=== PATIENT | female | born 1965 | race Caucasian/White ===

== ENCOUNTER 2016-04-07 05:00 | Inpatient (IN) | payer OTHER, SELFPAY ==
[~2016-04-07] VITALS: Ht 175.3 cm; Wt 115.2 kg
[2016-04-07] VITALS (8 sets, daily range): BP systolic 132–176; BP diastolic 71–89
[2016-04-07] MEDS: NS 1,000 ML IV SCH ×3 (02:42→15:52)
[~2016-04-07 05:00] MED LIST: /MOXI40TA PO; ALBU0.084 IN; ALBU17IN INH; ALBU83IN INH; ALBUTEROL INHL INH; ALLE180T33 PO; ALPR0.25 PO; ATOR1TAB19 PO; AZEL0.1S3; BREO1INH3 INH; BRIO INH; CEFD1CAP8 PO; ELIQ5TAB PO; FARX1TAB2 PO; FENO134C PO; FISH1000 PO; FLON1SPR; GLIM1TAB PO; GLYB5TA PO; INSULANT SC; LISI5TAB PO; LOPR1TAB6 PO; METF1000 PO; MULT1TAB8 PO; NOVOINJ3 SC; PRED10TA PO; ROBISYP5 PO; SIMV40TA2 PO; TIZA2TA PO; TRAM50TA2 PO; TYLE325T5 PO; VICT18IN SC; XANA0.25 PO; XYZA5TAB2 PO; z-pack
[2016-04-07] MEDS ORDERED: MORPHINE 4 MG/ML 1ML SYRINGE As Ordered ONE ×2 (07:07→08:41)
[2016-04-07] MEDS ORDERED: ONDANSETRON 4MG/2ML VIAL (J2405) As Ordered ONE ×2 (07:07→17:32)
[2016-04-07 07:11] LABS: BASO % 0.3 % (0.0-1.0); EOS # 0.1 K/mm3 (0.0-0.50); EOS % 1.1 % (0.0-3.0); LARGE UNSTAINED CELL # 0.2 K/mm3 (0.0-0.4); LYMPH # 1.5 K/mm3 (1.5-4.5); LYMPH % 12.2 % (24.0-44.0); MEAN CORPUSCULAR HEMOGLOBIN 29.2 pg (27.0-33.0); MEAN CORPUSCULAR HGB CONC 32.8 g/dl (32.0-36.5); MEAN CORPUSCULAR VOLUME 89.2 fl (80.0-96.0); MONO # 0.5 K/mm3 (0.0-0.8); NEUTROPHILS # 9.7 K/mm3 (1.8-7.7); NEUTROPHILS % 80.6 % (36.0-66.0); PLATELET COUNT, AUTOMATED 343 k/mm3 (150-450); RED CELL DISTRIBUTION WIDTH 12.3 % (11.5-14.5)
[2016-04-07 07:24] LABS: ALBUMIN 2.8 GM/DL (3.2-5.2); ALBUMIN/GLOBULIN RATIO 0.62 (1.00-1.93); ALKALINE PHOSPHATASE 105 U/L (45-117); ALT/SGPT 11 U/L (12-78); AMYLASE 14 U/L (25-115); ANION GAP 11 MEQ/L (8-16); AST/SGOT 7 U/L (15-37); BILIRUBIN,DIRECT < 0.1 MG/DL (0.0-0.2); BILIRUBIN,TOTAL 0.2 MG/DL (0.2-1.0); BLOOD UREA NITROGEN 17 MG/DL (7-18); CALCIUM LEVEL 8.3 MG/DL (8.5-10.1); CARBON DIOXIDE LEVEL 23 MEQ/L (21-32); CHLORIDE LEVEL 102 MEQ/L (98-107); CREATININE FOR GFR 0.63 MG/DL (0.55-1.02); GLOMERULAR FILTRATION RATE > 60.0 (>51); GLUCOSE, FASTING 329 MG/DL (70-105); POTASSIUM SERUM 4.4 MEQ/L (3.5-5.1); SODIUM LEVEL 136 MEQ/L (136-145); TOTAL PROTEIN 7.3 GM/DL (6.4-8.2)
[2016-04-07 07:31] LABS: THYROXINE (T4) 10.9 UG/DL (4.5-12.0)
--- NOTE | 2016-04-07 09:14 | REP ---
Clinical: Left-sided pain. Findings: Left kidney demonstrates edematous enlargement along with moderate perinephric stranding, hydronephrosis, forming intra renal staghorn calculus measuring roughly 22 mm as well as 10 mm lower pole calculus and small foci of gas in the upper pole pole calyceal collecting system. Perinephric adenopathy is also appreciated with lymph nodes measuring up to 18 mm. The left ureter is normal caliber without obstruction no bladder calculi are identified although small focus of gas is also identified in the nondependent portion of the bladder and possibly related to prior instrumentation or [place] catheterization. Differential diagnosis includes acute pyelonephritis and emphysematous pyelonephritis if the above mentioned gas is not related to prior instrumentation. The right kidney and ureter are normal. Liver, spleen, pancreas, gallbladder, and bilateral adrenal glands are normal for noncontrast evaluation. The enteric system is without obstruction or acute inflammatory process. Scattered colonic and sigmoid diverticula noted without acute diverticulitis. Pelvis demonstrates relatively normal bladder and age-appropriate uterus/adnexa. No pelvic fluid or ascites. No free air. Vasculature is grossly normal. Musculoskeletal structures demonstrate age-related degenerative changes. Acute left lower lobe and lingular consolidations are noted. Impression: 1. Left renal findings as detailed above are most compatible with acute pyelonephritis verses emphysematous pyelonephritis. Intrarenal calculi up to 22 mm may cause intermittent UPJ obstruction related to the inflammatory changes. 2. Left lower lobe and lingular consolidations. 3. Diverticulosis without acute diverticulitis. Signed by Myke Agarwal MD 04/07/2016 09:06 A
[2016-04-07] MEDS ORDERED: PRIMAXIN IV 500 MG VIAL As Ordered ONE (10:23)
[2016-04-07 11:06] LABS: INR 0.96
[2016-04-07] MEDS ORDERED: ONDANSETRON 4MG/2ML VIAL (J2405) IV PRN ×2 (11:15→18:45)
[2016-04-07] MEDS ORDERED: ACETAMINOPHEN TAB 650MG DOSE (2X325MG) PO PRN (11:15)
--- NOTE | 2016-04-07 11:15 | REP ---
Clinical: Shortness of breath. Comparison: 03/09/2016. Findings: Left lower lobe opacity. Mediastinum and cardiac silhouette are stable. The remainder of lung renteria are well-aerated and clear. No pneumothorax. Skeletal structures stable. Impression: Left lower lobe opacity suggesting consolidation and/or pleural effusion. Signed by Myke Agarwal MD 04/07/2016 11:06 A
[2016-04-07] MEDS ORDERED: INSUH10VL SC (11:16)
[2016-04-07] MEDS ORDERED: XARE20TA PO (11:16)
[2016-04-07] MEDS ORDERED: ACET50TAOT PO (11:16)
[2016-04-07] MEDS ORDERED: METO50TA2 PO (11:16)
[2016-04-07] MEDS ORDERED: VANCOMYCIN HCL 1,000 MG, VIAL MATE ADAPTER 1 EACH in D5W 250 ML IV SCH (11:45)
[2016-04-07 11:57] LABS: VENOUS BASE EXCESS -1.3 (-2.0-2.0); VENOUS O2 SATURATION 90.8 % (60.0-80.0); VENOUS PARTIAL PRESSURE CO2 41.6 mmHg (38.0-50.0); VENOUS PARTIAL PRESSURE O2 63.9 mmHg (30.0-50.0); VENOUS STANDARD HCO3 23.3 MEQ/L; VENOUS TOTAL CO2 25.1 MEQ/L (24.0-28.0)
[2016-04-07] MEDS ORDERED: PANTOPRAZOLE 40MG INJ (PROTONIX) (C9113) As Ordered ONE (13:27)
[2016-04-07] MEDS ORDERED: SODIUM CHLORIDE 0.9% 1000 ML IV ONE ×2 (13:30→14:30)
[2016-04-07] MEDS ORDERED: MORPHINE 2 MG/ML 1ML SYRINGE As Ordered ONE (13:31)
[2016-04-07] MEDS: PANTOPRAZOLE 40MG INJ (PROTONIX) (C9113) IV SCH (13:35)
[2016-04-07] MEDS: MORPHINE 2 MG/ML 1ML SYRINGE IV PRN ×2 (13:35→19:51)
--- NOTE | 2016-04-07 13:46 | PHACANCOPD ---
PHARMACY VANCOMYCIN DOSING Pt Demographics Demographics Patient Age:50 , Weight:113.400 , Gender: female Adjusted Body Weight Date: 04/07/16, Adjusted Body Weight: [85.08] Kg Events Past 24 Hours Events Past 24 Hours: YES: Elevation in WBC, Other (Chest Xray LLL opacity), Pending Diagnostics Vancomycin Vancomycin indication: hcap Vancomycin Target Ranges: 15-20 mcg/ml Vancomycin Load Y/N: Yes Load Dose Date Time Vancomycin Load Dose: 2g Date: 04/07/16 Time: 1500 Vancomycin Dose Date: 04/07/16. Current Vancomycin Dose: [1g IV Q8H] Intermittent Dosing?: No Labs Labs Item Value Date Time White Blood Count 12.0 K/mm3 H 04/07/16 0635 Creatinine 0.63 MG/DL 04/07/16 0635 Micro Microbiology 04/07/16 Blood Culture, Received Pending 04/07/16 Blood Culture, Received Pending 04/07/16 Influenza Virus Type A Antigen - Final, Complete 04/07/16 Influenza Virus Type B Antigen - Final, Complete 04/07/16 Urine Culture, Received Pending Creatinine Clearance Date:04/07/16. Estimated Creatinine Clearance: [> 100 ml/min]. Pending Labs Vancomycin trough scheduled 04/08/16 @1400 Assessment and Plan Maintaining Current Dose?: Yes Reason for dose change: No Dose Change Pharmacist Note Pharmacist Note Date: 04/07/16. Pharmacist note: Day #1 empiric cefepime + vancomycin initiated with a 2g loading dose 04/07/16 @1500 followed by a maintenance regimen of 1g IV Q8H for the treatment of HCAP - aiming for a goal trough of 15-20 mcg/ml. No PMH of MRSA or vanco use here at [facility]. Patient is currently afebrile with an elevated WBC. CXR indicative of LLL opacity. Urine and blood cultures are currently pending. A vanco trough has been scheduled for 04/08/16 @ 1400, prior to the fourth dose. We will continue to monitor and make adjustments as needed. [facility] Apr 07, 2016 13:46
[2016-04-07] MEDS ORDERED: CEFEPIME HCL 2 GM in D5W MINI-BAG PLUS 50 ML IV SCH (14:00)
[2016-04-07] MEDS: VANCOMYCIN HCL 1,000 MG, VIAL MATE ADAPTER 1 EACH in D5W 250 ML IV SCH ×3 (15:52→23:32)
--- NOTE | 2016-04-07 16:33 | EDDOCDS ---
Nurse's Notes [facility] Name: Dora Osorio Age: 50 yrs Sex: Female : 1965 Arrival Date: 04/07/2016 Time: 05:00 Bed Admit Hold Private MD: Diagnosis: Urinary tract infection, site not specified-emphysematous pyelonepritis;Pneumonia due to other specified bacteria Presentation: 04/07 05:14 Presenting complaint: Patient states: Left flank pain that began at 0300 this morning lf1 and is currently 10/10 with nausea. Denies burning with urination. Acute neurological deficits are not present. Mechanism of Injury: No Mechanism of Injury. 05:14 Acuity: EDDIE Level 3 lf1 05:14 Presenting complaint: Patient states: Pt reports that she now has left chest pain that lf1 is 6/10 and is reproducible, does not radiate. Adult Sepsis Screening: The patient does not have new or worsening altered mentation. Patient has a respiratory rate of greater than or equal to 22 (1 point). Systolic blood pressure is greater than 100. Patient has a qSOFA score of 1- Negative Sepsis Screen. Suicide/Homicide risk assessment- the patient denies having any suicidal and/or homicidal ideations and does not present with any other emotional, behavioral or mental health complaints. Status: Patient is not a patient services coordinator or dependent. Transition of care: patient was not received from another setting of care. 05:14 Method Of Arrival: Wheelchair lf1 Triage Assessment: 05:25 General: Appears uncomfortable, Behavior is cooperative. Pain: Location: anterior lf1 aspect of left upper chest and left flank Pain currently is 10 out of 10 on a pain scale. Pain began 2 hours ago. HIV screening NA for this visit Offered previously. Neurological: Level of Consciousness is awake, alert. EENT: No deficits noted. Cardiovascular: Chest pain is located in left anterior. Respiratory: Respiratory effort is even, pursed lip, Reports shortness of breath. GI: Reports nausea. Derm: Skin is normal. Musculoskeletal: Reports chronic neck and left arm pain. EMERGENCY MEDICAL TECH: 05:25 3, Living 3, LMP 03/27/2016 lf1 Historical: - Allergies: Ibuprofen (was told to not take due to shellfish allergy); SHELLFISH (Swelling); SULFA (SULFONAMIDES) (Hives); Zithromax (Hives, Swelling); - Home Meds: 1. albuterol sulfate 2.5 mg /3 mL (0.083 %) Inhl nebu 3 mL QID prn 2. Breo Ellipta 100-25 mcg/dose inhalation dsdv 1 puff once daily 3. glyburide 5 mg Oral tab 2 tabs 2 times per day 4. tizanidine 2 mg oral tab 5. azelastine 137 mcg (0.1 %) nasal spra 6. Xarelto 20 mg oral tab 1 tab once daily 7. levocetirizine 5 mg oral tab once daily 8. metformin 1,000 mg Oral tab 1 tab 2 times per day 9. Farxiga 5 mg oral tab 1 tab once daily 10. metoprolol tartrate 50 mg Oral tab 1 tab 2 times per day 11. Xanax 0.25 mg Oral tab 2 tabs as needed - PMHx: Anxiety; Asthma; Diabetes - NIDDM: uncontrolled; Hypercholesterolemia; Hypertension; Pinched nerve in left arm; - PSHx: Sinus Surgery; Spinal Fusion; Tubal ligation; Tonsillectomy; Ankle Arthroplasty, Left; - Social history: Smoking status: Patient states former smoker of tobacco. No barriers to communication noted, The patient speaks fluent Nepali, Speaks appropriately for age, Preferred Language: Nepali. - Family history: Not pertinent. - : The pt / caregiver states he / she is not on anticoagulants. Home medication list is obtained from pill bottles. 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 Screenin:37 Screening information is obtained from the patient. Fall risk: No risks identified. af2 Assistance ADL's: requires no assistance with activities of daily living. Abuse/DV Screen: The patient / caregiver reports he/she is: not in a situation that causes fear, pain or injury. Nutritional screening: No deficits noted. Advance Directives: Currently, there is no health care proxy. home support is adequate. Assessment: 06:37 General: Appears in no apparent distress, comfortable, Behavior is appropriate for age, af2 cooperative, pt found lying on stretcher resting quietly with eyes closed, arouses easily to name. family at bedside.. Pain: Location: abdomen Pain currently is 6 out of 10 on a pain scale. Neurological: Level of Consciousness is awake, alert, obeys commands, Oriented to person, place, time. Cardiovascular: Heart tones S1 S2 present. Respiratory: Airway is patent Respiratory effort is even, unlabored, Breath sounds are clear bilaterally. GI: Abdomen is non- distended Bowel sounds present X 4 quads. Reports upper abdominal pain, nausea. GI: Abdomen is obese. Derm: Skin is normal. 07:15 General: Appears in no apparent distress, comfortable, Behavior is appropriate for age, ck1 cooperative. Pain: Location: left lower quadrant Pain currently is 9 out of 10 on a pain scale. Pain radiates to left flank. Neurological: Level of Consciousness is awake, alert, obeys commands, Oriented to person, place, time. Respiratory: Respiratory effort is unlabored, Respiratory pattern is regular, symmetrical. GI: Reports nausea. : Denies burning with urination, inability to void, urinary frequency, vaginal bleeding. Derm: Skin is normal. 08:44 General: Patient complaining of worsening pain 8/10. Medicated per orders. Call light ck1 in reach, family members at bedside. Will continue to monitor patient. 09:43 General: Appears in no apparent distress, comfortable, Behavior is appropriate for age, ck1 cooperative. Pain: Location: left lower quadrant Pain currently is 4 out of 10 on a pain scale. Neurological: Level of Consciousness is awake, alert, obeys commands, Oriented to person, place, time. Cardiovascular: No deficits noted. Respiratory: Respiratory effort is unlabored, Respiratory pattern is regular, symmetrical. GI: Denies nausea, vomiting. Derm: Skin is pink, warm & dry. 10:34 General: Appears distressed, Behavior is crying. Pain: Location: left lower quadrant ck1 Pain currently is 4 out of 10 on a pain scale. Neurological: Level of Consciousness is awake, alert, obeys commands, Oriented to person, place, time. Respiratory: Respiratory effort is unlabored, Respiratory pattern is regular, symmetrical. GI: Denies nausea, vomiting. Derm: Skin is pink, warm & dry. 11:34 General: Appears in no apparent distress, comfortable, Behavior is appropriate for age, ck1 cooperative. Pain: Location: left flank Pain currently is 8 out of 10 on a pain scale. Neurological: Level of Consciousness is awake, alert, obeys commands, Oriented to person, place, time. Respiratory: Airway is patent Respiratory effort is unlabored, Respiratory pattern is regular, symmetrical. GI: Reports nausea. Derm: Skin is pink, warm & dry. Musculoskeletal: No deficits noted. Vital Signs: 05:14 BP 135 / 82; Pulse 94; Resp 24; Temp 97.9(O); Pulse Ox 98% on R/A; Weight 113.4 kg (R); lf1 Height 5 ft. 9 in. (175.26 cm) (R); Pain 10/10; 07:36 BP 109 / 64 (auto/); ck1 07:38 BP 109 / 64; Pulse 90; Resp 18; Temp 96.6(T); Pulse Ox 96% on R/A; Pain 5/10; ck1 09:20 BP 127 / 61 (auto/); ck1 09:22 Pulse Ox 94% ; ck1 09:23 BP 127 / 61; Pulse 92; Resp 18; Temp 98.8(O); Pulse Ox 94% on R/A; Pain 4/10; ck1 11:46 BP 132 / 73 (auto/); ck1 11:47 Pulse Ox 96% ; ck1 11:48 Pulse Ox 96% ; ck1 05:14 Body Mass Index 36.92 (113.40 kg, 175.26 cm) [facility] Vitals: 05:14 Log In Time: April 07, 2016 at 05:02. [facility] ED Course: 05:01 Patient visited by Hilda Salazar Reg. hs2 05:01 Patient moved to Waiting hs2 05:14 Patient moved to Triage 1 [facility] 05:16 Triage Initiated 1 05:28 Bobbi ParraRN is Primary Nurse. 1 05:28 Patient moved to 17 [facility] 05:42 Patient visited by Florina Street RN. [facility] 05:49 EKG done. (by ED staff). Reviewed by Shaheed Osorio DO. jl 05:50 Patient visited by Louisa Malagon, Media Supervisor. jlm 06:37 Inserted saline lock: 18 gauge in left antecubital area and blood collected. The af2 patient tolerated the procedure well. 06:40 Patient visited by Bobbi Parra RN. af2 06:40 The patient / caregiver is instructed regarding the plan of care and ED course. Patient af2 has correct armband on for positive identification. Placed in gown. 06:54 Re Spaulding MD is Attending Physician. sd1 06:54 Patient visited by Re Spaulding MD. sd1 06:57 Micki Luther,RN is Primary Nurse. ck1 07:05 Thyroid Profile Sent. ck1 07:05 Amylase Sent. ck1 07:05 Basic Metabolic Profile Sent. ck1 07:05 CBC with Diff Sent. ck1 07:05 Lipase Sent. ck1 07:05 Liver Profile Sent. ck1 07:14 Patient visited by Micki Luther RN. ck1 07:15 Primary Nurse role handed off by Bobbi Parra RN mcp 07:25 [facility] Payment Agreement was scanned into [email or web address] and attached to record. hs2 07:29 Patient visited by Micki Luther RN. ck1 08:02 Patient visited by Micki Luther,JENNIFER. ck1 08:38 Patient visited by Micki Luther,JENNIFER. ck1 09:19 Patient visited by Micki Luther,JENNIFER. ck1 09:20 CT ABD & PELVIS: No Contrast Returned. EDMS 09:36 Patient visited by Gina Lawrence PCA. jlf 09:36 Urine Culture Sent. jlf 09:36 Urinalysis Sent. jlf 09:36 -Blood Culture Sent. jlf 09:43 BLOOD CULTURES Sent. ck1 10:07 Patient visited by Gina Lawrence PCA. jlf 10:33 Patient visited by Micki Luther,JENNIFER. ck1 11:04 Patient visited by Micki Luther,JENNIFER. ck1 11:16 Ortega Marquez is Hospitalizing Provider. sd1 11:29 Chest, 1 View Returned. EDMS 11:43 -Influenza A&B Rapid Antigen - Nose Sent. ck1 11:43 Type & Screen Sent. ck1 12:25 Patient moved to 19 jlf 13:06 Patient moved to 20 jlf 13:48 Patient moved to Admit Hold dy Administered Medications: 07:14 Drug: morphine 4 mg [morphine 4 mg/mL intravenous cartridge (1 mL)] Route: IVP; Site: ck1 left antecubital; 07:38 Follow up: BP 109 / 64; Pulse 90 bpm; Resp 18 bpm; Temp 96.6 Tympanic; Pulse Ox 96% RA; ck1 Pain 5/10 Adult; Response: Confirmed pt not driving.; No Adverse Reaction; Pain is decreased 07:14 Drug: Ondansetron 4 mg [ondansetron HCl 2 mg/mL intravenous solution (2 mL)] Route: ck1 IVP; Site: left antecubital; 07:14 Drug: NS 0.9% 1000 ml [sodium chloride 0.9 % intravenous solution] Route: IV; Rate: 150 ck1 mL/hr; Site: left antecubital; 08:44 Drug: morphine 4 mg [morphine 4 mg/mL intravenous cartridge (1 mL)] Route: IVP; Site: ck1 left antecubital; 09:23 Follow up: BP 127 / 61; Pulse 92 bpm; Resp 18 bpm; Temp 98.8 Oral; Pulse Ox 94% RA; ck1 Pain 4/10 Adult; Response: Confirmed pt not driving.; No Adverse Reaction; Pain is decreased 10:22 Not Given (other usedd): cefTRIAXone 1 grams IVPB once over 30 mins; dilute in 50mL of sd1 NS or D5W 10:33 Drug: Imipenem-Cilastatin 500 mg [imipenem-cilastatin 500 mg intravenous solution] ck1 Route: IVPB; Rate: 100 mL/hr; Infused Over: 1 hrs; Site: left antecubital; Order Results: Lab Order: Amylase; SPEC'M 04/07/16 06:35 Test: AMYLASE; Value: 14; Range: 25-115; Abnormal: Below low normal; Units: U/L; Status: F Lab Order: Basic Metabolic Profile; SPEC'M 04/07/16 06:35 Test: GLUCOSE, FASTING; Value: 329; Range: 70-105; Abnormal: Above high normal; Units: MG/DL; Status: F Test: BLOOD UREA NITROGEN; Value: 17; Range: 7-18; Units: MG/DL; Status: F Test: CREATININE FOR GFR; Value: 0.63; Range: 0.55-1.02; Units: MG/DL; Status: F Test: GLOMERULAR FILTRATION RATE; Value: > 60.0; Range: >51; Status: F Test: SODIUM LEVEL; Value: 136; Range: 136-145; Units: MEQ/L; Status: F Test: POTASSIUM SERUM; Value: 4.4; Range: 3.5-5.1; Units: MEQ/L; Status: F Test: CHLORIDE LEVEL; Value: 102; Range: 98-107; Units: MEQ/L; Status: F Test: CARBON DIOXIDE LEVEL; Value: 23; Range: 21-32; Units: MEQ/L; Status: F Test: ANION GAP; Value: 11; Range: 8-16; Units: MEQ/L; Status: F Test: CALCIUM LEVEL; Value: 8.3; Range: 8.5-10.1; Abnormal: Below low normal; Units: MG/DL; Status: F Test Note: ; Units are mL/min/1.73 m2 Chronic Kidney Disease Staging per NKF: Stage I & II GFR >=60 Normal to Mildly Decreased Stage III GFR 30-59 Moderately Decreased Stage IV GFR 15-29 Severely Decreased Stage V GFR <15 Very Little GFR Left ESRD GFR <15 on AUTO SERVICE REPRESENTATIVE Lab Order: CBC with Diff; SPEC'M 04/07/16 06:35 Test: WHITE BLOOD COUNT; Value: 12.0; Range: 4.0-10.0; Abnormal: Above high normal; Units: K/mm3; Status: F Test: RED BLOOD COUNT; Value: 3.86; Range: 4.00-5.40; Abnormal: Below low normal; Units: M/mm3; Status: F Test: HEMOGLOBIN; Value: 11.3; Range: 12.0-16.0; Abnormal: Below low normal; Units: g/dl; Status: F Test: HEMATOCRIT; Value: 34.4; Range: 36.0-47.0; Abnormal: Below low normal; Units: %; Status: F Test: MEAN CORPUSCULAR VOLUME; Value: 89.2; Range: 80.0-96.0; Units: fl; Status: F Test: MEAN CORPUSCULAR HEMOGLOBIN; Value: 29.2; Range: 27.0-33.0; Units: pg; Status: F Test: MEAN CORPUSCULAR HGB CONC; Value: 32.8; Range: 32.0-36.5; Units: g/dl; Status: F Test: RED CELL DISTRIBUTION WIDTH; Value: 12.3; Range: 11.5-14.5; Units: %; Status: F Test: PLATELET COUNT, AUTOMATED; Value: 343; Range: 150-450; Units: k/mm3; Status: F Test: NEUTROPHILS %; Value: 80.6; Range: 36.0-66.0; Abnormal: Above high normal; Units: %; Status: F Test: LYMPH %; Value: 12.2; Range: 24.0-44.0; Abnormal: Below low normal; Units: %; Status: F Test: MONO %; Value: 4.0; Range: 0.0-5.0; Units: %; Status: F Test: EOS %; Value: 1.1; Range: 0.0-3.0; Units: %; Status: F Test: BASO %; Value: 0.3; Range: 0.0-1.0; Units: %; Status: F Test: LARGE UNSTAINED CELL %; Value: 2.0; Range: 0.0-4.0; Units: %; Status: F Test: NEUTROPHILS #; Value: 9.7; Range: 1.8-7.7; Abnormal: Above high normal; Units: K/mm3; Status: F Test: LYMPH #; Value: 1.5; Range: 1.5-4.5; Units: K/mm3; Status: F Test: MONO #; Value: 0.5; Range: 0.0-0.8; Units: K/mm3; Status: F Test: EOS #; Value: 0.1; Range: 0.0-0.50; Units: K/mm3; Status: F Test: BASO #; Value: 0.0; Range: 0.0-0.2; Units: K/mm3; Status: F Test: LARGE UNSTAINED CELL #; Value: 0.2; Range: 0.0-0.4; Units: K/mm3; Status: F Lab Order: Lipase; SPEC'M 04/07/16 06:35 Test: LIPASE; Value: 85; Range: 73-393; Units: U/L; Status: F Lab Order: Liver Profile; SPEC'M 04/07/16 06:35 Test: AST/SGOT; Value: 7; Range: 15-37; Abnormal: Below low normal; Units: U/L; Status: F Test: ALT/SGPT; Value: 11; Range: 12-78; Abnormal: Below low normal; Units: U/L; Status: F Test: ALKALINE PHOSPHATASE; Value: 105; Range: 45-117; Units: U/L; Status: F Test: BILIRUBIN,TOTAL; Value: 0.2; Range: 0.2-1.0; Units: MG/DL; Status: F Test: BILIRUBIN,DIRECT; Value: < 0.1; Range: 0.0-0.2; Units: MG/DL; Status: F Test: TOTAL PROTEIN; Value: 7.3; Range: 6.4-8.2; Units: GM/DL; Status: F Test: ALBUMIN; Value: 2.8; Range: 3.2-5.2; Abnormal: Below low normal; Units: GM/DL; Status: F Test: ALBUMIN/GLOBULIN RATIO; Value: 0.62; Range: 1.00-1.93; Abnormal: Below low normal; Status: F Lab Order: Urinalysis; SPEC'M 04/07/16 09:29 Test: APPEARANCE, URINE; Value: HAZY; Range: CLEAR; Status: F Test: COLOR, URINE; Value: YELLOW; Range: YELLOW; Status: F Test: PH,URINE; Value: 5.0; Range: 5.0-9.0; Units: UNITS; Status: F Test: SPECIFIC GRAVITY URINE AUTO; Value: 1.027; Range: 1.002-1.035; Status: F Test: PROTEIN, URINE AUTO; Value: NEGATIVE; Range: NEGATIVE; Units: mg/dL; Status: F Test: GLUCOSE, URINE (UA) AUTO; Value: 3+; Range: NEGATIVE; Abnormal: Above high normal; Units: mg/dL; Status: F Test: KETONE, URINE AUTO; Value: TRACE; Range: NEGATIVE; Abnormal: Above high normal; Units: mg/dL; Status: F Test: UROBILINOGEN, URINE AUTO; Value: 0.2; Range: 0.0-2.0; Units: mg/dL; Status: F Test: BILIRUBIN, URINE AUTO; Value: NEGATIVE; Range: NEGATIVE; Status: F Test: NITRITE, URINE AUTO; Value: NEGATIVE; Range: NEGATIVE; Status: F Test: LEUKOCYTE ESTERASE, URINE AUTO; Value: 2+; Range: NEGATIVE; Abnormal: Above high normal; Status: F Test: BLOOD, URINE BLOOD; Value: 2+; Range: NEGATIVE; Abnormal: Above high normal; Status: F Test: WBC, URINE AUTO; Value: 64; Range: 0-3; Abnormal: Above high normal; Units: /HPF; Status: F Test: RBC, URINE AUTO; Value: 8; Range: 0-3; Abnormal: Above high normal; Units: /HPF; Status: F Test: BACTERIA, URINE AUTO; Value: NEGATIVE; Range: NEGATIVE; Status: F Test: SQUAMOUS EPITHELIAL CELL UR AU; Value: 2; Range: 0-6; Units: /HPF; Status: F Test: MUCUS, URINE; Value: SMALL; Range: NEGATIVE; Status: F Test: HYALINE CAST, URINE AUTO; Value: 0; Range: 0-1; Units: /LPF; Status: F Lab Order: Thyroid Profile; [facility] 04/07/16 06:35 Test: T UPTAKE; Value: 32; Range: 30-39; Units: %; Status: F Test: THYROXINE (T4); Value: 10.9; Range: 4.5-12.0; Units: UG/DL; Status: F Test: FREE THYROXINE INDEX; Value: 3.5; Range: 1.3-4.8; Units: %; Status: F Test: THYROID STIMULATING HORMONE; Value: 2.130; Range: 0.358-3.740; Units: uIU/ML; Status: F Lab Order: PT/INR; [facility] 04/07/16 06:35 Test: PROTHROMBIN TIME; Value: 12.9; Range: 12.3-14.5; Units: SECONDS; Status: F Test: INR; Value: 0.96; Status: F Test Note: ; THERAPUTIC HUMAN INR VALUES INDICATIONS NORMAL RANGES PROPHYLAXIS/TREATMENT OF: VENOUS THROMBOSIS 2.0-3.0 PULMONARY EMBOLISM 2.0-3.0 PREVENTION OF SYSTEMIC EMBOLISM FROM: TISSUE HEART VALVES 2.0-3.0 ACUTE MYOCARDIAL INFARCTION 2.0-3.0 VALVULAR HEART DISEASE 2.0-3.0 ATRIAL FIBRILLATION 2.0-3.0 MECHANICAL VALVES(HIGH RISK) 2.5-3.5 RECURRENT MYOCARDIAL INFARCTION 2.5-3.5 Lab Order: Type & Screen; [facility] 04/07/16 11:42 Test: BLOOD TYPE; Value: A POS; Status: F Test: AB SCREEN (INDIRECT SABRA)GEL; Value: NEGATIVE; Status: F Lab Order: -Influenza A&B Rapid Antigen - Nose; SPEC'M 04/07/16 11:42 Test: INFLUENZA A RAPID SCR by ICA; Value: INFLUENZA A RESULTS NEGATIVE; Status: F Test: INFLUENZA A RAPID SCR by ICA; Value: Comments:; Status: F Test: INFLUENZA B RAPID SCR by ICA; Value: INFLUENZA B RESULTS NEGATIVE; Status: F Test Note: ; The Influenza test is a direct rapid immunoassay for the qualitative detection of Influenza viral antigen. Cell culture (Viral Culture) testing should be considered to confirm NEGATIVE results and to assist in detecting other viruses that can provide similar clinical symptoms. Please contact the lab within 24 hours ([phone] if confirmatory testing is desired. Lab Order: LACTIC ACID LEVEL, LACTATE; SPEC'M 04/07/16 11:27 Test: LACTIC ACID LEVEL, LACTATE; Value: 0.9; Range: 0.4-2.0; Units: MMOL/L; Status: F Lab Order: VENOUS BLOOD GAS; SPEC'M 04/07/16 11:27 Test: VENOUS PH; Value: 7.376; Range: 7.330-7.430; Units: UNITS; Status: F Test: VENOUS PARTIAL PRESSURE CO2; Value: 41.6; Range: 38.0-50.0; Units: mmHg; Status: F Test: VENOUS PARTIAL PRESSURE O2; Value: 63.9; Range: 30.0-50.0; Abnormal: Above high normal; Units: mmHg; Status: F Test: VENOUS TOTAL CO2; Value: 25.1; Range: 24.0-28.0; Units: MEQ/L; Status: F Test: VENOUS HCO3; Value: 23.8; Range: 23.0-27.0; Units: MEQ/L; Status: F Test: VENOUS BASE EXCESS; Value: -1.3; Range: -2.0-2.0; Status: F Test: VENOUS STANDARD HCO3; Value: 23.3; Units: MEQ/L; Status: F Test: VENOUS O2 SATURATION; Value: 90.8; Range: 60.0-80.0; Abnormal: Above high normal; Units: %; Status: F Lab Order: CARDIAC MARKER PANEL; SPEC'M 04/07/16 11:27 Test: CPK CREATINE PHOSPHOKINASE; Value: 37; Range: 26-192; Units: U/L; Status: F Test: CK-MB VALUE MASS; Value: 1.0; Range: 0.0-3.6; Units: NG/ML; Status: F Test: MB/CK RELATIVE INDEX; Value: 2.70; Range: < OR =4; Status: F Test: TROPONIN I; Value: < 0.02; Range: < 0.10; Units: NG/ML; Status: F Test Note: ; DIAGNOSIS CRITERIA MMB ng/ml Relative Index (RI) NON-AMI < or = 5 N/A [place] > 5 < or = 4 AMI > 5 > 4 Radiology Order: CT ABD & PELVIS: No Contrast Test: CT ABD & PELVIS: No Contrast REASON FOR EXAMINATION: left lower abd pain ;Diverticulitis/LLQ Pain; Clinical: Left-sided pain.; ; Findings:; Left kidney demonstrates edematous enlargement along with moderate perinephric; stranding, hydronephrosis, forming intra renal staghorn calculus measuring; roughly 22 mm as well as 10 mm lower pole calculus and small foci of gas in the; upper pole pole calyceal collecting system. Perinephric adenopathy is also; appreciated with lymph nodes measuring up to 18 mm. The left ureter is normal; caliber without obstruction no bladder calculi are identified although small; focus of gas is also identified in the nondependent portion of the bladder and; possibly related to prior instrumentation or [place] catheterization. Differential; diagnosis includes acute pyelonephritis and emphysematous pyelonephritis if the; above mentioned gas is not related to prior instrumentation. The right kidney; and ureter are normal.; ; Liver, spleen, pancreas, gallbladder, and bilateral adrenal glands are normal for; noncontrast evaluation. The enteric system is without obstruction or acute; inflammatory process. Scattered colonic and sigmoid diverticula noted without; acute diverticulitis. Pelvis demonstrates relatively normal bladder and; age-appropriate uterus/adnexa. No pelvic fluid or ascites. No free air.; Vasculature is grossly normal. Musculoskeletal structures demonstrate; age-related degenerative changes.; ; Acute left lower lobe and lingular consolidations are noted.; ; Impression:; 1. Left renal findings as detailed above are most compatible with acute; pyelonephritis verses emphysematous pyelonephritis. Intrarenal calculi up to 22; mm may cause intermittent UPJ obstruction related to the inflammatory changes.; 2. Left lower lobe and lingular consolidations.; 3. Diverticulosis without acute diverticulitis.; ; ; ; ; Signed by; Myke Agarwal MD 04/07/2016 09:06 A; Radiology Order: Chest, 1 View Test: Chest, 1 View REASON FOR EXAMINATION: Shortness of Breath; Clinical: Shortness of breath.; ; Comparison: 03/09/2016.; ; Findings:; Left lower lobe opacity.; Mediastinum and cardiac silhouette are stable. The remainder of lung renteria are; well-aerated and clear. No pneumothorax. Skeletal structures stable.; ; Impression:; Left lower lobe opacity suggesting consolidation and/or pleural effusion.; ; ; Signed by; Myke Agarwal MD 04/07/2016 11:06 A; Outcome: 11:16 Decision to Hospitalize by Provider. sd1 16:32 Patient left the ED. dy Signatures: Dispatcher [employer] EDMS Re Spaulding MD MD sd1 Khushi Woodson, RN RN Michele Vee, RN Micki PhillipRN RN ck1 Luann Isaac,RN RN lf1 Gina Lawrence, PATIENT EDUCATOR PATIENT EDUCATOR adelaf Louisa Malagon, Media Supervisor Unit Bobbi Carl,RN RN af2 Hilda Salazar, Dickson Reg hs2 [address]ina Street,RN RN kas2 MTDD
--- NOTE | 2016-04-07 16:33 | EDDOCDS ---
Physician Documentation [facility] Name: Dora Osorio Age: 50 yrs Sex: Female : 1965 Arrival Date: 04/07/2016 Time: 05:00 Bed Admit Hold Private MD: Disposition: 04/07/16 11:16 Hospitalization ordered by Ortega Marquez for Inpatient Admission. Preliminary diagnosis are Urinary tract infection, site not specified - emphysematous pyelonepritis, Pneumonia due to other specified bacteria. - Bed requested for PCU. - Status is Inpatient Admission. dy - Condition is Stable. - Problem is new. - Symptoms are unchanged. Historical: - Allergies: Ibuprofen (was told to not take due to shellfish allergy); SHELLFISH (Swelling); SULFA (SULFONAMIDES) (Hives); Zithromax (Hives, Swelling); - Home Meds: 1. albuterol sulfate 2.5 mg /3 mL (0.083 %) Inhl nebu 3 mL QID prn 2. Breo Ellipta 100-25 mcg/dose inhalation dsdv 1 puff once daily 3. glyburide 5 mg Oral tab 2 tabs 2 times per day 4. tizanidine 2 mg oral tab 5. azelastine 137 mcg (0.1 %) nasal spra 6. Xarelto 20 mg oral tab 1 tab once daily 7. levocetirizine 5 mg oral tab once daily 8. metformin 1,000 mg Oral tab 1 tab 2 times per day 9. Farxiga 5 mg oral tab 1 tab once daily 10. metoprolol tartrate 50 mg Oral tab 1 tab 2 times per day 11. Xanax 0.25 mg Oral tab 2 tabs as needed - PMHx: Anxiety; Asthma; Diabetes - NIDDM: uncontrolled; Hypercholesterolemia; Hypertension; Pinched nerve in left arm; - PSHx: Sinus Surgery; Spinal Fusion; Tubal ligation; Tonsillectomy; Ankle Arthroplasty, Left; - Social history: Smoking status: Patient states former smoker of tobacco. No barriers to communication noted, The patient speaks fluent Kosovan, Speaks appropriately for age, Preferred Language: Kosovan. - Family history: Not pertinent. - : The pt / caregiver states he / she is not on anticoagulants. Home medication list is obtained from pill bottles. 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 SUPERVISOR BLASTING: 04/07 05:25 3, Living 3, LMP 03/27/2016 lf1 Vital Signs: 05:14 BP 135 / 82; Pulse 94; Resp 24; Temp 97.9(O); Pulse Ox 98% on R/A; Weight 113.4 kg / lf1 250 lbs (R); Height 5 ft. 9 in. (175.26 cm) (R); Pain 10/10; 07:36 BP 109 / 64 (auto/); ck1 07:38 BP 109 / 64; Pulse 90; Resp 18; Temp 96.6(T); Pulse Ox 96% on R/A; Pain 5/10; ck1 09:20 BP 127 / 61 (auto/); ck1 09:22 Pulse Ox 94% ; ck1 09:23 BP 127 / 61; Pulse 92; Resp 18; Temp 98.8(O); Pulse Ox 94% on R/A; Pain 4/10; ck1 11:46 BP 132 / 73 (auto/); ck1 11:47 Pulse Ox 96% ; ck1 11:48 Pulse Ox 96% ; ck1 05:14 Body Mass Index 36.92 (113.40 kg, 175.26 cm) lf1 MDM: 05:40 ECG WITH READING ER PHYS+CARDIAG ordered. EDMS 07:02 Undress patient appropriately for examination ordered. sd1 07:02 IV Saline Lock ordered. sd1 07:03 morphine 4 mg IVP every 15 minutes; Document pain score/vitals after each dose (Hold if sd1 SBP < 90mmHg) x2 ordered. 07:03 Ondansetron 4 mg IVP once ordered. sd1 07:03 NS 0.9% 1000 ml IV at 150 mL/hr continuous ordered. sd1 07:03 Amylase Ordered. EDMS 07:03 Basic Metabolic Profile Ordered. EDMS 07:03 CBC with Diff Ordered. EDMS 07:03 Lipase Ordered. EDMS 07:03 Liver Profile Ordered. EDMS 07:03 Urinalysis Ordered. EDMS 07:03 Urine Culture Ordered. EDMS 07:04 Thyroid Profile Ordered. EDMS 07:15 Financial registration complete. hs2 07:25 [facility] [place] Agreement was scanned into [employer] and attached to record. hs2 08:16 Amylase Reviewed. sd1 08:16 Basic Metabolic Profile Reviewed. sd1 08:16 CBC with Diff Reviewed. sd1 08:16 Liver Profile Reviewed. sd1 08:16 Lipase Reviewed. sd1 08:16 Thyroid Profile Reviewed. sd1 08:17 CT ABD & PELVIS: No Contrast Ordered. EDMS 09:21 CT ABD & PELVIS: No Contrast Reviewed. sd1 09:22 -Blood Culture (Adults Only), peripheral from different site, or from device/port/PICC sd1 etc. if present ordered. 09:22 Misc. Nursing Order ordered. sd1 09:23 -Blood Culture Ordered. EDMS 09:36 -Blood Culture (Adults Only), peripheral from different site, or from device/port/PICC jlf etc. if present complete. 09:38 BLOOD CULTURES Ordered. EDMS 10:01 Urinalysis Reviewed. sd1 10:17 cefTRIAXone 1 grams IVPB once over 30 mins; dilute in 50mL of NS or D5W ordered. sd1 10:22 Imipenem-Cilastatin 500 mg IVPB at 100 mL/hr once over 1 hrs; reconstitute first with sd1 10mL of NS, then add to 100mL of NS ordered. 10:25 BED REQUEST+ADM ordered. EDMS 10:25 NOTHING BY MOUTH+DIET ordered. EDMS 10:46 Chest, 1 View Ordered. EDMS 10:46 PT/INR Ordered. EDMS 10:46 Type & Screen Ordered. EDMS 10:46 -Influenza A&B Rapid Antigen - Nose Ordered. EDMS 11:17 Admission / Observation Status ordered. EDMS 11:18 NPO DIET ordered. EDMS 11:19 LACTIC ACID LEVEL, LACTATE Ordered. EDMS 11:19 LACTIC ACID LEVEL, LACTATE Ordered. EDMS 11:19 VENOUS BLOOD GAS Ordered. EDMS 11:19 CARDIAC MARKER PANEL Ordered. EDMS 11:19 CARDIAC MARKER PANEL Ordered. EDMS 15:03 Retrograde Pyelogram Ordered. EDMS Administered Medications: 07:14 Drug: morphine 4 mg [morphine 4 mg/mL intravenous cartridge (1 mL)] Route: IVP; Site: ck1 left antecubital; 07:38 Follow up: BP 109 / 64; Pulse 90 bpm; Resp 18 bpm; Temp 96.6 Tympanic; Pulse Ox 96% RA; ck1 Pain 5/10 Adult; Response: Confirmed pt not driving.; No Adverse Reaction; Pain is decreased 07:14 Drug: Ondansetron 4 mg [ondansetron HCl 2 mg/mL intravenous solution (2 mL)] Route: ck1 IVP; Site: left antecubital; 07:14 Drug: NS 0.9% 1000 ml [sodium chloride 0.9 % intravenous solution] Route: IV; Rate: 150 ck1 mL/hr; Site: left antecubital; 08:44 Drug: morphine 4 mg [morphine 4 mg/mL intravenous cartridge (1 mL)] Route: IVP; Site: ck1 left antecubital; 09:23 Follow up: BP 127 / 61; Pulse 92 bpm; Resp 18 bpm; Temp 98.8 Oral; Pulse Ox 94% RA; ck1 Pain 4/10 Adult; Response: Confirmed pt not driving.; No Adverse Reaction; Pain is decreased 10:22 Not Given (other usedd): cefTRIAXone 1 grams IVPB once over 30 mins; dilute in 50mL of sd1 NS or D5W 10:33 Drug: Imipenem-Cilastatin 500 mg [imipenem-cilastatin 500 mg intravenous solution] ck1 Route: IVPB; Rate: 100 mL/hr; Infused Over: 1 hrs; Site: left antecubital; Signatures: Dispatcher [employer] EDMS Re Spaulding MD MD sd1 Michele Kaplan RN Luann PuriRN RN lf1 Gina Lawrence, MACHINE TECH MACHINE TECH jlf Bobbi Parra RN RN af2 Dixon Harmon RN RN [facility] Hilda Salazar, Reg Reg hs2 Micki Luther RN ck1 The chart was reviewed and I authenticate all verbal orders and agree with the evaluation and treatment provided.Attachments: 07:25 [facility] Payment Agreement hs2 MTDD
[2016-04-07] MEDS ORDERED: METOPROLOL TART 50 MG TAB As Ordered ONE (17:04)
--- NOTE | 2016-04-07 17:18 | SMCUROLCON ---
Urology Consultation General Date of Consultation 04/07/16 Reason For Consultation This patient is seen for Hcap; Pyelonephritis. History of Present Illness This is a 50 y/o F w/ a PMH significant for atrial flutter (recently started on xarelto), HTN, and DM2, who presented to the ER w/ acute onset left flank pain, nausea, and low grade fevers. A CT A/P was notable for the appearance of left emphysematous pyelonephritis and a 2.2cm left renal pelvis stone w/ mild hydronephrosis. CXR was also notable for possible left lower lobe pneumonia. She notes that he pain is better at this time. Cetriaxone was given in the ED after blood and urine cultures were obtained. She has no prior history of kidney stones or flank pain. She notes that her diabetes is not always well- controlled. Past Medical History Medical History see HPI Surgical Hstory back surgery, tubal ligation Medications Current Medications Current Medications Acetaminophen (Tylenol) 650 mg Q4HP PRN PO MILD PAIN OR FEVER; Start 04/07/16 at 11:15; Stop 05/07/16 at 11:14 Cefepime HCl 2 gm/ Dextrose 50 ml @ 100 mls/hr Q12H IV ; Start 04/07/16 at 14: 00; Stop 04/14/16 at 13:59 Home Med ASDIRECTED XX ; Start 04/07/16 at 11:30; Stop 04/07/16 at 11:30; Status DC Imipenem/ Cilastatin Sodium 500 mg 500 mg STK-MED ONCE As Ordered ; Start at 10:23; Stop 04/07/16 at 10:24; Status DC Metoprolol Tartrate (Lopressor) 50 mg STK-MED ONCE As Ordered ; Start 04/07/16 at 17:04; Stop 04/07/16 at 17:05; Status DC Morphine Sulfate (Morphine Sulfate Inj) 2 mg Q2HP PRN IV SEVERE PAIN (PS 8-10) Last administered on 04/07/16t 13:35; Start 04/07/16 at 11:15; Stop 04/14/16 at 11:14 Morphine Sulfate (Morphine Sulfate Inj) 4 mg STK-MED ONCE As Ordered ; Start 01/12 at 07:07; Stop 04/07/16 at 07:08; Status DC Morphine Sulfate (Morphine Sulfate Inj) 4 mg STK-MED ONCE As Ordered ; Start 01/12 at 08:41; Stop 04/07/16 at 08:42; Status DC Morphine Sulfate 2 mg 2 mg STK-MED ONCE As Ordered ; Start 04/07/16 at 13:31; Stop 04/07/16 at 13:32; Status DC Ondansetron HCl (Zofran) 4 mg Q6HP PRN IV NAUSEA OR VOMITING; Start 04/07/16 at 11:15; Stop 05/07/16 at 11:14 Ondansetron HCl (Zofran) 4 mg STK-MED ONCE As Ordered ; Start 04/07/16 at 07:07 ; Stop 04/07/16 at 07:08; Status DC Pantoprazole Sodium (Protonix) 40 mg Q24H IV Last administered on 04/07/16 13: 35; Start 04/07/16 at 14:00; Stop 05/07/16 at 13:59 Pantoprazole Sodium (Protonix) 40 mg STK-MED ONCE As Ordered ; Start 04/07/16 at 13:27; Stop 04/07/16 at 13:28; Status DC Sodium Chloride (Nacl 0.9%) 1,000 ml BOLUS ONCE IV Last administered on 13:30; Start 04/07/16 at 13:30; Stop 04/07/16 at 13:32; Status DC Sodium Chloride (Nacl 0.9%) 1,000 ml BOLUS ONCE IV Last administered on 14:30; Start 04/07/16 at 14:30; Stop 04/07/16 at 14:31; Status DC Sodium Chloride (Nacl 0.9%) 1,000 ml @ 125 mls/hr Q8H IV Last administered on 04/07/16 15:52; Start 04/07/16 at 11:11; Stop 05/07/16 at 11:10 Vancomycin HCl 1000 mg/IV Miscellaneous Supplies 1 each/ Dextrose 270 ml @ 270 mls/hr Q12H IV ; Start 04/07/16 at 11:45; Stop 04/07/16 at 13:25; Status DC Vancomycin HCl/IV Miscellaneous Supplies/Dextrose (Vancomycin HCl/ Adapter-Vial Mate/ Dextrose 5%) 270 ml @ 270 mls/hr 1T@15,16 IV Last administered on t 15:52; Start 04/07/16 at 15:00; Stop 04/07/16 at 17:00; Status DC Vancomycin HCl/IV Miscellaneous Supplies/Dextrose (Vancomycin HCl/ Adapter-Vial Mate/ Dextrose 5%) 270 ml @ 270 mls/hr Q8H IV ; Start 04/07/16 at 23:00; Stop 04/14/16 at 22:59 Allergies Allergies: Coded Allergies: Shellfish Allergy (Verified Allergy, Severe, TONGUE SWELLS, 07/01/12) Azithromycin (Verified Allergy, Intermediate, Hives, 06/02/15) Ibuprofen (Unverified Adverse Reaction, Mild, TOLD NOT TO TAKE DUE TO SHELLFISH ALLERGY, 04/07/16) Review of Systems Constitutional: Reports: Fever Pulmonary: Denies: Cough, Dyspnea, Other Symptoms, Pleuritic Chest Pain Cardiovascular: Denies Chest Pain, Denies Palpitations, Denies Orthopnea, Denies Paroxysmal Noc. Dyspnea, Denies Edema, Denies Lt Headedness, Denies Other Symptoms Gastrointestinal: Reports: Nausea Genitourinary: Denies: Dysuria, Frequency, Hematuria, Other Symptoms, Retention Musculoskeletal: Reports: Back Pain (left flank pain) Psych: Reports: Mood Normal Physical Examination General Exam: : Alert: Cooperative Chest Exam: : Clear to auscultation Heart Exam: : Rate Normal: Regular Rhythm Abdomen Exam: : SoftNo: Tenderness Skin Exam: : Nl turgor and temperature Neuro Exam: : Normal Speech Psych Exam: : Mental status NL: Mood NL Vital Signs/I&O Vital Signs Date Time Temp Pulse Resp B/P Pulse Ox O2 Delivery O2 Flow Rate FiO2 04/07/16 15:45 98.5 96 22 137/87 97 Room Air Laboratory Data 24H Labs Laboratory Tests 2 04/07/16 06:35: Aspartate Amino Transf (AST/SGOT) 7L, Alanine Aminotransferase (ALT/SGPT) 11L, Alkaline Phosphatase 105, Total Bilirubin 0.2, Direct Bilirubin < 0.1, Albumin 2.8L, Albumin/Globulin Ratio 0.62L, Amylase Level 14L, Anion Gap 11, White Blood Count 12.0H, Red Blood Count 3.86L, Hemoglobin 11.3L, Hematocrit 34.4L, Mean Corpuscular Volume 89.2, Mean Corpuscular Hemoglobin 29.2, Mean Corpuscular Hemoglobin Concent 32.8, Red Cell Distribution Width 12.3, Platelet Count 343, Neutrophils (%) (Auto) 80.6H, Lymphocytes (%) (Auto) 12.2L, Monocytes (%) (Auto) 4.0, Eosinophils (%) (Auto) 1.1, Basophils (%) (Auto) 0.3, Neutrophils # (Auto) 9.7H, Lymphocytes # (Auto) 1.5, Monocytes # (Auto) 0.5, Eosinophils # (Auto) 0.1, Basophils # (Auto) 0.0, Calcium Level 8.3L, Free Thyroxine Index 3.5, Glomerular Filtration Rate > 60.0, Large Unclassified Cells # 0.2, Large Unclassified Cells % 2.0, Lipase 85, Prothromb Time International Ratio 0.96, Prothrombin Time 12.9, Thyroid Stimulating Hormone ( TSH) 2.130, Thyroxine (T4) 10.9, Total Protein 7.3, Triiodothyronine (T3) Uptake 32 04/07/16 09:29: Urine Amorphous Sediment , Urine Appearance HAZY, Urine Color YELLOW, Urine pH 5.0, Urine Specific [place] 1.027, Urine Protein NEGATIVE, Urine Glucose (UA) 3+ H, Urine Ketones TRACEH, Urine Urobilinogen 0.2, Urine Bilirubin NEGATIVE, Urine Leukocyte Esterase 2+H, Urine Bacteria (Auto) NEGATIVE, Urine Blood 2+H, Urine Calcium Carbonate Cryst(Auto) , Urine Calcium Oxalate Cryst (Auto) , Urine Calcium Phosphate Lib[place] (Auto) , Urine Cellular Casts , Urine Cystine Crystals , Urine Granular Casts (Auto) , Urine Hyaline Casts (Auto) 0, Urine Leucine Crystals , Urine Mucus (Auto) SMALL, Urine Nitrite NEGATIVE, Urine Oval Fat Bodies (Auto) , Urine RBC (Auto) 8H, Urine Renal Epithelial Cells , Urine Sperm (Auto) , Urine Squamous Epithelial Cells 2, Urine Transitional Epithelial Cells , Urine Trichomonas (Auto) , Urine Triple Phosphate Cryst (Auto) , Urine Tyrosine Crystals , Urine Uric Acid Crystals (Auto) , Urine WBC (Auto) 64H, Urine Waxy Casts (Auto) , Urine Yeast-Like Cells (Auto) 04/07/16 11:27: Blood Gas Bicarbonate Standard 23.3, Creatine Kinase MB 1.0, Creatine Kinase MB Relative Index 2.70, Lactic Acid Level 0.9, Total Creatine Kinase 37, Troponin I < 0.02, Venous Blood Base Excess -1.3, Venous Blood pH 7.376, Venous Blood Partial Pressure CO2 41.6, Venous Blood Partial Pressure O2 63.9H, Venous Blood Total Carbon Dioxide 25.1, Venous Blood HCO3 23.8, Venous Blood Oxygen Saturation 90.8H CBC/BMP Laboratory Tests 04/07/16 06:35 Red Blood Count 3.86 L, Mean Corpuscular Volume 89.2, Mean Corpuscular Hemoglobin 29.2, Mean Corpuscular Hemoglobin Concent 32.8, Red Cell Distribution Width 12.3, Neutrophils (%) (Auto) 80.6 H, Lymphocytes (%) (Auto) 12.2 L, Monocytes (%) (Auto) 4.0, Eosinophils (%) (Auto) 1.1, Basophils (%) ( Auto) 0.3, Neutrophils # (Auto) 9.7 H, Lymphocytes # (Auto) 1.5, Monocytes # ( Auto) 0.5, Eosinophils # (Auto) 0.1, Basophils # (Auto) 0.0 Microbiology Microbiology 04/07/16 Blood Culture, Received Pending 04/07/16 Blood Culture, Received Pending 04/07/16 Influenza Virus Type A Antigen - Final, Complete 04/07/16 Influenza Virus Type B Antigen - Final, Complete 04/07/16 Urine Culture, Received Pending Assessment This is a 50 y/o F w/ possible left emphysematous pyelonephritis and a 2.2cm left kidney stone, and left lower lobe pneumonia. She has already been started on broad-spectrum IV antibiotics. I recommended that we take her to the OR for cystoscopy and left ureteral stent placement to decompress the left kidney. After a discussion of the risks and benefits of the procedure informed consent was signed. Plan - OR for cystoscopy and left ureteral stent placement - will need to continue broad spectrum antibiotics for possible left emphysematous pyelonephritis and pneumonia - NPO until OR KRISTAL SUMNER MD Apr 07, 2016 17:18
[2016-04-07] MEDS ORDERED: CONRAY-60 60% 50ML VIAL (Q9961) As Ordered ONE (17:26)
[2016-04-07] MEDS ORDERED: LIDOCAINE 2% 5ML JELLY UROJET As Ordered ONE (17:26)
[2016-04-07] MEDS ORDERED: GLUCOSE 4 GM CHEW TABLET PO PRN (17:30)
[2016-04-07] MEDS ORDERED: ALPRAZolam 0.25 MG TAB PO PRN (17:30)
[2016-04-07] MEDS ORDERED: DEXTROSE 50% 50 ML SYRINGE IV PRN (17:30)
[2016-04-07] MEDS ORDERED: ALBUTEROL SULFATE 2.5 MG/0.5 ML INH NEB SOLN INH PRN (17:30)
[2016-04-07] MEDS ORDERED: GLUCAGON FOR INJ 1 MG VIAL (J1610) SC PRN (17:30)
[2016-04-07] MEDS ORDERED: dexameTHASONE 4 MG/ML 1ML VIAL (J1100) As Ordered ONE (17:32)
[2016-04-07] MEDS ORDERED: fentaNYL 100 MCG/2 ML INJECTION (J3010) As Ordered ONE (17:32)
[2016-04-07] MEDS ORDERED: PROPOFOL 200 MG/20 ML VIAL As Ordered ONE (17:32)
[2016-04-07] MEDS ORDERED: MIDAZOLAM INJ 2 MG/2 ML VIAL (J2250) As Ordered ONE (17:32)
--- NOTE | 2016-04-07 17:34 | HPEPDOC ---
Medical History and Physical Date of Admission Apr 07, 2016 at 11:11 History and Physical PRIMARY CARE PROVIDER: Dr. Tomlin ATTENDING: Katia Marquez MD CHIEF COMPLAINT: Left flank pain HISTORY OF PRESENT ILLNESS: This is a 50-year-old female past with history of asthma, insulin-dependent diabetes, hyperlipidemia, hypertension, with recent admission for atrial fibrillation on Zaroxolyn presents complaining of left flank pain since 3:00 in the morning. Patient states this pain woke her up from her sleep. Describes the pain as 8 out of 10, radiating down her left groin. Patient denies any fevers or chills. No nausea or vomiting. In addition patient was recently admitted in February 2016 for atrial fibrillation and started on Xaralto. In the ED patient was found to have acute pyelonephritis verses emphysematous pyelonephritis. Dr. Jaffe was consulted with plan for stent placements. Patient was also noted to have HCAP, and was started on broad-spectrum antibiotics PAST MEDICAL HISTORY: As per HPI PAST SURGICAL HISTORY: Spinal fusion 2012, tubal ligation, tonsillectomy, left ankle repair, sinus surgery FAMILY HISTORY: Mother with thyroid disease SOCIAL HISTORY: Denies tobacco, alcohol, illicit drug use. ALLERGIES: (see below) REVIEW OF SYSTEMS: HEENT: Denies sore throat/headache CARDIOVASCULAR: Denies chest pain/palpitations RESPIRATORY: No shortness of breath/cough GASTROINTESTINAL: denies nausea/vomiting GENITOURINARY: + dysuria/urinary urgency. MUSCULOSKELETAL: Denies myalgias/arthralgias NEUROLOGICAL: Denies any focal weakness Rest of ROS negative. HOME MEDICATIONS: Please see below. PHYSICAL EXAMINATION: Vitals: (see below) General: No acute distress, laying comfortably in bed. HEENT: Moist mucous membranes. Neck: No JVD or lymphadenopathy Cardiac: RRR, No murmurs Pulm: Diminished breath sounds and coarse crackles at the bases b/l. No wheezing , rhonchi Abd: NT/ND + BS. Positive CVA tenderness on the left Ext: No edema or cyanosis LABORATORY DATA: See below. IMAGING: CT abdomen and pelvis on 04/07/16 Impression: 1. Left renal findings as detailed above are most compatible with acute pyelonephritis verses emphysematous pyelonephritis. Intrarenal calculi up to 22 mm may cause intermittent UPJ obstruction related to the inflammatory changes. 2. Left lower lobe and lingular consolidations. 3. Diverticulosis without acute diverticulitis. Chest x-ray on 04/07/16 Impression: Left lower lobe opacity suggesting consolidation and/or pleural effusion. ASSESSMENT/PLAN: 1. Obstructive uropathy with left acute pyelonephritis verses emphysematous pyelonephritis. Patient will be going to the OR today forced placement and effort to decompress. Patient does have notable hydronephrosis with a 2.2 cm intrarenal calculi on CAT scan. Continue cefepime. Leukocytosis noted. Lactic acid less than 1. Trend CRP. Follow urine and blood cultures. 2. HCAP - recent admission for atrial fibrillation. On vancomycin and cefepime. Trend CRP. Lactic acid less than 1. Follow sputum cultures, blood cultures. 3. Insulin-dependent diabetes mellitus- we'll start half the dose of Levemir daily at bedtime until the patient's able to tolerate by mouth tomorrow. Sliding -scale insulin. Hold sulfonylurea. 4 Hyperlipidemia on statin 5. Anxiety on Xanax when necessary 6. Atrial fibrillation on Xarelto on metoprolol. Currently in sinus rhythm. We will on discuss with urology regarding when to restart her Xarelto after the procedure. DVT prophylaxis on Xarelto Laboratory Data Labs 24H Laboratory Tests 2 04/07/16 06:35: Aspartate Amino Transf (AST/SGOT) 7L, Alanine Aminotransferase (ALT/SGPT) 11L, Alkaline Phosphatase 105, Total Bilirubin 0.2, Direct Bilirubin < 0.1, Albumin 2.8L, Albumin/Globulin Ratio 0.62L, Amylase Level 14L, Anion Gap 11, White Blood Count 12.0H, Red Blood Count 3.86L, Hemoglobin 11.3L, Hematocrit 34.4L, Mean Corpuscular Volume 89.2, Mean Corpuscular Hemoglobin 29.2, Mean Corpuscular Hemoglobin Concent 32.8, Red Cell Distribution Width 12.3, Platelet Count 343, Neutrophils (%) (Auto) 80.6H, Lymphocytes (%) (Auto) 12.2L, Monocytes (%) (Auto) 4.0, Eosinophils (%) (Auto) 1.1, Basophils (%) (Auto) 0.3, Neutrophils # (Auto) 9.7H, Lymphocytes # (Auto) 1.5, Monocytes # (Auto) 0.5, Eosinophils # (Auto) 0.1, Basophils # (Auto) 0.0, Calcium Level 8.3L, Free Thyroxine Index 3.5, Glomerular Filtration Rate > 60.0, Large Unclassified Cells # 0.2, Large Unclassified Cells % 2.0, Lipase 85, Prothromb Time International Ratio 0.96, Prothrombin Time 12.9, Thyroid Stimulating Hormone ( TSH) 2.130, Thyroxine (T4) 10.9, Total Protein 7.3, Triiodothyronine (T3) Uptake 32 04/07/16 09:29: Urine Amorphous Sediment , Urine Appearance HAZY, Urine Color YELLOW, Urine pH 5.0, Urine Specific [place] 1.027, Urine Protein NEGATIVE, Urine Glucose (UA) 3+ H, Urine Ketones TRACEH, Urine Urobilinogen 0.2, Urine Bilirubin NEGATIVE, Urine Leukocyte Esterase 2+H, Urine Bacteria (Auto) NEGATIVE, Urine Blood 2+H, Urine Calcium Carbonate Cryst(Auto) , Urine Calcium Oxalate Cryst (Auto) , Urine Calcium Phosphate [place] (Auto) , Urine Cellular Casts , Urine Cystine Crystals , Urine Granular Casts (Auto) , Urine Hyaline Casts (Auto) 0, Urine Leucine Crystals , Urine Mucus (Auto) SMALL, Urine Nitrite NEGATIVE, Urine Oval Fat Bodies (Auto) , Urine RBC (Auto) 8H, Urine Renal Epithelial Cells , Urine Sperm (Auto) , Urine Squamous Epithelial Cells 2, Urine Transitional Epithelial Cells , Urine Trichomonas (Auto) , Urine Triple Phosphate Cryst (Auto) , Urine Tyrosine Crystals , Urine Uric Acid Crystals (Auto) , Urine WBC (Auto) 64H, Urine Waxy Casts (Auto) , Urine Yeast-Like Cells (Auto) 04/07/16 11:27: Blood Gas Bicarbonate Standard 23.3, Creatine Kinase MB 1.0, Creatine Kinase MB Relative Index 2.70, Lactic Acid Level 0.9, Total Creatine Kinase 37, Troponin I < 0.02, Venous Blood Base Excess -1.3, Venous Blood pH 7.376, Venous Blood Partial Pressure CO2 41.6, Venous Blood Partial Pressure O2 63.9H, Venous Blood Total Carbon Dioxide 25.1, Venous Blood HCO3 23.8, Venous Blood Oxygen Saturation 90.8H CBC/BMP Laboratory Tests 04/07/16 06:35 Red Blood Count 3.86 L, Mean Corpuscular Volume 89.2, Mean Corpuscular Hemoglobin 29.2, Mean Corpuscular Hemoglobin Concent 32.8, Red Cell Distribution Width 12.3, Neutrophils (%) (Auto) 80.6 H, Lymphocytes (%) (Auto) 12.2 L, Monocytes (%) (Auto) 4.0, Eosinophils (%) (Auto) 1.1, Basophils (%) ( Auto) 0.3, Neutrophils # (Auto) 9.7 H, Lymphocytes # (Auto) 1.5, Monocytes # ( Auto) 0.5, Eosinophils # (Auto) 0.1, Basophils # (Auto) 0.0 Microbiology Microbiology 04/07/16 Blood Culture, Received Pending 04/07/16 Blood Culture, Received Pending 04/07/16 Influenza Virus Type A Antigen - Final, Complete 04/07/16 Influenza Virus Type B Antigen - Final, Complete 04/07/16 Urine Culture, Received Pending Home Medications Scheduled Atorvastatin Calcium (Atorvastatin Calcium) 10 Mg Tab 10 MG PO QHS Azelastine Hydrochloride (Azelastine HCl) 137 Mcg/[place] Spr 1 SPRAY NA BID Dapagliflozin Propanediol (Farxiga) 10 Mg Tab 10 MG PO DAILY Fluticasone/Vilanterol (Breo Ellipta 200-25 Mcg/INH) 1 Inh Inh 1 PUFF INH DAILY Glyburide (Glyburide) 5 Mg Tab 10 MG PO BID Insulin Aspart (Novolog) 100 U/Ml Inj 1 DOSE SC AC SLIDING SCALE Insulin Glargine (Lantus) 1 Units/0.01 Ml Susp 60 UNITS SC QHS Levocetirizine Dihydrochloride (Xyzal) 5 Mg Tab 5 MG PO QHS Metformin Hydrochloride (Metformin HCl) 1,000 Mg Tab 1,000 MG PO BID Metoprolol Tartrate (Metoprolol Tartrate) 50 Mg Tab 50 MG PO BID Rivaroxaban (Xarelto) 20 Mg Tab 20 MG PO DAILY Scheduled PRN Acetaminophen (Acetaminophen) 500 Mg Tab 500 MG PO PRN PAIN Albuterol Sulfate (Albuterol Sulfate) 2.5 Mg/3 Ml Nebu 2.5 MG INH QID PRN PRN SHORTNESS OF BREATH Albuterol Sulfate (Ventolin Hfa) 200 Puff/8 Gm Aers 2 PUFF INH Q4H PRN PRN SHORTNESS OF BREATH Alprazolam (Alprazolam) 0.25 Mg Tab 0.25 MG PO TID PRN PRN ANXIETY Tizanidine HCl (Tizanidine HCl) 2 Mg Tab 2 MG PO TID PRN PRN MUSCLE SPASMS Allergies Coded Allergies: Shellfish Allergy (Verified Allergy, Severe, TONGUE SWELLS, 07/01/12) Azithromycin (Verified Allergy, Intermediate, Hives, 06/02/15) Ibuprofen (Unverified Adverse Reaction, Mild, TOLD NOT TO TAKE DUE TO SHELLFISH ALLERGY, 04/07/16) KATIA MARQUEZ MD Apr 07, 2016 17:34
[2016-04-07] MEDS ORDERED: CONRAY-60 60% 50ML VIAL (Q9961) XX ONE (17:44)
--- NOTE | 2016-04-07 18:01 | REP ---
Clinical: Retrograde pyelogram. Technique: Intraoperative fluoroscopic images. Findings: Two intraoperative fluoroscopic images demonstrate seemingly satisfactory positioning to left ureteral stent. Small amount of contrast noted within the left renal collecting system. Total fluoroscopic time 24 seconds. Impression: Status post left ureteral stent placement. Signed by Myke Agarwal MD 04/07/2016 05:52 P
[2016-04-07] MEDS: IPRATROPIUM 0.5MG/ALBUTEROL 2.5MG INH SOL UD 3ML (DUONEB)(J7620) NEB SCH ×2 (18:10→20:00)
[2016-04-07] MEDS ORDERED: fentaNYL 100 MCG/2 ML INJECTION (J3010) IV PRN (18:45)
[2016-04-07] MEDS: HumaLOG INSULIN (NovoLOG) PER UNIT SC SCH ×2 (19:01→21:22)
[2016-04-07] MEDS: SYMBICORT 80/4.5MCG INHALER 6GM INH SCH (19:41)
--- NOTE | 2016-04-07 19:56 | ECGEPIP ---
Stationary ECG Study [facility] - ED Test Date: 2016-04-07 Pat Name: DONNY CHILEL Department: Room: - Gender: F Implementation Consultant: trini : 1965 Requested By: KACIE Villagomez Order Number: [id number] Reading MD: Re Spaulding Measurements Intervals [place] Rate: 91 P: 40 UT: 168 QRS: 5 QRSD: 90 T: 52 QT: 345 QTc: 426 Interpretive Statements SINUS RHYTHM NSTTW ABNORMALITY DECREASED RATE 03/09/16 Electronically Signed On 04-07-2016 19:55:32 EST by Re Spaulding
--- NOTE | 2016-04-07 20:24 | RO ---
DATE OF PROCEDURE: 04/07/2016 PREPROCEDURE DIAGNOSIS: Obstructing left kidney stone. POSTPROCEDURE DIAGNOSIS: Obstructing left kidney stone. PROCEDURE: Cystoscopy, left retrograde pyelogram, and intraoperative interpretation of images, left ureteral stent placement. SURGEON: Anselmo Jaffe MD CAR REPAIRER: None. ANESTHESIA: Monitored anesthesia care (MAC). OPERATIVE INDICATIONS: This is a 50-year-old female who presents to the emergency room today with acute onset severe left flank pain and nausea as well as low grade fevers. A CT scan of the abdomen and pelvis was obtained and notable for a 2 cm obstructing left renal pelvis stone as well as what appeared to be signs of emphysematous pyelonephritis. She was brought to the operating room today for a left stent placement. DESCRIPTION OF PROCEDURE: The patient was brought to the operating room and MAC anesthesia was administered. Prophylactic antibiotics were infused. She was then placed in dorsal lithotomy position and prepped and draped in the usual sterile fashion. Broad spectrum antibiotics had already been infused. She was then placed in dorsal lithotomy position and prepped and draped in the usual sterile fashion. A rigid cystoscope was then inserted into urethral meatus and advanced into the bladder. Once this was in the bladder, an open- ended ureteral catheter was advanced up the left collecting system. A gentle retrograde pyelogram was performed and notable for mild left hydronephrosis. At this point, a wire was advanced up into the left collecting system. The open- ended ureteral catheter was then removed and the wire was utilized to advance a #7-German x 22-32 cm JJ ureteral stent up to the left collecting system. The wire was then removed and there were adequate curls of the stent in the left renal pelvis and the bladder. There did appears to be some purulent fluid to drain out of the stent. Because of this another urine culture was obtained. At this point, an #18-German Soria catheter was inserted into the bladder and the balloon was filled with 10 mL of sterile water. This was connected to gravity drainage and this marked the conclusion of the procedure. The patient was then taken out of the dorsal lithotomy position, awakened from anesthesia and transported to the recovery room in stable condition. ESTIMATED BLOOD LOSS: 0 mL. INTRAOPERATIVE COMPLICATIONS: None. SPECIMENS: Urine culture. PLAN: The patient will be monitored in the hospital. She also has pneumonia. She will be kept on IV antibiotics and if she improves, she will be sent home with the plan for her to followup at some point in the clinic with me to get her set up for likely percutaneous nephrolithotomy for management of her large left kidney stone. ANDREW
[2016-04-07] MEDS ORDERED: LEVEMIR (INSULIN DETEMIR) 1 UNITS/0.01ML SC SCH (21:00)
[2016-04-07] MEDS: METOPROLOL TART 50 MG TAB PO SCH (21:14)
[2016-04-07] MEDS: ATORVASTATIN 10 MG TAB PO SCH (21:14)
[2016-04-07] MEDS: AZELASTINE 137MCG NASAL SPY 30 ML (ASTELIN) SCH (21:15)
[2016-04-07] MEDS: CEFEPIME HCL 2 GM in D5W MINI-BAG PLUS 50 ML IV SCH (21:15)
[2016-04-08] VITALS (7 sets, daily range): BP systolic 130–182; BP diastolic 68–91
[2016-04-08] MEDS: MORPHINE 2 MG/ML 1ML SYRINGE IV PRN ×2 (00:42→15:47)
[2016-04-08] MEDS: NS 1,000 ML IV SCH ×2 (02:42→08:40)
[2016-04-08 05:57] LABS: BASO % 0.1 % (0.0-1.0); EOS % 0.2 % (0.0-3.0); LARGE UNSTAINED CELL # 0.1 K/mm3 (0.0-0.4); LARGE UNSTAINED CELL % 1.1 % (0.0-4.0); LYMPH % 14.6 % (24.0-44.0); MEAN CORPUSCULAR HEMOGLOBIN 28.3 pg (27.0-33.0); MEAN CORPUSCULAR HGB CONC 32.1 g/dl (32.0-36.5); MEAN CORPUSCULAR VOLUME 88.4 fl (80.0-96.0); MONO # 0.3 K/mm3 (0.0-0.8); MONO % 3.8 % (0.0-5.0); NEUTROPHILS # 5.5 K/mm3 (1.8-7.7); NEUTROPHILS % 80.2 % (36.0-66.0); PLATELET COUNT, AUTOMATED 344 k/mm3 (150-450); RED CELL DISTRIBUTION WIDTH 12.3 % (11.5-14.5); WHITE BLOOD COUNT 6.9 K/mm3 (4.0-10.0)
[2016-04-08] MEDS: VANCOMYCIN HCL 1,000 MG, VIAL MATE ADAPTER 1 EACH in D5W 250 ML IV SCH ×2 (06:13→15:12)
[2016-04-08] MEDS: SYMBICORT 80/4.5MCG INHALER 6GM INH SCH ×2 (07:45→20:02)
[2016-04-08] MEDS: IPRATROPIUM 0.5MG/ALBUTEROL 2.5MG INH SOL UD 3ML (DUONEB)(J7620) NEB SCH ×5 (08:00→20:00)
[2016-04-08] MEDS: RIVAROXABAN 20 MG TAB (XARELTO) PO SCH (08:38)
[2016-04-08] MEDS: METOPROLOL TART 50 MG TAB PO SCH ×2 (08:38→21:41)
[2016-04-08] MEDS: AZELASTINE 137MCG NASAL SPY 30 ML (ASTELIN) SCH ×2 (08:39→21:42)
[2016-04-08] MEDS: HumaLOG INSULIN (NovoLOG) PER UNIT SC SCH ×4 (08:39→21:42)
[2016-04-08] MEDS: CEFEPIME HCL 2 GM in D5W MINI-BAG PLUS 50 ML IV SCH ×2 (08:40→19:54)
--- NOTE | 2016-04-08 09:22 | IPNPDOC ---
Assessment/Plan Date Seen The patient was seen on 04/08/16. Patient Summary This is a 50 y/o F admitted yesterday for treatment of pneumonia and possible left emphysematous pyelonephritis in the setting of a 2.2cm obstructing left UPJ stone, POD1 s/p left ureteral stent placement. Her WBC is better this am and her pain is improved. Cultures are still pending. Plan/VTE VTE Prophylaxis Ordered?: Yes VTE Exclusion Mechanical Proph: N/A:VTE Prophy Ordered Plan/Urinary Catheter Urinary Catheter: D/C Bocanegra Plan - d/c bocanegra - continue broad-spectrum antibiotics per primary team and narrow based on culture results (will require at least 2 wks of antibiotic therapy for possible emphysematous pyelonephritis) - the patient will at some point require a left percutaneous nephrolithotomy for treatment of her left kidney stones - my office will arrange f/u for this to get it scheduled on an outpatient basis Subjective Review oF Systems Chief Complaint HCAP; Pyelonephritis. Events since Last Encounter No acute events o/n. Patient notes that her left lower abdominal/flank pain are much better after stent placement last night. She denies fevers or chills. Objective Physical Examination General Exam: : Alert: Cooperative: No Acute Distress ENT EXAM: : Atraumatic ABDOMEN EXAM: : SoftNo: Tenderness Neuro Exam: : Normal Speech Psych Exam: : Mental status NL: Mood NL Other physical findings no CVA tenderness; catheter in place, draining clear urine Vital Signs/I&O Vital Signs Date Time Temp Pulse Resp B/P Pulse Ox O2 Delivery O2 Flow Rate FiO2 04/08/16 08:46 Room Air 04/08/16 08:38 80 157/91 04/08/16 07:30 98.0 22 97 I&O- Last 24 Hours up to 6 AM 04/08/16 06:00 Intake Total 2430 ml Output Total 2125 ml Balance 305 ml Laboratory Data Labs 24H Laboratory Tests 2 04/07/16 09:29: Urine Amorphous Sediment , Urine Appearance HAZY, Urine Color YELLOW, Urine pH 5.0, Urine Specific [place] 1.027, Urine Protein NEGATIVE, Urine Glucose (UA) 3+ H, Urine Ketones TRACEH, Urine Urobilinogen 0.2, Urine Bilirubin NEGATIVE, Urine Leukocyte Esterase 2+H, Urine Bacteria (Auto) NEGATIVE, Urine Blood 2+H, Urine Calcium Carbonate Cryst(Auto) , Urine Calcium Oxalate Cryst (Auto) , Urine Calcium Phosphate [place] (Auto) , Urine Cellular Casts , Urine Cystine Crystals , Urine Granular Casts (Auto) , Urine Hyaline Casts (Auto) 0, Urine Leucine Crystals , Urine Mucus (Auto) SMALL, Urine Nitrite NEGATIVE, Urine Oval Fat Bodies (Auto) , Urine RBC (Auto) 8H, Urine Renal Epithelial Cells , Urine Sperm (Auto) , Urine Squamous Epithelial Cells 2, Urine Transitional Epithelial Cells , Urine Trichomonas (Auto) , Urine Triple Phosphate Cryst (Auto) , Urine Tyrosine Crystals , Urine Uric Acid Crystals (Auto) , Urine WBC (Auto) 64H, Urine Waxy Casts (Auto) , Urine Yeast-Like Cells (Auto) 04/07/16 11:27: Blood Gas Bicarbonate Standard 23.3, Creatine Kinase MB 1.0, Creatine Kinase MB Relative Index 2.70, Lactic Acid Level 0.9, Total Creatine Kinase 37, Troponin I < 0.02, Venous Blood Base Excess -1.3, Venous Blood pH 7.376, Venous Blood Partial Pressure CO2 41.6, Venous Blood Partial Pressure O2 63.9H, Venous Blood Total Carbon Dioxide 25.1, Venous Blood HCO3 23.8, Venous Blood Oxygen Saturation 90.8H 04/07/16 18:52: Bedside Glucose (Misc Panel) 194H 04/07/16 19:16: Creatine Kinase MB 1.0, Creatine Kinase MB Relative Index 3.03, Lactic Acid Level 0.6, Total Creatine Kinase 33, Troponin I < 0.02 04/07/16 21:12: Bedside Glucose (Misc Panel) 256H 04/08/16 05:34: White Blood Count 6.9, Red Blood Count 3.68L, Hemoglobin 10.4L, Hematocrit 32.5L , Mean Corpuscular Volume 88.4, Mean Corpuscular Hemoglobin 28.3, Mean Corpuscular Hemoglobin Concent 32.1, Red Cell Distribution Width 12.3, Platelet Count 344, Neutrophils (%) (Auto) 80.2H, Lymphocytes (%) (Auto) 14.6L, Monocytes (%) (Auto) 3.8, Eosinophils (%) (Auto) 0.2, Basophils (%) (Auto) 0.1, Neutrophils # (Auto) 5.5, Lymphocytes # (Auto) 1.0L, Monocytes # (Auto) 0.3, Eosinophils # (Auto) 0.0, Basophils # (Auto) 0.0, Creatine Kinase MB 1.0, Creatine Kinase MB Relative Index 3.44, Large Unclassified Cells # 0.1, Large Unclassified Cells % 1.1, Total Creatine Kinase 29, Troponin I < 0.02 04/08/16 06:14: Bedside Glucose (Misc Panel) 243H CBC/BMP Laboratory Tests 04/08/16 05:34 Red Blood Count 3.68 L, Mean Corpuscular Volume 88.4, Mean Corpuscular Hemoglobin 28.3, Mean Corpuscular Hemoglobin Concent 32.1, Red Cell Distribution Width 12.3, Neutrophils (%) (Auto) 80.2 H, Lymphocytes (%) (Auto) 14.6 L, Monocytes (%) (Auto) 3.8, Eosinophils (%) (Auto) 0.2, Basophils (%) ( Auto) 0.1, Neutrophils # (Auto) 5.5, Lymphocytes # (Auto) 1.0 L, Monocytes # ( Auto) 0.3, Eosinophils # (Auto) 0.0, Basophils # (Auto) 0.0 FSBS Laboratory Tests Test 04/07/16 18:52 04/07/16 21:12 04/08/16 06:14 Range/Units Bedside Glucose (Misc Panel) 194 256 243 70-105 MG/DL Microbiology Microbiology 04/07/16 Blood Culture, Received Pending 04/07/16 Blood Culture, Received Pending 04/07/16 Influenza Virus Type A Antigen - Final, Complete 04/07/16 Influenza Virus Type B Antigen - Final, Complete 04/07/16 Urine Culture, Received Pending 04/07/16 Urine Culture, Received Pending KRISTAL SUMNER MD Apr 08, 2016 09:22
[2016-04-08] MEDS ORDERED: SLF 3 ML SYR IV PRN (10:45)
[2016-04-08] MEDS ORDERED: BISACODYL 10 MG SUPP PR ONE (10:45)
[2016-04-08] MEDS: DOCUSATE SODIUM 100 MG CAP PO SCH ×2 (12:28→21:40)
[2016-04-08] MEDS: PANTOPRAZOLE 40MG INJ (PROTONIX) (C9113) IV SCH (13:37)
[2016-04-08] MEDS: SLF 3 ML SYR IV SCH ×2 (13:38→21:42)
[2016-04-08] MEDS ORDERED: VANCOMYCIN HCL 1,000 MG, VIAL MATE ADAPTER 1 EACH in D5W 250 ML IV ONE (16:00)
--- NOTE | 2016-04-08 16:52 | IPNPDOC ---
Text Note Date of Service The patient was seen on 04/08/16 at 16:51. NOTE Subjective: Patient states her back pain is much improved. Objective: Vitals: (see below) General: No acute distress, laying comfortably in bed. HEENT: Moist mucous membranes. Neck: No JVD or lymphadenopathy Cardiac: RRR, No murmurs Pulm: Diminished breath sounds and coarse crackles at the bases b/l. No wheezing , rhonchi Abd: NT/ND + BS. Positive CVA tenderness on the left, although less tender Ext: No edema or cyanosis LABORATORY DATA: See below. IMAGING: CT abdomen and pelvis on 04/07/16 Impression: 1. Left renal findings as detailed above are most compatible with acute pyelonephritis verses emphysematous pyelonephritis. Intrarenal calculi up to 22 mm may cause intermittent UPJ obstruction related to the inflammatory changes. 2. Left lower lobe and lingular consolidations. 3. Diverticulosis without acute diverticulitis. Chest x-ray on 04/07/16 Impression: Left lower lobe opacity suggesting consolidation and/or pleural effusion. ASSESSMENT/PLAN: 1. Obstructive uropathy with left acute pyelonephritis verses emphysematous pyelonephritis. Status post ureter stents by urology on 04/07/16. Patient does have notable hydronephrosis with a 2.2 cm intrarenal calculi on CAT scan. Continue cefepime. Leukocytosis noted. Lactic acid less than 1. Trend CRP. Follow urine and blood cultures. Will need two weeks of antibiotics and outpatient urology follow-up. 2. HCAP - recent admission for atrial fibrillation. On vancomycin and cefepime. Trend CRP. Lactic acid less than 1. Follow sputum cultures, blood cultures. 3. Insulin-dependent diabetes mellitus- we'll start half the dose of Levemir daily at bedtime until the patient's able to tolerate by mouth tomorrow. Sliding -scale insulin. Hold sulfonylurea. 4 Hyperlipidemia on statin 5. Hypertension uncontrolled, amlodipine added. 6. Anxiety on Xanax when necessary 7. Atrial fibrillation on Xarelto on metoprolol. Currently in sinus rhythm. DVT prophylaxis on Xarelto VS,Fishbone, I+O VS, Fishbone, I+O Laboratory Tests 04/08/16 05:34 Red Blood Count 3.68 L, Mean Corpuscular Volume 88.4, Mean Corpuscular Hemoglobin 28.3, Mean Corpuscular Hemoglobin Concent 32.1, Red Cell Distribution Width 12.3, Neutrophils (%) (Auto) 80.2 H, Lymphocytes (%) (Auto) 14.6 L, Monocytes (%) (Auto) 3.8, Eosinophils (%) (Auto) 0.2, Basophils (%) ( Auto) 0.1, Neutrophils # (Auto) 5.5, Lymphocytes # (Auto) 1.0 L, Monocytes # ( Auto) 0.3, Eosinophils # (Auto) 0.0, Basophils # (Auto) 0.0 Vital Signs Date Time Temp Pulse Resp B/P Pulse Ox O2 Delivery O2 Flow Rate FiO2 04/08/16 15:57 18 Room Air 04/08/16 14:00 98.0 85 175/68 94 I&O- Last 24 Hours up to 6 AM 04/08/16 06:00 Intake Total 2430 ml Output Total 2125 ml Balance 305 ml KATIA NOVAK MD Apr 08, 2016 16:52
[2016-04-08] MEDS ORDERED: amLODIPine 5 MG TAB PO ONE (17:15)
[2016-04-08 17:47] LABS: BASO % 0.2 % (0.0-1.0); EOS # 0.1 K/mm3 (0.0-0.50); EOS % 0.7 % (0.0-3.0); LARGE UNSTAINED CELL # 0.2 K/mm3 (0.0-0.4); LYMPH # 2.2 K/mm3 (1.5-4.5); LYMPH % 23.7 % (24.0-44.0); MEAN CORPUSCULAR HEMOGLOBIN 28.9 pg (27.0-33.0); MEAN CORPUSCULAR HGB CONC 33.1 g/dl (32.0-36.5); MEAN CORPUSCULAR VOLUME 87.4 fl (80.0-96.0); MONO # 0.4 K/mm3 (0.0-0.8); MONO % 4.7 % (0.0-5.0); NEUTROPHILS # 6.3 K/mm3 (1.8-7.7); NEUTROPHILS % 68.8 % (36.0-66.0); PLATELET COUNT, AUTOMATED 418 k/mm3 (150-450); RED CELL DISTRIBUTION WIDTH 12.3 % (11.5-14.5); WHITE BLOOD COUNT 9.1 K/mm3 (4.0-10.0)
[2016-04-08 18:03] LABS: ANION GAP 10 MEQ/L (8-16); BLOOD UREA NITROGEN 17 MG/DL (7-18); CALCIUM LEVEL 8.6 MG/DL (8.5-10.1); CARBON DIOXIDE LEVEL 22 MEQ/L (21-32); CHLORIDE LEVEL 104 MEQ/L (98-107); CREATININE FOR GFR 0.81 MG/DL (0.55-1.02); GLOMERULAR FILTRATION RATE > 60.0 (>51); GLUCOSE, FASTING 310 MG/DL (70-105); POTASSIUM SERUM 3.9 MEQ/L (3.5-5.1); SODIUM LEVEL 136 MEQ/L (136-145)
[2016-04-08] MEDS: PHENAZOPYRIDINE 100 MG TAB PO SCH ×2 (18:21→21:40)
--- NOTE | 2016-04-08 19:58 | PHACANCOPD ---
PHARMACY VANCOMYCIN DOSING Pt Demographics Demographics Patient Age:50 , Weight:115.200 , Gender: female Adjusted Body Weight Date: 04/07/16, Adjusted Body Weight: [85.08] Kg Vancomycin Vancomycin indication: hcap Vancomycin Target Ranges: 15-20 mcg/ml Vancomycin Load Y/N: Yes Load Dose Date Time Vancomycin Load Dose: 2g Date: 04/07/16 Time: 1500 Vancomycin Dose Date: 04/07/16. Current Vancomycin Dose: [1g IV Q8H] Intermittent Dosing?: No Labs Micro Microbiology 04/07/16 Blood Culture - Preliminary, Resulted No growth after 24 hours . All specim... 04/07/16 Blood Culture - Preliminary, Resulted No growth after 24 hours . All specim... 04/07/16 Influenza Virus Type A Antigen - Final, Complete 04/07/16 Influenza Virus Type B Antigen - Final, Complete 04/07/16 Urine Culture, Received Pending 04/07/16 Urine Culture - Final, Complete Creatinine Clearance Date:04/07/16. Estimated Creatinine Clearance: [> 100 ml/min]. Pending Labs Vancomycin trough scheduled 04/08/16 @1400 Assessment and Plan Maintaining Current Dose?: No Reason for dose change: Trough too low Pharmacist Note Pharmacist Note 04/08/16: Day #2 - Trough today resulted at 8.3 mcg/ml. Another 2g loading dose will be given today, 04/08/16 @1500, followed by an increase in the maintenance regimen from 1g IV Q8H to 1500mg IV Q8H. A follow-up vanco trough has been scheduled for 04/09/16 @ 1400, prior to the 4th dose of the new regimen. We will continue to monitor and make further dose adjustments as needed. Date: 04/07/16. Pharmacist note: Day #1 empiric cefepime + vancomycin initiated with a 2g loading dose 04/07/16 @1500 followed by a maintenance regimen of 1g IV Q8H for the treatment of HCAP - aiming for a goal trough of 15-20 mcg/ml. No PMH of MRSA or vanco use here at [facility]. Patient is currently afebrile with an elevated WBC. CXR indicative of LLL opacity. Urine and blood cultures are currently pending. A vanco trough has been scheduled for 04/08/16 @ 1400, prior to the fourth dose. We will continue to monitor and make adjustments as needed. JEAN PAUL [facility]YS [facility]ARMAC[facility] Apr 08, 2016 19:58
[2016-04-08] MEDS: ATORVASTATIN 10 MG TAB PO SCH (21:40)
[2016-04-08] MEDS: LEVEMIR (INSULIN DETEMIR) 1 UNITS/0.01ML SC SCH (21:42)
[2016-04-08] MEDS: VANCOMYCIN HCL PEDIATRIC 1,500 MG in D5W 500 ML IV SCH (22:40)
[2016-04-08] MEDS: PERCOCET 5MG/325MG TAB PO PRN (23:58)
[2016-04-09 06:00] VITALS: BP 168/86
[2016-04-09] MEDS: SLF 3 ML SYR IV SCH ×3 (06:46→21:40)
[2016-04-09] MEDS: PERCOCET 5MG/325MG TAB PO PRN ×3 (06:47→19:00)
[2016-04-09] MEDS: VANCOMYCIN HCL PEDIATRIC 1,500 MG in D5W 500 ML IV SCH ×2 (06:47→15:08)
[2016-04-09 07:18] LABS: BASO % 0.5 % (0.0-1.0); EOS # 0.1 K/mm3 (0.0-0.50); EOS % 1.1 % (0.0-3.0); LARGE UNSTAINED CELL # 0.2 K/mm3 (0.0-0.4); LARGE UNSTAINED CELL % 2.1 % (0.0-4.0); LYMPH # 3.1 K/mm3 (1.5-4.5); LYMPH % 38.3 % (24.0-44.0); MEAN CORPUSCULAR HEMOGLOBIN 29.5 pg (27.0-33.0); MEAN CORPUSCULAR HGB CONC 33.6 g/dl (32.0-36.5); MEAN CORPUSCULAR VOLUME 87.8 fl (80.0-96.0); MONO # 0.5 K/mm3 (0.0-0.8); MONO % 5.7 % (0.0-5.0); NEUTROPHILS # 4.2 K/mm3 (1.8-7.7); NEUTROPHILS % 52.2 % (36.0-66.0); PLATELET COUNT, AUTOMATED 340 k/mm3 (150-450); RED CELL DISTRIBUTION WIDTH 12.6 % (11.5-14.5)
[2016-04-09] MEDS: HumaLOG INSULIN (NovoLOG) PER UNIT SC SCH ×4 (07:30→21:00)
[2016-04-09 08:00] VITALS: BP 168/79
[2016-04-09] MEDS: IPRATROPIUM 0.5MG/ALBUTEROL 2.5MG INH SOL UD 3ML (DUONEB)(J7620) NEB SCH ×3 (08:00→20:00)
[2016-04-09] MEDS: CEFEPIME HCL 2 GM in D5W MINI-BAG PLUS 50 ML IV SCH (08:39)
[2016-04-09] MEDS: RIVAROXABAN 20 MG TAB (XARELTO) PO SCH (08:40)
[2016-04-09] MEDS: METOPROLOL TART 50 MG TAB PO SCH ×2 (08:40→21:38)
[2016-04-09] MEDS: DOCUSATE SODIUM 100 MG CAP PO SCH ×2 (08:41→21:39)
[2016-04-09] MEDS: PHENAZOPYRIDINE 100 MG TAB PO SCH ×3 (08:41→21:38)
[2016-04-09] MEDS: AZELASTINE 137MCG NASAL SPY 30 ML (ASTELIN) SCH ×2 (08:42→21:39)
[2016-04-09] MEDS: SYMBICORT 80/4.5MCG INHALER 6GM INH SCH ×2 (08:46→20:26)
[2016-04-09] MEDS ORDERED: amLODIPine 5 MG TAB PO SCH (09:00)
[2016-04-09] MEDS ORDERED: HYDROmorphone 2 MG TAB PO PRN (09:15)
[2016-04-09] MEDS ORDERED: amLODIPine 5 MG TAB PO ONE (11:15)
[2016-04-09 12:00] VITALS: BP 162/76
[2016-04-09] MEDS: PANTOPRAZOLE 40MG INJ (PROTONIX) (C9113) IV SCH (13:10)
--- NOTE | 2016-04-09 15:16 | PHACANCOPD ---
PHARMACY VANCOMYCIN DOSING Pt Demographics Demographics Patient Age:50 , Weight:115.200 , Gender: female Adjusted Body Weight Date: 04/07/16, Adjusted Body Weight: [85.08] Kg Events Past 24 Hours Events Past 24 Hours: NO: Change in CrCl, Dialysis, Diuretic Therapy, Elevation in WBC, Fever, Other, Pending Diagnostics, Pending Procedures Vancomycin Vancomycin indication: hcap Vancomycin Target Ranges: 15-20 mcg/ml Vancomycin Load Y/N: Yes Load Dose Date Time Vancomycin Load Dose: 2g Date: 04/07/16 Time: 1500 Vancomycin Dose Date: 04/09/16. Current Vancomycin Dose: [1.5 GRAMS Q8H] Date: 04/07/16. Current Vancomycin Dose: [1g IV Q8H] Intermittent Dosing?: No Labs Labs Item Value Date Time White Blood Count 6.9 K/mm3 04/08/16 0534 White Blood Count 9.1 K/mm3 04/08/16 1729 White Blood Count 8.0 K/mm3 04/09/16 0646 Creatinine 0.81 MG/DL 04/08/16 1729 Creatinine 0.63 MG/DL 04/07/16 0635 Vancomycin Level Trough 8.3 UG/ML L 04/08/16 1355 Vancomycin Level Trough 18.0 UG/ML 04/09/16 1405 Micro Microbiology 04/07/16 Blood Culture - Preliminary, Resulted No Growth after 48 hours. All Specime... 04/07/16 Blood Culture - Preliminary, Resulted No Growth after 48 hours. All Specime... 04/07/16 Influenza Virus Type A Antigen - Final, Complete 04/07/16 Influenza Virus Type B Antigen - Final, Complete 04/07/16 Urine Culture - Final, Complete Klebsiella Pneumoniae 04/07/16 Urine Culture - Final, Complete Creatinine Clearance Date:04/07/16. Estimated Creatinine Clearance: [> 100 ml/min]. Assessment and Plan Maintaining Current Dose?: Yes Reason for dose change: No Dose Change Pharmacist Note Pharmacist Note Date: 04/09/16. Pharmacist note: Trough was therapeutic at 18 after one 2 gram dose and two 1.5 gram doses. Continue with current dosing and follow up with another trough in a couple of days. Continue to monitor renal function and adjust dose as needed. 04/08/16: Day #2 - Trough today resulted at 8.3 mcg/ml. Another 2g loading dose will be given today, 04/08/16 @1500, followed by an increase in the maintenance regimen from 1g IV Q8H to 1500mg IV Q8H. A follow-up vanco trough has been scheduled for 04/09/16 @ 1400, prior to the 4th dose of the new regimen. We will continue to monitor and make further dose adjustments as needed. Date: 04/07/16. Pharmacist note: Day #1 empiric cefepime + vancomycin initiated with a 2g loading dose 04/07/16 @1500 followed by a maintenance regimen of 1g IV Q8H for the treatment of HCAP - aiming for a goal trough of 15-20 mcg/ml. No PMH of MRSA or vanco use here at [facility]. Patient is currently afebrile with an elevated WBC. CXR indicative of LLL opacity. Urine and blood cultures are currently pending. A vanco trough has been scheduled for 04/08/16 @ 1400, prior to the fourth dose. We will continue to monitor and make adjustments as needed. [facility] Apr 09, 2016 15:16
[2016-04-09 16:00] VITALS: BP 145/77
--- NOTE | 2016-04-09 17:00 | CR ---
DATE OF CONSULTATION: 04/09/2016 ATTENDING: Dr. Mathur INFECTIOUS DISEASE CONSULT NOTE HISTORY OF THE PRESENT ILLNESS: The patient is a 50-year-old female who presented to the hospital on 04/07/2016 with left-sided flank and pelvic pain. On admission, the patient was diagnosed with acute left-sided pyelonephritis and started on cefepime and vancomycin. The patient was seen and examined at the bedside today. The patient says that she is still having pain on her left side, pain is worse than yesterday but better than on admission 2 days ago. She is having some hematuria today, she denies any burning with urination but does say she has pain after urination. PAST MEDICAL HISTORY: Diabetes. Atrial fibrillation. DDD lumbar COPD Hyperlipidemia SURGICAL HISTORY: Spinal fusion in 2012. Tubal ligation. Tonsillectomy. Left ankle repair. Sinus surgery. FAMILY HISTORY: Mother with thyroid disease. SOCIAL HISTORY: Denies alcohol, tobacco, illicit drug use. ALLERGIES: AZITHROMYCIN, IBUPROFEN, SHELLFISH. CURRENT MEDICATIONS: - Tylenol - albuterol sulfate - DuoNeb - Xanax - Norvasc - Lipitor - Astelin - Symbicort - cefepime - docusate - glucagon - Dilaudid - Levemir insulin - Humalog insulin - Lopressor - morphine - Zofran - Percocet - Protonix - phenazopyridine - Xarelto - vancomycin OBJECTIVE: VITAL SIGNS: Temperature 96.3, maximum temperature (T max) 98.4, pulse 90, respiratory rate 18, blood pressure 168/79, pulse oximetry 97% on room air. GENERAL: The patient is awake, laying down in bed, verbal and able to answer questions appropriately. Alert and oriented times three. She does not appear to be in any acute distress. HEENT: Head: Normocephalic, atraumatic. Eyes: Extraocular movements intact, pupils equally round and reactive to light. Throat: Moist oral mucosa. NECK: Nontender. Right submandibular lymph node palpable. LUNGS: Clear to auscultation bilaterally. No wheezes, rales or rhonchi. HEART: Regular rate and rhythm. Normal S1, S2. No murmurs, rubs, clicks or gallops. LUNGS: Clear to auscultation bilaterally. No wheezes, rales or rhonchi. ABDOMEN: Active bowel sounds, tenderness to palpation in the low central, pelvic region. No masses to palpation. BACK: Left flank tenderness to palpation. EXTREMITIES: Bilateral lower extremity pitting edema to just below knee. MUSCULOSKELETAL: 5/5 strength throughout upper and lower extremities. NEUROLOGICAL: Sensation intact and symmetrical in upper and lower extremities. VASCULAR: Radial pulses and dorsalis pedis pulses palpable and symmetrical. LABORATORY DATA: CBC: White blood cells 8.0, hemoglobin and hematocrit 10.2 and 30.2, platelets 340. Microbiology: Urine culture grew 15,000 colony-forming units of Klebsiella pneumonia. ASSESSMENT: The patient is a 50-year-old female with acute pyelonephritis, currently on intravenous (IV) antibiotics (cefepime, vancomycin). 1. Acute pyelonephritis. The patient's antibiotics will be adjusted, vancomycin and cefepime discontinued. Patient started on IV ceftriaxone 2 grams IV every 24 hours. The patient can continue on IV Rocephin while hospitalized. The patient can be transitioned to oral Omnicef for discharge. It is unlikely at this time that the patient has also healthcare-acquired pneumonia. Changes on imaging most likely represent atelectasis. 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 Order placed for the patient to have incentive spirometer for atelectasis. My preceptor for this patient encounter was Dr. Mathur. The preceptor was physically present in the building during the encounter and was fully available. As needed, all aspects of the patient interview, examination, medical decision making process, and medical care plan development were reviewed and approved by the preceptor. The preceptor is aware and concurs with the plan as stated in the body of this note and will attest to such by his/her cosignature. ANDREW
--- NOTE | 2016-04-09 17:26 | IPNPDOC ---
Text Note Date of Service The patient was seen on 04/09/16 at 17:23. NOTE Subjective: Patient states her flank pain is much worse today. Denies any nausea or vomiting. No significant hematuria. Objective: Vitals: (see below) General: No acute distress, laying comfortably in bed. HEENT: Moist mucous membranes. Neck: No JVD or lymphadenopathy Cardiac: RRR, No murmurs Pulm: Diminished breath sounds and coarse crackles at the bases b/l. No wheezing , rhonchi Abd: NT/ND + BS. Positive CVA tenderness on the left, although less then yesterday Ext: No edema or cyanosis LABORATORY DATA: See below. IMAGING: CT abdomen and pelvis on 04/07/16 Impression: 1. Left renal findings as detailed above are most compatible with acute pyelonephritis verses emphysematous pyelonephritis. Intrarenal calculi up to 22 mm may cause intermittent UPJ obstruction related to the inflammatory changes. 2. Left lower lobe and lingular consolidations. 3. Diverticulosis without acute diverticulitis. Chest x-ray on 04/07/16 Impression: Left lower lobe opacity suggesting consolidation and/or pleural effusion. ASSESSMENT/PLAN: 1. Obstructive uropathy with left acute pyelonephritis verses emphysematous pyelonephritis. Status post ureter stents by urology on 04/07/16. Patient does have notable hydronephrosis with a 2.2 cm intrarenal calculi on CAT scan. Leukocytosis noted. Lactic acid less than 1. Trend CRP. Follow urine and blood cultures. Will need two weeks of antibiotics and outpatient urology follow-up. I have spoken to Dr. Jaffe, who believes that the patient's pain is typical and expected given reflux of urine status post recent stent. Status post cefepime. Appreciate Dr. Mathur's input. Patient's post changed to Rocephin, which will be transitioned to Omnicef on discharge. Patient's pain medications have been uptitrated. 2. ?HCAP - initial imaging thought to represents pneumonia, appreciate Dr. Mathur' s input with it being less likely, and more likely representing atelectasis. Vancomycin and cefepime have been discontinued. 3. Insulin-dependent diabetes mellitus- we'll start half the dose of Levemir daily at bedtime until the patient's able to tolerate by mouth tomorrow. Sliding -scale insulin. Hold sulfonylurea. 4 Hyperlipidemia on statin 5. Hypertension uncontrolled, amlodipine added. 6. Anxiety on Xanax when necessary 7. Atrial fibrillation on Xarelto on metoprolol. Currently in sinus rhythm. DVT prophylaxis on Xarelto VS,Fishbone, I+O VS, Fishbone, I+O Laboratory Tests 04/08/16 17:29 Calcium Level 8.6, Red Blood Count 3.83 L, Mean Corpuscular Volume 87.4, Mean Corpuscular Hemoglobin 28.9, Mean Corpuscular Hemoglobin Concent 33.1, Red Cell Distribution Width 12.3, Neutrophils (%) (Auto) 68.8 H, Lymphocytes (%) (Auto) 23.7 L, Monocytes (%) (Auto) 4.7, Eosinophils (%) (Auto) 0.7, Basophils (%) ( Auto) 0.2, Neutrophils # (Auto) 6.3, Lymphocytes # (Auto) 2.2, Monocytes # (Auto ) 0.4, Eosinophils # (Auto) 0.1, Basophils # (Auto) 0.0 04/09/16 06:46 Red Blood Count 3.44 L, Mean Corpuscular Volume 87.8, Mean Corpuscular Hemoglobin 29.5, Mean Corpuscular Hemoglobin Concent 33.6, Red Cell Distribution Width 12.6, Neutrophils (%) (Auto) 52.2, Lymphocytes (%) (Auto) 38.3, Monocytes (%) (Auto) 5.7 H, Eosinophils (%) (Auto) 1.1, Basophils (%) ( Auto) 0.5, Neutrophils # (Auto) 4.2, Lymphocytes # (Auto) 3.1, Monocytes # (Auto ) 0.5, Eosinophils # (Auto) 0.1, Basophils # (Auto) 0.0 Vital Signs Date Time Temp Pulse Resp B/P Pulse Ox O2 Delivery O2 Flow Rate FiO2 04/09/16 13:41 18 Room Air 04/09/16 12:13 90 168/79 04/09/16 12:00 96.3 97 I&O- Last 24 Hours up to 6 AM 04/09/16 06:00 Intake Total 3610 ml Output Total 2850 ml Balance 760 ml KATIA NOVAK MD Apr 09, 2016 17:26
--- NOTE | 2016-04-09 17:33 | EDDOCDS ---
Physician Documentation [facility] Name: Dora Osorio Age: 50 yrs Sex: Female : 1965 Arrival Date: 04/07/2016 Time: 05:00 Bed Admit Hold Private MD: Disposition: 04/07/16 11:16 Hospitalization ordered by Ortega Marquez for Inpatient Admission. Preliminary diagnosis are Urinary tract infection, site not specified - emphysematous pyelonepritis, Pneumonia due to other specified bacteria. - Bed requested for PCU. - Status is Inpatient Admission. dy - Condition is Stable. - Problem is new. - Symptoms are unchanged. Historical: - Allergies: Ibuprofen (was told to not take due to shellfish allergy); SHELLFISH (Swelling); SULFA (SULFONAMIDES) (Hives); Zithromax (Hives, Swelling); - Home Meds: 1. albuterol sulfate 2.5 mg /3 mL (0.083 %) Inhl nebu 3 mL QID prn 2. Breo Ellipta 100-25 mcg/dose inhalation dsdv 1 puff once daily 3. glyburide 5 mg Oral tab 2 tabs 2 times per day 4. tizanidine 2 mg oral tab 5. azelastine 137 mcg (0.1 %) nasal spra 6. Xarelto 20 mg oral tab 1 tab once daily 7. levocetirizine 5 mg oral tab once daily 8. metformin 1,000 mg Oral tab 1 tab 2 times per day 9. Farxiga 5 mg oral tab 1 tab once daily 10. metoprolol tartrate 50 mg Oral tab 1 tab 2 times per day 11. Xanax 0.25 mg Oral tab 2 tabs as needed - PMHx: Anxiety; Asthma; Diabetes - NIDDM: uncontrolled; Hypercholesterolemia; Hypertension; Pinched nerve in left arm; - PSHx: Sinus Surgery; Spinal Fusion; Tubal ligation; Tonsillectomy; Ankle Arthroplasty, Left; - Social history: Smoking status: Patient states former smoker of tobacco. No barriers to communication noted, The patient speaks fluent [place], Speaks appropriately for age, Preferred Language: [place]. - Family history: Not pertinent. - : The pt / caregiver states he / she is not on anticoagulants. Home medication list is obtained from pill bottles. 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 9 in. (175.26 cm) (R); Pain 10/10; 07:36 BP 109 / 64 (auto/); ck1 07:38 BP 109 / 64; Pulse 90; Resp 18; Temp 96.6(T); Pulse Ox 96% on R/A; Pain 5/10; ck1 09:20 BP 127 / 61 (auto/); ck1 09:22 Pulse Ox 94% ; ck1 09:23 BP 127 / 61; Pulse 92; Resp 18; Temp 98.8(O); Pulse Ox 94% on R/A; Pain 4/10; ck1 11:46 BP 132 / 73 (auto/); ck1 11:47 Pulse Ox 96% ; ck1 11:48 Pulse Ox 96% ; ck1 05:14 Body Mass Index 36.92 (113.40 kg, 175.26 cm) lf1 MDM: 05:40 ECG WITH READING ER PHYS+CARDIAG ordered. EDMS 07:02 Undress patient appropriately for examination ordered. sd1 07:02 IV Saline Lock ordered. sd1 07:03 morphine 4 mg IVP every 15 minutes; Document pain score/vitals after each dose (Hold if sd1 SBP < 90mmHg) x2 ordered. 07:03 Ondansetron 4 mg IVP once ordered. sd1 07:03 NS 0.9% 1000 ml IV at 150 mL/hr continuous ordered. sd1 07:03 Amylase Ordered. EDMS 07:03 Basic Metabolic Profile Ordered. EDMS 07:03 CBC with Diff Ordered. EDMS 07:03 Lipase Ordered. EDMS 07:03 Liver Profile Ordered. EDMS 07:03 Urinalysis Ordered. EDMS 07:03 Urine Culture Ordered. EDMS 07:04 Thyroid Profile Ordered. EDMS 07:15 Financial registration complete. hs2 07:25 [facility] Payment Agreement was scanned into [employer] and attached to record. hs2 08:16 Amylase Reviewed. sd1 08:16 Basic Metabolic Profile Reviewed. sd1 08:16 CBC with Diff Reviewed. sd1 08:16 Liver Profile Reviewed. sd1 08:16 Lipase Reviewed. sd1 08:16 Thyroid Profile Reviewed. sd1 08:17 CT ABD & PELVIS: No Contrast Ordered. EDMS 09:21 CT ABD & PELVIS: No Contrast Reviewed. sd1 09:22 -Blood Culture (Adults Only), peripheral from different site, or from device/port/PICC sd1 etc. if present ordered. 09:22 Misc. Nursing Order ordered. sd1 09:23 -Blood Culture Ordered. EDMS 09:36 -Blood Culture (Adults Only), peripheral from different site, or from device/port/PICC jlf etc. if present complete. 09:38 BLOOD CULTURES Ordered. EDMS 10:01 Urinalysis Reviewed. sd1 10:17 cefTRIAXone 1 grams IVPB once over 30 mins; dilute in 50mL of NS or D5W ordered. sd1 10:22 Imipenem-Cilastatin 500 mg IVPB at 100 mL/hr once over 1 hrs; reconstitute first with sd1 10mL of NS, then add to 100mL of NS ordered. 10:25 BED REQUEST+ADM ordered. EDMS 10:25 NOTHING BY MOUTH+DIET ordered. EDMS 10:46 Chest, 1 View Ordered. EDMS 10:46 PT/INR Ordered. EDMS 10:46 Type & Screen Ordered. EDMS 10:46 -Influenza A&B Rapid Antigen - Nose Ordered. EDMS 11:17 Admission / Observation Status ordered. EDMS 11:18 NPO DIET ordered. EDMS 11:19 LACTIC ACID LEVEL, LACTATE Ordered. EDMS 11:19 LACTIC ACID LEVEL, LACTATE Ordered. EDMS 11:19 VENOUS BLOOD GAS Ordered. EDMS 11:19 CARDIAC MARKER PANEL Ordered. EDMS 11:19 CARDIAC MARKER PANEL Ordered. EDMS 15:03 Retrograde Pyelogram Ordered. EDMS 04/08 11:54 T-Sheet-- Draft Copy was scanned into [employer] and attached to record. gb 11:54 ECG/EKG was scanned into [employer] and attached to record. gb 11:54 Radiology Report was scanned into [employer] and attached to record. gb Administered Medications: 04/07 07:14 Drug: morphine 4 mg [morphine 4 mg/mL intravenous cartridge (1 mL)] Route: IVP; Site: ck1 left antecubital; 07:38 Follow up: BP 109 / 64; Pulse 90 bpm; Resp 18 bpm; Temp 96.6 Tympanic; Pulse Ox 96% RA; ck1 Pain 5/10 Adult; Response: Confirmed pt not driving.; No Adverse Reaction; Pain is decreased 07:14 Drug: Ondansetron 4 mg [ondansetron HCl 2 mg/mL intravenous solution (2 mL)] Route: ck1 IVP; Site: left antecubital; 07:14 Drug: NS 0.9% 1000 ml [sodium chloride 0.9 % intravenous solution] Route: IV; Rate: 150 ck1 mL/hr; Site: left antecubital; 08:44 Drug: morphine 4 mg [morphine 4 mg/mL intravenous cartridge (1 mL)] Route: IVP; Site: ck1 left antecubital; 09:23 Follow up: BP 127 / 61; Pulse 92 bpm; Resp 18 bpm; Temp 98.8 Oral; Pulse Ox 94% RA; ck1 Pain 4/10 Adult; Response: Confirmed pt not driving.; No Adverse Reaction; Pain is decreased 10:22 Not Given (other usedd): cefTRIAXone 1 grams IVPB once over 30 mins; dilute in 50mL of sd1 NS or D5W 10:33 Drug: Imipenem-Cilastatin 500 mg [imipenem-cilastatin 500 mg intravenous solution] ck1 Route: IVPB; Rate: 100 mL/hr; Infused Over: 1 hrs; Site: left antecubital; Signatures: Dispatcher [employer] Re Skinner MD MD sd1 Hiwot Fairchild, Reg Reg gb Michele Kaplan RN Luann PuriRN RN lf1 Gina Lawrence, PRINTED CIRCUIT BOARDS ROUTER PRINTED CIRCUIT BOARDS ROUTER jlf Bobbi Parra RN RN af2 Dixon aHrmon RN RN [facility] Hilda Salazar, Reg Reg hs2 Micki Luther RN ck1 The chart was reviewed and I authenticate all verbal orders and agree with the evaluation and treatment provided.Attachments: 07:25 COUNTS INCLUDE 234 BEDS AT THE [facility] Payment Agreement hs2 04/08 11:54 T-Sheet-- Draft Copy gb 11:54 ECG/EKG Chart Complete MTDD
--- NOTE | 2016-04-09 17:33 | EDDOCDS ---
Physician Documentation [facility] Name: Dora Osorio Age: 50 yrs Sex: Female : 1965 Arrival Date: 04/07/2016 Time: 05:00 Bed Admit Hold Private MD: Disposition: 04/07/16 11:16 Hospitalization ordered by Ortega Marquez for Inpatient Admission. Preliminary diagnosis are Urinary tract infection, site not specified - emphysematous pyelonepritis, Pneumonia due to other specified bacteria. - Bed requested for PCU. - Status is Inpatient Admission. dy - Condition is Stable. - Problem is new. - Symptoms are unchanged. Historical: - Allergies: Ibuprofen (was told to not take due to shellfish allergy); SHELLFISH (Swelling); SULFA (SULFONAMIDES) (Hives); Zithromax (Hives, Swelling); - Home Meds: 1. albuterol sulfate 2.5 mg /3 mL (0.083 %) Inhl nebu 3 mL QID prn 2. Breo Ellipta 100-25 mcg/dose inhalation dsdv 1 puff once daily 3. glyburide 5 mg Oral tab 2 tabs 2 times per day 4. tizanidine 2 mg oral tab 5. azelastine 137 mcg (0.1 %) nasal spra 6. Xarelto 20 mg oral tab 1 tab once daily 7. levocetirizine 5 mg oral tab once daily 8. metformin 1,000 mg Oral tab 1 tab 2 times per day 9. Farxiga 5 mg oral tab 1 tab once daily 10. metoprolol tartrate 50 mg Oral tab 1 tab 2 times per day 11. Xanax 0.25 mg Oral tab 2 tabs as needed - PMHx: Anxiety; Asthma; Diabetes - NIDDM: uncontrolled; Hypercholesterolemia; Hypertension; Pinched nerve in left arm; - PSHx: Sinus Surgery; Spinal Fusion; Tubal ligation; Tonsillectomy; Ankle Arthroplasty, Left; - Social history: Smoking status: Patient states former smoker of tobacco. No barriers to communication noted, The patient speaks fluent [place], Speaks appropriately for age, Preferred Language: [place]. - Family history: Not pertinent. - : The pt / caregiver states he / she is not on anticoagulants. Home medication list is obtained from pill bottles. 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 9 in. (175.26 cm) (R); Pain 10/10; 07:36 BP 109 / 64 (auto/); ck1 07:38 BP 109 / 64; Pulse 90; Resp 18; Temp 96.6(T); Pulse Ox 96% on R/A; Pain 5/10; ck1 09:20 BP 127 / 61 (auto/); ck1 09:22 Pulse Ox 94% ; ck1 09:23 BP 127 / 61; Pulse 92; Resp 18; Temp 98.8(O); Pulse Ox 94% on R/A; Pain 4/10; ck1 11:46 BP 132 / 73 (auto/); ck1 11:47 Pulse Ox 96% ; ck1 11:48 Pulse Ox 96% ; ck1 05:14 Body Mass Index 36.92 (113.40 kg, 175.26 cm) lf1 MDM: 05:40 ECG WITH READING ER PHYS+CARDIAG ordered. EDMS 07:02 Undress patient appropriately for examination ordered. sd1 07:02 IV Saline Lock ordered. sd1 07:03 morphine 4 mg IVP every 15 minutes; Document pain score/vitals after each dose (Hold if sd1 SBP < 90mmHg) x2 ordered. 07:03 Ondansetron 4 mg IVP once ordered. sd1 07:03 NS 0.9% 1000 ml IV at 150 mL/hr continuous ordered. sd1 07:03 Amylase Ordered. EDMS 07:03 Basic Metabolic Profile Ordered. EDMS 07:03 CBC with Diff Ordered. EDMS 07:03 Lipase Ordered. EDMS 07:03 Liver Profile Ordered. EDMS 07:03 Urinalysis Ordered. EDMS 07:03 Urine Culture Ordered. EDMS 07:04 Thyroid Profile Ordered. EDMS 07:15 Financial registration complete. hs2 07:25 [facility] [place] Payment Agreement was scanned into [employer] and attached to record. hs2 08:16 Amylase Reviewed. sd1 08:16 Basic Metabolic Profile Reviewed. sd1 08:16 CBC with Diff Reviewed. sd1 08:16 Liver Profile Reviewed. sd1 08:16 Lipase Reviewed. sd1 08:16 Thyroid Profile Reviewed. sd1 08:17 CT ABD & PELVIS: No Contrast Ordered. EDMS 09:21 CT ABD & PELVIS: No Contrast Reviewed. sd1 09:22 -Blood Culture (Adults Only), peripheral from different site, or from device/port/PICC sd1 etc. if present ordered. 09:22 Misc. Nursing Order ordered. sd1 09:23 -Blood Culture Ordered. EDMS 09:36 -Blood Culture (Adults Only), peripheral from different site, or from device/port/PICC jlf etc. if present complete. 09:38 BLOOD CULTURES Ordered. EDMS 10:01 Urinalysis Reviewed. sd1 10:17 cefTRIAXone 1 grams IVPB once over 30 mins; dilute in 50mL of NS or D5W ordered. sd1 10:22 Imipenem-Cilastatin 500 mg IVPB at 100 mL/hr once over 1 hrs; reconstitute first with sd1 10mL of NS, then add to 100mL of NS ordered. 10:25 BED REQUEST+ADM ordered. EDMS 10:25 NOTHING BY MOUTH+DIET ordered. EDMS 10:46 Chest, 1 View Ordered. EDMS 10:46 PT/INR Ordered. EDMS 10:46 Type & Screen Ordered. EDMS 10:46 -Influenza A&B Rapid Antigen - Nose Ordered. EDMS 11:17 Admission / Observation Status ordered. EDMS 11:18 NPO DIET ordered. EDMS 11:19 LACTIC ACID LEVEL, LACTATE Ordered. EDMS 11:19 LACTIC ACID LEVEL, LACTATE Ordered. EDMS 11:19 VENOUS BLOOD GAS Ordered. EDMS 11:19 CARDIAC MARKER PANEL Ordered. EDMS 11:19 CARDIAC MARKER PANEL Ordered. EDMS 15:03 Retrograde Pyelogram Ordered. EDMS 04/08 11:54 T-Sheet-- Draft Copy was scanned into [employer] and attached to record. gb 11:54 ECG/EKG was scanned into [employer] and attached to record. gb 11:54 Radiology Report was scanned into [employer] and attached to record. gb Administered Medications: 04/07 07:14 Drug: morphine 4 mg [morphine 4 mg/mL intravenous cartridge (1 mL)] Route: IVP; Site: ck1 left antecubital; 07:38 Follow up: BP 109 / 64; Pulse 90 bpm; Resp 18 bpm; Temp 96.6 Tympanic; Pulse Ox 96% RA; ck1 Pain 5/10 Adult; Response: Confirmed pt not driving.; No Adverse Reaction; Pain is decreased 07:14 Drug: Ondansetron 4 mg [ondansetron HCl 2 mg/mL intravenous solution (2 mL)] Route: ck1 IVP; Site: left antecubital; 07:14 Drug: NS 0.9% 1000 ml [sodium chloride 0.9 % intravenous solution] Route: IV; Rate: 150 ck1 mL/hr; Site: left antecubital; 08:44 Drug: morphine 4 mg [morphine 4 mg/mL intravenous cartridge (1 mL)] Route: IVP; Site: ck1 left antecubital; 09:23 Follow up: BP 127 / 61; Pulse 92 bpm; Resp 18 bpm; Temp 98.8 Oral; Pulse Ox 94% RA; ck1 Pain 4/10 Adult; Response: Confirmed pt not driving.; No Adverse Reaction; Pain is decreased 10:22 Not Given (other usedd): cefTRIAXone 1 grams IVPB once over 30 mins; dilute in 50mL of sd1 NS or D5W 10:33 Drug: Imipenem-Cilastatin 500 mg [imipenem-cilastatin 500 mg intravenous solution] ck1 Route: IVPB; Rate: 100 mL/hr; Infused Over: 1 hrs; Site: left antecubital; Signatures: Dispatcher [employer] Re Skinner MD MD sd1 Hiwot Fairchild, Reg Reg gb Michele Kaplan RN Luann PuriRN RN lf1 Gina Lawrence, MIXING PLACE SUPERVISOR MIXING PLACE SUPERVISOR jlf Bobbi Parra RN RN af2 Dixon Harmon RN RN [facility] Hilda Salazar, Reg Reg hs2 Micki Luther RN ck1 The chart was reviewed and I authenticate all verbal orders and agree with the evaluation and treatment provided.Attachments: 07:25 [facility] Payment Agreement hs2 04/08 11:54 T-Sheet-- Draft Copy gb 11:54 ECG/EKG Chart Complete MTDD
--- NOTE | 2016-04-09 17:33 | EDDOCDS ---
Nurse's Notes [facility] Name: Dora Osorio Age: 50 yrs Sex: Female : 1965 Arrival Date: 04/07/2016 Time: 05:00 Bed Admit Hold Private MD: Diagnosis: Urinary tract infection, site not specified-emphysematous pyelonepritis;Pneumonia due to other specified bacteria Presentation: 04/07 05:14 Presenting complaint: Patient states: Left flank pain that began at 0300 this morning lf1 and is currently 10/10 with nausea. Denies burning with urination. Acute neurological deficits are not present. Mechanism of Injury: No Mechanism of Injury. 05:14 Acuity: EDDIE Level 3 lf1 05:14 Presenting complaint: Patient states: Pt reports that she now has left chest pain that lf1 is 6/10 and is reproducible, does not radiate. Adult Sepsis Screening: The patient does not have new or worsening altered mentation. Patient has a respiratory rate of greater than or equal to 22 (1 point). Systolic blood pressure is greater than 100. Patient has a qSOFA score of 1- Negative Sepsis Screen. Suicide/Homicide risk assessment- the patient denies having any suicidal and/or homicidal ideations and does not present with any other emotional, behavioral or mental health complaints. 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 Transition of care: patient was not received from another setting of care. 05:14 Method Of Arrival: Wheelchair lf1 Triage Assessment: 05:25 General: Appears uncomfortable, Behavior is cooperative. Pain: Location: anterior lf1 aspect of left upper chest and left flank Pain currently is 10 out of 10 on a pain scale. Pain began 2 hours ago. HIV screening NA for this visit Offered previously. Neurological: Level of Consciousness is awake, alert. EENT: No deficits noted. Cardiovascular: Chest pain is located in left anterior. Respiratory: Respiratory effort is even, pursed lip, Reports shortness of breath. GI: Reports nausea. Derm: Skin is normal. Musculoskeletal: Reports chronic neck and left arm pain. 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 albuterol sulfate 2.5 mg /3 mL (0.083 %) Inhl nebu 3 mL QID prn 2. Breo Ellipta 100-25 mcg/dose inhalation dsdv 1 puff once daily 3. glyburide 5 mg Oral tab 2 tabs 2 times per day 4. tizanidine 2 mg oral tab 5. azelastine 137 mcg (0.1 %) nasal spra 6. Xarelto 20 mg oral tab 1 tab once daily 7. levocetirizine 5 mg oral tab once daily 8. metformin 1,000 mg Oral tab 1 tab 2 times per day 9. Farxiga 5 mg oral tab 1 tab once daily 10. metoprolol tartrate 50 mg Oral tab 1 tab 2 times per day 11. Xanax 0.25 mg Oral tab 2 tabs as needed - PMHx: Anxiety; Asthma; Diabetes - NIDDM: uncontrolled; Hypercholesterolemia; Hypertension; Pinched nerve in left arm; - PSHx: Sinus Surgery; Spinal Fusion; Tubal ligation; Tonsillectomy; Ankle Arthroplasty, Left; - Social history: Smoking status: Patient states former smoker of tobacco. No barriers to communication noted, The patient speaks fluent Armenian, Speaks appropriately for age, Preferred Language: Armenian. - Family history: Not pertinent. - : The pt / caregiver states he / she is not on anticoagulants. Home medication list is obtained from pill bottles. 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 Screenin:37 Screening information is obtained from the patient. Fall risk: No risks identified. af2 Assistance ADL's: requires no assistance with activities of daily living. Abuse/DV Screen: The patient / caregiver reports he/she is: not in a situation that causes fear, pain or injury. Nutritional screening: No deficits noted. Advance Directives: Currently, there is no health care proxy. home support is adequate. Assessment: 06:37 General: Appears in no apparent distress, comfortable, Behavior is appropriate for age, af2 cooperative, pt found lying on stretcher resting quietly with eyes closed, arouses easily to name. family at bedside.. Pain: Location: abdomen Pain currently is 6 out of 10 on a pain scale. Neurological: Level of Consciousness is awake, alert, obeys commands, Oriented to person, place, time. Cardiovascular: Heart tones S1 S2 present. Respiratory: Airway is patent Respiratory effort is even, unlabored, Breath sounds are clear bilaterally. GI: Abdomen is non- distended Bowel sounds present X 4 quads. Reports upper abdominal pain, nausea. GI: Abdomen is obese. Derm: Skin is normal. 07:15 General: Appears in no apparent distress, comfortable, Behavior is appropriate for age, ck1 cooperative. Pain: Location: left lower quadrant Pain currently is 9 out of 10 on a pain scale. Pain radiates to left flank. Neurological: Level of Consciousness is awake, alert, obeys commands, Oriented to person, place, time. Respiratory: Respiratory effort is unlabored, Respiratory pattern is regular, symmetrical. GI: Reports nausea. : Denies burning with urination, inability to void, urinary frequency, vaginal bleeding. Derm: Skin is normal. 08:44 General: Patient complaining of worsening pain 8/10. Medicated per orders. Call light ck1 in reach, family members at bedside. Will continue to monitor patient. 09:43 General: Appears in no apparent distress, comfortable, Behavior is appropriate for age, ck1 cooperative. Pain: Location: left lower quadrant Pain currently is 4 out of 10 on a pain scale. Neurological: Level of Consciousness is awake, alert, obeys commands, Oriented to person, place, time. Cardiovascular: No deficits noted. Respiratory: Respiratory effort is unlabored, Respiratory pattern is regular, symmetrical. GI: Denies nausea, vomiting. Derm: Skin is pink, warm & dry. 10:34 General: Appears distressed, Behavior is crying. Pain: Location: left lower quadrant ck1 Pain currently is 4 out of 10 on a pain scale. Neurological: Level of Consciousness is awake, alert, obeys commands, Oriented to person, place, time. Respiratory: Respiratory effort is unlabored, Respiratory pattern is regular, symmetrical. GI: Denies nausea, vomiting. Derm: Skin is pink, warm & dry. 11:34 General: Appears in no apparent distress, comfortable, Behavior is appropriate for age, ck1 cooperative. Pain: Location: left flank Pain currently is 8 out of 10 on a pain scale. Neurological: Level of Consciousness is awake, alert, obeys commands, Oriented to person, place, time. Respiratory: Airway is patent Respiratory effort is unlabored, Respiratory pattern is regular, symmetrical. GI: Reports nausea. Derm: Skin is pink, warm & dry. Musculoskeletal: No deficits noted. Vital Signs: 05:14 BP 135 / 82; Pulse 94; Resp 24; Temp 97.9(O); Pulse Ox 98% on R/A; Weight 113.4 kg (R); lf1 Height 5 ft. 9 in. (175.26 cm) (R); Pain 10/10; 07:36 BP 109 / 64 (auto/); ck1 07:38 BP 109 / 64; Pulse 90; Resp 18; Temp 96.6(T); Pulse Ox 96% on R/A; Pain 5/10; ck1 09:20 BP 127 / 61 (auto/); ck1 09:22 Pulse Ox 94% ; ck1 09:23 BP 127 / 61; Pulse 92; Resp 18; Temp 98.8(O); Pulse Ox 94% on R/A; Pain 4/10; ck1 11:46 BP 132 / 73 (auto/); ck1 11:47 Pulse Ox 96% ; ck1 11:48 Pulse Ox 96% ; ck1 05:14 Body Mass Index 36.92 (113.40 kg, 175.26 cm) [facility] Vitals: 05:14 Log In Time: April 07, 2016 at 05:02. [facility] ED Course: 05:01 Patient visited by Hilda Salazar Reg. hs2 05:01 Patient moved to Waiting hs2 05:14 Patient moved to Triage 1 [facility] 05:16 Triage Initiated 1 05:28 Bobbi ParraRN is Primary Nurse. 1 05:28 Patient moved to 17 [facility] 05:42 Patient visited by Florina Street RN. [facility] 05:49 EKG done. (by ED staff). Reviewed by Shaheed Osorio DO. jl 05:50 Patient visited by Louisa Malagon, Sales Agent Financial Report Service. jlm 06:37 Inserted saline lock: 18 gauge in left antecubital area and blood collected. The af2 patient tolerated the procedure well. 06:40 Patient visited by Bobbi Parra RN. af2 06:40 The patient / caregiver is instructed regarding the plan of care and ED course. Patient af2 has correct armband on for positive identification. Placed in gown. 06:54 Re Spaulding MD is Attending Physician. sd1 06:54 Patient visited by Re Spaulding MD. sd1 06:57 Micki Luther,RN is Primary Nurse. ck1 07:05 Thyroid Profile Sent. ck1 07:05 Amylase Sent. ck1 07:05 Basic Metabolic Profile Sent. ck1 07:05 CBC with Diff Sent. ck1 07:05 Lipase Sent. ck1 07:05 Liver Profile Sent. ck1 07:14 Patient visited by Micki Luther RN. ck1 07:15 Primary Nurse role handed off by Bobbi Parra RN mcp 07:25 [facility] Payment Agreement was scanned into [employer] and attached to record. hs2 07:29 Patient visited by Micki Luther,EJNNIFER. ck1 08:02 Patient visited by Micki Luther,JENNIFER. ck1 08:38 Patient visited by Micki Luther,JENNIFER. ck1 09:19 Patient visited by Micki Luther,JENNIFER. ck1 09:20 CT ABD & PELVIS: No Contrast Returned. EDMS 09:36 Patient visited by Gina Lawrence PCA. jlf 09:36 Urine Culture Sent. jlf 09:36 Urinalysis Sent. jlf 09:36 -Blood Culture Sent. jlf 09:43 BLOOD CULTURES Sent. ck1 10:07 Patient visited by Gina Lawrence PCA. jlf 10:33 Patient visited by Micki Luther,JENNIFER. ck1 11:04 Patient visited by Micki Luther,JENNIFER. ck1 11:16 Ortega Marquez is Hospitalizing Provider. sd1 11:29 Chest, 1 View Returned. EDMS 11:43 -Influenza A&B Rapid Antigen - Nose Sent. ck1 11:43 Type & Screen Sent. ck1 12:25 Patient moved to 19 jlf 13:06 Patient moved to 20 jlf 13:48 Patient moved to Admit Hold dy 04/08 11:54 T-Sheet-- Draft Copy was scanned into [employer] and attached to record. gb 11:54 ECG/EKG was scanned into [employer] and attached to record. gb 11:54 Radiology Report was scanned into [employer] and attached to record. gb Administered Medications: 04/07 07:14 Drug: morphine 4 mg [morphine 4 mg/mL intravenous cartridge (1 mL)] Route: IVP; Site: ck1 left antecubital; 07:38 Follow up: BP 109 / 64; Pulse 90 bpm; Resp 18 bpm; Temp 96.6 Tympanic; Pulse Ox 96% RA; ck1 Pain 5/10 Adult; Response: Confirmed pt not driving.; No Adverse Reaction; Pain is decreased 07:14 Drug: Ondansetron 4 mg [ondansetron HCl 2 mg/mL intravenous solution (2 mL)] Route: ck1 IVP; Site: left antecubital; 07:14 Drug: NS 0.9% 1000 ml [sodium chloride 0.9 % intravenous solution] Route: IV; Rate: 150 ck1 mL/hr; Site: left antecubital; 08:44 Drug: morphine 4 mg [morphine 4 mg/mL intravenous cartridge (1 mL)] Route: IVP; Site: ck1 left antecubital; 09:23 Follow up: BP 127 / 61; Pulse 92 bpm; Resp 18 bpm; Temp 98.8 Oral; Pulse Ox 94% RA; ck1 Pain 4/10 Adult; Response: Confirmed pt not driving.; No Adverse Reaction; Pain is decreased 10:22 Not Given (other usedd): cefTRIAXone 1 grams IVPB once over 30 mins; dilute in 50mL of sd1 NS or D5W 10:33 Drug: Imipenem-Cilastatin 500 mg [imipenem-cilastatin 500 mg intravenous solution] ck1 Route: IVPB; Rate: 100 mL/hr; Infused Over: 1 hrs; Site: left antecubital; Order Results: Lab Order: Amylase; SPEC'M 04/07/16 06:35 Test: AMYLASE; Value: 14; Range: 25-115; Abnormal: Below low normal; Units: U/L; Status: F Lab Order: Basic Metabolic Profile; SPEC'M 04/07/16 06:35 Test: GLUCOSE, FASTING; Value: 329; Range: 70-105; Abnormal: Above high normal; Units: MG/DL; Status: F Test: BLOOD UREA NITROGEN; Value: 17; Range: 7-18; Units: MG/DL; Status: F Test: CREATININE FOR GFR; Value: 0.63; Range: 0.55-1.02; Units: MG/DL; Status: F Test: GLOMERULAR FILTRATION RATE; Value: > 60.0; Range: >51; Status: F Test: SODIUM LEVEL; Value: 136; Range: 136-145; Units: MEQ/L; Status: F Test: POTASSIUM SERUM; Value: 4.4; Range: 3.5-5.1; Units: MEQ/L; Status: F Test: CHLORIDE LEVEL; Value: 102; Range: 98-107; Units: MEQ/L; Status: F Test: CARBON DIOXIDE LEVEL; Value: 23; Range: 21-32; Units: MEQ/L; Status: F Test: ANION GAP; Value: 11; Range: 8-16; Units: MEQ/L; Status: F Test: CALCIUM LEVEL; Value: 8.3; Range: 8.5-10.1; Abnormal: Below low normal; Units: MG/DL; Status: F Test Note: ; Units are mL/min/1.73 m2 Chronic Kidney Disease Staging per NKF: Stage I & II GFR >=60 Normal to Mildly Decreased Stage III GFR 30-59 Moderately Decreased Stage IV GFR 15-29 Severely Decreased Stage V GFR <15 Very Little GFR Left ESRD GFR <15 on CREAM DUMPER Lab Order: CBC with Diff; SPEC'M 04/07/16 06:35 Test: WHITE BLOOD COUNT; Value: 12.0; Range: 4.0-10.0; Abnormal: Above high normal; Units: K/mm3; Status: F Test: RED BLOOD COUNT; Value: 3.86; Range: 4.00-5.40; Abnormal: Below low normal; Units: M/mm3; Status: F Test: HEMOGLOBIN; Value: 11.3; Range: 12.0-16.0; Abnormal: Below low normal; Units: g/dl; Status: F Test: HEMATOCRIT; Value: 34.4; Range: 36.0-47.0; Abnormal: Below low normal; Units: %; Status: F Test: MEAN CORPUSCULAR VOLUME; Value: 89.2; Range: 80.0-96.0; Units: fl; Status: F Test: MEAN CORPUSCULAR HEMOGLOBIN; Value: 29.2; Range: 27.0-33.0; Units: pg; Status: F Test: MEAN CORPUSCULAR HGB CONC; Value: 32.8; Range: 32.0-36.5; Units: g/dl; Status: F Test: RED CELL DISTRIBUTION WIDTH; Value: 12.3; Range: 11.5-14.5; Units: %; Status: F Test: PLATELET COUNT, AUTOMATED; Value: 343; Range: 150-450; Units: k/mm3; Status: F Test: NEUTROPHILS %; Value: 80.6; Range: 36.0-66.0; Abnormal: Above high normal; Units: %; Status: F Test: LYMPH %; Value: 12.2; Range: 24.0-44.0; Abnormal: Below low normal; Units: %; Status: F Test: MONO %; Value: 4.0; Range: 0.0-5.0; Units: %; Status: F Test: EOS %; Value: 1.1; Range: 0.0-3.0; Units: %; Status: F Test: BASO %; Value: 0.3; Range: 0.0-1.0; Units: %; Status: F Test: LARGE UNSTAINED CELL %; Value: 2.0; Range: 0.0-4.0; Units: %; Status: F Test: NEUTROPHILS #; Value: 9.7; Range: 1.8-7.7; Abnormal: Above high normal; Units: K/mm3; Status: F Test: LYMPH #; Value: 1.5; Range: 1.5-4.5; Units: K/mm3; Status: F Test: MONO #; Value: 0.5; Range: 0.0-0.8; Units: K/mm3; Status: F Test: EOS #; Value: 0.1; Range: 0.0-0.50; Units: K/mm3; Status: F Test: BASO #; Value: 0.0; Range: 0.0-0.2; Units: K/mm3; Status: F Test: LARGE UNSTAINED CELL #; Value: 0.2; Range: 0.0-0.4; Units: K/mm3; Status: F Lab Order: Lipase; SPEC'M 04/07/16 06:35 Test: LIPASE; Value: 85; Range: 73-393; Units: U/L; Status: F Lab Order: Liver Profile; SPEC'M 04/07/16 06:35 Test: AST/SGOT; Value: 7; Range: 15-37; Abnormal: Below low normal; Units: U/L; Status: F Test: ALT/SGPT; Value: 11; Range: 12-78; Abnormal: Below low normal; Units: U/L; Status: F Test: ALKALINE PHOSPHATASE; Value: 105; Range: 45-117; Units: U/L; Status: F Test: BILIRUBIN,TOTAL; Value: 0.2; Range: 0.2-1.0; Units: MG/DL; Status: F Test: BILIRUBIN,DIRECT; Value: < 0.1; Range: 0.0-0.2; Units: MG/DL; Status: F Test: TOTAL PROTEIN; Value: 7.3; Range: 6.4-8.2; Units: GM/DL; Status: F Test: ALBUMIN; Value: 2.8; Range: 3.2-5.2; Abnormal: Below low normal; Units: GM/DL; Status: F Test: ALBUMIN/GLOBULIN RATIO; Value: 0.62; Range: 1.00-1.93; Abnormal: Below low normal; Status: F Lab Order: Urinalysis; SPEC'M 04/07/16 09:29 Test: APPEARANCE, URINE; Value: HAZY; Range: CLEAR; Status: F Test: COLOR, URINE; Value: YELLOW; Range: YELLOW; Status: F Test: PH,URINE; Value: 5.0; Range: 5.0-9.0; Units: UNITS; Status: F Test: SPECIFIC GRAVITY URINE AUTO; Value: 1.027; Range: 1.002-1.035; Status: F Test: PROTEIN, URINE AUTO; Value: NEGATIVE; Range: NEGATIVE; Units: mg/dL; Status: F Test: GLUCOSE, URINE (UA) AUTO; Value: 3+; Range: NEGATIVE; Abnormal: Above high normal; Units: mg/dL; Status: F Test: KETONE, URINE AUTO; Value: TRACE; Range: NEGATIVE; Abnormal: Above high normal; Units: mg/dL; Status: F Test: UROBILINOGEN, URINE AUTO; Value: 0.2; Range: 0.0-2.0; Units: mg/dL; Status: F Test: BILIRUBIN, URINE AUTO; Value: NEGATIVE; Range: NEGATIVE; Status: F Test: NITRITE, URINE AUTO; Value: NEGATIVE; Range: NEGATIVE; Status: F Test: LEUKOCYTE ESTERASE, URINE AUTO; Value: 2+; Range: NEGATIVE; Abnormal: Above high normal; Status: F Test: BLOOD, URINE BLOOD; Value: 2+; Range: NEGATIVE; Abnormal: Above high normal; Status: F Test: WBC, URINE AUTO; Value: 64; Range: 0-3; Abnormal: Above high normal; Units: /HPF; Status: F Test: RBC, URINE AUTO; Value: 8; Range: 0-3; Abnormal: Above high normal; Units: /HPF; Status: F Test: BACTERIA, URINE AUTO; Value: NEGATIVE; Range: NEGATIVE; Status: F Test: SQUAMOUS EPITHELIAL CELL UR AU; Value: 2; Range: 0-6; Units: /HPF; Status: F Test: MUCUS, URINE; Value: SMALL; Range: NEGATIVE; Status: F Test: HYALINE CAST, URINE AUTO; Value: 0; Range: 0-1; Units: /LPF; Status: F Lab Order: Thyroid Profile; SPEC'M 04/07/16 06:35 Test: T UPTAKE; Value: 32; Range: 30-39; Units: %; Status: F Test: THYROXINE (T4); Value: 10.9; Range: 4.5-12.0; Units: UG/DL; Status: F Test: FREE THYROXINE INDEX; Value: 3.5; Range: 1.3-4.8; Units: %; Status: F Test: THYROID STIMULATING HORMONE; Value: 2.130; Range: 0.358-3.740; Units: uIU/ML; Status: F Lab Order: PT/INR; SPEC'M 04/07/16 06:35 Test: PROTHROMBIN TIME; Value: 12.9; Range: 12.3-14.5; Units: SECONDS; Status: F Test: INR; Value: 0.96; Status: F Test Note: ; THERAPUTIC HUMAN INR VALUES INDICATIONS NORMAL RANGES PROPHYLAXIS/TREATMENT OF: VENOUS THROMBOSIS 2.0-3.0 PULMONARY EMBOLISM 2.0-3.0 PREVENTION OF SYSTEMIC EMBOLISM FROM: TISSUE HEART VALVES 2.0-3.0 ACUTE MYOCARDIAL INFARCTION 2.0-3.0 VALVULAR HEART DISEASE 2.0-3.0 ATRIAL FIBRILLATION 2.0-3.0 MECHANICAL VALVES(HIGH RISK) 2.5-3.5 RECURRENT MYOCARDIAL INFARCTION 2.5-3.5 Lab Order: Type & Screen; [facility] 04/07/16 11:42 Test: BLOOD TYPE; Value: A POS; Status: F Test: AB SCREEN (INDIRECT SABRA)GEL; Value: NEGATIVE; Status: F Lab Order: -Influenza A&B Rapid Antigen - Nose; SPEC'M 04/07/16 11:42 Test: INFLUENZA A RAPID SCR by ICA; Value: INFLUENZA A RESULTS NEGATIVE; Status: F Test: INFLUENZA A RAPID SCR by ICA; Value: Comments:; Status: F Test: INFLUENZA B RAPID SCR by ICA; Value: INFLUENZA B RESULTS NEGATIVE; Status: F Test Note: ; The Influenza test is a direct rapid immunoassay for the qualitative detection of Influenza viral antigen. Cell culture (Viral Culture) testing should be considered to confirm NEGATIVE results and to assist in detecting other viruses that can provide similar clinical symptoms. Please contact the lab within 24 hours ([phone]) if confirmatory testing is desired. Lab Order: LACTIC ACID LEVEL, LACTATE; [facility]' 04/07/16 11:27 Test: LACTIC ACID LEVEL, LACTATE; Value: 0.9; Range: 0.4-2.0; Units: MMOL/L; Status: F Lab Order: VENOUS BLOOD GAS; SPEC' 04/07/16 11:27 Test: VENOUS PH; Value: 7.376; Range: 7.330-7.430; Units: UNITS; Status: F Test: VENOUS PARTIAL PRESSURE CO2; Value: 41.6; Range: 38.0-50.0; Units: mmHg; Status: F Test: VENOUS PARTIAL PRESSURE O2; Value: 63.9; Range: 30.0-50.0; Abnormal: Above high normal; Units: mmHg; Status: F Test: VENOUS TOTAL CO2; Value: 25.1; Range: 24.0-28.0; Units: MEQ/L; Status: F Test: VENOUS HCO3; Value: 23.8; Range: 23.0-27.0; Units: MEQ/L; Status: F Test: VENOUS BASE EXCESS; Value: -1.3; Range: -2.0-2.0; Status: F Test: VENOUS STANDARD HCO3; Value: 23.3; Units: MEQ/L; Status: F Test: VENOUS O2 SATURATION; Value: 90.8; Range: 60.0-80.0; Abnormal: Above high normal; Units: %; Status: F Lab Order: CARDIAC MARKER PANEL; SPEC'M 04/07/16 11:27 Test: CPK CREATINE PHOSPHOKINASE; Value: 37; Range: 26-192; Units: U/L; Status: F Test: CK-MB VALUE MASS; Value: 1.0; Range: 0.0-3.6; Units: NG/ML; Status: F Test: MB/CK RELATIVE INDEX; Value: 2.70; Range: < OR =4; Status: F Test: TROPONIN I; Value: < 0.02; Range: < 0.10; Units: NG/ML; Status: F Test Note: ; DIAGNOSIS CRITERIA MMB ng/ml Relative Index (RI) NON-AMI < or = 5 N/A [place] > 5 < or = 4 AMI > 5 > 4 Radiology Order: CT ABD & PELVIS: No Contrast Test: CT ABD & PELVIS: No Contrast REASON FOR EXAMINATION: left lower abd pain ;Diverticulitis/LLQ Pain; Clinical: Left-sided pain.; ; Findings:; Left kidney demonstrates edematous enlargement along with moderate perinephric; stranding, hydronephrosis, forming intra renal staghorn calculus measuring; roughly 22 mm as well as 10 mm lower pole calculus and small foci of gas in the; upper pole pole calyceal collecting system. Perinephric adenopathy is also; appreciated with lymph nodes measuring up to 18 mm. The left ureter is normal; caliber without obstruction no bladder calculi are identified although small; focus of gas is also identified in the nondependent portion of the bladder and; possibly related to prior instrumentation or [place] catheterization. Differential; diagnosis includes acute pyelonephritis and emphysematous pyelonephritis if the; above mentioned gas is not related to prior instrumentation. The right kidney; and ureter are normal.; ; Liver, spleen, pancreas, gallbladder, and bilateral adrenal glands are normal for; noncontrast evaluation. The enteric system is without obstruction or acute; inflammatory process. Scattered colonic and sigmoid diverticula noted without; acute diverticulitis. Pelvis demonstrates relatively normal bladder and; age-appropriate uterus/adnexa. No pelvic fluid or ascites. No free air.; Vasculature is grossly normal. Musculoskeletal structures demonstrate; age-related degenerative changes.; ; Acute left lower lobe and lingular consolidations are noted.; ; Impression:; 1. Left renal findings as detailed above are most compatible with acute; pyelonephritis verses emphysematous pyelonephritis. Intrarenal calculi up to 22; mm may cause intermittent UPJ obstruction related to the inflammatory changes.; 2. Left lower lobe and lingular consolidations.; 3. Diverticulosis without acute diverticulitis.; ; ; ; ; Signed by; Myke Agarwal MD 04/07/2016 09:06 A; Radiology Order: Chest, 1 View Test: Chest, 1 View REASON FOR EXAMINATION: Shortness of Breath; Clinical: Shortness of breath.; ; Comparison: 03/09/2016.; ; Findings:; Left lower lobe opacity.; Mediastinum and cardiac silhouette are stable. The remainder of lung renteria are; well-aerated and clear. No pneumothorax. Skeletal structures stable.; ; Impression:; Left lower lobe opacity suggesting consolidation and/or pleural effusion.; ; ; Signed by; Myke Agarwal MD 04/07/2016 11:06 A; Outcome: 11:16 Decision to Hospitalize by Provider. sd1 16:32 Patient left the ED. dy Signatures: Dispatcher [employer] EDMS Re Spaulding MD MD sd1 Khushi Woodson, RN RN Hiwot Laird, Reg Reg gb Michele Kaplan, RN RN dy Micki Luther,RN RN ck1 Luann Isaac,RN RN lf1 Gina Lawrence, HOME BUILDER HOME BUILDER jlf Louisa Malagon, Sales Agent Financial Report Service Unit Bobbi Carl,RN RN af2 Hilda Salazar, Reg Reg hs2 Florina StreetRN RN kas2 Chart Complete MTDD
[2016-04-09] MEDS ORDERED: cefTRIAXone SOD 2 GM in D5W MINI-BAG PLUS 50 ML IV SCH (18:00)
[2016-04-09 20:00] VITALS: BP 140/65
[2016-04-09] MEDS: ATORVASTATIN 10 MG TAB PO SCH (21:38)
[2016-04-09] MEDS: LEVEMIR (INSULIN DETEMIR) 1 UNITS/0.01ML SC SCH (21:40)
[2016-04-10 04:00] VITALS: BP 173/81
[2016-04-10] MEDS: SLF 3 ML SYR IV SCH (07:00)
[2016-04-10] MEDS: PERCOCET 5MG/325MG TAB PO PRN ×2 (07:00→11:05)
[2016-04-10] MEDS: HumaLOG INSULIN (NovoLOG) PER UNIT SC SCH (07:30)
[2016-04-10 08:00] VITALS: BP 146/77
[2016-04-10 08:01] LABS: BASO % 0.4 % (0.0-1.0); EOS # 0.2 K/mm3 (0.0-0.50); EOS % 2.6 % (0.0-3.0); LARGE UNSTAINED CELL # 0.2 K/mm3 (0.0-0.4); LARGE UNSTAINED CELL % 2.6 % (0.0-4.0); LYMPH # 3.2 K/mm3 (1.5-4.5); MEAN CORPUSCULAR HEMOGLOBIN 28.6 pg (27.0-33.0); MEAN CORPUSCULAR HGB CONC 32.4 g/dl (32.0-36.5); MEAN CORPUSCULAR VOLUME 88.3 fl (80.0-96.0); MONO # 0.4 K/mm3 (0.0-0.8); MONO % 5.8 % (0.0-5.0); NEUTROPHILS # 3.1 K/mm3 (1.8-7.7); NEUTROPHILS % 43.7 % (36.0-66.0); PLATELET COUNT, AUTOMATED 402 k/mm3 (150-450); RED CELL DISTRIBUTION WIDTH 12.6 % (11.5-14.5); WHITE BLOOD COUNT 7.2 K/mm3 (4.0-10.0)
[2016-04-10 08:16] VITALS: BP 146/77
[2016-04-10] MEDS: METOPROLOL TART 50 MG TAB PO SCH (08:16)
[2016-04-10] MEDS: DOCUSATE SODIUM 100 MG CAP PO SCH (08:16)
[2016-04-10] MEDS: PHENAZOPYRIDINE 100 MG TAB PO SCH (08:17)
[2016-04-10] MEDS: AZELASTINE 137MCG NASAL SPY 30 ML (ASTELIN) SCH (08:19)
[2016-04-10 08:21] LABS: CREATININE FOR GFR 0.45 MG/DL (0.55-1.02); GLOMERULAR FILTRATION RATE > 60.0 (>51)
[2016-04-10] MEDS ORDERED: amLODIPine 10 MG TAB PO SCH (09:00)
[2016-04-10] MEDS ORDERED: MUPIROCIN 2% CREAM 30GM TOP SCH (09:00)
[2016-04-10] MEDS: IPRATROPIUM 0.5MG/ALBUTEROL 2.5MG INH SOL UD 3ML (DUONEB)(J7620) NEB SCH (09:50)
[2016-04-10] MEDS: SYMBICORT 80/4.5MCG INHALER 6GM INH SCH (09:50)
[2016-04-10] MEDS: RIVAROXABAN 20 MG TAB (XARELTO) PO SCH (10:30)
--- NOTE | 2016-04-10 11:15 | IPN ---
DATE: 04/10/2016 Mrs. Osorio seems to be doing better today. She still has pain after she urinates that starts in the left lower quadrant and radiates to her left kidney. She had no nausea, vomiting or diarrhea. No abdominal pain. She is ambulatory. She would like to go home. She has been afebrile throughout her admission. Her white count is normal. She has no chest pain or shortness of breath. Temperature 97.1, pulse 85, respirations 18, blood pressure 173/81. Repeat was 146/77, O2 sat 97% on room air. Heart: Normal S1, S2. No murmurs. Lungs are clear. No wheezes or rhonchi. Diminished at the left base. Abdomen is soft, obese, tender in the left lower quadrant. Back: Left CVA tenderness. Extremities: No clubbing, cyanosis or edema. Right forearm has an infiltrated IV with mild erythema and small cord at IV site. LABORATORY DATA White count 7.2, hemoglobin 10.8, hematocrit 33.5, platelets 402. Sodium 136, potassium 3.9, chloride 104, bicarb 22, BUN 17, creatinine 0.81, glucose 310, calcium 8.6, total CPK 29, troponin less than 0.02, blood cultures were no growth on 04/07 after 72 hours. Urine culture had Klebsiella pneumoniae resistant to the first and second generation cephalosporin sensitive to ceftriaxone. IMPRESSION: 1. Emphysematous pyelonephritis of the left kidney with culture positive for Klebsiella pneumonia on IV Rocephin. She is currently day #4 of IV antibiotics. She will receive one more dose of IV Rocephin then she could be switched to Cefdinir 300 mg by mouth twice daily for 10 more days. 2. Nephrolithiasis with renal staghorn calculus measuring about 22 x 10 mm that will need to be surgically removed. 3. IV phlebitis of the forearm. 4. Non-insulin diabetes, history of atrial fibrillation and hypertension, all stable. PLAN: Continue IV Rocephin for today. Switch her to Omnicef 300 mg by mouth twice daily for 10 more days on discharge. The patient is anxious to get discharged if doing well this afternoon per infectious disease and neurology. I discussed the case with Dr. Jaffe. He is agreeable in her discharge as well. The patient will have removal of calculus in about a month. For right forearm phlebitis, will treat her with warm soaks and topical Bactroban three times a day.
[2016-04-10 11:41] LABS: ANION GAP 11 MEQ/L (8-16); BLOOD UREA NITROGEN 11 MG/DL (7-18); CALCIUM LEVEL 8.3 MG/DL (8.5-10.1); CARBON DIOXIDE LEVEL 26 MEQ/L (21-32); CHLORIDE LEVEL 106 MEQ/L (98-107); GLUCOSE, FASTING 89 MG/DL (70-105); POTASSIUM SERUM 3.4 MEQ/L (3.5-5.1); SODIUM LEVEL 143 MEQ/L (136-145)
[2016-04-10] MEDS ORDERED: CEFD1CAP8 PO (11:45)
[2016-04-10] MEDS ORDERED: MUPI30CR TOP (11:45)
[2016-04-10] MEDS ORDERED: PERCOCET PO (11:45)
[2016-04-10] MEDS ORDERED: AMLO10TA2 PO (11:45)
[2016-04-10 12:00] VITALS: BP 134/68
[2016-04-10] MEDS ORDERED: cefTRIAXone SOD 2 GM in D5W MINI-BAG PLUS 50 ML IV SCH (12:00)
--- NOTE | 2016-04-10 16:20 | DS.PDOC ---
Discharge Summary General Date of Admission Apr 07, 2016 at 11:11 Date of Discharge Apr 10, 2016 at 12:45 Attending Physician: KATIA NOVAK MD Specialist/Consultants Involve: Moisés Mathur MD Specialist/Consultants Involve Dr. Jaffe Discharge Summary PROCEDURES PERFORMED DURING STAY: None. COMPLICATIONS/CHIEF COMPLAINT: Pyelonephritis ADMISSION/DISCHARGE DIAGNOSES: 1. Acute pyelonephritis 2. Obstructive uropathy 3. Insulin-dependent diabetes mellitus 4. Hyperlipidemia 5. Hypertension 6. Anxiety 7. Atrophic fibrillation Xarelto HISTORY OF PRESENT ILLNESS/HOSPITAL COURSE: This is a 50-year-old female past with history of asthma, insulin-dependent diabetes, hyperlipidemia, hypertension, with recent admission for atrial fibrillation on Zaroxolyn presents complaining of left flank pain since 3:00 in the morning. Patient states this pain woke her up from her sleep. Describes the pain as 8 out of 10, radiating down her left groin. Patient denies any fevers or chills. No nausea or vomiting. In addition patient was recently admitted in February 2016 for atrial fibrillation and started on Xaralto. In the ED patient was found to have acute pyelonephritis verses emphysematous pyelonephritis. Dr. Jaffe was consulted with plan for stent placements. Patient did have stents placement, and tolerated procedure well. She was also continue antibiotics and continued to improve during the course of her hospitalization. The patient did have a urine culture which was notable for Klebsiella. Dr. Mathur's input was appreciated with recommendations for Omnicef for 10 days. Patient will return to work on 04/21/16 with no restrictions. She will also need to follow-up with Dr. Jaffe outpatient in 1-2 weeks. DISCHARGE MEDICATIONS: Please see below. ALLERGIES: Please see below. PHYSICAL EXAMINATION ON DISCHARGE: Vitals: (see below) General: No acute distress, laying comfortably in bed. HEENT: Moist mucous membranes. Neck: No JVD or lymphadenopathy Cardiac: RRR, No murmurs Pulm: Diminished breath sounds and coarse crackles at the bases b/l. No wheezing , rhonchi Abd: NT/ND + BS. Positive CVA tenderness on the left, although less then yesterday Ext: No edema or cyanosis LABORATORY DATA: Please see below. IMAGING: CT abdomen and pelvis on 04/07/16 Impression: 1. Left renal findings as detailed above are most compatible with acute pyelonephritis verses emphysematous pyelonephritis. Intrarenal calculi up to 22 mm may cause intermittent UPJ obstruction related to the inflammatory changes. 2. Left lower lobe and lingular consolidations. 3. Diverticulosis without acute diverticulitis. Chest x-ray on 04/07/16 Impression: Left lower lobe opacity suggesting consolidation and/or pleural effusion. VTE Prophylaxis ordered?: Yes DISCHARGE CONDITION: Stable DISPOSITION: 01 Home, Self-Care ACTIVITY: As tolerated DIET: Low-sodium DISCHARGE PLAN AND INSTRUCTIONS: 1. F/u with PCP and Dr. Jaffe in 1-2 weeks. TIME SPENT ON DISCHARGE: Greater than 30 minutes. Vital Signs/I&Os Vital Signs Date Time Temp Pulse Resp B/P Pulse Ox O2 Delivery O2 Flow Rate FiO2 04/10/16 12:00 97.2 72 18 134/68 97 Room Air I&O- Last 24 Hours up to 6 AM 04/10/16 06:00 Intake Total 2690 ml Output Total 2200 ml Balance 490 ml Laboratory Data Labs 24H Laboratory Tests 2 04/09/16 17:57: Bedside Glucose (Misc Panel) 203H 04/09/16 21:27: Bedside Glucose (Misc Panel) 218H 04/10/16 07:02: Bedside Glucose (Misc Panel) 82 04/10/16 07:32: Anion Gap 11, White Blood Count 7.2, Red Blood Count 3.79L, Hemoglobin 10.8L, Hematocrit 33.5L, Mean Corpuscular Volume 88.3, Mean Corpuscular Hemoglobin 28.6 , Mean Corpuscular Hemoglobin Concent 32.4, Red Cell Distribution Width 12.6, Platelet Count 402, Neutrophils (%) (Auto) 43.7, Lymphocytes (%) (Auto) 45.0H, Monocytes (%) (Auto) 5.8H, Eosinophils (%) (Auto) 2.6, Basophils (%) (Auto) 0.4 , Neutrophils # (Auto) 3.1, Lymphocytes # (Auto) 3.2, Monocytes # (Auto) 0.4, Eosinophils # (Auto) 0.2, Basophils # (Auto) 0.0, Blood Urea Nitrogen 11, Creatinine 0.45L, Sodium Level 143#, Potassium Level 3.4L, Chloride Level 106, Carbon Dioxide Level 26, Calcium Level 8.3L, Glomerular Filtration Rate > 60.0, Large Unclassified Cells # 0.2, Large Unclassified Cells % 2.6 CBC/BMP Laboratory Tests 04/10/16 07:32 Calcium Level 8.3 L, Red Blood Count 3.79 L, Mean Corpuscular Volume 88.3, Mean Corpuscular Hemoglobin 28.6, Mean Corpuscular Hemoglobin Concent 32.4, Red Cell Distribution Width 12.6, Neutrophils (%) (Auto) 43.7, Lymphocytes (%) (Auto) 45.0 H, Monocytes (%) (Auto) 5.8 H, Eosinophils (%) (Auto) 2.6, Basophils (%) ( Auto) 0.4, Neutrophils # (Auto) 3.1, Lymphocytes # (Auto) 3.2, Monocytes # (Auto ) 0.4, Eosinophils # (Auto) 0.2, Basophils # (Auto) 0.0 FSBS Laboratory Tests Test 04/09/16 17:57 04/09/16 21:27 04/10/16 07:02 Range/Units Bedside Glucose (Misc Panel) 203 218 82 70-105 MG/DL Microbiology Microbiology 04/07/16 Blood Culture - Preliminary, Resulted No Growth after 72 hours. All specime... 04/07/16 Blood Culture - Preliminary, Resulted No Growth after 72 hours. All specime... 04/07/16 Influenza Virus Type A Antigen - Final, Complete 04/07/16 Influenza Virus Type B Antigen - Final, Complete 04/07/16 Urine Culture - Final, Complete Klebsiella Pneumoniae 04/07/16 Urine Culture - Final, Complete Medications Scheduled Amlodipine Besylate (Amlodipine Besylate) 10 Mg Tab 10 MG PO DAILY Atorvastatin Calcium (Atorvastatin Calcium) 10 Mg Tab 10 MG PO QHS Azelastine Hydrochloride (Azelastine HCl) 137 Mcg/[place] Spr 1 SPRAY NA BID Cefdinir (Cefdinir) 300 Mg Cap 300 MG PO Q12H Dapagliflozin Propanediol (Farxiga) 10 Mg Tab 10 MG PO DAILY Fluticasone/Vilanterol (Breo Ellipta 200-25 Mcg/INH) 1 Inh Inh 1 PUFF INH DAILY Glyburide (Glyburide) 5 Mg Tab 10 MG PO BID Insulin Aspart (Novolog) 100 U/Ml Inj 1 DOSE SC AC SLIDING SCALE Insulin Glargine (Lantus) 1 Units/0.01 Ml Susp 60 UNITS SC QHS Levocetirizine Dihydrochloride (Xyzal) 5 Mg Tab 5 MG PO QHS Metformin Hydrochloride (Metformin HCl) 1,000 Mg Tab 1,000 MG PO BID Metoprolol Tartrate (Metoprolol Tartrate) 50 Mg Tab 50 MG PO BID Mupirocin (Mupirocin) 1 Dose/30 Gm Cream 0 DOSE TOP TID Rivaroxaban (Xarelto) 20 Mg Tab 20 MG PO DAILY Scheduled PRN Acetaminophen (Acetaminophen) 500 Mg Tab 500 MG PO PRN PAIN Albuterol Sulfate (Albuterol Sulfate) 2.5 Mg/3 Ml Nebu 2.5 MG INH QID PRN PRN SHORTNESS OF BREATH Albuterol Sulfate (Ventolin Hfa) 200 Puff/8 Gm Aers 2 PUFF INH Q4H PRN PRN SHORTNESS OF BREATH Alprazolam (Alprazolam) 0.25 Mg Tab 0.25 MG PO TID PRN PRN ANXIETY Oxycodone/Acetaminophen (Percocet 5MG/325MG Tablet) 1 Tab Tab 2 TAB PO Q4HP PRN PRN MILD/MODERATE PAIN (PS 1-7) Tizanidine HCl (Tizanidine HCl) 2 Mg Tab 2 MG PO TID PRN PRN MUSCLE SPASMS Allergies Coded Allergies: Shellfish Allergy (Verified Allergy, Severe, TONGUE SWELLS, 07/01/12) Azithromycin (Verified Allergy, Intermediate, Hives, 06/02/15) Ibuprofen (Unverified Adverse Reaction, Mild, TOLD NOT TO TAKE DUE TO SHELLFISH ALLERGY, 04/07/16) KATIA NOVAK MD Apr 10, 2016 16:20
== END 2016-04-10 12:45 | disposition home or self-care (01) | DRG 463 ==
LOC: M ED 05:00 → M ED INP 11:11 → M PCU 15:40 → M MSPAV 04-08 12:19 → M PED 04-08 23:33 → M RR INP 04-09 09:44 → M PED 04-09 09:51
PROVIDERS: ADMIT Internal Medicine; ATTEND Internal Medicine
PROC: BT04ZZZ Plain Radiography of Kidneys, Ureters and Bladder (ICD-10-PCS; 2016-04-07)
PROC: 0T778DZ Dilation of Left Ureter with Intraluminal Device, Via Natural or Artificial Opening Endoscopic (ICD-10-PCS; principal; 2016-04-07 10:28)
DX: N10 Acute pyelonephritis (principal); I10 Essential (primary) hypertension; I48.91 Unspecified atrial fibrillation; E11.9 Type 2 diabetes mellitus without complications; B96.1 Klebsiella pneumoniae [K. pneumoniae] as the cause of diseases classified elsewhere; J98.11 Atelectasis; N13.9 Obstructive and reflux uropathy, unspecified; N20.0 Calculus of kidney; E78.5 Hyperlipidemia, unspecified; F41.9 Anxiety disorder, unspecified; Z79.4 Long term (current) use of insulin; Z98.51 Tubal ligation status; Z91.013 Allergy to seafood; Z88.1 Allergy status to other antibiotic agents; Z88.6 Allergy status to analgesic agent; Z79.899 Other long term (current) drug therapy

== ENCOUNTER → 2016-05-29 | Outpatient (CLI) | payer OTHER ==
[~2016-05-29] MED LIST changes: +ACET50TAOT PO; +AMLO10TA2 PO; +INSUH10VL SC; +METO50TA2 PO; +MUPI30CR TOP; +PERCOCET PO; +XARE20TA PO
[2016-05-29 13:00] LABS: INR 1.4; MEAN CORPUSCULAR HEMOGLOBIN 28.2 pg (27.0-33.0); MEAN CORPUSCULAR HGB CONC 32.1 g/dl (32.0-36.5); MEAN CORPUSCULAR VOLUME 87.9 fl (80.0-96.0); RED CELL DISTRIBUTION WIDTH 13.1 % (11.5-14.5); WHITE BLOOD COUNT 7.2 K/mm3 (4.0-10.0)
[2016-05-29 13:19] LABS: ANION GAP 9 MEQ/L (8-16); BLOOD UREA NITROGEN 14 MG/DL (7-18); CALCIUM LEVEL 8.8 MG/DL (8.5-10.1); CARBON DIOXIDE LEVEL 27 MEQ/L (21-32); CHLORIDE LEVEL 104 MEQ/L (98-107); CREATININE FOR GFR 0.58 MG/DL (0.55-1.02); GLOMERULAR FILTRATION RATE > 60.0 (>51); GLUCOSE, FASTING 279 MG/DL (70-105); POTASSIUM SERUM 3.8 MEQ/L (3.5-5.1); SODIUM LEVEL 140 MEQ/L (136-145)
== END ==
LOC: M LAB 12:26
PROVIDERS: ATTEND Urology
DX: Z01.818 Encounter for other preprocedural examination (principal); N20.0 Calculus of kidney

== ENCOUNTER → 2016-06-04 | Outpatient (CLI) | payer OTHER ==
[~2016-06-04] VITALS: Ht 175.3 cm; Wt 113.0 kg
[~2016-06-04] MED LIST changes: +AMLO10TA PO; +COLA100C PO; +HYDR-3713 PO; +HumaLOG INSULIN (NovoLOG) PER UNIT SC ONE; +ISOVUE-300 61% 50ML VIAL (Q9967) As Ordered ONE; +KETAMINE HCL 200 MG/20 ML VIAL As Ordered ONE; +LIDOCAINE 2% MDV 20 ML VIAL As Ordered ONE; +LIDOCAINE W/EPINEPHRINE 1% 20ML VIAL As Ordered ONE; +LR 1,000 ML IV SCH; +METOCLOPRAMIDE INJ 10MG/2ML VIAL (J2765) IV PRN; +MIDAZOLAM INJ 2 MG/2 ML VIAL (J2250) As Ordered ONE; +NORCO, ANEXSIA 5/325MG TABLET (HYDROcodone/ACETAMINOPHEN) As Ordered ONE; +NORCO, ANEXSIA 5/325MG TABLET (HYDROcodone/ACETAMINOPHEN) PO PRN; +NS 1,000 ML IV SCH; +ONDANSETRON 4 MG ORAL DISINTEGRATING TAB (S0181) PO ONE; +ONDANSETRON 4 MG TAB (S0181) PO ONE; +ONDANSETRON 4MG/2ML VIAL (J2405) IV PRN; +OXYB5TA PO; +OXYC1TAB23 PO; +SODIUM BICARBONATE 8.4% INJ 50MEQ 50 ML VIAL As Ordered ONE; +cefTRIAXone SOD 1 GM VIAL (J0696) As Ordered ONE; +cefTRIAXone SOD 1 GM in D5W MINI-BAG PLUS 50 ML IV ONE; +fentaNYL 100 MCG/2 ML INJECTION (J3010) As Ordered ONE; +fentaNYL 100 MCG/2 ML INJECTION (J3010) IV PRN
[2016-06-04 14:30] VITALS: BP 130/65
--- NOTE | 2016-06-04 17:18 | REPKIM ---
CLINICAL HISTORY: Patient with left kidney stones, s/p retrograde internal ureteral stent placement in March 2016, recent history of UTI presents for a nephroureteral catheter (stent) placement for preop percutaneous nephrolithotripsy urology procedure on the left. PROCEDURE PERFORMED: 1. Ultrasound left Kidney 2. Percutaneous antegrade Nephrostogram 3. Percutaneous Nephroureteral catheter (stent) placement INTERVENTIONALIST: Keren Heaton MD CONSENT: The risks, benefits and alternatives to the procedure were explained to the patient and informed written consent was obtained. SEDATION: Sedation and analgesia was provided by the Anesthesiology Dept. MEDICATIONS: Rocephin 1gm IV, Local Lidocaine CONTRAST: 40 mL Isovue 300 EBL: less than 10 mL FLUORO TIME: 12.3 minutes DEVICE USED: 8.5F 45-cm pigtail; Nephroureteral catheter Lot #[id number] PROCEDURE/FINDINGS: The patient was brought to the interventional radiology suite and placed in the prone position, left flank prepped and draped in the usual sterile fashion. Time out procedure was performed. Ultrasound of the kidney showed one large stone in the renal pelvis and another smaller mobile stone in the lower pole calyx. This showed no evidence of hydronephrosis. Fluoroscopy of the abdomen showed the pre-existing JJ internal ureteral stent in a satisfactory course and position. Using ultrasound and fluoroscopy guidance, a 21-gauge Accustick needle was advanced into the targeted posterior lower pole calyx of the kidney, after infiltration of the skin and deep tissues with local anesthetic. Contrast was injected and images were obtained. This showed non dilated pelvicalyceal system with free antegrade flow of contrast into the urinary bladder. Using a hydrophilic guidewire, the catheter-wire combination was advanced around the renal pelvis stone into the proximal ureter then into the urinary bladder. The wire was then exchanged for a stiff wire. An 8.5-Liberian 45-cm length nephroureteral catheter (stent) was introduced over the guidewire after serial dilation of its tract. The guidewire was withdrawn and the distal end of the loop in the bladder. The nephroureteral catheter was then flushed and capped. The patient tolerated the procedure well with no immediate complications. This procedure was performed using ultrasound and fluoroscopy. Dr. Heaton was present. IMPRESSION: 1. Two left kidney stones; one large stone in the renal pelvis and another smaller, mobile stone in the lower pole calyx. No evidence of hydronephrosis. The pre-existing double J internal ureteral stent is in a satisfactory position. Nephrostogram demonstrates free antegrade flow of contrast into the urinary bladder. 2. Successful 8.5F nephroureteral catheter placement via the posterior lower pole calyx with its tip positioned in the urinary bladder as discussed above. This access will be used for subsequent percutaneous nephrolithotripsy urology procedure. cc: NAV James MD MTDD
== END | disposition home or self-care (01) ==
LOC: M SDC 08:34
PROVIDERS: ATTEND Urology
DX: N20.0 Calculus of kidney (principal)
CPT/HCPCS: 50395; 74485; C1729; C1769; C1887; C1894; J0696; J2250; J3010; Q9967

== ENCOUNTER 2016-06-08 05:43 | Inpatient (IN) | payer MEDICAID, OTHER, SELFPAY ==
[2016-06-08] VITALS (7 sets, daily range): BP systolic 138–155; BP diastolic 68–83
[~2016-06-08] VITALS: Ht 175.3 cm; Wt 113.3 kg
[~2016-06-08 05:43] MED LIST changes: -AMLO10TA PO; -COLA100C PO; -HumaLOG INSULIN (NovoLOG) PER UNIT SC ONE; -ISOVUE-300 61% 50ML VIAL (Q9967) As Ordered ONE; -KETAMINE HCL 200 MG/20 ML VIAL As Ordered ONE; -LIDOCAINE 2% MDV 20 ML VIAL As Ordered ONE; -LIDOCAINE W/EPINEPHRINE 1% 20ML VIAL As Ordered ONE; -LR 1,000 ML IV SCH; -METOCLOPRAMIDE INJ 10MG/2ML VIAL (J2765) IV PRN; -MIDAZOLAM INJ 2 MG/2 ML VIAL (J2250) As Ordered ONE; -NORCO, ANEXSIA 5/325MG TABLET (HYDROcodone/ACETAMINOPHEN) As Ordered ONE; -NORCO, ANEXSIA 5/325MG TABLET (HYDROcodone/ACETAMINOPHEN) PO PRN; -NS 1,000 ML IV SCH; -ONDANSETRON 4 MG ORAL DISINTEGRATING TAB (S0181) PO ONE; -ONDANSETRON 4 MG TAB (S0181) PO ONE; -ONDANSETRON 4MG/2ML VIAL (J2405) IV PRN; -OXYB5TA PO; -OXYC1TAB23 PO; -SODIUM BICARBONATE 8.4% INJ 50MEQ 50 ML VIAL As Ordered ONE; -cefTRIAXone SOD 1 GM VIAL (J0696) As Ordered ONE; -cefTRIAXone SOD 1 GM in D5W MINI-BAG PLUS 50 ML IV ONE; -fentaNYL 100 MCG/2 ML INJECTION (J3010) As Ordered ONE; -fentaNYL 100 MCG/2 ML INJECTION (J3010) IV PRN
[2016-06-08] MEDS ORDERED: LR 1,000 ML IV SCH ×2 (06:00→10:30)
[2016-06-08] MEDS ORDERED: MEROPENEM INJ 1 GM in D5W MINI-BAG PLUS 100 ML IV ONE (06:00)
[2016-06-08] MEDS ORDERED: ROCURONIUM BROMIDE 50 MG/5 ML VIAL As Ordered ONE ×2 (06:21→08:49)
[2016-06-08] MEDS ORDERED: ONDANSETRON 4MG/2ML VIAL (J2405) As Ordered ONE (06:22)
[2016-06-08] MEDS ORDERED: NEOSTIGMINE 1MG/ML 5 ML SYRINGE (J2710) As Ordered ONE ×2 (06:22→08:50)
[2016-06-08] MEDS ORDERED: CONRAY-60 60% 50ML VIAL (Q9961) As Ordered ONE (07:10)
[2016-06-08] MEDS ORDERED: HumaLOG INSULIN (NovoLOG) PER UNIT As Ordered ONE (07:29)
[2016-06-08] MEDS ORDERED: ACETAMINOPHEN TAB 650MG DOSE (2X325MG) PO PRN (07:30)
[2016-06-08] MEDS ORDERED: GLUCAGON FOR INJ 1 MG VIAL (J1610) SC PRN (07:30)
[2016-06-08] MEDS ORDERED: ALBUTEROL SULFATE 2.5 MG/0.5 ML INH NEB SOLN NEB PRN (07:30)
[2016-06-08] MEDS ORDERED: DEXTROSE 50% 50 ML SYRINGE IV PRN (07:30)
[2016-06-08] MEDS: HumaLOG INSULIN (NovoLOG) PER UNIT SC SCH ×3 (07:30→17:54)
[2016-06-08] MEDS ORDERED: GLUCOSE 4 GM CHEW TABLET PO PRN (07:30)
[2016-06-08] MEDS ORDERED: MORPHINE 2 MG/ML 1ML SYRINGE IV PRN (07:30)
[2016-06-08] MEDS ORDERED: HEPARIN SOD (PORCINE) 5000 UNITS/ML VIAL SQ SCH (07:30)
[2016-06-08] MEDS ORDERED: HumaLOG INSULIN (NovoLOG) PER UNIT SC ONE ×2 (07:45→11:00)
[2016-06-08] MEDS ORDERED: ONDANSETRON 4MG/2ML VIAL (J2405) IV PRN ×2 (08:00→10:30)
[2016-06-08] MEDS ORDERED: GLYCOPYRROLATE INJ 0.2 MG/ML 2 ML VIAL As Ordered ONE ×2 (08:49→08:50)
[2016-06-08] MEDS ORDERED: dexameTHASONE 4 MG/ML 1ML VIAL (J1100) As Ordered ONE (08:49)
[2016-06-08] MEDS ORDERED: PROPOFOL 200 MG/20 ML VIAL As Ordered ONE (08:49)
[2016-06-08] MEDS ORDERED: LIDOCAINE 2% INJ 100 MG/5 ML SDV (FOR ANES.) As Ordered ONE (08:49)
[2016-06-08] MEDS ORDERED: MIDAZOLAM INJ 2 MG/2 ML VIAL (J2250) As Ordered ONE (08:50)
[2016-06-08] MEDS ORDERED: fentaNYL 250 MCG/5 ML INJECTION (J3010) As Ordered ONE (08:50)
[2016-06-08] MEDS ORDERED: fentaNYL 100 MCG/2 ML INJECTION (J3010) As Ordered ONE (09:17)
--- NOTE | 2016-06-08 10:15 | REP ---
Retrograde pyelogram: Five views. History: Nephrolithiasis. 2 minutes of fluoroscopy time is reported. Findings: Five fluoroscopically obtained intraprocedural last image hold spot radiographs of the abdomen document percutaneous catheter large tract access to the right kidney and collecting system for stone manipulation. Contrast injection and guidewire passage are documented. Right ureteral stent is in place. Signed by Richard Bay MD 06/08/2016 12:22 P
[2016-06-08] MEDS: NS 1,000 ML IV SCH ×2 (10:25→16:02)
[2016-06-08] MEDS ORDERED: fentaNYL 100 MCG/2 ML INJECTION (J3010) IV PRN (10:30)
[2016-06-08 10:35] LABS: MEAN CORPUSCULAR HEMOGLOBIN 28.8 pg (27.0-33.0); MEAN CORPUSCULAR VOLUME 87.3 fl (80.0-96.0); RED CELL DISTRIBUTION WIDTH 13.6 % (11.5-14.5); WHITE BLOOD COUNT 11.4 K/mm3 (4.0-10.0)
[2016-06-08 10:48] LABS: ANION GAP 13 MEQ/L (8-16); BLOOD UREA NITROGEN 18 MG/DL (7-18); CALCIUM LEVEL 8.7 MG/DL (8.5-10.1); CARBON DIOXIDE LEVEL 23 MEQ/L (21-32); CHLORIDE LEVEL 103 MEQ/L (98-107); CREATININE FOR GFR 0.94 MG/DL (0.55-1.02); GLOMERULAR FILTRATION RATE > 60.0 (>51); GLUCOSE, FASTING 335 MG/DL (70-105); POTASSIUM SERUM 4.3 MEQ/L (3.5-5.1); SODIUM LEVEL 139 MEQ/L (136-145)
[2016-06-08] MEDS: PERCOCET 5MG/325MG TAB PO PRN ×4 (11:13→21:28)
[2016-06-08] MEDS: HEPARIN SOD (PORCINE) 5000 UNITS/ML VIAL SQ SCH ×2 (14:03→22:00)
[2016-06-08] MEDS: AZELASTINE 137MCG NASAL SPY 30 ML (ASTELIN) SCH ×2 (14:04→21:27)
[2016-06-08] MEDS: DOCUSATE SODIUM 100 MG CAP PO SCH ×2 (14:04→21:27)
[2016-06-08] MEDS: ceFAZolin SOD 1 GM in D5W MINI-BAG PLUS 50 ML IV SCH (16:02)
[2016-06-08] MEDS: METOPROLOL TART 50 MG TAB PO SCH (21:27)
[2016-06-09] MEDS: ceFAZolin SOD 1 GM in D5W MINI-BAG PLUS 50 ML IV SCH (00:46)
[2016-06-09] MEDS: NS 1,000 ML IV SCH ×2 (00:46→07:25)
[2016-06-09 02:00] VITALS: BP 141/74
[2016-06-09] MEDS: PERCOCET 5MG/325MG TAB PO PRN ×2 (02:03→07:49)
[2016-06-09 06:00] VITALS: BP 159/82
[2016-06-09] MEDS: HEPARIN SOD (PORCINE) 5000 UNITS/ML VIAL SQ SCH (06:46)
[2016-06-09 07:14] LABS: MEAN CORPUSCULAR VOLUME 87.4 fl (80.0-96.0); RED CELL DISTRIBUTION WIDTH 13.3 % (11.5-14.5)
[2016-06-09 07:34] LABS: ANION GAP 10 MEQ/L (8-16); BLOOD UREA NITROGEN 12 MG/DL (7-18); CALCIUM LEVEL 8.3 MG/DL (8.5-10.1); CARBON DIOXIDE LEVEL 27 MEQ/L (21-32); CHLORIDE LEVEL 100 MEQ/L (98-107); CREATININE FOR GFR 0.69 MG/DL (0.55-1.02); GLOMERULAR FILTRATION RATE > 60.0 (>51); GLUCOSE, FASTING 282 MG/DL (70-105); POTASSIUM SERUM 3.8 MEQ/L (3.5-5.1); SODIUM LEVEL 137 MEQ/L (136-145)
[2016-06-09] MEDS: HumaLOG INSULIN (NovoLOG) PER UNIT SC SCH (08:15)
[2016-06-09] MEDS: DOCUSATE SODIUM 100 MG CAP PO SCH (08:17)
[2016-06-09 08:18] VITALS: BP 120/60
[2016-06-09] MEDS: METOPROLOL TART 50 MG TAB PO SCH (08:18)
[2016-06-09] MEDS: AZELASTINE 137MCG NASAL SPY 30 ML (ASTELIN) SCH (08:19)
--- NOTE | 2016-06-09 08:22 | IPNPDOC ---
Assessment/Plan Date Seen The patient was seen on 06/09/16. Patient Summary 50 y/o F POD 1 s/p PCNL. She is doing well. UOP is excellent. Her urine is clear. Her nephrostomy catheter was removed this morning. Plan/VTE VTE Prophylaxis Ordered?: Yes VTE Exclusion Mechanical Proph: N/A:VTE Prophy Ordered VTE Exclusion Pharmacological: N/A:VTE Prophy Ordered Plan/Urinary Catheter Urinary Catheter: D/C Soria Plan - nephrostomy catheter removed this morning - d/c catheter in 1 hour if urine remains pink or clearer - d/c IVF - percocet prn pain - SCDs, SQH - strict I/Os - diabetic diet - ok to discharge home after patient voids Subjective Review oF Systems Chief Complaint The patient is a 50-year-old female admitted with a reason for visit of Nephrolithiasis. Events since Last Encounter No acute events o/n. Good pain control. No n/v. No f/c/ns. Objective Physical Examination General Exam: : Alert: Cooperative: No Acute Distress ABDOMEN EXAM: : Soft Skin Exam: : Nl turgor and temperature Psych Exam: : Mental status NL: Mood NL Other physical findings catheter draining clear urine; left nephrostomy catheter draining clear urine Vital Signs/I&O Vital Signs Date Time Temp Pulse Resp B/P Pulse Ox O2 Delivery O2 Flow Rate FiO2 06/09/16 07:49 18 06/09/16 06:00 96.2 89 159/82 97 Nasal Cannula 2.0 I&O- Last 24 Hours up to 6 AM 06/09/16 06:00 Intake Total 2860 ml Output Total 4120 ml Balance -1260 ml Laboratory Data Labs 24H Laboratory Tests 2 06/08/16 09:53: 06/08/16 10:08: Bedside Glucose (Misc Panel) 308H 06/08/16 10:24: Anion Gap 13, Blood Urea Nitrogen 18, Creatinine 0.94, Sodium Level 139, Potassium Level 4.3, Chloride Level 103, Carbon Dioxide Level 23, Calcium Level 8.7, Glomerular Filtration Rate > 60.0 06/08/16 17:16: Bedside Glucose (Misc Panel) 389H 06/08/16 20:33: Bedside Glucose (Misc Panel) 352H 06/09/16 06:31: Anion Gap 10, Blood Urea Nitrogen 12, Creatinine 0.69, Sodium Level 137, Potassium Level 3.8, Chloride Level 100, Carbon Dioxide Level 27, Calcium Level 8.3L, Glomerular Filtration Rate > 60.0 CBC/BMP Laboratory Tests 06/08/16 10:24 Calcium Level 8.7, Red Blood Count 4.08, Mean Corpuscular Volume 87.3, Mean Corpuscular Hemoglobin 28.8, Mean Corpuscular Hemoglobin Concent 33.0, Red Cell Distribution Width 13.6 06/09/16 06:31 Calcium Level 8.3 L, Red Blood Count 3.89 L, Mean Corpuscular Volume 87.4, Mean Corpuscular Hemoglobin 28.0, Mean Corpuscular Hemoglobin Concent 32.0, Red Cell Distribution Width 13.3 FSBS Laboratory Tests Test 06/08/16 10:08 06/08/16 17:16 06/08/16 20:33 Range/Units Bedside Glucose (Misc Panel) 308 389 352 70-105 MG/DL KRISTAL SUMNER MD Jun 09, 2016 08:22
--- NOTE | 2016-06-09 08:56 | RO ---
DATE OF PROCEDURE: 06/08/2016 PREPROCEDURE DIAGNOSIS: Left kidney stones. POSTPROCEDURE DIAGNOSIS: Left kidney stones. PROCEDURE: Left percutaneous nephrolithotomy, left antegrade nephrostogram with intraoperative interpretation of images, left ureteral stent exchange. SURGEON: Anselmo Jaffe MD CAREER ORIENTATION TEACHER: None. ANESTHESIA: General. OPERATIVE INDICATIONS: This is a 50-year-old female who underwent a left ureteral stent placement approximately 1-1/2 months ago for what appeared to be left side pyelonephritis in the setting of an obstructing 2.2 cm left renal pelvic stone. She also had an approximately 8-9 mm lower pole stone. She is brought back to the operating room today for removal of her stones. DESCRIPTION OF PROCEDURE: Patient was brought to the operating room and general anesthesia was induced. Prophylactic antibiotics were infused. She then had a Soria catheter placed under sterile conditions. This catheter was connected to gravity drainage and then she was repositioned in a prone position for the percutaneous nephrolithotomy. Her flank was then prepped and draped in usual sterile fashion. Of note, she had a nephroureteral stent, which was placed last week. This was utilized after she was draped. We then gained access to left kidney by advancing an Amplatz Super Stiff wire down the nephroureteral stent. The nephroureteral stent was then removed leaving the wire in place. A skin incision, approximately 2-3 cm in length, was made adjacent to the wire and a dual lumen ureteral catheter was then advanced over the wire into the left kidney. An antegrade nephrostogram was then performed and it was negative for extravasation. I then advanced a guidewire down the other port of the dual lumen ureteral catheter and then the dual lumen ureteral catheter was removed leaving both the wires in place. The guidewire was then secured to the drapes served as a safety wire and over the Super Stiff wire the balloon dilator was advanced into the left kidney. This was then inflated to 18 atmospheres and left in place for a few seconds. I then advanced an access sheath over the balloon and into the left kidney. The balloon was then let down and removed, and the wire was secured to a drape. I then went in the left kidney with the nephroscope and within renal pelvis, the large 2.2 cm stone was seen. The stone was then fragmented into smaller pieces and suctioned out using the CyberWand. The larger pieces were also removed using a Perc NCircle basket. Once all the stones were removed, I then removed her previously placed stent as it had been in for almost 2 months. The 8 mm lower pole stone was then found using a flexible cystoscope and the basket was utilized to remove that stone as well. At this point, all the stones had been removed and I utilized the previously placed wire to advance a new 7-Andorran x 22-32 cm JJ ureteral stent down to the left collecting system. The wire was then removed and there were adequate curls of the stent in the left renal pelvis and the bladder. At this point, the access sheath was removed and the remaining wire was utilized to advance an 18-And[place]ran Councill tip catheter into the left renal pelvis. The balloon was inflated with about 2-3 mL of contrast and the wire was then removed. Another antegrade nephrostogram was performed and it was negative for extravasation. This catheter was then secured to the skin using a #2-0 silk suture. The remainder of that skin incision was closed with interrupted #2-0 chromic sutures and the catheter was then connected to gravity drainage. Dressings were then applied, and this marked conclusion of procedure. The patient was placed back in supine position, awakened from anesthesia, transported to the recovery room in stable condition. ESTIMATED BLOOD LOSS: 30 mL. COMPLICATIONS: None. SPECIMENS: Kidney stone fragments. PLAN: The patient will be admitted to the hospital postoperatively. She will likely have her left nephrostomy catheter and Soria catheter removed tomorrow and then she will be discharged home with the stent in place. She will followup in the clinic in about 2-3 weeks for stent removal. ANDREW
[2016-06-09] MEDS ORDERED: amLODIPine 10 MG TAB PO SCH (09:00)
[2016-06-09] MEDS ORDERED: TYLE325T5 PO (09:57)
[2016-06-09] MEDS ORDERED: OXYC1TAB23 PO (09:57)
[2016-06-09] MEDS ORDERED: AMLO10TA PO (09:57)
[2016-06-09] MEDS ORDERED: OXYB5TA PO (09:57)
[2016-06-09] MEDS ORDERED: COLA100C PO (09:57)
--- NOTE | 2016-06-10 08:16 | DSES ---
DATE OF ADMISSION: 06/08/2016 DATE OF DISCHARGE: 06/09/2016 ADMISSION DIAGNOSIS: Left kidney stone. DISCHARGE DIAGNOSIS: Left kidney stones. ADMITTING PHYSICIAN: Dr. Anselmo Jaffe. DISCHARGE PHYSICIAN: Dr. Anselmo Jaffe. PROCEDURE PERFORMED: Left percutaneous nephrolithotomy on 06/08/2016. HISTORY OF PRESENT ILLNESS: This is a 50-year-old female with multiple large left sided kidney stones. She was admitted to the hospital on 06/08/2016 to undergo the above listed procedure. HOSPITALIZATION COURSE: The patient was admitted to the hospital after undergoing a left percutaneous nephrolithotomy on 06/08/2016. Her postoperative course was unremarkable. By postoperative day 1, her pain was well controlled with oral pain medication. Her labs were within acceptable limits. She was tolerating regular diet. I removed her left nephrostomy catheter on postoperative day 1. Her catheter was subsequently removed and she voided without any difficulty. She ambulated well. She was therefore discharged home on postoperative day 1 in good condition with the plan for her to followup in the clinic in a few weeks for stent removal.
== END 2016-06-09 11:35 | disposition home or self-care (01) | DRG 443 ==
LOC: M OR 05:43 → M MS5PR 12:00
PROVIDERS: ADMIT Urology; ATTEND Urology
PROC: 0TC18ZZ Extirpation of Matter from Left Kidney, Via Natural or Artificial Opening Endoscopic (ICD-10-PCS; principal; 2016-06-08 07:30)
DX: N20.0 Calculus of kidney (principal)

== ENCOUNTER 2016-08-04 16:07 | Emergency (ER) | payer OTHER ==
[~2016-08-04] VITALS: Ht 175.3 cm; Wt 113.4 kg
[~2016-08-04 16:07] MED LIST changes: +AMLO10TA PO; +COLA100C3 PO; +OXYB5TA PO; +OXYC1TAB23 PO
[2016-08-04] MEDS ORDERED: NS 500 ML IV ONE (16:45)
[2016-08-04] MEDS ORDERED: MECLIZINE 25 MG TABLET PO ONE (16:45)
--- NOTE | 2016-08-04 17:03 | REP ---
Head CT without contrast: History: Altered mental status. Comparison study: Comparison is made with a paranasal sinus CT images from September 30, 2010. CT findings: Bone window settings demonstrate an intact bony calvarium. There is no evidence of skull fracture or incidental bony calvarial lesion. There is mild vascular calcification in the distal carotid arteries bilaterally. The visualized paranasal sinuses appear clear. No intraorbital abnormality is seen. On soft tissue window setting images; the lateral, third, and fourth ventricles are normal in size and position. Bullock-white differentiation pattern is normal above and below the tentorium. There are is no evidence of intracranial hemorrhage. No mass, edema, infarction, or midline shift is seen. No extra-axial fluid collection is appreciated. Impression: Mild vascular calcification. Otherwise negative noncontrast head CT. Signed by Richard Bay MD 08/04/2016 04:54 P
[2016-08-04 17:28] LABS: BASO % 0.3 % (0.0-1.0); EOS # 0.2 K/mm3 (0.0-0.50); EOS % 2.4 % (0.0-3.0); LARGE UNSTAINED CELL # 0.2 K/mm3 (0.0-0.4); LARGE UNSTAINED CELL % 1.7 % (0.0-4.0); LYMPH # 2.9 K/mm3 (1.5-4.5); LYMPH % 29.7 % (24.0-44.0); MEAN CORPUSCULAR HEMOGLOBIN 28.8 pg (27.0-33.0); MEAN CORPUSCULAR HGB CONC 33.7 g/dl (32.0-36.5); MEAN CORPUSCULAR VOLUME 85.3 fl (80.0-96.0); MONO # 0.4 K/mm3 (0.0-0.8); MONO % 4.6 % (0.0-5.0); NEUTROPHILS # 5.7 K/mm3 (1.8-7.7); NEUTROPHILS % 61.5 % (36.0-66.0); PLATELET COUNT, AUTOMATED 270 k/mm3 (150-450); RED CELL DISTRIBUTION WIDTH 14.3 % (11.5-14.5); WHITE BLOOD COUNT 9.3 K/mm3 (4.0-10.0)
[2016-08-04 17:45] LABS: METHADONE URINE NEGATIVE (NEGATIVE)
[2016-08-04 17:49] LABS: CONTROL LINE HCG INT CTR LINE PRESENT
[2016-08-04 17:52] LABS: ALBUMIN 3.1 GM/DL (3.2-5.2); ALBUMIN/GLOBULIN RATIO 0.78 (1.00-1.93); ALKALINE PHOSPHATASE 110 U/L (45-117); ANION GAP 10 MEQ/L (8-16); BILIRUBIN,DIRECT < 0.1 MG/DL (0.0-0.2); BILIRUBIN,TOTAL 0.5 MG/DL (0.2-1.0); BLOOD UREA NITROGEN 12 MG/DL (7-18); CARBON DIOXIDE LEVEL 26 MEQ/L (21-32); CHLORIDE LEVEL 98 MEQ/L (98-107); CREATININE FOR GFR 0.64 MG/DL (0.55-1.02); GLOMERULAR FILTRATION RATE > 60.0 (>51); GLUCOSE, FASTING 349 MG/DL (70-105); POTASSIUM SERUM 4.1 MEQ/L (3.5-5.1); SODIUM LEVEL 134 MEQ/L (136-145); TOTAL PROTEIN 7.1 GM/DL (6.4-8.2)
[2016-08-04 18:47] LABS: AST/SGOT 17 U/L (15-37)
[2016-08-04] MEDS ORDERED: CIPR500T89 PO (19:25)
[2016-08-04] MEDS ORDERED: MECL-68 PO (19:25)
[2016-08-04 19:34] VITALS: BP 128/74
[2016-08-04 19:53] LABS: ALT/SGPT 23 U/L (12-78)
--- NOTE | 2016-08-05 07:51 | REP ---
PA LATERAL CHEST: 08/04/2016. Clinical history: Altered mental status. Comparison: portable chest 04/07/2016, 03/09/2016, chest x-ray 12/18/2015. Findings: Two views are provided. Slight elevation of the left diaphragm with some retrocardiac stranding or fibrotic change seen. Minor blunting of the CP angle frontal and lateral view may scar. I see no gross cardiomegaly, vascular redistribution or edema. The right lung was grossly clear. No effusion or definite infiltrate. Mediastinal hilar contours unchanged. The aorta and airway intact. Anterior cervical discectomy and fusion with plate and screw fixation across three levels. This is unchanged. Thoracic spine shows no compression deformity of focal lesion. No free air. Impression: 1. Elevated left diaphragm with some patchy retrocardiac fibrotic change noted and likely scarring at the CP angle versus small effusion. Appearance unchanged from multiple prior studies. 2. No cardiomegaly, edema, effusion or dense consolidation with air bronchogram. 3. Prior anterior cervical discectomy and fusion with plate and screw device across three levels. No other acute finding. Signed by Arsen Ritchie MD 08/05/2016 05:17 P
--- NOTE | 2016-08-05 20:08 | ECGEPIP ---
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
== END 2016-08-04 19:39 | disposition home or self-care (01) ==
LOC: M ED 16:43
DX: N39.0 Urinary tract infection, site not specified (principal); E11.65 Type 2 diabetes mellitus with hyperglycemia; I48.91 Unspecified atrial fibrillation; F17.200 Nicotine dependence, unspecified, uncomplicated; Z79.4 Long term (current) use of insulin; Z79.899 Other long term (current) drug therapy; Z79.01 Long term (current) use of anticoagulants; Z88.2 Allergy status to sulfonamides; Z88.6 Allergy status to analgesic agent; Z88.1 Allergy status to other antibiotic agents; Z91.013 Allergy to seafood
CPT/HCPCS: 70450; 71020; 80048; 80076; 80306; 81001; 82550; 82553; 84443; 84703; 85025; 93005; 93041; 94760; 96360; 96361; 99284; G0480

== ENCOUNTER 2016-09-04 17:09 | Emergency (ER) | payer OTHER ==
[~2016-09-04] VITALS: Ht 175.3 cm; Wt 113.4 kg
[~2016-09-04 17:09] MED LIST changes: +CIPR500T89 PO; +MECL-68 PO
[2016-09-04] MEDS ORDERED: FARXIGA (17:21)
[2016-09-04] MEDS ORDERED: ASPIRIN 81 MG CHEW TABLET PO ONE (18:45)
[2016-09-04 18:51] LABS: BASO % 0.3 % (0.0-1.0); EOS # 0.3 K/mm3 (0.0-0.50); LARGE UNSTAINED CELL # 0.1 K/mm3 (0.0-0.4); LARGE UNSTAINED CELL % 1.7 % (0.0-4.0); LYMPH # 2.6 K/mm3 (1.5-4.5); LYMPH % 34.5 % (24.0-44.0); MEAN CORPUSCULAR HEMOGLOBIN 28.5 pg (27.0-33.0); MEAN CORPUSCULAR HGB CONC 32.2 g/dl (32.0-36.5); MEAN CORPUSCULAR VOLUME 88.6 fl (80.0-96.0); MONO # 0.4 K/mm3 (0.0-0.8); MONO % 4.9 % (0.0-5.0); NEUTROPHILS % 54.5 % (36.0-66.0); PLATELET COUNT, AUTOMATED 308 k/mm3 (150-450); RED CELL DISTRIBUTION WIDTH 14.8 % (11.5-14.5); WHITE BLOOD COUNT 7.3 K/mm3 (4.0-10.0)
[2016-09-04 19:12] LABS: ANION GAP 6 MEQ/L (8-16); BLOOD UREA NITROGEN 10 MG/DL (7-18); CALCIUM LEVEL 8.4 MG/DL (8.5-10.1); CARBON DIOXIDE LEVEL 28 MEQ/L (21-32); CHLORIDE LEVEL 107 MEQ/L (98-107); CREATININE FOR GFR 0.64 MG/DL (0.55-1.02); GLOMERULAR FILTRATION RATE > 60.0 (>51); GLUCOSE, FASTING 157 MG/DL (70-105); POTASSIUM SERUM 4.1 MEQ/L (3.5-5.1); SODIUM LEVEL 141 MEQ/L (136-145)
[2016-09-04] MEDS ORDERED: NS 500 ML IV ONE (19:15)
[2016-09-04] MEDS ORDERED: METOPROLOL TART 50 MG TAB PO ONE (19:15)
[2016-09-04] MEDS ORDERED: LEVALBUTEROL 1.25 MG/0.5 ML CONCENTRATE NEB INH ONE (19:15)
--- NOTE | 2016-09-04 19:19 | REP ---
Portable chest, single AP view, the patient sitting, 06:57 p.m., 09/04/2016: Comparison is 08/04/2016. The left costophrenic angle appears effaced. This could be artifact from portable positioning and heavy chest wall soft tissues or could be a small left pleural effusion. The lung renteria are otherwise clear. Cardiac size is normal. The garland, mediastinum, bony thorax are unchanged. There is a cervical spine stabilization plate, as previously. Impression: Questionable left pleural effusion versus artifact from portable positioning and heavy chest wall soft tissues. Signed by Sander Perez MD 09/04/2016 07:11 P
[2016-09-04 21:11] VITALS: BP 150/80
--- NOTE | 2016-09-07 08:16 | ECGEPIP ---
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
== END 2016-09-04 21:19 | disposition home or self-care (01) ==
LOC: M ED 18:40
DX: I48.2 Chronic atrial fibrillation (principal); I10 Essential (primary) hypertension; E11.9 Type 2 diabetes mellitus without complications; F41.9 Anxiety disorder, unspecified; J45.909 Unspecified asthma, uncomplicated; Z79.51 Long term (current) use of inhaled steroids; Z79.899 Other long term (current) drug therapy; Z88.2 Allergy status to sulfonamides; Z88.1 Allergy status to other antibiotic agents; Z88.6 Allergy status to analgesic agent; Z91.013 Allergy to seafood

== ENCOUNTER → 2016-11-02 | Outpatient (CLI) | payer OTHER ==
[~2016-11-02] MED LIST changes: +CIPR-249 PO; -CIPR500T89 PO; +CLAR5TAB7 PO; -COLA100C3 PO; +COLA100C5 PO; -FARX1TAB2 PO; +FARX1TAB3 PO; +FARXIGA; +LASI20TA PO; +LEVA1TAB2 PO; +LISI-538 PO; +METF10004 PO; -METO50TA2 PO; +METO50TA7 PO; -OXYB5TA PO; +OXYB5TAB10 PO; +PRED20TA PO
[2016-11-02 14:42] LABS: ANION GAP 9 MEQ/L (8-16); BLOOD UREA NITROGEN 13 MG/DL (7-18); CALCIUM LEVEL 9.2 MG/DL (8.5-10.1); CARBON DIOXIDE LEVEL 28 MEQ/L (21-32); CHLORIDE LEVEL 105 MEQ/L (98-107); CREATININE FOR GFR 0.64 MG/DL (0.55-1.02); GLOMERULAR FILTRATION RATE > 60.0 (>51); GLUCOSE, FASTING 145 MG/DL (70-105); POTASSIUM SERUM 3.5 MEQ/L (3.5-5.1); SODIUM LEVEL 142 MEQ/L (136-145)
== END ==
LOC: M LAB 13:30
PROVIDERS: ATTEND Internal Medicine Endocrinology, Diabetes & Metabolism
DX: E11.21 Type 2 diabetes mellitus with diabetic nephropathy (principal)

== ENCOUNTER → 2016-11-03 | Outpatient (CLI) | payer OTHER ==
[~2016-11-03] MED LIST changes: +ISOVUE-370 76% 100ML VIAL (Q9967) As Ordered ONE
--- NOTE | 2016-11-03 16:04 | REP ---
CT of the abdomen without and with IV contrast with attention to a left adrenal nodule, pelvis not included : There is a 13 mm left adrenal nodule. The images without IV contrast the and density of this nodule is 35.7 HU. After IV contrast during the portal venous phase of enhancement. The density of this nodule is 74.2 HU. And after IV 2-minute delay in the density of this nodule is 76 HU. The nodule is unchanged in size. The CT of the chest dated 02/23/2015. Additionally, there are calcifications within this nodule suggestive that this may be an old hematoma. The delayed images were performed at 2 minutes rather than 15 minutes post contrast injection, therefore, are not useful for calculating adrenal nodule washout. However, the lack of interval change in size from 02/23/2015 suggests that this nodule is not a neoplasm, however, continued follow-up is recommended. The visualized lung renteria are unremarkable. The hepatic parenchyma, gallbladder, pancreas and spleen are unremarkable. The right kidney is unremarkable, except for a 3 mm nonobstructive calculus. There is a 13 mm fat density and nodule posteriorly in the left kidney at the mid pole, unchanged, compatible with an angiomyolipoma. The abdominal aorta is unremarkable. There is no retroperitoneal adenopathy. The visualized bowel loops and mesentery are unremarkable. Impression: Left adrenal nodule as described. Nodule has been stable dating to 02/23/2015. The left renal angiomyolipoma, unchanged. There is a 3 mm nonobstructive right renal calculus. Signed by Sander Perez MD 11/03/2016 03:56 P
== END ==
LOC: M RAD 13:33
PROVIDERS: ATTEND Internal Medicine Endocrinology, Diabetes & Metabolism
DX: E27.9 Disorder of adrenal gland, unspecified (principal); N20.0 Calculus of kidney; D17.71 Benign lipomatous neoplasm of kidney
CPT/HCPCS: 74170; Q9967

== ENCOUNTER 2016-12-05 00:18 | Emergency (ER) | payer OTHER ==
[~2016-12-05] VITALS: Ht 175.3 cm; Wt 127.0 kg
[~2016-12-05 00:18] MED LIST changes: -CLAR5TAB7 PO; -ISOVUE-370 76% 100ML VIAL (Q9967) As Ordered ONE; -LASI20TA PO; -LEVA1TAB2 PO; -LISI-538 PO; -PRED20TA PO
[2016-12-05 01:22] LABS: BASO % 0.4 % (0.0-1.0); EOS # 0.2 K/mm3 (0.0-0.50); EOS % 2.9 % (0.0-3.0); LARGE UNSTAINED CELL # 0.1 K/mm3 (0.0-0.4); LARGE UNSTAINED CELL % 2.1 % (0.0-4.0); LYMPH # 2.2 K/mm3 (1.5-4.5); LYMPH % 39.4 % (24.0-44.0); MEAN CORPUSCULAR HEMOGLOBIN 29.6 pg (27.0-33.0); MEAN CORPUSCULAR HGB CONC 33.5 g/dl (32.0-36.5); MEAN CORPUSCULAR VOLUME 88.4 fl (80.0-96.0); MONO # 0.3 K/mm3 (0.0-0.8); MONO % 4.9 % (0.0-5.0); NEUTROPHILS # 2.8 K/mm3 (1.8-7.7); NEUTROPHILS % 50.3 % (36.0-66.0); PLATELET COUNT, AUTOMATED 271 k/mm3 (150-450); RED CELL DISTRIBUTION WIDTH 14.9 % (11.5-14.5); WHITE BLOOD COUNT 5.6 K/mm3 (4.0-10.0)
[2016-12-05 01:39] LABS: ANION GAP 6 MEQ/L (8-16); BLOOD UREA NITROGEN 9 MG/DL (7-18); CALCIUM LEVEL 8.2 MG/DL (8.5-10.1); CARBON DIOXIDE LEVEL 28 MEQ/L (21-32); CHLORIDE LEVEL 104 MEQ/L (98-107); CREATININE FOR GFR 0.54 MG/DL (0.55-1.02); GLOMERULAR FILTRATION RATE > 60.0 (>51); POTASSIUM SERUM 3.6 MEQ/L (3.5-5.1); SODIUM LEVEL 138 MEQ/L (136-145)
[2016-12-05 01:40] LABS: GLUCOSE, FASTING 220 MG/DL (70-105)
--- NOTE | 2016-12-05 01:40 | REPUSA ---
CLINICAL HISTORY: Edema. COMMENTS: Real time sonography with duplex doppler of the extremities bilaterally was performed with attention to the major deep venous structures. Evaluation reveals the common femoral, superficial femoral and popliteal veins bilaterally to be comp letely compressible without intraluminal thrombus. There is normal spontaneous phasic flow and augmen tation in all deep veins. The greater saphenous/common femoral vein junctions are patent bilaterally. IMPRESSION: No evidence of DVT in the lower extremities bilaterally. Thank you for your kind referral of this patient.
[2016-12-05] MEDS ORDERED: FUROSEMIDE 20 MG TAB PO ONE (03:30)
[2016-12-05] MEDS ORDERED: LASI20TA PO (03:41)
[2016-12-05 03:42] VITALS: BP 172/84
[2017-01-28] MEDS ORDERED: LEVA1TAB2 PO (21:22)
[2017-01-28] MEDS ORDERED: CLAR5TAB7 PO (21:22)
== END 2016-12-05 03:48 | disposition home or self-care (01) ==
LOC: M ED 00:18
DX: R60.0 Localized edema (principal); Z79.899 Other long term (current) drug therapy; Z79.84 Long term (current) use of oral hypoglycemic drugs; Z79.52 Long term (current) use of systemic steroids; Z79.4 Long term (current) use of insulin; Z88.8 Allergy status to other drugs, medicaments and biological substances; Z88.1 Allergy status to other antibiotic agents; Z91.013 Allergy to seafood; Z88.2 Allergy status to sulfonamides

== ENCOUNTER 2016-12-29 15:41 | Emergency (ER) | payer OTHER, SELFPAY ==
[~2016-12-29] VITALS: Ht 172.7 cm; Wt 112.7 kg
[~2016-12-29 15:41] MED LIST changes: +LASI20TA PO
[2016-12-29] MEDS ORDERED: LISI-538 PO (15:57)
[2016-12-29] MEDS: METOPROLOL 5 MG/5 ML VIAL IV SCH ×3 (16:38→16:52)
--- NOTE | 2016-12-29 16:51 | REP ---
Portable chest, 04:31 p.m., single AP view, patient sitting: Comparison is 09/04/2016, PA and lateral chest dated 08/04/[address] of 05/31/2015. There is chronic elevation of the left hemidiaphragm, unchanged. The lung renteria are clear. Cardiac size is upper normal. The garland, mediastinum, and bony thorax are unremarkable. There is a cervical spine stabilization plate. Impression: No acute cardiopulmonary findings. Chronic elevation of the left hemidiaphragm. Signed by Sander Perez MD 12/29/2016 04:42 P
[2016-12-29 16:52] VITALS: BP 112/59
[2016-12-29 16:54] LABS: MEAN CORPUSCULAR HEMOGLOBIN 28.4 pg (27.0-33.0); MEAN CORPUSCULAR HGB CONC 32.5 g/dl (32.0-36.5); MEAN CORPUSCULAR VOLUME 87.3 fl (80.0-96.0); PLATELET COUNT, AUTOMATED 352 10^3/uL (150-450); RED CELL DISTRIBUTION WIDTH 14.5 % (11.5-14.5); WHITE BLOOD COUNT 14.3 10^3/uL (4.0-10.0)
[2016-12-29 16:58] LABS: ADD MANUAL DIFFER YES; DIFF SLIDE NUMBER 317
[2016-12-29 17:41] LABS: ALBUMIN 3.1 GM/DL (3.2-5.2); ALKALINE PHOSPHATASE 85 U/L (45-117); ALT/SGPT 27 U/L (12-78); ANION GAP 11 MEQ/L (8-16); AST/SGOT 13 U/L (15-37); BILIRUBIN,DIRECT < 0.1 MG/DL (0.0-0.2); BILIRUBIN,TOTAL 0.2 MG/DL (0.2-1.0); BLOOD UREA NITROGEN 15 MG/DL (7-18); CALCIUM LEVEL 8.5 MG/DL (8.5-10.1); CARBON DIOXIDE LEVEL 26 MEQ/L (21-32); CHLORIDE LEVEL 101 MEQ/L (98-107); CREATININE FOR GFR 0.77 MG/DL (0.55-1.02); FREE T4 1.04 NG/DL (0.76-1.46); GLOMERULAR FILTRATION RATE > 60.0 (>51); GLUCOSE, FASTING 168 MG/DL (70-105); POTASSIUM SERUM 3.3 MEQ/L (3.5-5.1); SODIUM LEVEL 138 MEQ/L (136-145); TOTAL PROTEIN 7.5 GM/DL (6.4-8.2)
[2016-12-29] MEDS ORDERED: POTASSIUM CHLORIDE 10 MEQ SR TABLET PO ONE (18:00)
[2016-12-29 18:35] VITALS: BP 108/62
[2016-12-29 18:50] LABS: BASOPHILS 1 % (0-4)
--- NOTE | 2016-12-30 06:26 | ECGEPIP ---
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
--- NOTE | 2016-12-30 06:29 | ECGEPIP ---
Stationary ECG Study [facility] - ED Test Date: 2016-12-29 Pat Name: DONNY CHILEL Department: Room: - Gender: F Office Services Representative: JMarshall : 1965 Requested By: MELVA Martinez Order Number: [id number] Reading MD: Chuck Monique Measurements Intervals [place] Rate: 97 P: 52 MS: 165 QRS: 8 QRSD: 86 T: 32 QT: 323 QTc: 410 Interpretive Statements SINUS RHYTHM POSSIBLE LEFT ATRIAL ENLARGEMENT NONSPECIFIC T-WAVE ABNORMALITY RHYTHM CHANGE COMPARED TO PRIOR ON SAME DATE Electronically Signed On 12-30-2016 6:28:51 EDT by Chuck Monique
[2017-01-28] MEDS ORDERED: CLAR5TAB7 PO (21:22)
[2017-01-28] MEDS ORDERED: LEVA1TAB2 PO (21:22)
== END 2016-12-29 18:47 | disposition home or self-care (01) ==
LOC: M ED 15:41
DX: I48.91 Unspecified atrial fibrillation (principal); J45.909 Unspecified asthma, uncomplicated; E11.9 Type 2 diabetes mellitus without complications; G47.30 Sleep apnea, unspecified; F41.9 Anxiety disorder, unspecified; Z87.442 Personal history of urinary calculi; Z87.891 Personal history of nicotine dependence

== ENCOUNTER 2017-01-01 21:36 | Emergency (ER) | payer OTHER ==
[~2017-01-01] VITALS: Ht 172.7 cm; Wt 122.7 kg
[~2017-01-01 21:36] MED LIST changes: +LISI-538 PO
[2017-01-01] MEDS ORDERED: LEVA1TAB2 PO (21:47)
[2017-01-01] MEDS ORDERED: IPRATROPIUM 0.5MG/ALBUTEROL 2.5MG INH SOL UD 3ML (DUONEB)(J7620) NEB ONE (22:30)
[2017-01-01] MEDS ORDERED: dexameTHASONE 20 MG/5 ML VIAL (J1100) IV ONE (22:30)
[2017-01-01 22:59] LABS: MEAN CORPUSCULAR HGB CONC 33.1 g/dl (32.0-36.5); MEAN CORPUSCULAR VOLUME 87.7 fl (80.0-96.0); PLATELET COUNT, AUTOMATED 308 10^3/uL (150-450); RED CELL DISTRIBUTION WIDTH 14.5 % (11.5-14.5)
[2017-01-01 23:01] LABS: ADD MANUAL DIFFER YES; DIFF SLIDE NUMBER 322
[2017-01-01 23:09] LABS: INR 1.17
[2017-01-01 23:28] LABS: EOSINOPHILS 1 % (0-5)
[2017-01-01 23:29] LABS: ANION GAP 8 MEQ/L (8-16); BLOOD UREA NITROGEN 14 MG/DL (7-18); CALCIUM LEVEL 8.2 MG/DL (8.5-10.1); CARBON DIOXIDE LEVEL 28 MEQ/L (21-32); CHLORIDE LEVEL 103 MEQ/L (98-107); CREATININE FOR GFR 0.68 MG/DL (0.55-1.02); GLOMERULAR FILTRATION RATE > 60.0 (>51); SODIUM LEVEL 139 MEQ/L (136-145)
[2017-01-01 23:44] LABS: GLUCOSE, FASTING 179 MG/DL (70-105)
[2017-01-02 02:51] VITALS: BP 179/80
[2017-01-02] MEDS ORDERED: PRED20TA PO (02:59)
--- NOTE | 2017-01-02 05:51 | ECGEPIP ---
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
--- NOTE | 2017-01-02 05:52 | ECGEPIP ---
Stationary ECG Study [facility] - ED Test Date: 2017-01-02 Pat Name: DONNY CHILEL Department: Room: - Gender: F Carbonizer: : 1965 Requested By: MELISSA FOSTER Order Number: [id number] Reading MD: Chuck Monique Measurements Intervals [place] Rate: 101 P: 41 [place]: 152 QRS: -1 QRSD: 93 T: 36 QT: 326 QTc: 423 Interpretive Statements SINUS TACHYCARDIA NSTTW ABNORMALITIES SIMILAR TO 01/01/17 Electronically Signed On 01-02-2017 5:52:18 EDT by Chuck Monique
--- NOTE | 2017-01-02 09:17 | REP ---
REASON: Cough. COMPARISON: 12/29/2016 a portable exam. There is unchanged blunting of the left costophrenic and cardiophrenic angles. The heart is not enlarged. The lung renteria are unchanged. There are no new abnormal opacities. IMPRESSION: Persistent left lobe opacity with costophrenic angle and cardiophrenic angle blunting, status quo. Pleural effusions/chronic change with or without pneumonia and atelectasis. Correlate clinically. Signed by Brayan Gibson DO 01/02/2017 09:39 A
--- NOTE | 2017-01-05 10:40 | ED PDOC ---
Post-Departure Follow-Up dr chan faxed formal report of cxr for fu Jhon Mccurdy MD Jan 05, 2017 10:40
[2017-01-28] MEDS ORDERED: CLAR5TAB7 PO (21:22)
[2017-01-28] MEDS ORDERED: LEVA1TAB2 PO (21:22)
== END 2017-01-02 03:11 | disposition home or self-care (01) ==
LOC: M ED 21:36
DX: J20.9 Acute bronchitis, unspecified (principal); R07.89 Other chest pain; R00.0 Tachycardia, unspecified; R94.31 Abnormal electrocardiogram [ECG] [EKG]; I48.91 Unspecified atrial fibrillation; E11.9 Type 2 diabetes mellitus without complications; I10 Essential (primary) hypertension; J44.9 Chronic obstructive pulmonary disease, unspecified; Z87.891 Personal history of nicotine dependence; Z79.4 Long term (current) use of insulin; Z79.899 Other long term (current) drug therapy; Z88.1 Allergy status to other antibiotic agents; Z88.6 Allergy status to analgesic agent; Z88.2 Allergy status to sulfonamides; Z91.013 Allergy to seafood
CPT/HCPCS: 71020; 80048; 82550; 82553; 85025; 85610; 85730; 93005; 94640; 96374; 99284; J1100

== ENCOUNTER 2017-02-19 23:15 | Emergency (ER) | payer OTHER, SELFPAY ==
[~2017-02-19] VITALS: Ht 175.3 cm; Wt 118.2 kg
[~2017-02-19 23:15] MED LIST changes: +CLAR5TAB7 PO; +LEVA1TAB2 PO; +PRED20TA PO
[2017-02-20] MEDS ORDERED: IPRATROPIUM 0.5MG/ALBUTEROL 2.5MG INH SOL UD 3ML (DUONEB)(J7620) NEB ONE (00:30)
[2017-02-20] MEDS ORDERED: PRED20TA PO (00:51)
[2017-02-20] MEDS ORDERED: AUGM875T28 PO (00:51)
[2017-02-20] MEDS ORDERED: PERCOCET 5MG/325MG TAB PO ONE (01:00)
[2017-02-20] MEDS ORDERED: AUGMENTIN 875 MG TAB PO ONE (01:00)
[2017-02-20] MEDS ORDERED: methylPREDNISolone INJ 125 MG/2 ML VIAL (J2930) IV ONE (01:00)
[2017-02-20] MEDS ORDERED: methylPREDNISolone INJ 125 MG/2 ML VIAL (J2930) IM ONE (01:00)
[2017-02-20 01:03] VITALS: BP 176/90
== END 2017-02-20 01:09 | disposition home or self-care (01) ==
LOC: M ED 23:15
DX: H66.93 Otitis media, unspecified, bilateral (principal); E11.9 Type 2 diabetes mellitus without complications; Z79.4 Long term (current) use of insulin; Z79.899 Other long term (current) drug therapy; Z88.1 Allergy status to other antibiotic agents; Z88.6 Allergy status to analgesic agent; Z88.2 Allergy status to sulfonamides; Z91.013 Allergy to seafood
CPT/HCPCS: 94640; 96372; 99283; J2930

== ENCOUNTER → 2017-04-12 | Outpatient (CLI) | payer OTHER | LOC: M RAD 14:55 | DX: J30.9 Allergic rhinitis, unspecified (principal) ==

== ENCOUNTER 2017-04-25 13:43 | Emergency (ER) | payer OTHER ==
[2017-04-25 15:33] LABS: BEDSIDE GLUCOSE 178 MG/DL (70-105)
[2017-04-25] MEDS: ALBUTEROL SULFATE 2.5 MG/0.5 ML INH NEB SOLN INH (15:53)
[2017-04-25] MEDS: IPRATROPIUM 0.5MG/ALBUTEROL 2.5MG INH SOL UD 3ML (DUONEB)(J7620) NEB (15:53)
[2017-04-25 16:04] LABS: INFLUENZA A AMPLIFICATION NEGATIVE (NEGATIVE); INFLUENZA B AMPLIFICATION NEGATIVE (NEGATIVE)
[2017-04-25] MEDS: predniSONE 20 MG TAB PO (16:33)
== END 2017-04-25 16:39 | disposition home or self-care (01) ==
LOC: M ED 13:43
DX: J04.0 Acute laryngitis (principal); J20.9 Acute bronchitis, unspecified; Z87.442 Personal history of urinary calculi; R07.9 Chest pain, unspecified; F41.0 Panic disorder [episodic paroxysmal anxiety]; E78.00 Pure hypercholesterolemia, unspecified; I10 Essential (primary) hypertension; J45.909 Unspecified asthma, uncomplicated; G47.30 Sleep apnea, unspecified; Z87.01 Personal history of pneumonia (recurrent); Z87.440 Personal history of urinary (tract) infections; M54.12 Radiculopathy, cervical region; E11.9 Type 2 diabetes mellitus without complications; M54.9 Dorsalgia, unspecified; Z87.891 Personal history of nicotine dependence; Z79.4 Long term (current) use of insulin; Z79.899 Other long term (current) drug therapy; Z88.1 Allergy status to other antibiotic agents; Z88.6 Allergy status to analgesic agent; Z91.013 Allergy to seafood
CPT/HCPCS: 94640

== ENCOUNTER 2017-05-13 00:48 | Emergency (ER) | payer OTHER | END 2017-05-13 02:57 | disposition left against medical advice (07) | LOC: M ED 00:48 | DX: R06.02 Shortness of breath (principal); Z53.21 Procedure and treatment not carried out due to patient leaving prior to being seen by health care provider ==

== ENCOUNTER 2017-05-18 16:53 | Emergency (ER) | payer OTHER ==
[2017-05-18] MEDS: ALBUTEROL SULFATE 2.5 MG/0.5 ML INH NEB SOLN NEB (18:37)
[2017-05-18] MEDS: IPRATROPIUM 0.5MG/ALBUTEROL 2.5MG INH SOL UD 3ML (DUONEB)(J7620) NEB (18:37)
[2017-05-18] MEDS: methylPREDNISolone INJ 125 MG/2 ML VIAL (J2930) IV (18:43)
[2017-05-18] MEDS: NS 500 ML IV (18:45)
[2017-05-18 19:18] LABS: ANION GAP 8 MEQ/L (8-16); BLOOD UREA NITROGEN 10 MG/DL (7-18); CALCIUM LEVEL 8.6 MG/DL (8.5-10.1); CARBON DIOXIDE LEVEL 29 MEQ/L (21-32); CHLORIDE LEVEL 107 MEQ/L (98-107); GLOMERULAR FILTRATION RATE > 60.0 (>51); GLUCOSE, FASTING 99 MG/DL (70-100); POTASSIUM SERUM 4.2 MEQ/L (3.5-5.1); SODIUM LEVEL 144 MEQ/L (136-145)
[2017-05-18] MEDS ORDERED: ISOVUE-370 76% 100ML VIAL (Q9967) As Ordered (19:27)
== END 2017-05-18 20:36 | disposition home or self-care (01) ==
LOC: M ED 16:53
DX: J45.901 Unspecified asthma with (acute) exacerbation (principal); E11.9 Type 2 diabetes mellitus without complications; E78.5 Hyperlipidemia, unspecified; I48.91 Unspecified atrial fibrillation; Z79.899 Other long term (current) drug therapy; Z79.01 Long term (current) use of anticoagulants; Z87.891 Personal history of nicotine dependence; Z88.1 Allergy status to other antibiotic agents; Z88.2 Allergy status to sulfonamides; Z91.013 Allergy to seafood; Z88.8 Allergy status to other drugs, medicaments and biological substances; Z79.51 Long term (current) use of inhaled steroids; Z79.4 Long term (current) use of insulin
CPT/HCPCS: Q9967

== ENCOUNTER 2017-06-08 10:36 | Inpatient (IN) | payer OTHER ==
[2017-06-08 11:15] LABS: BASO % 0.3 % (0.0-1.0); EOS # 0.5 10^3/uL (0.0-0.50); EOS % 4.9 % (0.0-3.0); HEMATOCRIT 40.5 % (36.0-47.0); HEMOGLOBIN 12.8 g/dl (12.0-16.0); IMMATURE GRANULOCYTE % 0.4 % (0-3.0); LYMPH # 2.7 10^3/uL (1.5-4.5); LYMPH % 28.7 % (24.0-44.0); MEAN CORPUSCULAR HEMOGLOBIN 27.9 pg (27.0-33.0); MEAN CORPUSCULAR HGB CONC 31.6 g/dl (32.0-36.5); MEAN CORPUSCULAR VOLUME 88.4 fl (80.0-96.0); MONO # 0.6 10^3/uL (0.0-0.8); NEUTROPHILS # 5.5 10^3/uL (1.8-7.7); NEUTROPHILS % 59.7 % (36.0-66.0); PLATELET COUNT, AUTOMATED 294 10^3/uL (150-450); RED BLOOD COUNT 4.58 10^6/uL (4.00-5.40); RED CELL DISTRIBUTION WIDTH 13.8 % (11.5-14.5); WHITE BLOOD COUNT 9.3 10^3/uL (4.0-10.0)
[2017-06-08] MEDS: IPRATROPIUM 0.5MG/ALBUTEROL 2.5MG INH SOL UD 3ML (DUONEB)(J7620) NEB ×5 (11:29→19:47)
[2017-06-08 11:40] LABS: ANION GAP 15 MEQ/L (8-16); BLOOD UREA NITROGEN 15 MG/DL (7-18); CALCIUM LEVEL 8.5 MG/DL (8.5-10.1); CARBON DIOXIDE LEVEL 20 MEQ/L (21-32); CHLORIDE LEVEL 103 MEQ/L (98-107); CK-MB VALUE MASS 1.8 NG/ML (0.0-3.6); CPK CREATINE PHOSPHOKINASE 159 U/L (26-192); CREATININE FOR GFR 0.77 MG/DL (0.55-1.30); GLOMERULAR FILTRATION RATE > 60.0 (>51); GLUCOSE, FASTING 229 MG/DL (70-100); MB/CK RELATIVE INDEX 1.13 (< OR =4); POTASSIUM SERUM 4.3 MEQ/L (3.5-5.1); SODIUM LEVEL 138 MEQ/L (136-145); TROPONIN I < 0.02 NG/ML (< 0.10)
[2017-06-08] MEDS: methylPREDNISolone INJ 125 MG/2 ML VIAL (J2930) IV ×2 (11:40→20:37)
[2017-06-08 11:45] LABS: ALBUMIN 3.5 GM/DL (3.2-5.2); ALBUMIN/GLOBULIN RATIO 0.97 (1.00-1.93); ALKALINE PHOSPHATASE 88 U/L (45-117); ALT/SGPT 20 U/L (12-78); AST/SGOT 12 U/L (7-37); BILIRUBIN,DIRECT < 0.1 MG/DL (0.0-0.2); BILIRUBIN,TOTAL 0.4 MG/DL (0.2-1.0); NT-PRO BNP 16 PG/ML (<125); TOTAL PROTEIN 7.1 GM/DL (6.4-8.2)
[2017-06-08] MEDS ORDERED: DEXTROSE 50% 50 ML SYRINGE IV (13:45)
[2017-06-08] MEDS ORDERED: GLUCAGON FOR INJ 1 MG VIAL (J1610) SC (13:45)
[2017-06-08] MEDS ORDERED: ONDANSETRON 4MG/2ML VIAL (J2405) IV (13:45)
[2017-06-08] MEDS ORDERED: GLUCOSE 4 GM CHEW TABLET PO (13:45)
[2017-06-08] MEDS: CEFTRIAXONE SOD 2 GM in APPROPRIATE DILUENT 1 EA IV (14:52)
[2017-06-08] MEDS: HumaLOG INSULIN (NovoLOG) PER UNIT SC ×2 (18:10→22:03)
[2017-06-08] MEDS: ALBUTEROL SULFATE 2.5 MG/0.5 ML INH NEB SOLN INH (22:28)
[2017-06-09] MEDS: ALBUTEROL SULFATE 2.5 MG/0.5 ML INH NEB SOLN INH (02:44)
[2017-06-09] MEDS: methylPREDNISolone INJ 125 MG/2 ML VIAL (J2930) IV ×3 (03:42→20:33)
[2017-06-09 06:59] LABS: HEMATOCRIT 39.2 % (36.0-47.0); HEMOGLOBIN 12.6 g/dl (12.0-16.0); MEAN CORPUSCULAR HEMOGLOBIN 27.6 pg (27.0-33.0); MEAN CORPUSCULAR HGB CONC 32.1 g/dl (32.0-36.5); MEAN CORPUSCULAR VOLUME 85.8 fl (80.0-96.0); PLATELET COUNT, AUTOMATED 321 10^3/uL (150-450); RED BLOOD COUNT 4.57 10^6/uL (4.00-5.40); RED CELL DISTRIBUTION WIDTH 13.8 % (11.5-14.5); WHITE BLOOD COUNT 9.8 10^3/uL (4.0-10.0)
[2017-06-09 07:23] LABS: ANION GAP 14 MEQ/L (8-16); BLOOD UREA NITROGEN 21 MG/DL (7-18); CALCIUM LEVEL 8.7 MG/DL (8.5-10.1); CARBON DIOXIDE LEVEL 18 MEQ/L (21-32); CHLORIDE LEVEL 102 MEQ/L (98-107); CREATININE FOR GFR 0.83 MG/DL (0.55-1.30); GLOMERULAR FILTRATION RATE > 60.0 (>51); GLUCOSE, FASTING 388 MG/DL (70-100); POTASSIUM SERUM 4.1 MEQ/L (3.5-5.1); SODIUM LEVEL 134 MEQ/L (136-145)
[2017-06-09] MEDS: IPRATROPIUM 0.5MG/ALBUTEROL 2.5MG INH SOL UD 3ML (DUONEB)(J7620) NEB ×4 (07:26→20:14)
[2017-06-09] MEDS: glyBURIDE 2.5 MG TAB PO ×2 (07:30→17:15)
[2017-06-09] MEDS: HumaLOG INSULIN (NovoLOG) PER UNIT SC ×4 (09:00→20:39)
[2017-06-09] MEDS ORDERED: FUROSEMIDE 40 MG TAB PO (09:00)
[2017-06-09] MEDS: metFORMIN (GLUCOPHAGE) 1000 MG TABLET PO ×2 (09:00→20:33)
[2017-06-09] MEDS: RIVAROXABAN 20 MG TAB (XARELTO) PO (09:00)
[2017-06-09] MEDS: METOPROLOL TART 50 MG TAB PO ×2 (09:01→20:33)
[2017-06-09 13:00] LABS: BEDSIDE GLUCOSE 361 MG/DL (70-105)
[2017-06-09] MEDS: CEFTRIAXONE SOD 2 GM in APPROPRIATE DILUENT 1 EA IV (13:46)
[2017-06-09] MEDS: AZELASTINE 137MCG NASAL SPY 30 ML (ASTELIN) ×2 (13:46→20:39)
[2017-06-09] MEDS: ACETAMINOPHEN TAB 650MG DOSE (2X325MG) PO (15:31)
[2017-06-09] MEDS ORDERED: glyBURIDE 2.5 MG TAB PO (17:30)
[2017-06-09] MEDS: MONTELUKAST 10 MG TAB PO (20:32)
[2017-06-09] MEDS: tiZANidine 4 MG TAB PO (20:33)
[2017-06-09] MEDS: LISINOPRIL 20 MG TAB PO (20:33)
[2017-06-10] MEDS: methylPREDNISolone INJ 125 MG/2 ML VIAL (J2930) IV ×2 (03:32→12:44)
[2017-06-10] MEDS: ALBUTEROL SULFATE 2.5 MG/0.5 ML INH NEB SOLN INH ×2 (03:42→23:12)
[2017-06-10 06:42] LABS: HEMATOCRIT 35.6 % (36.0-47.0); HEMOGLOBIN 11.3 g/dl (12.0-16.0); MEAN CORPUSCULAR HEMOGLOBIN 27.8 pg (27.0-33.0); MEAN CORPUSCULAR HGB CONC 31.7 g/dl (32.0-36.5); MEAN CORPUSCULAR VOLUME 87.7 fl (80.0-96.0); PLATELET COUNT, AUTOMATED 286 10^3/uL (150-450); RED BLOOD COUNT 4.06 10^6/uL (4.00-5.40); RED CELL DISTRIBUTION WIDTH 14.1 % (11.5-14.5); WHITE BLOOD COUNT 13.8 10^3/uL (4.0-10.0)
[2017-06-10 07:00] LABS: ANION GAP 13 MEQ/L (8-16); BLOOD UREA NITROGEN 24 MG/DL (7-18); CALCIUM LEVEL 8.3 MG/DL (8.5-10.1); CARBON DIOXIDE LEVEL 19 MEQ/L (21-32); CHLORIDE LEVEL 104 MEQ/L (98-107); CREATININE FOR GFR 0.81 MG/DL (0.55-1.30); GLOMERULAR FILTRATION RATE > 60.0 (>51); POTASSIUM SERUM 4.5 MEQ/L (3.5-5.1); SODIUM LEVEL 136 MEQ/L (136-145)
[2017-06-10 07:11] LABS: GLUCOSE, FASTING 408 MG/DL (70-100)
[2017-06-10] MEDS: IPRATROPIUM 0.5MG/ALBUTEROL 2.5MG INH SOL UD 3ML (DUONEB)(J7620) NEB ×4 (07:30→19:35)
[2017-06-10] MEDS: METOPROLOL TART 50 MG TAB PO ×2 (08:59→21:00)
[2017-06-10] MEDS: metFORMIN (GLUCOPHAGE) 1000 MG TABLET PO ×2 (09:00→21:00)
[2017-06-10] MEDS: RIVAROXABAN 20 MG TAB (XARELTO) PO (09:00)
[2017-06-10] MEDS: glyBURIDE 2.5 MG TAB PO ×2 (09:00→17:15)
[2017-06-10] MEDS: HumaLOG INSULIN (NovoLOG) PER UNIT SC ×4 (09:01→20:59)
[2017-06-10] MEDS: AZELASTINE 137MCG NASAL SPY 30 ML (ASTELIN) ×2 (09:01→21:00)
[2017-06-10 11:35] LABS: BEDSIDE GLUCOSE 435 MG/DL (70-105)
[2017-06-10 11:35] LABS: BEDSIDE GLUCOSE 439 MG/DL (70-105)
[2017-06-10] MEDS: predniSONE 20 MG TAB PO (15:15)
[2017-06-10] MEDS: CEFDINIR 300 MG CAP (OMNICEF) PO (15:15)
[2017-06-10] MEDS: MONTELUKAST 10 MG TAB PO (20:59)
[2017-06-10] MEDS: tiZANidine 4 MG TAB PO (20:59)
[2017-06-10] MEDS: LISINOPRIL 20 MG TAB PO (20:59)
[2017-06-11 07:23] LABS: MEAN CORPUSCULAR HEMOGLOBIN 27.4 pg (27.0-33.0); MEAN CORPUSCULAR HGB CONC 31.4 g/dl (32.0-36.5); MEAN CORPUSCULAR VOLUME 87.3 fl (80.0-96.0); PLATELET COUNT, AUTOMATED 274 10^3/uL (150-450); RED BLOOD COUNT 4.01 10^6/uL (4.00-5.40)
[2017-06-11] MEDS: IPRATROPIUM 0.5MG/ALBUTEROL 2.5MG INH SOL UD 3ML (DUONEB)(J7620) NEB ×2 (07:34→11:42)
[2017-06-11 07:46] LABS: ANION GAP 12 MEQ/L (8-16); BLOOD UREA NITROGEN 22 MG/DL (7-18); CALCIUM LEVEL 8.3 MG/DL (8.5-10.1); CARBON DIOXIDE LEVEL 22 MEQ/L (21-32); CHLORIDE LEVEL 103 MEQ/L (98-107); CREATININE FOR GFR 0.81 MG/DL (0.55-1.30); GLOMERULAR FILTRATION RATE > 60.0 (>51); GLUCOSE, FASTING 341 MG/DL (70-100); POTASSIUM SERUM 4.1 MEQ/L (3.5-5.1); SODIUM LEVEL 137 MEQ/L (136-145)
[2017-06-11] MEDS: HumaLOG INSULIN (NovoLOG) PER UNIT SC ×2 (08:38→12:21)
[2017-06-11] MEDS: predniSONE 20 MG TAB PO (08:38)
[2017-06-11] MEDS: glyBURIDE 2.5 MG TAB PO (08:39)
[2017-06-11] MEDS: RIVAROXABAN 20 MG TAB (XARELTO) PO (08:39)
[2017-06-11] MEDS: CEFDINIR 300 MG CAP (OMNICEF) PO (08:39)
[2017-06-11] MEDS: metFORMIN (GLUCOPHAGE) 1000 MG TABLET PO (08:39)
[2017-06-11] MEDS: METOPROLOL TART 50 MG TAB PO (08:39)
[2017-06-11] MEDS: AZELASTINE 137MCG NASAL SPY 30 ML (ASTELIN) (08:40)
[2017-06-13] MEDS ORDERED: predniSONE 10 MG TAB PO (09:00)
[2017-06-14 03:52] LABS: BEDSIDE GLUCOSE 354 MG/DL (70-105)
[2017-06-14 03:52] LABS: BEDSIDE GLUCOSE 401 MG/DL (70-105)
[2017-06-14 12:04] LABS: BEDSIDE GLUCOSE 368 MG/DL (70-105)
[2017-06-14 12:04] LABS: BEDSIDE GLUCOSE 409 MG/DL (70-105)
[2017-06-14 12:05] LABS: BEDSIDE GLUCOSE 183 MG/DL (70-105)
[2017-06-14 12:05] LABS: BEDSIDE GLUCOSE 464 MG/DL (70-105)
[2017-06-14 12:05] LABS: BEDSIDE GLUCOSE 339 MG/DL (70-105)
[2017-06-16] MEDS ORDERED: predniSONE 20 MG TAB PO (09:00)
[2017-06-19] MEDS ORDERED: predniSONE 10 MG TAB PO (09:00)
== END 2017-06-11 12:59 | disposition home or self-care (01) | DRG 133 ==
LOC: M ED 10:36 → M ED INP 13:38 → M MS5PR 15:25
DX: J96.01 Acute respiratory failure with hypoxia (principal); I48.91 Unspecified atrial fibrillation; I10 Essential (primary) hypertension; E11.9 Type 2 diabetes mellitus without complications; E78.5 Hyperlipidemia, unspecified; G47.33 Obstructive sleep apnea (adult) (pediatric); Z98.51 Tubal ligation status; Z98.1 Arthrodesis status; Z88.2 Allergy status to sulfonamides; Z91.013 Allergy to seafood; Z88.1 Allergy status to other antibiotic agents; Z88.6 Allergy status to analgesic agent; Z79.4 Long term (current) use of insulin; Z79.01 Long term (current) use of anticoagulants; Z99.89 Dependence on other enabling machines and devices

== ENCOUNTER → 2017-08-05 | Outpatient (CLI) | payer OTHER | LOC: M RAD 14:59 | DX: J32.4 Chronic pansinusitis (principal) | CPT/HCPCS: 70486 ==

== ENCOUNTER 2017-08-19 12:48 | Inpatient (IN) | payer OTHER ==
[2017-08-19] MEDS: methylPREDNISolone INJ 125 MG/2 ML VIAL (J2930) IV ×2 (13:30→21:33)
[2017-08-19] MEDS: ALBUTEROL SULFATE 2.5 MG/0.5 ML INH NEB SOLN NEB (13:54)
[2017-08-19] MEDS: IPRATROPIUM 0.5MG/ALBUTEROL 2.5MG INH SOL UD 3ML (DUONEB)(J7620) NEB ×2 (13:54→19:31)
[2017-08-19 13:57] LABS: BASO % 0.5 % (0.0-1.0); EOS # 0.1 10^3/uL (0.0-0.50); EOS % 0.8 % (0.0-3.0); HEMATOCRIT 39.6 % (36.0-47.0); HEMOGLOBIN 12.7 g/dl (12.0-15.5); IMMATURE GRANULOCYTE % 0.6 % (0-3.0); LYMPH # 1.6 10^3/uL (1.5-4.5); LYMPH % 20.9 % (24.0-44.0); MEAN CORPUSCULAR HEMOGLOBIN 28.2 pg (27.0-33.0); MEAN CORPUSCULAR HGB CONC 32.1 g/dl (32.0-36.5); MONO # 0.7 10^3/uL (0.0-0.8); MONO % 8.7 % (0.0-5.0); NEUTROPHILS # 5.3 10^3/uL (1.8-7.7); NEUTROPHILS % 68.5 % (36.0-66.0); PLATELET COUNT, AUTOMATED 384 10^3/uL (150-450); RED CELL DISTRIBUTION WIDTH 14.9 % (11.5-14.5); WHITE BLOOD COUNT 7.7 10^3/uL (4.0-10.0)
[2017-08-19 14:05] LABS: INR 1.03; PROTHROMBIN TIME 13.6 SECONDS (12.4-14.5)
[2017-08-19 14:08] LABS: D-DIMER QUANT 439.8 ng/ml (<500)
[2017-08-19 14:14] LABS: LACTIC ACID SEPSIS PROTOCOL 1.3 MMOL/L (0.4-2.0)
[2017-08-19 14:30] LABS: INFLUENZA A AMPLIFICATION NEGATIVE (NEGATIVE); INFLUENZA B AMPLIFICATION NEGATIVE (NEGATIVE)
[2017-08-19 14:35] LABS: ALBUMIN 3.2 GM/DL (3.2-5.2); ALKALINE PHOSPHATASE 95 U/L (45-117); ALT/SGPT 19 U/L (12-78); ANION GAP 10 MEQ/L (8-16); AST/SGOT 4 U/L (7-37); BILIRUBIN,DIRECT 0.1 MG/DL (0.0-0.2); BILIRUBIN,TOTAL 0.6 MG/DL (0.2-1.0); BLOOD UREA NITROGEN 13 MG/DL (7-18); CALCIUM LEVEL 8.5 MG/DL (8.5-10.1); CARBON DIOXIDE LEVEL 25 MEQ/L (21-32); CHLORIDE LEVEL 104 MEQ/L (98-107); CPK CREATINE PHOSPHOKINASE 136 U/L (26-192); CREATININE FOR GFR 0.65 MG/DL (0.55-1.30); GLOMERULAR FILTRATION RATE > 60.0 (>51); GLUCOSE, FASTING 201 MG/DL (70-100); POTASSIUM SERUM 3.3 MEQ/L (3.5-5.1); SODIUM LEVEL 139 MEQ/L (136-145); TOTAL PROTEIN 7.8 GM/DL (6.4-8.2); TROPONIN I < 0.02 NG/ML (< 0.10)
[2017-08-19 14:40] LABS: CK-MB VALUE MASS 1.2 NG/ML (<3.6); MB/CK RELATIVE INDEX 0.88 (< OR =4); NT-PRO BNP 55 PG/ML (<125)
[2017-08-19] MEDS ORDERED: DEXTROSE 50% 50 ML SYRINGE IV (17:15)
[2017-08-19] MEDS ORDERED: GLUCAGON FOR INJ 1 MG VIAL (J1610) SC (17:15)
[2017-08-19] MEDS ORDERED: GLUCOSE 4 GM CHEW TABLET PO (17:15)
[2017-08-19 17:41] LABS: BEDSIDE GLUCOSE 279 MG/DL (70-105)
[2017-08-19] MEDS: CEFTAROLINE FOSAMIL 600 MG in D5W MINI-BAG PLUS 50 ML IV (18:21)
[2017-08-19] MEDS: POTASSIUM CHLORIDE 10 MEQ SR TABLET PO (18:21)
[2017-08-19] MEDS: NS 1,000 ML IV (18:21)
[2017-08-19] MEDS: METOPROLOL TART 25 MG TABLET PO (18:21)
[2017-08-19] MEDS: HumaLOG INSULIN (NovoLOG) PER UNIT SC ×2 (18:22→21:34)
[2017-08-19 21:10] LABS: BEDSIDE GLUCOSE 388 MG/DL (70-105)
[2017-08-19] MEDS: LISINOPRIL 20 MG TAB PO (21:34)
[2017-08-19] MEDS: MONTELUKAST 10 MG TAB PO (21:34)
[2017-08-19] MEDS: ACETAMINOPHEN TAB 650MG DOSE (2X325MG) PO (21:35)
[2017-08-19] MEDS: LEVEMIR (INSULIN DETEMIR) 1 UNITS/0.01ML SC (21:35)
[2017-08-19] MEDS: tiZANidine 4 MG TAB PO (22:01)
[2017-08-19] MEDS: AZELASTINE 137MCG NASAL SPY 30 ML (ASTELIN) (22:01)
[2017-08-19] MEDS: ALBUTEROL SULFATE 2.5 MG/0.5 ML INH NEB SOLN INH (22:22)
[2017-08-20] MEDS: METOPROLOL TART 25 MG TABLET PO ×5 (00:08→23:18)
[2017-08-20] MEDS: ACETAMINOPHEN TAB 650MG DOSE (2X325MG) PO ×2 (03:22→20:57)
[2017-08-20] MEDS: ALBUTEROL SULFATE 2.5 MG/0.5 ML INH NEB SOLN INH (03:22)
[2017-08-20] MEDS: methylPREDNISolone INJ 125 MG/2 ML VIAL (J2930) IV ×3 (06:16→20:56)
[2017-08-20] MEDS: CEFTAROLINE FOSAMIL 600 MG in D5W MINI-BAG PLUS 50 ML IV ×2 (06:16→17:17)
[2017-08-20 07:06] LABS: HEMATOCRIT 38.9 % (36.0-47.0); HEMOGLOBIN 12.6 g/dl (12.0-15.5); MEAN CORPUSCULAR HEMOGLOBIN 28.6 pg (27.0-33.0); MEAN CORPUSCULAR HGB CONC 32.4 g/dl (32.0-36.5); MEAN CORPUSCULAR VOLUME 88.4 fl (80.0-96.0); PLATELET COUNT, AUTOMATED 355 10^3/uL (150-450); RED CELL DISTRIBUTION WIDTH 14.6 % (11.5-14.5); WHITE BLOOD COUNT 5.7 10^3/uL (4.0-10.0)
[2017-08-20 07:18] LABS: ANION GAP 6 MEQ/L (8-16); BLOOD UREA NITROGEN 16 MG/DL (7-18); CALCIUM LEVEL 8.6 MG/DL (8.5-10.1); CARBON DIOXIDE LEVEL 27 MEQ/L (21-32); CHLORIDE LEVEL 106 MEQ/L (98-107); CREATININE FOR GFR 0.65 MG/DL (0.55-1.30); GLOMERULAR FILTRATION RATE > 60.0 (>51); GLUCOSE, FASTING 294 MG/DL (70-100); POTASSIUM SERUM 4.5 MEQ/L (3.5-5.1); SODIUM LEVEL 139 MEQ/L (136-145)
[2017-08-20] MEDS: ACETYLCYSTEINE 20% 4 ML VIAL (200MG/ML) INH ×2 (08:00→19:47)
[2017-08-20] MEDS: IPRATROPIUM 0.5MG/ALBUTEROL 2.5MG INH SOL UD 3ML (DUONEB)(J7620) NEB ×4 (08:03→19:47)
[2017-08-20] MEDS: HumaLOG INSULIN (NovoLOG) PER UNIT SC ×4 (08:11→20:55)
[2017-08-20] MEDS: LEVEMIR (INSULIN DETEMIR) 1 UNITS/0.01ML SC ×2 (08:46→20:56)
[2017-08-20] MEDS: AZELASTINE 137MCG NASAL SPY 30 ML (ASTELIN) ×2 (11:32→20:56)
[2017-08-20 12:23] LABS: BEDSIDE GLUCOSE 280 MG/DL (70-105)
[2017-08-20 17:05] LABS: BEDSIDE GLUCOSE 357 MG/DL (70-105)
[2017-08-20] MEDS: RIVAROXABAN 20 MG TAB (XARELTO) PO (17:16)
[2017-08-20 20:43] LABS: BEDSIDE GLUCOSE 373 MG/DL (70-105)
[2017-08-20] MEDS: tiZANidine 4 MG TAB PO (20:54)
[2017-08-20] MEDS: LISINOPRIL 20 MG TAB PO (20:55)
[2017-08-20] MEDS: MONTELUKAST 10 MG TAB PO (20:55)
[2017-08-21] MEDS: METOPROLOL TART 25 MG TABLET PO ×4 (06:12→23:13)
[2017-08-21] MEDS: methylPREDNISolone INJ 125 MG/2 ML VIAL (J2930) IV ×2 (06:12→17:19)
[2017-08-21] MEDS: CEFTAROLINE FOSAMIL 600 MG in D5W MINI-BAG PLUS 50 ML IV ×2 (06:12→17:38)
[2017-08-21 06:56] LABS: HEMATOCRIT 37.9 % (36.0-47.0); HEMOGLOBIN 12.3 g/dl (12.0-15.5); MEAN CORPUSCULAR HEMOGLOBIN 28.9 pg (27.0-33.0); MEAN CORPUSCULAR HGB CONC 32.5 g/dl (32.0-36.5); PLATELET COUNT, AUTOMATED 376 10^3/uL (150-450); RED BLOOD COUNT 4.26 10^6/uL (4.00-5.40); RED CELL DISTRIBUTION WIDTH 14.7 % (11.5-14.5); WHITE BLOOD COUNT 7.7 10^3/uL (4.0-10.0)
[2017-08-21 07:12] LABS: ANION GAP 6 MEQ/L (8-16); BLOOD UREA NITROGEN 18 MG/DL (7-18); CALCIUM LEVEL 8.7 MG/DL (8.5-10.1); CARBON DIOXIDE LEVEL 28 MEQ/L (21-32); CHLORIDE LEVEL 104 MEQ/L (98-107); CREATININE FOR GFR 0.69 MG/DL (0.55-1.30); GLOMERULAR FILTRATION RATE > 60.0 (>51); GLUCOSE, FASTING 275 MG/DL (70-100); SODIUM LEVEL 138 MEQ/L (136-145)
[2017-08-21] MEDS: HumaLOG INSULIN (NovoLOG) PER UNIT SC ×4 (07:30→21:23)
[2017-08-21] MEDS: LEVEMIR (INSULIN DETEMIR) 1 UNITS/0.01ML SC ×2 (07:51→21:22)
[2017-08-21] MEDS: ONDANSETRON 4MG/2ML VIAL (J2405) IV (07:59)
[2017-08-21] MEDS: AZELASTINE 137MCG NASAL SPY 30 ML (ASTELIN) ×2 (07:59→21:21)
[2017-08-21] MEDS: amLODIPine 5 MG TAB PO (08:55)
[2017-08-21] MEDS: ACETYLCYSTEINE 20% 4 ML VIAL (200MG/ML) INH ×2 (09:01→20:00)
[2017-08-21] MEDS: IPRATROPIUM 0.5MG/ALBUTEROL 2.5MG INH SOL UD 3ML (DUONEB)(J7620) NEB ×5 (09:02→20:31)
[2017-08-21] MEDS: ACETAMINOPHEN TAB 650MG DOSE (2X325MG) PO (10:20)
[2017-08-21 12:08] LABS: BEDSIDE GLUCOSE 319 MG/DL (70-105)
[2017-08-21 16:36] LABS: BEDSIDE GLUCOSE 348 MG/DL (70-105)
[2017-08-21] MEDS: RIVAROXABAN 20 MG TAB (XARELTO) PO (17:19)
[2017-08-21 20:33] LABS: BEDSIDE GLUCOSE 330 MG/DL (70-105)
[2017-08-21] MEDS: LISINOPRIL 20 MG TAB PO (21:21)
[2017-08-21] MEDS: MONTELUKAST 10 MG TAB PO (21:21)
[2017-08-21] MEDS: tiZANidine 4 MG TAB PO (23:12)
[2017-08-22] MEDS: CEFTAROLINE FOSAMIL 600 MG in D5W MINI-BAG PLUS 50 ML IV (05:24)
[2017-08-22] MEDS: methylPREDNISolone INJ 125 MG/2 ML VIAL (J2930) IV (05:24)
[2017-08-22] MEDS: METOPROLOL TART 25 MG TABLET PO ×3 (05:28→17:24)
[2017-08-22 06:50] LABS: MEAN CORPUSCULAR HEMOGLOBIN 28.9 pg (27.0-33.0); MEAN CORPUSCULAR HGB CONC 32.4 g/dl (32.0-36.5); MEAN CORPUSCULAR VOLUME 89.2 fl (80.0-96.0); PLATELET COUNT, AUTOMATED 374 10^3/uL (150-450); RED BLOOD COUNT 4.15 10^6/uL (4.00-5.40); RED CELL DISTRIBUTION WIDTH 14.6 % (11.5-14.5); WHITE BLOOD COUNT 9.3 10^3/uL (4.0-10.0)
[2017-08-22 07:04] LABS: ANION GAP 5 MEQ/L (8-16); BLOOD UREA NITROGEN 19 MG/DL (7-18); CALCIUM LEVEL 8.7 MG/DL (8.5-10.1); CARBON DIOXIDE LEVEL 30 MEQ/L (21-32); CHLORIDE LEVEL 102 MEQ/L (98-107); CREATININE FOR GFR 0.68 MG/DL (0.55-1.30); GLOMERULAR FILTRATION RATE > 60.0 (>51); GLUCOSE, FASTING 259 MG/DL (70-100); POTASSIUM SERUM 4.4 MEQ/L (3.5-5.1); SODIUM LEVEL 137 MEQ/L (136-145)
[2017-08-22] MEDS: IPRATROPIUM 0.5MG/ALBUTEROL 2.5MG INH SOL UD 3ML (DUONEB)(J7620) NEB ×4 (07:26→20:28)
[2017-08-22] MEDS: ACETYLCYSTEINE 20% 4 ML VIAL (200MG/ML) INH ×2 (07:28→20:28)
[2017-08-22] MEDS: AZELASTINE 137MCG NASAL SPY 30 ML (ASTELIN) ×2 (07:37→21:22)
[2017-08-22] MEDS: amLODIPine 5 MG TAB PO (07:38)
[2017-08-22] MEDS: HumaLOG INSULIN (NovoLOG) PER UNIT SC ×4 (07:38→21:37)
[2017-08-22] MEDS: LEVEMIR (INSULIN DETEMIR) 1 UNITS/0.01ML SC ×2 (07:39→21:23)
[2017-08-22] MEDS: predniSONE 20 MG TAB PO (09:39)
[2017-08-22 11:50] LABS: BEDSIDE GLUCOSE 213 MG/DL (70-105)
[2017-08-22 17:12] LABS: BEDSIDE GLUCOSE 360 MG/DL (70-105)
[2017-08-22] MEDS: RIVAROXABAN 20 MG TAB (XARELTO) PO (17:24)
[2017-08-22] MEDS: ACETAMINOPHEN TAB 650MG DOSE (2X325MG) PO (18:59)
[2017-08-22] MEDS: MONTELUKAST 10 MG TAB PO (21:21)
[2017-08-22] MEDS: CEFDINIR 300 MG CAP (OMNICEF) PO (21:21)
[2017-08-22] MEDS: DOXYCYCLINE HYCLATE 100 MG TAB PO (21:21)
[2017-08-22] MEDS: LISINOPRIL 20 MG TAB PO (21:22)
[2017-08-22 21:31] LABS: BEDSIDE GLUCOSE 359 MG/DL (70-105)
[2017-08-22] MEDS: tiZANidine 4 MG TAB PO (23:05)
[2017-08-23] MEDS: METOPROLOL TART 25 MG TABLET PO ×2 (06:15)
[2017-08-23 07:03] LABS: HEMATOCRIT 34.8 % (36.0-47.0); HEMOGLOBIN 11.4 g/dl (12.0-15.5); MEAN CORPUSCULAR HEMOGLOBIN 29.2 pg (27.0-33.0); MEAN CORPUSCULAR HGB CONC 32.8 g/dl (32.0-36.5); MEAN CORPUSCULAR VOLUME 89.2 fl (80.0-96.0); PLATELET COUNT, AUTOMATED 293 10^3/uL (150-450); RED CELL DISTRIBUTION WIDTH 14.6 % (11.5-14.5); WHITE BLOOD COUNT 9.4 10^3/uL (4.0-10.0)
[2017-08-23 07:18] LABS: ANION GAP 6 MEQ/L (8-16); BLOOD UREA NITROGEN 18 MG/DL (7-18); CALCIUM LEVEL 7.9 MG/DL (8.5-10.1); CARBON DIOXIDE LEVEL 29 MEQ/L (21-32); CHLORIDE LEVEL 105 MEQ/L (98-107); CREATININE FOR GFR 0.73 MG/DL (0.55-1.30); GLOMERULAR FILTRATION RATE > 60.0 (>51); GLUCOSE, FASTING 243 MG/DL (70-100); POTASSIUM SERUM 3.6 MEQ/L (3.5-5.1); SODIUM LEVEL 140 MEQ/L (136-145)
[2017-08-23] MEDS: amLODIPine 5 MG TAB PO (07:47)
[2017-08-23] MEDS: CEFDINIR 300 MG CAP (OMNICEF) PO (07:47)
[2017-08-23] MEDS: DOXYCYCLINE HYCLATE 100 MG TAB PO (07:48)
[2017-08-23] MEDS: AZELASTINE 137MCG NASAL SPY 30 ML (ASTELIN) (07:48)
[2017-08-23] MEDS: HumaLOG INSULIN (NovoLOG) PER UNIT SC (07:48)
[2017-08-23] MEDS: predniSONE 20 MG TAB PO (07:48)
[2017-08-23] MEDS: ACETYLCYSTEINE 20% 4 ML VIAL (200MG/ML) INH (07:53)
[2017-08-23] MEDS: IPRATROPIUM 0.5MG/ALBUTEROL 2.5MG INH SOL UD 3ML (DUONEB)(J7620) NEB (07:53)
[2017-08-23] MEDS: LEVEMIR (INSULIN DETEMIR) 1 UNITS/0.01ML SC (08:26)
== END 2017-08-23 10:30 | disposition home or self-care (01) | DRG 141 ==
LOC: M ED 12:48 → M ED INP 17:04 → M PED 21:00
DX: J45.901 Unspecified asthma with (acute) exacerbation (principal); J15.8 Pneumonia due to other specified bacteria; J12.2 Parainfluenza virus pneumonia; I48.0 Paroxysmal atrial fibrillation; E11.9 Type 2 diabetes mellitus without complications; Z79.01 Long term (current) use of anticoagulants; I10 Essential (primary) hypertension; E78.5 Hyperlipidemia, unspecified; Z79.899 Other long term (current) drug therapy; Z88.2 Allergy status to sulfonamides; Z88.8 Allergy status to other drugs, medicaments and biological substances; Z88.1 Allergy status to other antibiotic agents; Z91.013 Allergy to seafood; Z79.82 Long term (current) use of aspirin

== ENCOUNTER → 2017-08-31 | Outpatient (CLI) | payer OTHER | LOC: M CARPUL 09:37 | DX: J44.9 Chronic obstructive pulmonary disease, unspecified (principal) | CPT/HCPCS: 94060 ==

== ENCOUNTER → 2017-09-17 | Outpatient (CLI) | payer OTHER ==
[2017-09-17 11:32] LABS: ALBUMIN/GLOBULIN RATIO 0.88 (1.00-1.93); ALKALINE PHOSPHATASE 74 U/L (45-117); ALT/SGPT 30 U/L (12-78); ANION GAP 7 MEQ/L (8-16); AST/SGOT 12 U/L (7-37); BILIRUBIN,TOTAL 0.4 MG/DL (0.2-1.0); BLOOD UREA NITROGEN 10 MG/DL (7-18); CALCIUM LEVEL 7.8 MG/DL (8.5-10.1); CARBON DIOXIDE LEVEL 28 MEQ/L (21-32); CHLORIDE LEVEL 108 MEQ/L (98-107); CREATININE FOR GFR 0.54 MG/DL (0.55-1.30); GLOMERULAR FILTRATION RATE > 60.0 (>51); GLUCOSE, FASTING 171 MG/DL (70-100); POTASSIUM SERUM 3.8 MEQ/L (3.5-5.1); SODIUM LEVEL 143 MEQ/L (136-145); TOTAL PROTEIN 6.4 GM/DL (6.4-8.2)
[2017-09-17 11:34] LABS: ESTIMATED AVERAGE GLUCOSE 235 MG/DL (60-110); HEMOGLOBIN A1c 9.8 %
[2017-09-17 15:09] LABS: BASO % 0.3 % (0.0-1.0); EOS # 0.2 10^3/uL (0.0-0.50); EOS % 2.9 % (0.0-3.0); HEMATOCRIT 37.5 % (36.0-47.0); HEMOGLOBIN 12.1 g/dl (12.0-15.5); IMMATURE GRANULOCYTE % 0.6 % (0-3.0); LYMPH # 2.6 10^3/uL (1.5-4.5); LYMPH % 41.7 % (24.0-44.0); MEAN CORPUSCULAR HEMOGLOBIN 28.5 pg (27.0-33.0); MEAN CORPUSCULAR HGB CONC 32.3 g/dl (32.0-36.5); MEAN CORPUSCULAR VOLUME 88.2 fl (80.0-96.0); MONO # 0.6 10^3/uL (0.0-0.8); MONO % 9.9 % (0.0-5.0); NEUTROPHILS # 2.8 10^3/uL (1.8-7.7); NEUTROPHILS % 44.6 % (36.0-66.0); PLATELET COUNT, AUTOMATED 247 10^3/uL (150-450); RED BLOOD COUNT 4.25 10^6/uL (4.00-5.40); RED CELL DISTRIBUTION WIDTH 14.6 % (11.5-14.5); WHITE BLOOD COUNT 6.2 10^3/uL (4.0-10.0)
== END ==
LOC: M LAB 10:25
DX: E11.9 Type 2 diabetes mellitus without complications (principal)
CPT/HCPCS: 71046; 80053

== ENCOUNTER 2017-09-24 09:13 | Day surgery (SDC) | payer OTHER ==
[2017-09-24] MEDS ORDERED: LIDOCAINE 1% MDV 20ML VIAL SQ (09:30)
[2017-09-24] MEDS: LR 1,000 ML IV (10:23)
[2017-09-24 10:30] LABS: BEDSIDE GLUCOSE 230 MG/DL (70-105)
[2017-09-24] MEDS ORDERED: fentaNYL 250 MCG/5 ML INJECTION (J3010) As Ordered (10:44)
[2017-09-24] MEDS ORDERED: MIDAZOLAM INJ 2 MG/2 ML VIAL (J2250) As Ordered (10:44)
[2017-09-24] MEDS ORDERED: ROCURONIUM BROMIDE 50 MG/5 ML VIAL As Ordered ×2 (10:44→14:00)
[2017-09-24] MEDS ORDERED: PROPOFOL 200 MG/20 ML VIAL As Ordered ×2 (10:44→14:00)
[2017-09-24] MEDS ORDERED: LIDOCAINE 2% INJ 100 MG/5 ML SDV (FOR ANES.) As Ordered (10:44)
[2017-09-24] MEDS ORDERED: dexameTHASONE 4 MG/ML 1ML VIAL (J1100) As Ordered (10:44)
[2017-09-24] MEDS ORDERED: PHENYLephrine HCL 500 MCG/5 ML (100MCG/ML) SYRINGE (J2370) As Ordered (13:36)
[2017-09-24] MEDS: METHYLENE BLUE 0.5% (5MG/ML) 10 ML AMP (PROVAYBLUE)(Q9968 PER 1MG) As Ordered (13:49)
[2017-09-24] MEDS: OXYMETAZOLINE NASAL SPRAY (AFRIN) As Ordered (13:49)
[2017-09-24] MEDS ORDERED: ePHEDrine SULFATE 25 MG/5 ML(5MG/ML) SYRINGE As Ordered (13:53)
[2017-09-24] MEDS: LIDOCAINE W/EPINEPHRINE 1% 20ML VIAL As Ordered (14:13)
[2017-09-24] MEDS ORDERED: SUGAMMADEX SODIUM 500 MG/5 ML VIAL (BRIDION) As Ordered (14:20)
[2017-09-24] MEDS: SODIUM CHLORIDE 0.9% NASAL GEL 15GM (AYR) As Ordered (14:38)
[2017-09-24 14:47] LABS: BEDSIDE GLUCOSE 176 MG/DL (70-105)
[2017-09-24] MEDS ORDERED: ONDANSETRON 4MG/2ML VIAL (J2405) As Ordered (14:49)
[2017-09-24] MEDS: ONDANSETRON 4MG/2ML VIAL (J2405) IV (14:51)
[2017-09-24] MEDS ORDERED: NORCO, ANEXSIA 5/325MG TABLET (HYDROcodone/ACETAMINOPHEN) PO (15:15)
[2017-09-24] MEDS ORDERED: fentaNYL 100 MCG/2 ML INJECTION (J3010) IV (15:15)
[2017-09-24] MEDS ORDERED: LR 1,000 ML IV (15:15)
[2017-09-24] MEDS ORDERED: ACETAMINOPH W/CODEINE #3 TAB UD PO (15:15)
[2017-09-24] MEDS ORDERED: ACETAMINOPHEN 500 MG TAB As Ordered (15:33)
[2017-09-24] MEDS: ACETAMINOPHEN 500 MG TAB PO (15:35)
== END 2017-09-24 16:03 | disposition home or self-care (01) ==
LOC: M SDC 09:13
DX: J32.9 Chronic sinusitis, unspecified (principal); J33.9 Nasal polyp, unspecified; G47.33 Obstructive sleep apnea (adult) (pediatric); E11.9 Type 2 diabetes mellitus without complications; E78.00 Pure hypercholesterolemia, unspecified; E66.9 Obesity, unspecified; F41.9 Anxiety disorder, unspecified; I48.91 Unspecified atrial fibrillation; J44.9 Chronic obstructive pulmonary disease, unspecified; J30.9 Allergic rhinitis, unspecified; M12.9 Arthropathy, unspecified; J45.909 Unspecified asthma, uncomplicated; R06.83 Snoring; J98.6 Disorders of diaphragm; Z68.42 Body mass index [BMI] 45.0-49.9, adult; Z88.1 Allergy status to other antibiotic agents; Z88.2 Allergy status to sulfonamides; Z88.6 Allergy status to analgesic agent; Z91.013 Allergy to seafood; Z79.899 Other long term (current) drug therapy; Z79.84 Long term (current) use of oral hypoglycemic drugs; Z79.4 Long term (current) use of insulin; Z98.51 Tubal ligation status
CPT/HCPCS: 31254

== ENCOUNTER → 2017-10-22 | Outpatient (CLI) | payer OTHER | LOC: M LAB 10:48 | DX: I48.91 Unspecified atrial fibrillation (principal) | CPT/HCPCS: 93225 ==

== ENCOUNTER 2018-01-30 14:57 | Emergency (ER) | payer OTHER, SELFPAY ==
[2018-01-30] MEDS: NORCO, ANEXSIA 5/325MG TABLET (HYDROcodone/ACETAMINOPHEN) PO (15:36)
== END 2018-01-30 15:45 | disposition home or self-care (01) ==
LOC: M ED 14:57
DX: S16.1XXA Strain of muscle, fascia and tendon at neck level, initial encounter (principal); S43.402A Unspecified sprain of left shoulder joint, initial encounter; M50.30 Other cervical disc degeneration, unspecified cervical region; M54.12 Radiculopathy, cervical region; W07.XXXA Fall from chair, initial encounter; Y92.89 Other specified places as the place of occurrence of the external cause; Y99.0 Civilian activity done for income or pay; I48.91 Unspecified atrial fibrillation; Z98.1 Arthrodesis status; I10 Essential (primary) hypertension; E78.00 Pure hypercholesterolemia, unspecified; J45.909 Unspecified asthma, uncomplicated; G47.33 Obstructive sleep apnea (adult) (pediatric); E11.9 Type 2 diabetes mellitus without complications; F41.9 Anxiety disorder, unspecified; Z87.891 Personal history of nicotine dependence; Z88.1 Allergy status to other antibiotic agents; Z88.2 Allergy status to sulfonamides; Z91.013 Allergy to seafood; Z79.899 Other long term (current) drug therapy; Z79.84 Long term (current) use of oral hypoglycemic drugs; Z79.01 Long term (current) use of anticoagulants
CPT/HCPCS: 99282

== ENCOUNTER 2018-02-08 19:23 | Emergency (ER) | payer OTHER ==
[2018-02-08] MEDS: MORPHINE 4 MG/ML 1ML VIAL/SYRINGE (J2270) IV (20:46)
[2018-02-08] MEDS: ONDANSETRON 4MG/2ML VIAL (J2405) IV (20:46)
[2018-02-08 20:47] LABS: BASO % 0.4 % (0.0-1.0); EOS # 0.2 10^3/uL (0.0-0.50); EOS % 2.1 % (0.0-3.0); HEMATOCRIT 42.4 % (36.0-47.0); HEMOGLOBIN 13.8 g/dl (12.0-15.5); IMMATURE GRANULOCYTE % 0.4 % (0-3.0); LYMPH # 3.7 10^3/uL (1.5-4.5); LYMPH % 40.7 % (24.0-44.0); MEAN CORPUSCULAR HEMOGLOBIN 28.8 pg (27.0-33.0); MEAN CORPUSCULAR HGB CONC 32.5 g/dl (32.0-36.5); MEAN CORPUSCULAR VOLUME 88.3 fl (80.0-96.0); MONO # 0.5 10^3/uL (0.0-0.8); MONO % 5.8 % (0.0-5.0); NEUTROPHILS # 4.6 10^3/uL (1.8-7.7); NEUTROPHILS % 50.6 % (36.0-66.0); PLATELET COUNT, AUTOMATED 267 10^3/uL (150-450); RED CELL DISTRIBUTION WIDTH 13.8 % (11.5-14.5); WHITE BLOOD COUNT 9.1 10^3/uL (4.0-10.0)
[2018-02-08] MEDS: NS 1,000 ML IV (20:47)
[2018-02-08 20:54] LABS: KETONE, URINE AUTO RFX NEGATIVE (NEGATIVE); LEUKOCYTE ESTERASE UR AUTO RFX NEGATIVE (NEGATIVE); MUCUS, URINE RFX SMALL (NEGATIVE); NITRITE, URINE AUTO RFX NEGATIVE (NEGATIVE); RBC, URINE AUTO RFX 2 /HPF (0-3); SPECIFIC GRAVITY UR AUTO RFX 1.036 (1.002-1.035); SQUAM EPITHELIAL CELL UR AURFX 3 /HPF (0-6); WBC, URINE AUTO RFX 2 /HPF (0-3)
[2018-02-08 21:11] LABS: BEDSIDE GLUCOSE 223 MG/DL (70-105)
[2018-02-08 21:29] LABS: ALBUMIN 3.7 GM/DL (3.2-5.2); ALBUMIN/GLOBULIN RATIO 0.93 (1.00-1.93); ALKALINE PHOSPHATASE 110 U/L (45-117); ALT/SGPT 24 U/L (12-78); ANION GAP 10 MEQ/L (8-16); AST/SGOT 17 U/L (7-37); BILIRUBIN,DIRECT < 0.1 MG/DL (0.0-0.2); BILIRUBIN,TOTAL 0.4 MG/DL (0.2-1.0); BLOOD UREA NITROGEN 12 MG/DL (7-18); CALCIUM LEVEL 9.1 MG/DL (8.5-10.1); CARBON DIOXIDE LEVEL 24 MEQ/L (21-32); CHLORIDE LEVEL 103 MEQ/L (98-107); GLOMERULAR FILTRATION RATE > 60.0 (>51); GLUCOSE, FASTING 273 MG/DL (70-100); LIPASE 119 U/L (73-393); POTASSIUM SERUM 4.1 MEQ/L (3.5-5.1); SODIUM LEVEL 137 MEQ/L (136-145); TOTAL PROTEIN 7.7 GM/DL (6.4-8.2)
== END 2018-02-08 22:43 | disposition home or self-care (01) ==
LOC: M ED 19:23
DX: R10.9 Unspecified abdominal pain (principal); R11.0 Nausea; M62.838 Other muscle spasm; D17.71 Benign lipomatous neoplasm of kidney; I48.91 Unspecified atrial fibrillation; E11.9 Type 2 diabetes mellitus without complications; I10 Essential (primary) hypertension; E78.5 Hyperlipidemia, unspecified; Z87.442 Personal history of urinary calculi; Z87.891 Personal history of nicotine dependence; Z79.899 Other long term (current) drug therapy; Z79.01 Long term (current) use of anticoagulants; Z79.4 Long term (current) use of insulin; Z79.51 Long term (current) use of inhaled steroids; Z88.1 Allergy status to other antibiotic agents; Z88.2 Allergy status to sulfonamides; Z91.013 Allergy to seafood
CPT/HCPCS: J2270

== ENCOUNTER 2018-03-02 18:48 | Emergency (ER) | payer OTHER ==
[2018-03-07 15:31] LABS: BEDSIDE GLUCOSE 153 MG/DL (70-105)
== END 2018-03-02 19:53 | disposition home or self-care (01) ==
LOC: M ED 18:48
DX: R00.0 Tachycardia, unspecified (principal); I10 Essential (primary) hypertension; E11.9 Type 2 diabetes mellitus without complications; J45.909 Unspecified asthma, uncomplicated; I48.91 Unspecified atrial fibrillation; M54.12 Radiculopathy, cervical region; G47.30 Sleep apnea, unspecified; Z79.899 Other long term (current) drug therapy; Z79.4 Long term (current) use of insulin; Z88.1 Allergy status to other antibiotic agents; Z88.2 Allergy status to sulfonamides; Z91.013 Allergy to seafood
CPT/HCPCS: 93005

== ENCOUNTER 2018-03-29 14:29 | Emergency (ER) | payer OTHER ==
[~2018-03-29] VITALS: Ht 175.3 cm; Wt 131.8 kg
[~2018-03-29 14:29] MED LIST changes: +ACET500T15 PO; -ACET50TAOT PO; -AMLO10TA2 PO; +AMLO10TA5 PO; +AUGM875T28 PO; +AZEL0.1S; +BENZ200C70 PO; +BREO1INH3 PO; +CEFD300CAP PO; +DILT120C48; +DOXY100C37 PO; +DOXY100T PO; +FLUC100T PO; +FURO40TA2 PO; +IPRA0.00 INH; -LASI20TA PO; +LASI20TA3 PO; +LEVO500T3 PO; +MONT10TA2 PO; +NORCOTAB PO; +NOVOINJ3; +PRED10TA2 PO; +PROAAER10; +TOUJ1.2I SC; +ZOFR4TAB14 PO
--- NOTE | 2018-03-29 15:03 | REP ---
Clinical: Cough. Technique: PA and lateral. Comparison: 09/18/2017. Findings: Mediastinum and cardiac silhouette are stable. Lung renteria demonstrate trace left basilar atelectasis. No obvious effusion. No pneumothorax. Skeletal structures intact. Evidence of prior anterior cervical fusion. Impression: Trace left basilar atelectasis. Electronically Signed by Myke Agarwal MD 03/29/2018 02:55 P
[2018-03-29] MEDS ORDERED: predniSONE 20 MG TAB PO ONE (15:15)
[2018-03-29] MEDS ORDERED: PRED20TA PO (15:18)
[2018-03-29 15:51] LABS: BASO % 0.2 % (0.0-1.0); EOS # 0.2 10^3/uL (0.0-0.50); EOS % 1.4 % (0.0-3.0); HEMATOCRIT 38.9 % (36.0-47.0); HEMOGLOBIN 12.8 g/dl (12.0-15.5); LYMPH # 2.7 10^3/uL (1.5-4.5); LYMPH % 20.2 % (24.0-44.0); MEAN CORPUSCULAR HGB CONC 32.9 g/dl (32.0-36.5); MONO # 0.8 10^3/uL (0.0-0.8); NEUTROPHILS # 9.6 10^3/uL (1.8-7.7); NEUTROPHILS % 71.8 % (36.0-66.0); PLATELET COUNT, AUTOMATED 258 10^3/uL (150-450); RED BLOOD COUNT 4.42 10^6/uL (4.00-5.40); WHITE BLOOD COUNT 13.3 10^3/uL (4.0-10.0)
[2018-03-29 16:19] LABS: INFLUENZA A AMPLIFICATION NEGATIVE (NEGATIVE); INFLUENZA B AMPLIFICATION NEGATIVE (NEGATIVE)
[2018-03-29 16:21] LABS: ALBUMIN 3.3 GM/DL (3.2-5.2); ALT/SGPT 21 U/L (12-78); BILIRUBIN,DIRECT < 0.1 MG/DL (0.0-0.2); BILIRUBIN,TOTAL 0.7 MG/DL (0.2-1.0); BLOOD UREA NITROGEN 10 MG/DL (7-18); CALCIUM LEVEL 8.7 MG/DL (8.5-10.1); CARBON DIOXIDE LEVEL 24 MEQ/L (21-32); CHLORIDE LEVEL 104 MEQ/L (98-107); CK-MB VALUE MASS < 1.0 NG/ML (<3.6); CPK CREATINE PHOSPHOKINASE 75 U/L (26-192); CREATININE FOR GFR 0.52 MG/DL (0.55-1.30); GLOMERULAR FILTRATION RATE > 60.0 (>51); GLUCOSE, FASTING 158 MG/DL (70-100); MB/CK RELATIVE INDEX 1.33 (< OR =4); NT-PRO BNP 48 PG/ML (<125); POTASSIUM SERUM 4.1 MEQ/L (3.5-5.1); SODIUM LEVEL 137 MEQ/L (136-145); TOTAL PROTEIN 7.4 GM/DL (6.4-8.2); TROPONIN I < 0.02 NG/ML (< 0.10)
[2018-03-29] MEDS ORDERED: CEFU50TA PO (18:18)
[2018-03-29] MEDS ORDERED: CEFUROXIME 500 MG TAB PO STA (18:40)
[2018-03-29 18:47] VITALS: BP 137/65
--- NOTE | 2018-03-30 16:47 | ECGEPIP ---
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
== END 2018-03-29 19:05 | disposition home or self-care (01) ==
LOC: M ED 14:29
DX: J40 Bronchitis, not specified as acute or chronic (principal); J45.909 Unspecified asthma, uncomplicated; I48.91 Unspecified atrial fibrillation; E11.9 Type 2 diabetes mellitus without complications; I10 Essential (primary) hypertension; E78.5 Hyperlipidemia, unspecified; Z87.891 Personal history of nicotine dependence

== ENCOUNTER 2018-06-20 11:31 | Emergency (ER) | payer OTHER ==
[~2018-06-20] VITALS: Ht 175.3 cm; Wt 131.8 kg
[~2018-06-20 11:31] MED LIST changes: -/MOXI40TA PO; +AVEL1TAB2 PO; +CEFU50TA PO; +GLYB-147 PO; +HYDR-3715 PO; -NORCOTAB PO; +PRED-351 PO; -PRED10TA PO
[2018-06-20] MEDS ORDERED: ALBUTEROL SULFATE 2.5 MG/0.5 ML INH NEB SOLN INH ONE (13:45)
[2018-06-20] MEDS ORDERED: BENZ200C70 PO (14:46)
[2018-06-20] MEDS ORDERED: VENTAER INH (14:46)
[2018-06-20] MEDS ORDERED: FLON1SPR NARES (14:46)
[2018-06-20 14:52] VITALS: BP 138/80
== END 2018-06-20 14:52 | disposition home or self-care (01) ==
LOC: M ED 11:31
DX: J04.0 Acute laryngitis (principal); R07.9 Chest pain, unspecified; F41.9 Anxiety disorder, unspecified; I10 Essential (primary) hypertension; E78.00 Pure hypercholesterolemia, unspecified; G47.30 Sleep apnea, unspecified; J98.6 Disorders of diaphragm; M54.9 Dorsalgia, unspecified; E11.9 Type 2 diabetes mellitus without complications; Z87.440 Personal history of urinary (tract) infections; Z87.442 Personal history of urinary calculi; Z87.891 Personal history of nicotine dependence; Z88.1 Allergy status to other antibiotic agents; Z88.2 Allergy status to sulfonamides; Z91.013 Allergy to seafood; Z79.899 Other long term (current) drug therapy; Z79.4 Long term (current) use of insulin; Z79.01 Long term (current) use of anticoagulants

== ENCOUNTER 2018-08-12 18:32 | Emergency (ER) | payer OTHER ==
[~2018-08-12] VITALS: Ht 175.3 cm; Wt 131.8 kg
[~2018-08-12 18:32] MED LIST changes: -DILT120C48; +DILT120C48 PO; +FLON1SPR NARES; +VENTAER INH
[2018-08-12] MEDS ORDERED: ceFAZolin SOD 1 GM in D5W MINI-BAG PLUS 50 ML IV ONE (21:00)
--- NOTE | 2018-08-12 21:10 | REPVR ---
EXAM: US Duplex Right Lower Extremity Veins, Limited EXAM DATE/TIME: 08/12/2018 8:38 PM CLINICAL HISTORY: 53 years old, female; Pain; Leg, upper and leg, lower; Right; Additional info: Rle swelling/erythema TECHNIQUE: Imaging protocol: Real-time Duplex ultrasound of the Right Lower Extremity with 2-D blake scale, color Doppler flow and spectral waveform analysis. Limited exam was focused on the right lower extremity veins. COMPARISON: US Duplex, Ext LOWER veins, bilat 06/08/2017 2:21 PM FINDINGS: Right deep veins: Unremarkable. The common femoral, femoral and popliteal veins are patent without thrombus. Normal Doppler waveforms. Normal compressibility and/or augmentation response. Right superficial veins: Unremarkable. Saphenofemoral junction is patent without thrombus. Soft tissues: Unremarkable. IMPRESSION: No sonographic evidence of deep vein thrombosis. Electronically signed by: Thomas Weiss On 08/12/2018 21:09:33 PM
[2018-08-12 21:14] LABS: BASO % 0.3 % (0.0-1.0); EOS % 0.3 % (0.0-3.0); HEMATOCRIT 40.5 % (36.0-47.0); LYMPH # 1.9 10^3/uL (1.5-4.5); LYMPH % 16.7 % (24.0-44.0); MEAN CORPUSCULAR HEMOGLOBIN 29.2 pg (27.0-33.0); MEAN CORPUSCULAR HGB CONC 32.1 g/dl (32.0-36.5); MONO # 0.6 10^3/uL (0.0-0.8); MONO % 5.8 % (0.0-5.0); NEUTROPHILS # 8.4 10^3/uL (1.8-7.7); NEUTROPHILS % 76.1 % (36.0-66.0); PLATELET COUNT, AUTOMATED 214 10^3/uL (150-450); RED BLOOD COUNT 4.45 10^6/uL (4.00-5.40); WHITE BLOOD COUNT 11.1 10^3/uL (4.0-10.0)
[2018-08-12 21:31] LABS: INR 1.07
[2018-08-12 21:32] LABS: PARTIAL THROMBOPLASTIN TIME 32.9 SECONDS (25.4-37.6)
[2018-08-12 21:33] LABS: ERYTHROCYTE SEDIMENTATION RATE 70 mm/hr (0-30)
[2018-08-12 22:14] LABS: BLOOD UREA NITROGEN 15 MG/DL (7-18); CALCIUM LEVEL 8.4 MG/DL (8.5-10.1); CARBON DIOXIDE LEVEL 24 MEQ/L (21-32); CHLORIDE LEVEL 103 MEQ/L (98-107); CREATININE FOR GFR 0.76 MG/DL (0.55-1.30); GLOMERULAR FILTRATION RATE > 60.0 (>51); GLUCOSE, FASTING 168 MG/DL (70-100); POTASSIUM SERUM 3.7 MEQ/L (3.5-5.1); SODIUM LEVEL 136 MEQ/L (136-145)
[2018-08-12] MEDS ORDERED: ACETAMINOPHEN TAB 650MG DOSE (2X325MG) PO ONE (22:30)
[2018-08-12] MEDS ORDERED: AUGM875T28 PO (22:44)
--- NOTE | 2018-08-12 22:51 | IPNPDOC ---
Text Note Date of Service The patient was seen on 08/12/18. NOTE I saw and examined the pt. IMP: Early stage superficial cellulitis of the right leg, with no abscess or drainage; Initial site of cut injury on the right feel looks fine. Recommendation: Augmentin 750 mg po bid for 7 days. Pt instructed to come to ER if cellulitis worsening. Discussed with ER provider. A-FIB/CHADSVASC A-FIB History Current/History of A-Fib/PAF?: No VS,Fishbone, I+O VS, Fishbone, I+O Laboratory Tests 08/12/18 21:06 Red Blood Count 4.45, Mean Corpuscular Volume 91.0, Mean Corpuscular Hemoglobin 29.2, Mean Corpuscular Hemoglobin Concent 32.1, Red Cell Distribution Width 14.1, Neutrophils (%) (Auto) 76.1 H, Lymphocytes (%) (Auto) 16.7 L, Monocytes (%) (Auto) 5.8 H, Eosinophils (%) (Auto) 0.3, Basophils (%) (Auto) 0.3, Neutrophils # (Auto) 8.4 H, Lymphocytes # (Auto) 1.9, Monocytes # (Auto) 0.6, Eosinophils # (Auto) 0.0, Basophils # (Auto) 0.0, Calcium Level 8.4 L Vital Signs Date Time Temp Pulse Resp B/P (MAP) Pulse Ox O2 Delivery O2 Flow Rate FiO2 08/12/18 21:33 98.3 104 20 147/68 (94) 95 Room Air NADIA DRUMMOND MD August 12, 2018 22:51
[2018-08-12 23:10] VITALS: BP 136/89
[2018-08-12] MEDS ORDERED: ONDA4TAB6 PO (23:22)
[2018-08-12] MEDS ORDERED: ONDANSETRON 4 MG ORAL DISINTEGRATING TAB (Q0162 PER 1MG) PO ONE (23:30)
== END 2018-08-12 23:26 | disposition home or self-care (01) ==
LOC: M ED 18:32
DX: L03.115 Cellulitis of right lower limb (principal); I48.91 Unspecified atrial fibrillation; E11.9 Type 2 diabetes mellitus without complications; I10 Essential (primary) hypertension; Z87.891 Personal history of nicotine dependence; Z79.4 Long term (current) use of insulin; Z79.899 Other long term (current) drug therapy; Z88.1 Allergy status to other antibiotic agents
CPT/HCPCS: 36415; 80048; 85025; 85610; 85652; 85730; 86140; 87040; 87880; 93971; 99284; J0690; Q0162

== ENCOUNTER 2018-08-15 12:17 | Inpatient (IN) | payer OTHER ==
[~2018-08-15] VITALS: Ht 175.3 cm; Wt 130.9 kg
[~2018-08-15 12:17] MED LIST changes: +ONDA4TAB6 PO
[2018-08-15 14:32] LABS: BASO % 0.6 % (0.0-1.0); EOS # 0.1 10^3/uL (0.0-0.50); EOS % 1.6 % (0.0-3.0); HEMATOCRIT 40.4 % (36.0-47.0); HEMOGLOBIN 12.9 g/dl (12.0-15.5); LYMPH # 2.6 10^3/uL (1.5-4.5); LYMPH % 38.2 % (24.0-44.0); MEAN CORPUSCULAR HEMOGLOBIN 28.9 pg (27.0-33.0); MEAN CORPUSCULAR HGB CONC 31.9 g/dl (32.0-36.5); MEAN CORPUSCULAR VOLUME 90.6 fl (80.0-96.0); MONO # 0.5 10^3/uL (0.0-0.8); MONO % 6.8 % (0.0-5.0); NEUTROPHILS # 3.6 10^3/uL (1.8-7.7); NEUTROPHILS % 51.5 % (36.0-66.0); PLATELET COUNT, AUTOMATED 299 10^3/uL (150-450); RED BLOOD COUNT 4.46 10^6/uL (4.00-5.40); WHITE BLOOD COUNT 6.9 10^3/uL (4.0-10.0)
--- NOTE | 2018-08-15 14:39 | REP ---
REASON: Pain and swelling. COMPARISON: Two days ago which was normal. TECHNIQUE: Multiple ultrasonographic images of the deep venous structures of the thigh were obtained from the common femoral vein to the popliteal vein along with Doppler interrogation and color flow Doppler images. FINDINGS: There is no abnormal echogenic material seen within any of the visualized deep venous structures that would suggest acute thrombosis. Coaptation is unremarkable throughout. Doppler interrogation shows an expected response to respiratory variability and augmentation. The color flow images show what appears to be a normal vascular pattern throughout. IMPRESSION: There is no ultrasonographic evidence of deep venous thrombosis involving any of the visualized deep venous structures of the right thigh, as described above. No change from the prior exam. Electronically Signed by Brayan Gibson DO 08/15/2018 03:40 P
[2018-08-15 14:44] LABS: INR 1.03; PARTIAL THROMBOPLASTIN TIME 29.7 SECONDS (25.4-37.6); PROTHROMBIN TIME 13.6 SECONDS (12.1-14.4)
[2018-08-15 14:47] LABS: D-DIMER QUANT 468.2 ng/ml (<500)
[2018-08-15 14:52] LABS: ERYTHROCYTE SEDIMENTATION RATE 77 mm/hr (0-30)
[2018-08-15 15:20] LABS: ALT/SGPT 20 U/L (12-78); BILIRUBIN,DIRECT < 0.1 MG/DL (0.0-0.2); BILIRUBIN,TOTAL 0.4 MG/DL (0.2-1.0); BLOOD UREA NITROGEN 9 MG/DL (7-18); C REACTIVE PROTEIN QUANTITATIV 7.58 MG/DL (0.00-0.30); CALCIUM LEVEL 8.5 MG/DL (8.5-10.1); CARBON DIOXIDE LEVEL 25 MEQ/L (21-32); CHLORIDE LEVEL 104 MEQ/L (98-107); CREATININE FOR GFR 0.68 MG/DL (0.55-1.30); GLOMERULAR FILTRATION RATE > 60.0 (>51); GLUCOSE, FASTING 247 MG/DL (70-100); SODIUM LEVEL 136 MEQ/L (136-145); TOTAL PROTEIN 8.1 GM/DL (6.4-8.2)
[2018-08-15] MEDS ORDERED: VANCOMYCIN HCL 1,000 MG, VIAL MATE ADAPTER 1 EACH in D5W 250 ML IV ONE (15:30)
[2018-08-15] MEDS ORDERED: VENTAER INH (16:12)
[2018-08-15] MEDS ORDERED: ROSU20TA4 PO (16:12)
[2018-08-15] MEDS ORDERED: ONDA4TAB6 PO (16:12)
[2018-08-15] MEDS ORDERED: AMOX875T2 PO (16:12)
[2018-08-15] MEDS ORDERED: LISI-538 PO (16:12)
[2018-08-15] MEDS ORDERED: BYDU1INJ SC (16:12)
[2018-08-15] MEDS ORDERED: TRAM50TA2 PO (16:12)
[2018-08-15] MEDS ORDERED: DEXTROSE 50% 50 ML SYRINGE IV PRN (16:15)
[2018-08-15] MEDS ORDERED: GLUCAGON FOR INJ 1 MG VIAL (J1610) SC PRN (16:15)
[2018-08-15] MEDS ORDERED: GLUCOSE 4 GM CHEW TABLET PO PRN (16:15)
--- NOTE | 2018-08-15 16:42 | HPEPDOC ---
General Date of Admission August 15, 2018 at 16:05 Chief Complaint The patient is a 53-year-old female who presented to the ER with complaints of worsening right leg redness / warmth / tenderness. History of Present Illness Patient is a 53-year-old female with a PMHx of Estela uriostegui (on Xarelto), IDDM2, DLP who presented to the ER with worsening right leg redness, warmth and tenderness. Patient notes that on Wednesday08/09/18. Patient awoke with a small cut on her right heel. . She is unsure of exactly how she had gotten cut. This had resolved on its own by . On , she was experiencing fevers and chills. She noted temperature of 102.7F. On Wednesday. Patient hadnt noted. She was experiencing right leg swelling, warmth, redness and tenderness. There was no drainage that was noted. Patient arrived to the emergency room on Wednesday08/12/18. Patient has received IV antibiotics and then was discharged with Augmentin twice daily. She has been compliant with his medication and followed up with her primary care provider, Dr. Avilez today. Upon evaluation, she was advised to return to the emergency room for admission and IV antibiotics. Patient has not expense any fevers or chills since leaving the emergency room report some nausea and vomiting. Denies chest pain, shortness of breath, palpit ations or cough. Does not experiencing significant abdominal pain. Does history and some loose stools but has fewer bowel movements. . She denies discomfort with urination. She does that her appetite is okay and her weight has been pretty consistent. Home Medications Scheduled Amoxicillin/Potassium Clav (Amox-Clav 875-125 mg Tablet) 1 Each Tablet, 875 MG PO BID, (Reported) STARTED ON 08/12/18 TO TAKE BID X 7 DAYS. Azelastine HCl (Azelastine HCl) 0.1 % Spr, 2 SPRAYS NA BID, (Reported) Dapagliflozin Propanediol (Farxiga) 10 Mg Tab, 10 MG PO DAILY, (Reported) Diltiazem HCl (Diltiazem 24Hr ER) 120 Mg Cap, 120 MG PO QHS, (Reported) Exenatide Microspheres (Bydureon) 2 Mg/0.65 Ml Pen.injctr, 2 MG SC QWEEK, (Rep orted) SUNDAYS Fluticasone/Vilanterol (Breo Ellipta 200-25 Mcg INH) 1 Inh Inh, 1 PUFF PO DAILY, (Reported) Glyburide (Glyburide) 5 Mg Tab, 10 MG PO BID, (Reported) Insulin Glargine,Hum.rec.anlog (Toujeo Solostar) 300 Unit/Ml Inj, 80 UNIT SC QHS, (Reported) Insulin Human Lispro (Novolog) 100 U/Ml Inj, 1 DOSE SC AC, (Reported) SLIDING SCALE Lisinopril (Lisinopril) 20 Mg Tablet, 20 MG PO DAILY, (Reported) Metoprolol Tartrate (Metoprolol Tartrate) 50 Mg Tab, 50 MG PO BID, (Reported) Montelukast Sodium (Montelukast Sodium) 10 Mg Tab, 10 MG PO DAILY, (Reported) Rivaroxaban (Xarelto) 20 Mg Tab, 20 MG PO QHS, (Reported) Rosuvastatin Calcium (Rosuvastatin Calcium) 20 Mg Tablet, 20 MG PO DAILY, (Reported) Tizanidine HCl (Tizanidine HCl) 2 Mg Tab, 4 MG PO QHS, (Reported) Tramadol HCl (Tramadol HCl) 50 Mg Tablet, 50 MG PO QHS, (Reported) Scheduled PRN Albuterol Sulf (Albuterol Sulfate) 2.5 Mg/3 Ml Nebu, 2.5 MG INH QID PRN for SHORTNESS OF BREATH, (Reported) Albuterol Sulfate (Ventolin Hfa) 18 Gm Hfa.aer.ad, 2 PUFF INH Q4H PRN for SHORTNESS OF BREATH, (Reported) Furosemide (Furosemide) 40 Mg Tab, 40 MG PO DAILY PRN for EDEMA, (Reported) Ondansetron (Ondansetron Odt) 4 Mg Tab.rapdis, 4 MG PO Q6H PRN for NAUSEA, (Reported) Allergies Coded Allergies: erythromycin base (Verified Allergy, Mild, HIVES, 08/15/18) sulfabenzamide (Verified Allergy, Mild, HIVES, 08/15/18) azithromycin (Verified Allergy, Unknown, HIVES, 08/15/18) Past Medical History Medical History A. 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 Review of Systems Other systems 10 point review of systems complete, all negative otherwise stated in HPI Vital Signs - Vitals: BP 165/75, HR 83, RR 18, Sat 94%RA, Temp 98.4F - General: Lying in bed, No acute distress, Speaking in full sentences, AAOx3 - HEENT: NC, AT, PERRLA, EOMI - CVS: RRR, +S1S2, - Murmurs / rubs / gallops - Lungs: Fair air entry bilaterally, Clear to auscultation, No wheezing / rales / rhonchi - Abdomen: Soft, Non-distended, Non-tender - Extremities: No lower extremity edema, No calf tenderness - Neuro: No focal motor or sensory deficit - Skin: Right leg with erythema, warmth, tenderness - area has been demarcated with a marker; no skin breaks noted, no drainage is noted Laboratory Data Labs 24H Laboratory Tests 2 08/15/18 14:12: Urine Color YELLOW, Urine Appearance CLEAR, Urine pH 6.0, Urine Specific [place] 1.029, Urine Protein 1+H, Urine Glucose (UA) 3+H, Urine Ketones TRACEH, Urine Blood NEGATIVE, Urine Nitrite NEGATIVE, Urine Bilirubin NEGATIVE, Urine Urobilinogen 0.2, Urine Leukocyte Esterase NEGATIVE, Urine WBC (Auto) 1, Urine RBC (Auto) 2, Urine Hyaline Casts (Auto) 0, Urine Bacteria (Auto) NEGATIVE, Urine Squamous Epithelial Cells 0, Urine Sperm (Auto) 08/15/18 14:22: Immature Granulocyte % (Auto) 1.3, White Blood Count 6.9, Red Blood Count 4.46, Hemoglobin 12.9, Hematocrit 40.4, Mean Corpuscular Volume 90.6, Mean Corpuscular Hemoglobin 28.9, Mean Corpuscular Hemoglobin Concent 31.9L, Red Cell Distribution Width 13.3, Platelet Count 299, Neutrophils (%) (Auto) 51.5, Lymphocytes (%) (Auto) 38.2, Monocytes (%) (Auto) 6.8H, Eosinophils (%) (Auto) 1.6, Basophils (%) (Auto) 0.6, Neutrophils # (Auto) 3.6, Lymphocytes # (Auto) 2.6, Monocytes # (Auto) 0.5, Eosinophils # (Auto) 0.1, Basophils # (Auto) 0.0, Nucleated Red Blood Cells % (auto) 0.0, Erythrocyte Sedimentation Rate 77H, Prothrombin Time 13.6, Prothromb Time International Ratio 1.03, Activated Partial Thromboplast Time 29.7, D-Dimer, Quantitative 468.20, Anion Gap 7L, Glomerular Filtration Rate > 60.0, Lactic Acid Level 0.7, Calcium Level 8.5, Aspartate Amino Transf (AST/SGOT) 18, Alanine Aminotransferase (ALT/SGPT) 20, Alkaline Phosphatase 122H, Total Bilirubin 0.4, Direct Bilirubin < 0.1, C- Reactive Protein, Quantitative 7.58H, Total Protein 8.1, Albumin 3.0L, Albumi n/Globulin Ratio 0.59L CBC/BMP Laboratory Tests 08/15/18 14:22 Red Blood Count 4.46, Mean Corpuscular Volume 90.6, Mean Corpuscular Hemoglobin 28.9, Mean Corpuscular Hemoglobin Concent 31.9 L, Red Cell Distribution Width 13.3, Neutrophils (%) (Auto) 51.5, Lymphocytes (%) (Auto) 38.2, Monocytes (%) (Auto) 6.8 H, Eosinophils (%) (Auto) 1.6, Basophils (%) (Auto) 0.6, Neutrophils # (Auto) 3.6, Lymphocytes # (Auto) 2.6, Monocytes # (Auto) 0.5, Eosinophils # (Auto) 0.1, Basophils # (Auto) 0.0 Microbiology Microbiology 08/15/18 Blood Culture, Received Pending 08/15/18 Blood Culture, Received Pending Plan / VTE VTE Prophylaxis Ordered?: Yes Plan Plan Redness / Warmth / [id number] of right leg - likely 2/2 Cellulitis of right leg; unlikely 2/2 osteomyelitis - Patient was diagnosed with cellulitis on 08/12/2018; she received IV antibiotic. The emergency room and was subsequently discharged with Augmentin - Patient has failed antibiotic therapy as an outpatient without any significant improvement - Currently physical reveals right leg with erythema, warmth and tenderness - Patients history had indicated that she had cut her right heel; however, there does not appear to be any signs of infection around the cut - Remains afebrile and hemodynamically stable - No leukocytosis or lactic acidosis; CRP is elevated - Duplex US or R leg 08/15: There is no ultrasonographic evidence of deep venous thrombosis involving any of the visualized deep venous structures of the right thigh, as described above. No change from the prior exam. - Imaging via XR has been ordered by ER - Will trend CRP - s/p Vanocmycin in ER - Will c/w Ceftaroline A. fib - c/w Rate control with Metorpolol and Diltiazem - c/w Full anticoagulation with Xarelto HTN - BP appears moderately controlled - Will hold Furosemide - c/w Lisinopril IDDM2 - Will c/w Long acting insulin at adjusted dose - Will start ISS DLP - c/w Rosuvastatin COPD - No evidence of exacerbation - Will c/w home inhaled therapy - c/w Inhaled therapy as ordered DVT prophylaxis - Will start Heparin DHRUV LAKE MD August 15, 2018 16:42
--- NOTE | 2018-08-15 16:46 | REP ---
RIGHT TIBIA FIBULA, FOUR VIEWS: HISTORY: Right leg cellulitis. There is no acute fracture or dislocation. The joint spaces are normal in appearance. An osteophyte is present on the inferior calcaneus. IMPRESSION:There is no acute fracture or dislocation. Electronically Signed by Osmany Rodgers MD 08/15/2018 04:49 P
--- NOTE | 2018-08-15 16:53 | REP ---
RIGHT ANKLE, FOUR VIEWS: HISTORY: Cellulitis. There is no acute fracture or dislocation. The joint space is normal in appearance. IMPRESSION:There is no acute fracture or dislocation. Electronically Signed by Osmany Rodgers MD 08/15/2018 04:57 P
--- NOTE | 2018-08-15 16:54 | REP ---
RIGHT FOOT, FOUR VIEWS: HISTORY: Cellulitis. There is no acute fracture or dislocation. There is narrowing of the first metatarsal phalangeal joint space. The remaining joint spaces are normal in appearance. An osteophyte is present on the inferior calcaneus. IMPRESSION:There is no acute fracture or dislocation. Electronically Signed by Osmany Rodgers MD 08/15/2018 04:57 P
[2018-08-15 18:00] VITALS: BP 130/60
[2018-08-15] MEDS: HumaLOG INSULIN (NovoLOG) PER UNIT SC SCH ×2 (18:46→21:00)
[2018-08-15] MEDS ORDERED: ALBUTEROL SULFATE 2.5 MG/0.5 ML INH NEB SOLN INH PRN (19:15)
[2018-08-15] MEDS: ADVAIR HFA 230/21MCG INHALER INH SCH (19:26)
[2018-08-15] MEDS: tiZANidine 4 MG TAB PO SCH (21:22)
[2018-08-15] MEDS: RIVAROXABAN 20 MG TAB (XARELTO) PO SCH (21:22)
[2018-08-15] MEDS: ROSUVASTATIN 10 MG TAB (CRESTOR) PO SCH (21:23)
[2018-08-15] MEDS: METOPROLOL TART 50 MG TAB PO SCH (21:24)
[2018-08-15] MEDS: traMADol 50 MG TAB PO SCH (21:24)
[2018-08-15] MEDS: LEVEMIR (INSULIN DETEMIR) 1 UNITS/0.01ML SC SCH (21:25)
[2018-08-15] MEDS: AZELASTINE 137MCG NASAL SPY 30 ML (ASTELIN) SCH (21:26)
[2018-08-15] MEDS: CEFTAROLINE FOSAMIL 600 MG in D5W MINI-BAG PLUS 50 ML IV SCH (21:26)
[2018-08-15 22:00] VITALS: BP 118/68
[2018-08-16 06:00] VITALS: BP 136/64
[2018-08-16] MEDS: ACETAMINOPHEN TAB 650MG DOSE (2X325MG) PO PRN ×2 (06:08→11:05)
[2018-08-16 06:20] LABS: BASO % 0.4 % (0.0-1.0); EOS # 0.2 10^3/uL (0.0-0.50); EOS % 2.6 % (0.0-3.0); HEMATOCRIT 35.3 % (36.0-47.0); HEMOGLOBIN 11.2 g/dl (12.0-15.5); LYMPH # 2.9 10^3/uL (1.5-4.5); LYMPH % 41.6 % (24.0-44.0); MEAN CORPUSCULAR HEMOGLOBIN 28.4 pg (27.0-33.0); MEAN CORPUSCULAR HGB CONC 31.7 g/dl (32.0-36.5); MEAN CORPUSCULAR VOLUME 89.4 fl (80.0-96.0); MONO # 0.5 10^3/uL (0.0-0.8); MONO % 7.6 % (0.0-5.0); NEUTROPHILS # 3.2 10^3/uL (1.8-7.7); NEUTROPHILS % 46.4 % (36.0-66.0); PLATELET COUNT, AUTOMATED 264 10^3/uL (150-450); RED BLOOD COUNT 3.95 10^6/uL (4.00-5.40)
[2018-08-16 06:52] LABS: BLOOD UREA NITROGEN 11 MG/DL (7-18); C REACTIVE PROTEIN QUANTITATIV 4.28 MG/DL (0.00-0.30); CALCIUM LEVEL 8.6 MG/DL (8.5-10.1); CARBON DIOXIDE LEVEL 26 MEQ/L (21-32); CHLORIDE LEVEL 104 MEQ/L (98-107); GLOMERULAR FILTRATION RATE > 60.0 (>51); GLUCOSE, FASTING 176 MG/DL (70-100); POTASSIUM SERUM 3.9 MEQ/L (3.5-5.1); SODIUM LEVEL 138 MEQ/L (136-145)
[2018-08-16] MEDS: ADVAIR HFA 230/21MCG INHALER INH SCH ×2 (07:42→19:27)
[2018-08-16] MEDS: LISINOPRIL 20 MG TAB PO SCH (08:32)
[2018-08-16] MEDS: HumaLOG INSULIN (NovoLOG) PER UNIT SC SCH ×4 (08:32→20:38)
[2018-08-16] MEDS: CEFTAROLINE FOSAMIL 600 MG in D5W MINI-BAG PLUS 50 ML IV SCH ×2 (08:32→20:38)
[2018-08-16] MEDS: METOPROLOL TART 50 MG TAB PO SCH ×2 (08:33→20:39)
[2018-08-16] MEDS: AZELASTINE 137MCG NASAL SPY 30 ML (ASTELIN) SCH ×2 (08:33→20:37)
--- NOTE | 2018-08-16 11:01 | IPNPDOC ---
Subjective Date Seen The patient was seen on 08/16/18. Subjective Chief Complaint/HPI Pt is examined at bedside. She reported her right leg erythema, pain, and swelling have improved greatly. Stated that she has no more fever, chills, nausea, or vomiting. Pt denies any other symptoms including wound drainage, chest pain, palpitation, SOB, or abdominal pain General: Denies: Chills Constitutional: Denies: Chills, Fever Pulmonary: Denies: Dyspnea, Pleuritic Chest Pain Cardiovascular: Denies: Chest Pain, Palpitations Gastrointestinal: Denies: Nausea, Vomiting, Abdominal Pain Objective Physical Examination General Exam: Positive: Alert, Cooperative, No Acute Distress Eye Exam: Positive: Conjunctiva & lids normal; Negative: Sclera icteric, Ptosis ENT Exam: Positive: Atraumatic, Mucous membr. moist/pink Neck Exam: Positive: Supple Chest Exam: Positive: Clear to auscultation, Normal air movement; Negative: Rales, Rhonchi, Wheezing Heart Exam: Positive: Rate Normal, Regular Rhythm, Normal S1, Normal S2; Negative: Murmurs Abdomen Exam: Positive: Normal bowel sounds, Soft; Negative: Tenderness Extremity Exam: Positive: Tenderness, Swelling Skin Exam: Positive: Other skin issue (right leg erythema and swelling in anteriorlateral region extending posteriorly to heel region); Negative: Nl turgor and temperature Neuro Exam: Positive: Normal Speech, Normal Tone Psych Exam: Positive: Mental status NL, Mood NL, Memory Intact, Oriented x 3 A-FIB/CHADSVASC A-FIB History Current/History of A-Fib/PAF?: Yes Current Oral Anticoagulant The: Yes Assessment /Plan Problems (1) Cellulitis of right lower leg Status: Acute Problem Text: - diagnosed with cellulitis on 08/12/2018; received IV antibiotic and d/c with Augmentin from ER; reported no significant improvement on PO augmentin - Will consider transition to oral antibiotics based on clinical improvement - Improved erythema, warmth and tenderness - Patients history had indicated that she had cut her right heel; No signs of infection/erythema around the cut; blood cx pending - Cont to be afebrile and hemodynamically stable - No leukocytosis/lactic acidosis - Duplex US or R leg shoed no DVT. Right tibia/fibula, right foot, and right leg X rays ordered via ER unremarkable - CRP are trending down - s/p Vancomycin in ER; Continue Ceftaroline (re: MRSA coverage) (2) Atrial fibrillation, chronic Status: Chronic Problem Text: - HR grossly wnl; continue rate control with Metoprolol and Diltiazem - Continue full anticoagulation with Xarelto (3) HTN (hypertension) Status: Chronic Problem Text: - BP this morning 130/60 - Continue Lisinopril; cont to hold Furosemide but may resume if BP elevates (4) Insulin dependent type 2 diabetes mellitus Status: Chronic Problem Text: - Continue home long acting insulin - glucose checks and SS (5) Dyslipidemia Status: Chronic Problem Text: Continue home med Rosuvastatin (6) COPD (chronic obstructive pulmonary disease) Problem Text: - No evidence of exacerbation; pt sat. well on room air - Cont Advair and albuterol Plan/VTE VTE Prophylaxis Ordered?: Yes VS, I&O, 24H, Fishbone Vital Signs/I&O Vital Signs Date Time Temp Pulse Resp B/P (MAP) Pulse Ox O2 Delivery O2 Flow Rate FiO2 08/16/18 08:33 76 136/64 08/16/18 06:00 97.3 20 98 2.0 08/15/18 17:40 Room Air I&O- Last 24 Hours up to 6 AM 08/16/18 05:59 Intake Total 270 ml Output Total 200 ml Balance 70 ml Laboratory Data 24H LABS Laboratory Tests 2 08/15/18 14:12: Urine Color YELLOW, Urine Appearance CLEAR, Urine pH 6.0, Urine Specific [place] 1.029, Urine Protein 1+H, Urine Glucose (UA) 3+H, Urine Ketones TRACEH, Urine Blood NEGATIVE, Urine Nitrite NEGATIVE, Urine Bilirubin NEGATIVE, Urine Urobilinogen 0.2, Urine Leukocyte Esterase NEGATIVE, Urine WBC (Auto) 1, Urine RBC (Auto) 2, Urine Hyaline Casts (Auto) 0, Urine Bacteria (Auto) NEGATIVE, Urine Squamous Epithelial Cells 0, Urine Sperm (Auto) 08/15/18 14:22: Immature Granulocyte % (Auto) 1.3, White Blood Count 6.9, Red Blood Count 4.46, Hemoglobin 12.9, Hematocrit 40.4, Mean Corpuscular Volume 90.6, Mean Corpuscular Hemoglobin 28.9, Mean Corpuscular Hemoglobin Concent 31.9L, Red Cell Distributio n Width 13.3, Platelet Count 299, Neutrophils (%) (Auto) 51.5, Lymphocytes (%) (Auto) 38.2, Monocytes (%) (Auto) 6.8H, Eosinophils (%) (Auto) 1.6, Basophils (%) (Auto) 0.6, Neutrophils # (Auto) 3.6, Lymphocytes # (Auto) 2.6, Monocytes # (Auto) 0.5, Eosinophils # (Auto) 0.1, Basophils # (Auto) 0.0, Nucleated Red Blood Cells % (auto) 0.0, Erythrocyte Sedimentation Rate 77H, Prothrombin Time 13.6, Prothromb Time International Ratio 1.03, Activated Partial Thromboplast Time 29.7, D-Dimer, Quantitative 468.20, Anion Gap 7L, Glomerular Filtration Rate > 60.0, Lactic Acid Level 0.7, Calcium Level 8.5, Aspartate Amino Transf (AST/SGOT) 18, Alanine Aminotransferase (ALT/SGPT) 20, Alkaline Phosphatase 122H, Total Bilirubin 0.4, Direct Bilirubin < 0.1, C-Reactive Protein, Quantitative 7.58H, Total Protein 8.1, Albumin 3.0L, Albumin/Globulin Ratio 0.59L 08/15/18 18:22: Bedside Glucose (Misc Panel) 126H 08/15/18 20:53: Bedside Glucose (Misc Panel) 196H 08/16/18 05:56: Immature Granulocyte % (Auto) 1.4, White Blood Count 7.0, Red Blood Count 3.95L, Hemoglobin 11.2L, Hematocrit 35.3L, Mean Corpuscular Volume 89.4, Mean Corpuscular Hemoglobin 28.4, Mean Corpuscular Hemoglobin Concent 31.7L, Red Cell Distribution Width 13.4, Platelet Count 264, Neutrophils (%) (Auto) 46.4, Lymphocytes (%) (Auto) 41.6, Monocytes (%) (Auto) 7.6H, Eosinophils (%) (Auto) 2.6, Basophils (%) (Auto) 0.4, Neutrophils # (Auto) 3.2, Lymphocytes # (Auto) 2.9, Monocytes # (Auto) 0.5, Eosinophils # (Auto) 0.2, Basophils # (Auto) 0.0, Nucleated Red Blood Cells % (auto) 0.0, Anion Gap 8, Glomerular Filtration Rate > 60.0, Blood Urea Nitrogen 11, Creatinine 0.70, Sodium Level 138, Potassium Level 3.9, Chloride Level 104, Carbon Dioxide Level 26, Calcium Level 8.6, Magnesium Level 2.0, C-Reactive Protein, Quantitative 4.28H CBC/BMP Laboratory Tests 08/15/18 14:22 Red Blood Count 4.46, Mean Corpuscular Volume 90.6, Mean Corpuscular Hemoglobin 28.9, Mean Corpuscular Hemoglobin Concent 31.9 L, Red Cell Distribution Width 13.3, Neutrophils (%) (Auto) 51.5, Lymphocytes (%) (Auto) 38.2, Monocytes (%) (Auto) 6.8 H, Eosinophils (%) (Auto) 1.6, Basophils (%) (Auto) 0.6, Neutrophils # (Auto) 3.6, Lymphocytes # (Auto) 2.6, Monocytes # (Auto) 0.5, Eosinophils # (Auto) 0.1, Basophils # (Auto) 0.0 08/16/18 05:56 Red Blood Count 3.95 L, Mean Corpuscular Volume 89.4, Mean Corpuscular Hemoglobin 28.4, Mean Corpuscular Hemoglobin Concent 31.7 L, Red Cell Distribution Width 13.4, Neutrophils (%) (Auto) 46.4, Lymphocytes (%) (Auto) 41.6, Monocytes (%) (Auto) 7.6 H, Eosinophils (%) (Auto) 2.6, Basophils (%) (Auto) 0.4, Neutrophils # (Auto) 3.2, Lymphocytes # (Auto) 2.9, Monocytes # (Auto) 0.5, Eosinophils # (Auto) 0.2, Basophils # (Auto) 0.0, Calcium Level 8.6 Microbiology Microbiology 08/15/18 Blood Culture, Received Pending 08/15/18 Blood Culture, Received Pending 08/15/18 MRSA Screen, Received Pending GME ATTESTATION GME ATTESTATION My faculty preceptor for this patient encounter was physically present during the encounter and was fully available. All aspects of the patient interview, examination, medical decision making process, and medical care plan development were reviewed and approved by the faculty preceptor. The faculty preceptor is aware and concurs with the plan as stated in the body of this note and will attest to such by his/her cosignature. ATTENDING NOTE I, Megan Lake, have both independently examined this patient as well as reviewed the documentation. I have discussed in detail with the resident the findings and plan of treatment as documented by the resident. I agree with their findings and treatment plan. I will continue to follow the patient and offer further guidance to the patients care as necessary during this hospital stay. GARRETT SHERMAN DO August 16, 2018 11:01 MEGAN LAKE MD August 16, 2018 11:43
[2018-08-16 14:00] VITALS: BP 143/63
[2018-08-16] MEDS: LEVEMIR (INSULIN DETEMIR) 1 UNITS/0.01ML SC SCH (20:38)
[2018-08-16] MEDS: RIVAROXABAN 20 MG TAB (XARELTO) PO SCH (20:38)
[2018-08-16] MEDS: tiZANidine 4 MG TAB PO SCH (20:39)
[2018-08-16] MEDS: ROSUVASTATIN 10 MG TAB (CRESTOR) PO SCH (20:40)
[2018-08-16] MEDS: traMADol 50 MG TAB PO SCH (20:41)
[2018-08-16 22:00] VITALS: BP 155/77
[2018-08-17 06:00] VITALS: BP 143/72
[2018-08-17 06:39] LABS: BASO % 0.4 % (0.0-1.0); EOS # 0.2 10^3/uL (0.0-0.50); EOS % 2.6 % (0.0-3.0); HEMOGLOBIN 11.1 g/dl (12.0-15.5); LYMPH # 2.6 10^3/uL (1.5-4.5); LYMPH % 34.9 % (24.0-44.0); MEAN CORPUSCULAR HEMOGLOBIN 28.2 pg (27.0-33.0); MEAN CORPUSCULAR HGB CONC 31.7 g/dl (32.0-36.5); MEAN CORPUSCULAR VOLUME 89.1 fl (80.0-96.0); MONO # 0.6 10^3/uL (0.0-0.8); NEUTROPHILS # 3.8 10^3/uL (1.8-7.7); NEUTROPHILS % 51.5 % (36.0-66.0); PLATELET COUNT, AUTOMATED 273 10^3/uL (150-450); RED BLOOD COUNT 3.93 10^6/uL (4.00-5.40); WHITE BLOOD COUNT 7.4 10^3/uL (4.0-10.0)
[2018-08-17 07:06] LABS: BLOOD UREA NITROGEN 12 MG/DL (7-18); C REACTIVE PROTEIN QUANTITATIV 2.68 MG/DL (0.00-0.30); CALCIUM LEVEL 8.4 MG/DL (8.5-10.1); CARBON DIOXIDE LEVEL 24 MEQ/L (21-32); CHLORIDE LEVEL 106 MEQ/L (98-107); CREATININE FOR GFR 0.62 MG/DL (0.55-1.30); GLOMERULAR FILTRATION RATE > 60.0 (>51); GLUCOSE, FASTING 263 MG/DL (70-100); MAGNESIUM LEVEL 1.9 MG/DL (1.8-2.4); POTASSIUM SERUM 4.1 MEQ/L (3.5-5.1); SODIUM LEVEL 138 MEQ/L (136-145)
[2018-08-17] MEDS: ADVAIR HFA 230/21MCG INHALER INH SCH ×2 (07:24→20:37)
[2018-08-17] MEDS: HumaLOG INSULIN (NovoLOG) PER UNIT SC SCH ×4 (07:48→21:56)
[2018-08-17] MEDS: ACETAMINOPHEN TAB 650MG DOSE (2X325MG) PO PRN ×2 (07:48→20:08)
[2018-08-17] MEDS: AZELASTINE 137MCG NASAL SPY 30 ML (ASTELIN) SCH ×2 (09:32→21:57)
[2018-08-17] MEDS: METOPROLOL TART 50 MG TAB PO SCH ×2 (09:32→22:04)
[2018-08-17] MEDS: DOXYCYCLINE HYCLATE 100 MG TAB PO SCH ×2 (09:33→21:56)
[2018-08-17] MEDS: LISINOPRIL 20 MG TAB PO SCH (09:33)
--- NOTE | 2018-08-17 11:36 | IPNPDOC ---
Text Note Date of Service The patient was seen on 08/17/18. NOTE Subjective: Patient is a 53-year-old female with a PMHx of A. fib (on Xarelto), IDDM2, DLP who presented to the ER with worsening right leg redness, warmth and tenderness. Patient notes that on Wednesday08/09/18. Patient awoke with a small cut on her right heel. She is unsure of exactly how she had gotten cut. This had resolved on its own by . On , she was experiencing fevers and chills. She noted temperature of 102.7F. Patient arrived to the emergency room on Wednesday08/12/18. Patient has received IV antibiotics and then was discharged with Augmentin twice daily. She has been compliant with his medication and followed up with her primary care provider, Dr. Avilez today. Upon evaluation, she was advised to return to the emergency room for admission and IV antibiotics. Patient was admitted to hospitalist service for failure of a ntibiotic therapy. Patient was seen and examined at the bedside. Currently, patient reports that he r leg is doing significantly better. She notes that the redness, warmth and tenderness have improved. Patient denies chest pain, short of breath or palpitations. She has been ambulating. Objective: Vitals (See below) General: Lying in bed, no acute distress, comfortable, AAOx3 HEENT: NC, AT CVS: RRR, +S1S2 Lungs: Fair air entry b/l, -w/r/r Abdomen: Soft, ND, NT Extremities: - Edema, - Calf tenderness Assessment and plan: Redness / Warmth / Tenderness of right leg - likely 2/2 Cellulitis of right leg; unlikely 2/2 osteomyelitis - Patient was diagnosed with cellulitis on 08/12/2018; she received IV antibiotic. The emergency room and was subsequently discharged with Augmentin - Patient has failed antibiotic therapy as an outpatient without any significant improvement - Currently physical reveals right leg with erythema, warmth and tenderness - Patients history had indicated that she had cut her right heel; however, there does not appear to be any signs of infection around the cut - Remains afebrile and hemodynamically stable - No leukocytosis or lactic acidosis; CRP has been trending down - MRSA Screen 08/15: Positive - Blood cultures 08/15: Negative at 24 hours - Duplex US or R leg 08/15: There is no ultrasonographic evidence of deep venous thrombosis involving any of the visualized deep venous structures of the right thigh, as described above. No change from the prior exam. - XR Tib / Fib 08/15: There is no acute fracture or dislocation; XR Foot 08/15: There is no acute fracture or dislocation; XR Ankle 08/15: There is no acute fracture or dislocation. - Will start Doxycycline today; Will DC Ceftaroline; s/p Vancomycin in ER (Antibiotic day #3) A. fib - c/w Rate control with Metoprolol and Diltiazem - c/w Full anticoagulation with Xarelto HTN - BP appears moderately controlled - Will restart Furosemide - c/w Lisinopril IDDM2 - c/w Long acting insulin at adjusted dose and ISS DLP - c/w Rosuvastatin COPD - No evidence of exacerbation - Will c/w home inhaled therapy - c/w Inhaled therapy as ordered DVT prophylaxis - c/w Heparin VS,Fishbone, I+O VS, Fishbone, I+O Laboratory Tests 08/17/18 06:10 Red Blood Count 3.93 L, Mean Corpuscular Volume 89.1, Mean Corpuscular Hemoglobin 28.2, Mean Corpuscular Hemoglobin Concent 31.7 L, Red Cell Distribution Width 13.4, Neutrophils (%) (Auto) 51.5, Lymphocytes (%) (Auto) 34.9, Monocytes (%) (Auto) 8.0 H, Eosinophils (%) (Auto) 2.6, Basophils (%) (Auto) 0.4, Neutrophils # (Auto) 3.8, Lymphocytes # (Auto) 2.6, Monocytes # (Auto) 0.6, Eosinophils # (Auto) 0.2, Basophils # (Auto) 0.0, Calcium Level 8.4 L Vital Signs Date Time Temp Pulse Resp B/P (MAP) Pulse Ox O2 Delivery O2 Flow Rate FiO2 08/17/18 09:32 76 143/72 08/17/18 06:00 96.9 16 93 08/16/18 06:00 2.0 08/15/18 17:40 Room Air I&O- Last 24 Hours up to 6 AM 08/17/18 06:00 Intake Total 2790 ml Output Total 2450 ml Balance 340 ml DHRUV LAKE MD August 17, 2018 11:36
[2018-08-17] MEDS ORDERED: FUROSEMIDE 40 MG TAB PO ONE (12:00)
[2018-08-17 15:18] VITALS: BP 135/63
[2018-08-17 20:00] VITALS: BP 138/60
[2018-08-17] MEDS: RIVAROXABAN 20 MG TAB (XARELTO) PO SCH (21:56)
[2018-08-17] MEDS: LEVEMIR (INSULIN DETEMIR) 1 UNITS/0.01ML SC SCH (21:56)
[2018-08-17] MEDS: traMADol 50 MG TAB PO SCH (21:57)
[2018-08-17] MEDS: ROSUVASTATIN 10 MG TAB (CRESTOR) PO SCH (21:57)
[2018-08-17] MEDS: tiZANidine 4 MG TAB PO SCH (21:57)
[2018-08-17 22:00] VITALS: BP 138/60
[2018-08-18] MEDS: ACETAMINOPHEN TAB 650MG DOSE (2X325MG) PO PRN (04:43)
[2018-08-18 06:00] VITALS: BP 132/72
[2018-08-18 06:15] LABS: BASO % 0.5 % (0.0-1.0); EOS # 0.2 10^3/uL (0.0-0.50); HEMATOCRIT 34.9 % (36.0-47.0); HEMOGLOBIN 11.1 g/dl (12.0-15.5); MEAN CORPUSCULAR HEMOGLOBIN 28.1 pg (27.0-33.0); MEAN CORPUSCULAR HGB CONC 31.8 g/dl (32.0-36.5); MEAN CORPUSCULAR VOLUME 88.4 fl (80.0-96.0); MONO # 0.6 10^3/uL (0.0-0.8); MONO % 7.2 % (0.0-5.0); NEUTROPHILS # 3.6 10^3/uL (1.8-7.7); NEUTROPHILS % 47.5 % (36.0-66.0); PLATELET COUNT, AUTOMATED 288 10^3/uL (150-450); RED BLOOD COUNT 3.95 10^6/uL (4.00-5.40); WHITE BLOOD COUNT 7.6 10^3/uL (4.0-10.0)
[2018-08-18 06:43] LABS: BLOOD UREA NITROGEN 10 MG/DL (7-18); C REACTIVE PROTEIN QUANTITATIV 1.88 MG/DL (0.00-0.30); CALCIUM LEVEL 8.6 MG/DL (8.5-10.1); CARBON DIOXIDE LEVEL 27 MEQ/L (21-32); CHLORIDE LEVEL 104 MEQ/L (98-107); GLOMERULAR FILTRATION RATE > 60.0 (>51); GLUCOSE, FASTING 218 MG/DL (70-100); MAGNESIUM LEVEL 1.7 MG/DL (1.8-2.4); POTASSIUM SERUM 3.7 MEQ/L (3.5-5.1); SODIUM LEVEL 137 MEQ/L (136-145)
[2018-08-18] MEDS: ADVAIR HFA 230/21MCG INHALER INH SCH (07:32)
[2018-08-18] MEDS ORDERED: DOXY100T PO (08:19)
[2018-08-18 09:19] VITALS: BP 132/72
[2018-08-18] MEDS: METOPROLOL TART 50 MG TAB PO SCH (09:19)
[2018-08-18] MEDS: HumaLOG INSULIN (NovoLOG) PER UNIT SC SCH (09:19)
[2018-08-18] MEDS: LISINOPRIL 20 MG TAB PO SCH (09:19)
[2018-08-18] MEDS: DOXYCYCLINE HYCLATE 100 MG TAB PO SCH (09:19)
[2018-08-18] MEDS: AZELASTINE 137MCG NASAL SPY 30 ML (ASTELIN) SCH (09:19)
[2018-08-18] MEDS ORDERED: LIDO5CRE6 TOP (10:16)
--- NOTE | 2018-08-18 16:21 | DS.PDOC ---
Discharge Summary General Date of Admission August 15, 2018 at 16:05 Date of Discharge 08/18/18 Discharge Summary PROCEDURES PERFORMED DURING STAY: [None]. ADMITTING DIAGNOSES / DISCHARGE DIAGNOSES: Cellulitis of right leg, unlikely osteomyelitis A. fib HTN IDDM2 DLP COPD COMPLICATIONS/CHIEF COMPLAINT: Right leg warmth / redness / tenderness HISTORY OF PRESENT ILLNESS: Patient is a 53-year-old female with a PMHof A. fib, IDDM2, and DLP presented to the ER with worsening right leg redness, warmth and tenderness that started on 08/11/18 presented to [facility] ER 08/12/18. She noticed a small cut on her right heel but unsure of exactly how she had gotten cut. After the cut resolved/healed, she started having fevers and chills with peak temp 102.7F on 08/11/18. The next day She had right leg swelling, warmth, redness and tenderness. There was no drainage that was noted. Denies any appetite change, nausea, or vomiting. It was noted she came to [facility] ER prior on 08/12/18. Patient has received IV antibiotics and then was discharged with Augmentin PO BID. She reported compliant with medication and followed up with her primary care provider, Dr. Avilez , and she was advised to return to the emergency room for admission and IV antibiotics. Patient has not expense any fevers or chills since leaving the emergency room; she did still have some nausea and vomiting. Denies chest pain, shortness of breath, palpitations or cough. Noted some loose stools but has fewer bowel movements. . She denies discomfort with urination. HOSPITAL COURSE: Pt received 1 dose of IV Vancomycin in ER and was started on IV Ceftaroline after admission. Duplex US or R leg 08/15 showed no deep venous thrombosis inv olving any of the visualized deep venous structures of the right thigh. Right tibia/fibula, right foot, and right leg X rays unremarkable. Her CRP continue to trend down during hospital stay, and she reported improving right leg erythema, pain, and swelling. Patient has been able to ambulate without assist, and denies any other symptoms including nausea, vomiting, fever, chills, or SOB. Patient will complete the course of antibiotics as an outpatient and will follow-up with primary care provider within 5 days for further evaluation. DISCHARGE MEDICATIONS: Please see below. ALLERGIES: Please see below. PHYSICAL EXAMINATION ON DISCHARGE: VITAL SIGNS: Please see below. GENERAL: Alert and awake, not in acute distress, pleasant HEENT: Head normocephalic, atruamtic, conjunctiva and lids normal NECK: supple CARDIOVASCULAR EXAMINATION: RRR, no murmur, normal S1 and S2 RESPIRATORY EXAMINATION: CTA b/l, no rales, wheezing, or rhonchi ABDOMINAL EXAMINATION: soft, bowel sound aus in all 4 quadrants, no guarding or distention EXTREMITIES: right sided pedal pulse present, mild swelling in right posterolateral leg with mild warmth and erythema NEUROLOGICAL EXAMINATION: A&OX3, memory grossly intact LABORATORY DATA: Please see below. IMAGING: Duplex US or R leg 08/15 showed no deep venous thrombosis involving any of the visualized deep venous structures of the right thigh Right tibia/fibula X ray unremarkable Right foot X ray unremarkable Right leg X rays unremarkable PROGNOSIS: Good ACTIVITY: [As tolerated]. DIET: Consistent carbohydrate diet DISCHARGE PLAN AND INSTRUCTIONS: Pt will continue doxycycline 100mg BID for 10 days and follow up with PCP as scheduled before completion of antibiotics. Remain compliant with treatment plan and medications Return to the ER if you experience any problems DISPOSITION: Home, Self-Care. DISCHARGE CONDITION: [Stable]. TIME SPENT ON DISCHARGE: 35 minutes. Vital Signs/I&Os Vital Signs Date Time Temp Pulse Resp B/P (MAP) Pulse Ox O2 Delivery O2 Flow Rate FiO2 08/18/18 09:19 78 132/72 08/18/18 06:00 97.5 18 96 08/16/18 06:00 2.0 08/15/18 17:40 Room Air I&O- Last 24 Hours up to 6 AM 08/18/18 06:00 Intake Total 2090 ml Output Total 1100 ml Balance 990 ml Laboratory Data Labs 24H Laboratory Tests 2 08/17/18 17:05: Bedside Glucose (Misc Panel) 256H 08/17/18 21:13: Bedside Glucose (Misc Panel) 323H 08/18/18 05:25: Immature Granulocyte % (Auto) 2.8, White Blood Count 7.6, Red Blood Count 3.95L, Hemoglobin 11.1L, Hematocrit 34.9L, Mean Corpuscular Volume 88.4, Mean Corpuscular Hemoglobin 28.1, Mean Corpuscular Hemoglobin Concent 31.8L, Red Cell Distribution Width 13.4, Platelet Count 288, Neutrophils (%) (Auto) 47.5, Lymphocytes (%) (Auto) 39.0, Monocytes (%) (Auto) 7.2H, Eosinophils (%) (Auto) 3.0, Basophils (%) (Auto) 0.5, Neutrophils # (Auto) 3.6, Lymphocytes # (Auto) 3.0, Monocytes # (Auto) 0.6, Eosinophils # (Auto) 0.2, Basophils # (Auto) 0.0, Nucleated Red Blood Cells % (auto) 0.0, Anion Gap 6L, Glomerular Filtration Rate > 60.0, Blood Urea Nitrogen 10, Creatinine 0.60, Sodium Level 137, Potassium Level 3.7, Chloride Level 104, Carbon Dioxide Level 27, Calcium Level 8.6, Magnesium Level 1.7L, C-Reactive Protein, Quantitative 1.88H CBC/BMP Laboratory Tests 08/18/18 05:25 Red Blood Count 3.95 L, Mean Corpuscular Volume 88.4, Mean Corpuscular Hemoglobin 28.1, Mean Corpuscular Hemoglobin Concent 31.8 L, Red Cell Distribution Width 13.4, Neutrophils (%) (Auto) 47.5, Lymphocytes (%) (Auto) 39.0, Monocytes (%) (Auto) 7.2 H, Eosinophils (%) (Auto) 3.0, Basophils (%) (Auto) 0.5, Neutrophils # (Auto) 3.6, Lymphocytes # (Auto) 3.0, Monocytes # (Auto) 0.6, Eosinophils # (Auto) 0.2, Basophils # (Auto) 0.0, Calcium Level 8.6 FSBS Laboratory Tests Test 08/17/18 17:05 08/17/18 21:13 Range/Units Bedside Glucose (Misc Panel) 256 323 70-105 MG/DL Microbiology Microbiology 08/15/18 Blood Culture - Preliminary, Resulted No Growth after 72 hours. All specime... 08/15/18 Blood Culture - Preliminary, Resulted No Growth after 72 hours. All specime... 08/15/18 MRSA Screen - Final, Complete Staph.aureus Methicillin Resis Discharge Medications Scheduled Azelastine HCl (Azelastine HCl) 0.1 % Spr, 2 SPRAYS NA BID, (Reported) Dapagliflozin Propanediol (Farxiga) 10 Mg Tab, 10 MG PO DAILY, (Reported) Diltiazem HCl (Diltiazem 24Hr ER) 120 Mg Cap, 120 MG PO QHS, (Reported) Doxycycline Hyclate (Doxycycline Hyclate) 100 Mg Tablet, 100 MG PO BID Exenatide Microspheres (Bydureon) 2 Mg/0.65 Ml Pen.injctr, 2 MG SC QWEEK, (Reported) SUNDAYS Fluticasone/Vilanterol (Breo Ellipta 200-25 Mcg INH) 1 Inh Inh, 1 PUFF PO DAILY, (Reported) Glyburide (Glyburide) 5 Mg Tab, 10 MG PO BID, (Reported) Insulin Glargine,Hum.rec.anlog (Toujeo Solostar) 300 Unit/Ml Inj, 80 UNIT SC QHS, (Reported) Insulin Human Lispro (Novolog) 100 U/Ml Inj, 1 DOSE SC AC, (Reported) SLIDING SCALE Lisinopril (Lisinopril) 20 Mg Tablet, 20 MG PO DAILY, (Reported) Metoprolol Tartrate (Metoprolol Tartrate) 50 Mg Tab, 50 MG PO BID, (Reported) Montelukast Sodium (Montelukast Sodium) 10 Mg Tab, 10 MG PO DAILY, (Reported) Rivaroxaban (Xarelto) 20 Mg Tab, 20 MG PO QHS, (Reported) Rosuvastatin Calcium (Rosuvastatin Calcium) 20 Mg Tablet, 20 MG PO DAILY, (Reported) Tizanidine HCl (Tizanidine HCl) 2 Mg Tab, 4 MG PO QHS, (Reported) Tramadol HCl (Tramadol HCl) 50 Mg Tablet, 50 MG PO QHS, (Reported) Scheduled PRN Albuterol Sulf (Albuterol Sulfate) 2.5 Mg/3 Ml Nebu, 2.5 MG INH QID PRN for SHORTNESS OF BREATH, (Reported) Albuterol Sulfate (Ventolin Hfa) 18 Gm Hfa.aer.ad, 2 PUFF INH Q4H PRN for SHORTNESS OF BREATH, (Reported) Furosemide (Furosemide) 40 Mg Tab, 40 MG PO DAILY PRN for EDEMA, (Reported) Lidocaine (Lidocaine) 30 Gm Cream..g., 1 APLCT TOP TID PRN for PAIN Ondansetron (Ondansetron Odt) 4 Mg Tab.rapdis, 4 MG PO Q6H PRN for NAUSEA, (Reported) Allergies Coded Allergies: erythromycin base (Verified Allergy, Mild, HIVES, 08/15/18) sulfabenzamide (Verified Allergy, Mild, HIVES, 08/15/18) azithromycin (Verified Allergy, Unknown, HIVES, 08/15/18) GME ATTESTATION GME ATTESTATION My faculty preceptor for this patient encounter was physically present during the encounter and was fully available. All aspects of the patient interview, examination, medical decision making process, and medical care plan development were reviewed and approved by the faculty preceptor. The faculty preceptor is aware and concurs with the plan as stated in the body of this note and will attest to such by his/her cosignature. ATTENDING NOTE I, Megan Lake, have both independently examined this patient as well as reviewed the documentation. I have discussed in detail with the resident the findings and plan of treatment as documented by the resident. I agree with their findings and treatment plan. I will continue to follow the patient and offer further guidance to the patients care as necessary during this hospital stay. Time spent on discharge 35 minutes GARRETT SHERMAN DO August 18, 2018 16:21 MEGAN LAKE MD August 18, 2018 16:29
== END 2018-08-18 11:00 | disposition home or self-care (01) | DRG 383 ==
LOC: M ED 12:17 → M ED INP 16:05 → M MS5PR 17:55
PROVIDERS: ADMIT Internal Medicine; ATTEND Internal Medicine
DX: L03.115 Cellulitis of right lower limb (principal); I48.2 Chronic atrial fibrillation; I10 Essential (primary) hypertension; J44.9 Chronic obstructive pulmonary disease, unspecified; E11.9 Type 2 diabetes mellitus without complications; Z79.899 Other long term (current) drug therapy; Z88.2 Allergy status to sulfonamides; Z88.1 Allergy status to other antibiotic agents; Z88.8 Allergy status to other drugs, medicaments and biological substances; Z79.01 Long term (current) use of anticoagulants; Z79.4 Long term (current) use of insulin; E78.5 Hyperlipidemia, unspecified

== ENCOUNTER 2018-10-04 14:34 | Emergency (ER) | payer OTHER ==
[~2018-10-04] VITALS: Ht 175.3 cm; Wt 131.8 kg
[~2018-10-04 14:34] MED LIST changes: +AMOX875T2 PO; +BYDU1INJ SC; +LIDO5CRE6 TOP; +ROSU20TA5 PO
[2018-10-04] MEDS ORDERED: IPRATROPIUM 0.5MG/ALBUTEROL 2.5MG INH SOL UD 3ML (DUONEB)(J7620) NEB ONE (17:30)
[2018-10-04] MEDS ORDERED: methylPREDNISolone INJ 125 MG/2 ML VIAL (J2930) IV ONE (17:30)
[2018-10-04 18:50] LABS: BASO % 0.4 % (0.0-1.0); EOS # 0.6 10^3/uL (0.0-0.50); EOS % 5.4 % (0.0-3.0); HEMATOCRIT 40.2 % (36.0-47.0); HEMOGLOBIN 13.1 g/dl (12.0-15.5); LYMPH # 4.1 10^3/uL (1.5-4.5); LYMPH % 38.9 % (24.0-44.0); MEAN CORPUSCULAR HEMOGLOBIN 29.2 pg (27.0-33.0); MEAN CORPUSCULAR HGB CONC 32.6 g/dl (32.0-36.5); MEAN CORPUSCULAR VOLUME 89.7 fl (80.0-96.0); MONO # 0.8 10^3/uL (0.0-0.8); MONO % 7.3 % (0.0-5.0); NEUTROPHILS % 47.5 % (36.0-66.0); PLATELET COUNT, AUTOMATED 310 10^3/uL (150-450); RED BLOOD COUNT 4.48 10^6/uL (4.00-5.40); WHITE BLOOD COUNT 10.6 10^3/uL (4.0-10.0)
--- NOTE | 2018-10-04 19:06 | REP ---
Chest x-ray: Two views. History: Dyspnea and cough. Comparison study: March 29, 2018. Findings: The patient is status post prior cervical discectomy and ventral fusion plating. No other significant bony finding. There are linear opacities in the left base which are unchanged from the March 29, 2018 prior study consistent with parenchymal fibrosis. No acute infiltrate is seen. Lung renteria are otherwise clear. Heart is not enlarged. The aorta is slightly tortuous as before. Impression: Linear opacities in the left base consistent with linear fibrosis. These are unchanged from March 29, 2018. Status post cervical spine fusion. Otherwise negative chest x-ray. Electronically Signed by Richard Bay MD 10/04/2018 07:31 P
[2018-10-04 19:12] LABS: BLOOD UREA NITROGEN 10 MG/DL (7-18); CALCIUM LEVEL 8.9 MG/DL (8.5-10.1); CARBON DIOXIDE LEVEL 21 MEQ/L (21-32); CHLORIDE LEVEL 106 MEQ/L (98-107); CREATININE FOR GFR 0.69 MG/DL (0.55-1.30); GLOMERULAR FILTRATION RATE > 60.0 (>51); GLUCOSE, FASTING 98 MG/DL (70-100); POTASSIUM SERUM 3.4 MEQ/L (3.5-5.1); SODIUM LEVEL 141 MEQ/L (136-145)
[2018-10-04] MEDS ORDERED: POTASSIUM CHLORIDE 10 MEQ SR TABLET PO ONE (19:30)
[2018-10-04 19:41] VITALS: BP 140/69
[2018-10-04] MEDS ORDERED: PRED10TA2 PO (19:44)
[2018-10-04] MEDS ORDERED: DOXY100C37 PO (19:44)
== END 2018-10-04 20:02 | disposition home or self-care (01) ==
LOC: M ED 14:34
DX: J45.901 Unspecified asthma with (acute) exacerbation (principal); J40 Bronchitis, not specified as acute or chronic; E11.9 Type 2 diabetes mellitus without complications; F41.9 Anxiety disorder, unspecified; Z88.1 Allergy status to other antibiotic agents; Z88.2 Allergy status to sulfonamides; Z79.01 Long term (current) use of anticoagulants
CPT/HCPCS: 36415; 71046; 80048; 85025; 94640; 96374; 99284; J2930

== ENCOUNTER → 2018-10-11 | Outpatient (CLI) | payer OTHER ==
[2018-10-11 11:57] LABS: ALBUMIN 3.3 GM/DL (3.2-5.2); BLOOD UREA NITROGEN 13 MG/DL (7-18); CALCIUM LEVEL 8.6 MG/DL (8.5-10.1); CARBON DIOXIDE LEVEL 27 MEQ/L (21-32); CHLORIDE LEVEL 107 MEQ/L (98-107); CREATININE FOR GFR 0.68 MG/DL (0.55-1.30); GLOMERULAR FILTRATION RATE > 60.0 (>51); GLUCOSE, FASTING 147 MG/DL (70-100); PHOSPHORUS LEVEL 4.2 MG/DL (2.5-4.9); POTASSIUM SERUM 3.9 MEQ/L (3.5-5.1); SODIUM LEVEL 140 MEQ/L (136-145)
== END ==
LOC: M LAB 10:24
PROVIDERS: ATTEND Physician Assistant
DX: I10 Essential (primary) hypertension (principal)

== ENCOUNTER → 2018-11-30 | Outpatient (CLI) | payer OTHER ==
[~2018-11-30] MED LIST changes: +GABA-843 PO; -MECL-68 PO; +MECL1TAB31 PO; +TRES1INJ SQ
[2018-11-30 15:05] LABS: RUBELLA IgG QUALITATIVE IMMUNE (IMMUNE)
[2018-12-01 10:09] LABS: RUBEOLA IgG ANTIBODY 35.1 AU/mL (Immune >16.4)
== END ==
LOC: M LAB 13:44
PROVIDERS: ATTEND Family Medicine
DX: Z01.84 Encounter for antibody response examination (principal)

== ENCOUNTER → 2018-12-30 | Outpatient (REF) ==
[~2018-12-30] MED LIST changes: -GABA-843 PO; +MECL-68 PO; -MECL1TAB31 PO; -TRES1INJ SQ
[2018-12-30 14:07] LABS: BASO % 0.4 % (0.0-1.0); EOS # 0.2 10^3/uL (0.0-0.5); EOS % 3.1 % (0.0-3.0); HEMATOCRIT 38.7 % (36.0-47.0); HEMOGLOBIN 12.3 g/dl (12.0-15.5); LYMPH % 41.2 % (24.0-44.0); MEAN CORPUSCULAR HEMOGLOBIN 29.4 pg (27.0-33.0); MEAN CORPUSCULAR HGB CONC 31.8 g/dl (32.0-36.5); MEAN CORPUSCULAR VOLUME 92.6 fl (80.0-96.0); MONO # 0.6 10^3/uL (0.0-0.8); MONO % 7.7 % (0.0-5.0); NEUTROPHILS # 3.5 10^3/uL (1.5-8.5); NEUTROPHILS % 47.5 % (36.0-66.0); PLATELET COUNT, AUTOMATED 238 10^3/uL (150-450); RED BLOOD COUNT 4.18 10^6/uL (4.00-5.40); WHITE BLOOD COUNT 7.4 10^3/uL (4.0-10.0)
== END ==
LOC: M LABSMT 13:48
PROVIDERS: ATTEND Allergy & Immunology Allergy
DX: J45.40 Moderate persistent asthma, uncomplicated (principal)

== ENCOUNTER 2019-01-07 23:17 | Emergency (ER) | payer OTHER ==
[~2019-01-07] VITALS: Ht 172.7 cm; Wt 132.7 kg
[2019-01-07] MEDS ORDERED: METF10004 PO (23:42)
[2019-01-07] MEDS ORDERED: TRES1INJ SQ (23:42)
[2019-01-08] MEDS ORDERED: TRAM50TA2 PO (00:39)
[2019-01-08] MEDS ORDERED: GABA-843 PO (00:39)
[2019-01-08 01:03] VITALS: BP 164/76
--- NOTE | 2019-01-08 09:46 | REP ---
REASON: Pain and swelling, particularly laterally. PRIORS: None. The bones are demineralized. Degenerative change is seen throughout the ankle. Plantar and retrocalcaneal heel spurs are present. There is no evidence of acute fracture. Electronically Signed by Brayan Gibson DO 01/08/2019 09:50 A
--- NOTE | 2019-01-08 19:08 | ECGEPIP ---
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
== END 2019-01-08 01:04 | disposition home or self-care (01) ==
LOC: M ED 23:17
DX: M25.572 Pain in left ankle and joints of left foot (principal); M77.32 Calcaneal spur, left foot; I48.91 Unspecified atrial fibrillation; E11.9 Type 2 diabetes mellitus without complications; I10 Essential (primary) hypertension; E78.5 Hyperlipidemia, unspecified; G47.33 Obstructive sleep apnea (adult) (pediatric); Z88.2 Allergy status to sulfonamides; Z88.8 Allergy status to other drugs, medicaments and biological substances; Z91.013 Allergy to seafood; Z79.4 Long term (current) use of insulin

== ENCOUNTER → 2019-05-19 | Outpatient (REF) | payer OTHER ==
[~2019-05-19] MED LIST changes: +GABA-843 PO; +LINE1TAB6 PO; -MECL-68 PO; +MECL1TAB31 PO; -MONT10TA2 PO; +MONT10TA4 PO; +MUPI2OI TOP; +TRES1INJ SQ
== END ==
LOC: M LAB REF 15:43
PROVIDERS: ATTEND Specialist
DX: J32.4 Chronic pansinusitis (principal)

== ENCOUNTER 2019-06-04 19:33 | Inpatient (IN) | payer OTHER ==
[~2019-06-04] VITALS: Ht 175.3 cm; Wt 131.2 kg
[~2019-06-04 19:33] MED LIST changes: -LINE1TAB6 PO; -MUPI2OI TOP
[2019-06-04] MEDS ORDERED: ACETAMINOPHEN TAB 650MG DOSE (2X325MG) PO ONE (20:00)
[2019-06-04 20:13] LABS: VENOUS BASE EXCESS -2.2 (-2.0-2.0); VENOUS HCO3 22.4 MEQ/L (23.0-27.0); VENOUS O2 SATURATION 80.6 % (60.0-80.0); VENOUS PARTIAL PRESSURE CO2 37.7 mmHg (38.0-50.0); VENOUS PARTIAL PRESSURE O2 45.9 mmHg (30.0-50.0); VENOUS PH 7.391 UNITS (7.330-7.430); VENOUS STANDARD HCO3 22.3 MEQ/L; VENOUS TOTAL CO2 23.5 MEQ/L (24.0-28.0)
[2019-06-04] MEDS ORDERED: ALBUTEROL SULFATE 2.5 MG/0.5 ML INH NEB SOLN INH ONE (20:15)
[2019-06-04] MEDS ORDERED: IPRATROPIUM 0.5MG/ALBUTEROL 2.5MG INH SOL UD 3ML (DUONEB)(J7620) NEB ONE (20:15)
[2019-06-04 20:19] LABS: BASO % 0.4 % (0.0-1.0); EOS # 0.1 10^3/uL (0.0-0.5); EOS % 1.2 % (0.0-3.0); HEMATOCRIT 37.4 % (36.0-47.0); LYMPH # 0.4 10^3/uL (1.5-5.0); LYMPH % 8.2 % (24.0-44.0); MEAN CORPUSCULAR HEMOGLOBIN 28.7 pg (27.0-33.0); MEAN CORPUSCULAR HGB CONC 32.1 g/dl (32.0-36.5); MEAN CORPUSCULAR VOLUME 89.5 fl (80.0-96.0); MONO # 0.7 10^3/uL (0.0-0.8); MONO % 13.3 % (0.0-5.0); NEUTROPHILS # 3.8 10^3/uL (1.5-8.5); NEUTROPHILS % 76.5 % (36.0-66.0); PLATELET COUNT, AUTOMATED 216 10^3/uL (150-450); RED BLOOD COUNT 4.18 10^6/uL (4.00-5.40)
[2019-06-04 20:35] LABS: INR 1.08; PROTHROMBIN TIME 13.8 SECONDS (11.8-14.0)
[2019-06-04 20:54] LABS: INFLUENZA A AMPLIFICATION POSITIVE (NEGATIVE); INFLUENZA B AMPLIFICATION NEGATIVE (NEGATIVE)
[2019-06-04 20:55] LABS: ALBUMIN 3.6 GM/DL (3.2-5.2); ALT/SGPT 39 U/L (12-78); BILIRUBIN,DIRECT < 0.1 MG/DL (0.0-0.2); BILIRUBIN,TOTAL 0.4 MG/DL (0.2-1.0); BLOOD UREA NITROGEN 7 MG/DL (7-18); CALCIUM LEVEL 8.6 MG/DL (8.5-10.1); CARBON DIOXIDE LEVEL 25 MEQ/L (21-32); CHLORIDE LEVEL 105 MEQ/L (98-107); CK-MB VALUE MASS < 1.0 NG/ML (<3.6); CPK CREATINE PHOSPHOKINASE 81 U/L (26-192); CREATININE FOR GFR 0.66 MG/DL (0.55-1.30); GLOMERULAR FILTRATION RATE > 60.0 (>51); GLUCOSE, FASTING 192 MG/DL (70-100); MB/CK RELATIVE INDEX 1.23 (< OR =4); NT-PRO BNP 59 PG/ML (<125); POTASSIUM SERUM 3.8 MEQ/L (3.5-5.1); SODIUM LEVEL 138 MEQ/L (136-145); THYROID STIMULATING HORMONE 0.511 uIU/ML (0.358-3.740); TOTAL PROTEIN 7.1 GM/DL (6.4-8.2); TROPONIN I < 0.02 NG/ML (< 0.10)
[2019-06-04] MEDS ORDERED: OSELTAMIVIR PHOSPHATE 75 MG CAP (TAMIFLU) PO ONE (21:15)
[2019-06-04] MEDS ORDERED: dexameTHASONE 20 MG/5 ML VIAL (J1100) IV ONE (21:15)
[2019-06-04] MEDS ORDERED: NS 1,000 ML IV ONE (23:15)
[2019-06-04] MEDS ORDERED: TRAM50TA2 PO (23:47)
[2019-06-04] MEDS ORDERED: LINE1TAB6 PO (23:47)
[2019-06-04] MEDS ORDERED: MUPI2OI TOP (23:51)
[2019-06-05] VITALS (7 sets, daily range): BP systolic 122–166; BP diastolic 60–92
--- NOTE | 2019-06-05 00:16 | REPVR ---
PROCEDURE INFORMATION: Exam: CT Chest Without Contrast Exam date and time: 06/04/2019 11:27 PM Age: 53 years old Clinical indication: Chest pain; Additional info: Lll atelectasis, diaphragm elevation TECHNIQUE: Imaging protocol: Computed tomography of the chest without contrast. 3D rendering: MIP and/or 3D reconstructed images were created by the technologist. Radiation optimization: All CT scans at this facility use at least one of these dose optimization techniques: automated exposure control; mA and/or kV adjustment per patient size (includes targeted exams where dose is matched to clinical indication); or iterative reconstruction. COMPARISON: CT Chest without contrast 08/19/2017 5:43 PM FINDINGS: Lungs: Atelectatic change is present in the right lung base. No central endobronchial lesion. No suspicious lung mass or air space process. Pleural space: No pleural effusion or pneumothorax. Heart: Heart is prominent in size without evidence of pulmonary edema. Aorta: Mild atherosclerotic change in the normal caliber thoracic aorta. Great vessels off aortic arch: Atherosclerotic calcifications in the coronary vessels. Lymph nodes: . No enlarged lymph nodes. Diaphragm: Mild asymmetric left hemidiaphragm elevation Liver: Liver is enlarged and decreased in density suggesting hepatic steatosis. Bones/joints: Bony structures show no acute fracture or destructive process. Soft tissues: Unremarkable. IMPRESSION: Mild left hemidiaphragm elevation with underlying left basilar atelectasis. No identifiable mass or endobronchial obstruction. Electronically signed by: Osbaldo Quan On 06/05/2019 00:15:12 AM
[2019-06-05] MEDS ORDERED: ALBUTEROL SULFATE 2.5 MG/0.5 ML INH NEB SOLN NEB PRN (01:15)
[2019-06-05] MEDS ORDERED: DEXTROSE 50% 50 ML SYRINGE IV PRN (01:30)
[2019-06-05] MEDS ORDERED: GLUCAGON FOR INJ 1 MG VIAL (J1610) SC PRN (01:30)
[2019-06-05] MEDS ORDERED: GLUCOSE 4 GM CHEW TABLET PO PRN (01:30)
[2019-06-05] MEDS ORDERED: NS 1,000 ML IV SCH (01:30)
[2019-06-05] MEDS: ROSUVASTATIN 10 MG TAB (CRESTOR) PO SCH ×2 (02:37→20:30)
[2019-06-05] MEDS: RIVAROXABAN 20 MG TAB (XARELTO) PO SCH ×2 (02:37→20:30)
[2019-06-05] MEDS: HumaLOG INSULIN (NovoLOG) PER UNIT SC SCH ×5 (02:38→20:29)
[2019-06-05] MEDS: LEVEMIR (INSULIN DETEMIR) 1 UNITS/0.01ML SC SCH ×2 (02:38→20:29)
[2019-06-05] MEDS: methylPREDNISolone INJ 125 MG/2 ML VIAL (J2930) IV SCH ×3 (02:38→17:51)
[2019-06-05] MEDS: ACETAMINOPHEN TAB 650MG DOSE (2X325MG) PO PRN ×3 (02:43→20:31)
[2019-06-05] MEDS ORDERED: LevoFLOXacin IV 500 MG in IV 1 EA IV SCH (05:00)
[2019-06-05 05:13] LABS: BASO % 0.3 % (0.0-1.0); HEMATOCRIT 37.2 % (36.0-47.0); HEMOGLOBIN 11.9 g/dl (12.0-15.5); LYMPH # 0.4 10^3/uL (1.5-5.0); LYMPH % 11.1 % (24.0-44.0); MEAN CORPUSCULAR HEMOGLOBIN 28.7 pg (27.0-33.0); MEAN CORPUSCULAR VOLUME 89.6 fl (80.0-96.0); MONO # 0.1 10^3/uL (0.0-0.8); MONO % 2.6 % (0.0-5.0); NEUTROPHILS % 85.4 % (36.0-66.0); PLATELET COUNT, AUTOMATED 209 10^3/uL (150-450); RED BLOOD COUNT 4.15 10^6/uL (4.00-5.40); WHITE BLOOD COUNT 3.5 10^3/uL (4.0-10.0)
[2019-06-05 05:48] LABS: HEMOGLOBIN A1c 10.9 %
[2019-06-05 06:01] LABS: BLOOD UREA NITROGEN 11 MG/DL (7-18); CALCIUM LEVEL 8.4 MG/DL (8.5-10.1); CARBON DIOXIDE LEVEL 22 MEQ/L (21-32); CHLORIDE LEVEL 107 MEQ/L (98-107); CREATININE FOR GFR 0.58 MG/DL (0.55-1.30); GLOMERULAR FILTRATION RATE > 60.0 (>51); GLUCOSE, FASTING 289 MG/DL (70-100); POTASSIUM SERUM 4.1 MEQ/L (3.5-5.1); SODIUM LEVEL 138 MEQ/L (136-145); TROPONIN I < 0.02 NG/ML (< 0.10)
--- NOTE | 2019-06-05 07:17 | REP ---
Clinical: Cough and dyspnea. Comparison: 10/04/2018. Findings: Mediastinum and cardiac silhouette are normal. Blunting of the left costophrenic angle and diaphragmatic silhouette suggest the possibility of underlying small effusion and atelectasis. Right hemithorax is clear. No further consolidation. No pneumothorax. Skeletal structures are intact. Impression: Cannot exclude small left pleural effusion/basilar atelectasis. Electronically Signed by Myke Agarwal MD 06/05/2019 07:09 A
--- NOTE | 2019-06-05 08:12 | HPE ---
DATE OF ADMISSION: 06/04/2019 PRIMARY CARE PROVIDER: Dr. Ned Tomlin CHIEF COMPLAINT: Shortness of breath, cough. HISTORY OF PRESENT ILLNESS: This is a 53-year-old female who has seen her primary care provider and had been on Zyvox for sinus infection. She states that she continued to have coughing and fever for three days. She had some midsternal chest pain, especially when coughing. She had been taking Tylenol. She had been using her albuterol at home and was not improving. She came to the emergency room. Upon arrival, temperature was 101.7, pulse 132, respiratory rate 24, and blood pressure was 180/82. Pulse oximetry was 93% on room air. Laboratory studies showed sodium of 138, potassium 3.8, chloride 105, CO2 25, anion gap 8, BUN 7, creatinine 0.66, non fasting glucose 192, lactic acid 0.9. CPK was 81. Troponin was less than 0.02. White count was 5.0. Hemoglobin 12. Hematocrit 37.4. Platelets 216. VBG with pH of 7.39. Influenza swabs were done and she was positive for influenza A. Electrocardiogram (EKG) showed sinus tachycardia. Chest CT was done without contrast which showed a mild left hemidiaphragm elevation with underlying left basilar atelectasis. No identifiable mass or endobronchial obstruction. In the ER, the patient received IV fluid, 10 mg of IV Decadron, 75 mg of Tamiflu, a DuoNeb treatment and 650 mg of Tylenol. Her respiratory status improved. She was still wheezing, but less. Her oxygen saturations were running 93-94%. Her pulse was improving to 112. Respiratory rate was improving to 22. Her temperature was down to 98.9. Assessment was done. Order for admission was given by Dr. Gutierrez for inpatient status to progressive care unit (PCU) for influenza A and sepsis. ALLERGIES: - AZITHROMYCIN - ERYTHROMYCIN BASE - IBUPROFEN - SULFABENZAMIDE - SHELLFISH DERIVED SOCIAL HISTORY: She is single. She quit smoking in 2010, prior to that she smoked for 20 years, approximately one pack a day of cigarettes. She denies any recent travel. She lives with her son and his . FAMILY HISTORY: Mother is alive with history of diabetes type 2. Father is at 48 from a heart attack. PAST MEDICAL HISTORY. Atrial fibrillation, on Xarelto. Insulin dependent diabetes type 2. Hypercholesterolemia. Hypertension. Chronic obstructive pulmonary disease (COPD). Obstructive sleep apnea. PAST SURGICAL HISTORY: Spinal surgery C3 through C7, vertebral fusion 2012. Left ankle surgery in 1991. Sinus surgery 2011 and 2016. History of nephrolithiasis in 2018. Tubal ligation. Tonsillectomy. CURRENT MEDICATIONS: - albuterol one inhalation four times a day as needed shortness of breath or wheeze - albuterol via nebulizer one vial four times a day as needed shortness of breath or wheeze - Lasix 40 mg by mouth daily as needed edema - NovoLog sliding scale before meals - Zyvox 600 mg by mouth twice a day - metformin 1000 mg by mouth twice a day - Bactroban ointment topically daily - tramadol 50 mg by mouth at bedtime, tramadol 50 mg by mouth three times a day as needed for pain - Farxiga 10 mg by mouth at bedtime - Bydureon mg subcutaneous weekly - Breo Ellipta 200/25 one inhalation daily - Glyburide 5 mg tablet, 10 mg by mouth twice a day - Tresiba 86 units subcutaneous at bedtime - tizanidine 4 mg by mouth at bedtime REVIEW OF SYSTEMS: No complaint of headache. No blurred or double vision. She has had fever and chills. No tinnitus. No hoarseness. No difficulty swallowing. No lightheadedness. No vertigo. Breasts: No masses. Cardiovascular: She has had chest pain, especially with coughing. Shortness of breath. No palpitations. No edema. Respiratory: She has had a cough with worsening shortness of breath, mucus production and wheezing. No hemoptysis. GI: No nausea, vomiting, or diarrhea. No hematochezia. No melena. No complaints of abdominal pain. : No hematuria, dysuria or frequency. Musculoskeletal: No joint redness or swelling. Endocrine: History of insulin dependent diabetes type 2. Hematological: No history of anemia. Neurological: No history of seizures. No paresthesias or paralysis. Psychological: No anxiety, depression or suicidal ideation. PHYSICAL EXAMINATION: 53-year-old, obese female, currently not in acute distress. Blood pressure 120/50. Pulse 113. Respirations 22. Oxygen saturation 94% on room air. The patient is alert and oriented times three. Pupils equal and react to light. Extraocular movements intact. Cornea and sclera clear. Conjunctiva normal. No facial asymmetry. Buccal mucosa dry. Tongue midline. Pharynx slightly reddened. Neck is supple, without lymphadenopathy. No thyromegaly. No goiter. Carotids 2+, without bruit. Chest has scattered expiratory wheeze, no retraction. Heart is regular. Abdomen benign. Bowel sounds positive. Genitourinary ()/Rectal: Not done. Extremities show no cyanosis, clubbing or edema. Peripheral pulses equal and palpable bilaterally. IMPRESSION AND PLAN: 1. Influenza. Tamiflu 75 mg twice a day for five days. Gentle IV hydration. 2. Upper respiratory infection. Levaquin. Patient had been already on Zyvox with no improvement, coughing and yellow mucus production. Will give Levaquin IV. Send sputum for culture and sensitivity. 3. Atrial fibrillation, will continue with rate control with metoprolol and diltiazem, full anticoagulation with Xarelto. 4. Hypertension. Patient seems slightly dry, will hold Lasix. She has no edema at this time. Continue with lisinopril. 5. Insulin dependent diabetes mellitus type 2, we will continue with the long acting insulin and do sliding scale before meals and at bedtime. 6. Hypercholesterolemia, continue with rosuvastatin. 7. Chronic obstructive pulmonary disease (COPD), slightly exacerbated with wheezing. Will do IV Solu-Medrol, budesonide, DuoNeb treatments. 8. Deep vein thrombosis (DVT) prophylaxis, patient is on Xarelto.
[2019-06-05] MEDS: IPRATROPIUM 0.5MG/ALBUTEROL 2.5MG INH SOL UD 3ML (DUONEB)(J7620) NEB SCH ×4 (08:17→19:52)
[2019-06-05] MEDS: BUDESONIDE 0.5 MG/2 ML INHALATION SUSPENSION INH SCH ×2 (08:17→19:52)
[2019-06-05] MEDS: AZELASTINE 137MCG NASAL SPY 30 ML (ASTELIN) SCH ×2 (08:22→21:15)
[2019-06-05] MEDS: lisinopriL 20 MG TAB PO SCH (08:23)
[2019-06-05] MEDS: MONTELUKAST 10 MG TAB PO SCH (08:23)
[2019-06-05] MEDS: OSELTAMIVIR PHOSPHATE 75 MG CAP (TAMIFLU) PO SCH ×2 (08:23→20:30)
[2019-06-05] MEDS: metFORMIN (GLUCOPHAGE) 1000 MG TABLET PO SCH ×2 (08:24→17:54)
[2019-06-05] MEDS: METOPROLOL TART 50 MG TAB PO SCH ×2 (08:24→20:30)
--- NOTE | 2019-06-05 09:05 | REP ---
Chest x-ray: Two views. History: Shortness of breath. Comparison chest x-ray: June 04, 2019. Findings: There is blunting of the left lateral pleural angle and the left hemidiaphragm is slightly elevated unchanged from the prior study. No new infiltrate is seen. Posterior pleural angles are sharp. Heart is not enlarged. Pulmonary vasculature is not increased. The patient is status post cervical spine fusion plating. Impression: Elevated left hemidiaphragm with slight pleuroparenchymal density blunting of the lateral pleural angle unchanged from the June 04, 2019 prior study. This is consistent with atelectasis in the left lower lobe. No new infiltrate is seen. Electronically Signed by Richard Bay MD 06/05/2019 10:51 A
--- NOTE | 2019-06-05 10:08 | IPNPDOC ---
Subjective Date Seen The patient was seen on 06/05/19. Subjective Chief Complaint/HPI Patient is comfortable in no distress, feeling slightly better than yesterday, afebrile General: Denies: ROS Unobtainable, Chills, Night Sweats, Fatigue, Malaise, Normal Appetite, Other Symptoms Constitutional: Denies: Chills, Fever, Malaise, Night Sweats, Weakness, Fatigue, Weight Loss, Lethargy, Other Pulmonary: Denies: Dyspnea, Cough, Pleuritic Chest Pain, Other Symptoms Cardiovascular: Denies: Chest Pain, Palpitations, Orthopnea, Paroxysmal Noc. Dyspnea, Edema, Lt Headedness, Other Symptoms Gastrointestinal: Denies: Nausea, Vomiting, Abdominal Pain, Diarrhea, Constipation, Melena, Hematochezia, Other Symptoms Endocrine: Denies: Polydipsia, Polyphagia, Polyuria, Heat Intolerance, Cold Intolerance, Other Endocrine Sx Musculoskeletal: Denies: Neck Pain, Back Pain, Shoulder Pain, Arm Pain, Hand Pain, Leg Pain, Foot Pain, Joint Pain, Muscle Pain, Spasms, Other Symptoms Neurological: Denies: Weakness, Numbness, Incoordination, Change in speech, Confusion, Seizures, Other Symptoms Objective Physical Examination General Exam: Positive: Alert, Cooperative Eye Exam: Positive: PERRLA, Conjunctiva & lids normal ENT Exam: Positive: Atraumatic Neck Exam: Positive: Supple Chest Exam: Positive: Diminished (diminished breath sounds bilaterally but no wheezing, rales or rhonchi) Heart Exam: Positive: Rate Normal, Normal S1, Normal S2 Abdomen Exam: Positive: Normal bowel sounds Extremity Exam: Positive: Normal pulses Skin Exam: Positive: Breakdown Neuro Exam: Positive: Strength at 5/5 X4 ext, Cranial Nerves 3-12 NL Assessment /Plan Problems (1) Sepsis Status: Resolved Problem Text: Patient was admitted with fever, tachycardia, tachypnea and was diagnosed with sepsis secondary to viral syndrome secondary to influenza A Patient received IV fluids and Levaquin in ED Will DC IV antibiotics as there is no evidence of bacterial infection at the present time Also DC IV fluids as patient's blood pressure and heart rate are essentially within normal limits and she is a good oral by mouth intake Patient's sepsis has completely resolved. Her vital signs are stable. Afebrile (2) Influenza A Status: Acute Problem Text: As per patient, her symptoms started from Wednesday. Hence, she is still in the window for treatment with Tamiflu, for symptoms care in early recovery Will start Tamiflu 75 mg by mouth twice a day Repeat labs in a.m. Also, will start droplet isolation as well (3) Asthma exacerbation Status: Acute Problem Text: Patient was started on nebulizer treatment, and IV dexamethasone as well as Solu-Medrol in ED On clinical examination, there is no rales, rhonchi, wheezing Will continue nebulizer treatment as per orders, but the steroids are not required at the present time Continue home Singulair as per orders Oxygen support as needed Plan/VTE VTE Prophylaxis Ordered?: Yes VS, I&O, 24H, Fishbone Vital Signs/I&O Vital Signs Date Time Temp Pulse Resp B/P (MAP) Pulse Ox O2 Delivery O2 Flow Rate FiO2 06/05/19 08:23 152/78 06/05/19 08:00 97.8 93 18 94 Room Air 06/05/19 04:00 3.0 I&O- Last 24 Hours up to 6 AM 06/05/19 05:59 Intake Total 1000 ml Output Total 1000 ml Balance 0 ml Laboratory Data 24H LABS Laboratory Tests 2 06/04/19 20:02: Immature Granulocyte % (Auto) 0.4, Neutrophils (%) (Auto) 76.5H, Lymphocytes (%) (Auto) 8.2L, Monocytes (%) (Auto) 13.3H, Eosinophils (%) (Auto) 1.2, Basophils (%) (Auto) 0.4, Neutrophils # (Auto) 3.8, Lymphocytes # (Auto) 0.4L, Monocytes # (Auto) 0.7, Eosinophils # (Auto) 0.1, Basophils # (Auto) 0.0, Nucleated Red Blood Cells % (auto) 0.0, Prothrombin Time 13.8, Prothromb Time International Ratio 1.08, Blood Gas Bicarbonate Standard 22.3, Venous Blood pH 7.391, Venous Blood Partial Pressure CO2 37.7L, Venous Blood Partial Pressure O2 45.9, Venous Blood Total Carbon Dioxide 23.5L, Venous Blood HCO3 22.4L, Venous Blood Oxygen Saturation 80.6H, Venous Blood Base Excess -2.2L, Anion Gap 8, Glomerular Filtration Rate > 60.0, Lactic Acid Level 0.9, Calcium Level 8.6, Total Bilirubin 0.4, Direct Bilirubin < 0.1, Aspartate Amino Transf (AST/SGOT) 27, Alanine Aminotransferase (ALT/SGPT) 39, Alkaline Phosphatase 90, Total Creatine Kinase 81, Creatine Kinase MB < 1.0, Creatine Kinase MB Relative Index 1.23, Tr oponin I < 0.02, WS-Bmo-I-Type Natriuretic Peptide 59, Total Protein 7.1, Albumin 3.6, Albumin/Globulin Ratio 1.03, Thyroid Stimulating Hormone (TSH) 0.511 06/04/19 20:06: Influenza Type A (RT-PCR) POSITIVEH, Influenza Type B (RT-PCR) NEGATIVE 06/05/19 02:13: Bedside Glucose (Misc Panel) 376H 06/05/19 04:43: Immature Granulocyte % (Auto) 0.6, Neutrophils (%) (Auto) 85.4H, Lymphocytes (%) (Auto) 11.1L, Monocytes (%) (Auto) 2.6, Eosinophils (%) (Auto) 0.0, Basophils (%) (Auto) 0.3, Neutrophils # (Auto) 3.0, Lymphocytes # (Auto) 0.4L, Monocytes # (Auto) 0.1, Eosinophils # (Auto) 0.0, Basophils # (Auto) 0.0, Nucleated Red Blood Cells % (auto) 0.0, Anion Gap 9, Glomerular Filtration Rate > 60.0, Calcium Level 8.4L, Troponin I < 0.02, Estimated Mean Plasma Glucose 266H, Hemoglobin A1c 10.9 CBC/BMP Laboratory Tests 06/04/19 20:02 06/05/19 04:43 Microbiology Microbiology 06/05/19 Blood Culture, Received Pending 06/04/19 Blood Culture, Received Pending SHEILA GUERRIER MD Jun 05, 2019 10:07
[2019-06-05] MEDS ORDERED: SLF 3 ML SYR IV PRN (10:30)
[2019-06-05] MEDS ORDERED: OSELTAMIVIR PHOSPHATE 75 MG CAP (TAMIFLU) PO SCH (11:00)
[2019-06-05] MEDS: SLF 3 ML SYR IV SCH ×2 (17:52→22:13)
--- NOTE | 2019-06-05 20:33 | ECGEPIP ---
[facility] - ED Test Date: 2019-06-04 Pat Name: DONNY CHILEL Department: Room: [place] [address] Gender: Female Rehab Spec: ruth : 1965 Requested By: JESIKA Dubois Order Number: [id number] Reading MD: Re Spaulding Measurements Intervals [place] Rate: 116 P: 56 WV: 179 QRS: 9 QRSD: 97 T: 72 QT: 310 QTc: 431 Interpretive Statements SINUS TACHYCARDIA POSSIBLE LEFT ATRIAL ENLARGEMENT NONSPECIFIC ST & T-WAVE ABNORMALITY ABNORMAL RHYTHM ECG INCREASED RATE 01/08/19 Electronically Signed on 06-05-2019 20:32:49 EDT by Re Spaulding
[2019-06-06] MEDS ORDERED: traMADol 50 MG TAB PO ONE (00:45)
[2019-06-06 02:00] VITALS: BP 162/90
[2019-06-06] MEDS: methylPREDNISolone INJ 125 MG/2 ML VIAL (J2930) IV SCH (02:02)
[2019-06-06 05:56] LABS: HEMATOCRIT 36.1 % (36.0-47.0); HEMOGLOBIN 11.8 g/dl (12.0-15.5); LYMPH # 1.4 10^3/uL (1.5-5.0); LYMPH % 19.8 % (24.0-44.0); MEAN CORPUSCULAR HEMOGLOBIN 29.3 pg (27.0-33.0); MEAN CORPUSCULAR HGB CONC 32.7 g/dl (32.0-36.5); MEAN CORPUSCULAR VOLUME 89.6 fl (80.0-96.0); MONO # 0.5 10^3/uL (0.0-0.8); MONO % 6.9 % (0.0-5.0); NEUTROPHILS # 5.2 10^3/uL (1.5-8.5); NEUTROPHILS % 72.9 % (36.0-66.0); PLATELET COUNT, AUTOMATED 247 10^3/uL (150-450); RED BLOOD COUNT 4.03 10^6/uL (4.00-5.40); WHITE BLOOD COUNT 7.1 10^3/uL (4.0-10.0)
[2019-06-06 06:00] VITALS: BP 150/88
[2019-06-06] MEDS: SLF 3 ML SYR IV SCH ×4 (06:00→20:55)
[2019-06-06 06:15] LABS: BLOOD UREA NITROGEN 18 MG/DL (7-18); CALCIUM LEVEL 8.1 MG/DL (8.5-10.1); CARBON DIOXIDE LEVEL 21 MEQ/L (21-32); CHLORIDE LEVEL 106 MEQ/L (98-107); CREATININE FOR GFR 0.64 MG/DL (0.55-1.30); GLOMERULAR FILTRATION RATE > 60.0 (>51); GLUCOSE, FASTING 304 MG/DL (70-100); POTASSIUM SERUM 4.2 MEQ/L (3.5-5.1); SODIUM LEVEL 137 MEQ/L (136-145)
[2019-06-06] MEDS: METOPROLOL TART 50 MG TAB PO SCH ×2 (07:55→20:48)
[2019-06-06] MEDS: metFORMIN (GLUCOPHAGE) 1000 MG TABLET PO SCH (07:56)
[2019-06-06] MEDS: MONTELUKAST 10 MG TAB PO SCH (07:56)
[2019-06-06] MEDS: lisinopriL 20 MG TAB PO SCH (07:56)
[2019-06-06] MEDS: OSELTAMIVIR PHOSPHATE 75 MG CAP (TAMIFLU) PO SCH ×2 (07:56→20:47)
[2019-06-06] MEDS: AZELASTINE 137MCG NASAL SPY 30 ML (ASTELIN) SCH ×2 (07:57→20:51)
[2019-06-06] MEDS: HumaLOG INSULIN (NovoLOG) PER UNIT SC SCH ×4 (07:58→20:49)
[2019-06-06] MEDS: BUDESONIDE 0.5 MG/2 ML INHALATION SUSPENSION INH SCH ×2 (08:07→19:57)
[2019-06-06] MEDS: IPRATROPIUM 0.5MG/ALBUTEROL 2.5MG INH SOL UD 3ML (DUONEB)(J7620) NEB SCH ×4 (08:07→19:57)
[2019-06-06] MEDS ORDERED: LEVEMIR (INSULIN DETEMIR) 1 UNITS/0.01ML SC SCH (09:00)
[2019-06-06] MEDS ORDERED: predniSONE 20 MG TAB PO SCH (09:00)
[2019-06-06 14:00] VITALS: BP 137/79
[2019-06-06] MEDS ORDERED: methylPREDNISolone INJ 125 MG/2 ML VIAL (J2930) IV SCH (14:00)
[2019-06-06] MEDS: ACETAMINOPHEN TAB 650MG DOSE (2X325MG) PO PRN (14:18)
--- NOTE | 2019-06-06 16:01 | IPNPDOC ---
Text Note Date of Service The patient was seen on 06/06/19. NOTE Subjective: Feeling much better this morning. Cough is better, SOB is improving. Physical Exam: Vitals: As below General Exam: Positive: Alert, Cooperative Eye Exam: Positive: PERRLA, Conjunctiva & lids normal ENT Exam: Positive: Atraumatic, moist mucous membranes, anicteric eyes. Neck Exam: Positive: Supple, no JVD Chest Exam: Positive: Diminished (diminished breath sounds bilaterally but no wheezing, rales or rhonchi) Heart Exam: Positive: Rate Normal, Normal S1, Normal S2 Abdomen Exam: Positive: Normal bowel sounds, nontender Extremity Exam: Positive: Normal pulses, no edema Skin Exam: Positive: Breakdown Neuro Exam: Positive: Strength at 5/5 X4 ext, Cranial Nerves 3-12 NL Labs and Radiology: reviewed Assessment /Plan: This is a 53-year-old female who has seen her primary care provider and had been on Zyvox for sinus infection. She states that she continued to have coughing and fever for three days. She had some midsternal chest pain, especially when coughing. She had been taking Tylenol. She had been using her albuterol at home and was not improving. She came to the emergency room. Upon arrival, temperature was 101.7, pulse 132, respiratory rate 24, and blood pressure was 180/82. Pulse oximetry was 93% on room air. Influenza swabs were done and she was positive for influenza A. She was admitted for Influenza, asthma/ copd exacerbation and sepsis. Sepsis resolved. Influenza A Tamiflu 75 mg by mouth twice a day Also, will start droplet isolation as well Asthma / COPD exacerbation due to above prednisone, symbicort Will continue nebulizer treatment as per orders Continue home Singulair as per orders Oxygen support as needed Paroxysmal Atrial fibrillation, now in sinus rhythm diltiazem on Xarelto. Insulin dependent diabetes type 2. continue levemir and lispro, glyburide sugars uncontrolled due to steroids. Hypercholesterolemia. statin Hypertension. diltiazem Chronic back pain H/O Spinal surgery C3 through C7, vertebral fusion 2012. tramadol and tizanidine History of nephrolithiasis in 2018. ROSLYN continue CPAP morbid obesity complicating care DVT prophylaxis on xarelto VS,Fishbone, I+O VS, Fishbone, I+O Laboratory Tests 06/06/19 05:42 Vital Signs Date Time Temp Pulse Resp B/P (MAP) Pulse Ox O2 Delivery O2 Flow Rate FiO2 06/06/19 14:00 98.3 75 18 137/79 (98) 100 06/06/19 00:47 Room Air 06/05/19 04:00 3.0 I&O- Last 24 Hours up to 6 AM 06/06/19 06:00 Intake Total 2940 ml Output Total 1500 ml Balance 1440 ml ANIL FARAH MD Jun 06, 2019 16:01
[2019-06-06] MEDS ORDERED: PILL CUTTER 1 EACH XX PRN (16:30)
[2019-06-06] MEDS: glyBURIDE 2.5 MG TAB PO SCH (17:42)
[2019-06-06] MEDS: SYMBICORT 160/4.5MCG INHALER 6GM INH SCH (19:57)
[2019-06-06] MEDS: RIVAROXABAN 20 MG TAB (XARELTO) PO SCH (20:47)
[2019-06-06] MEDS: ROSUVASTATIN 10 MG TAB (CRESTOR) PO SCH (20:48)
[2019-06-06] MEDS: LEVEMIR (INSULIN DETEMIR) 1 UNITS/0.01ML SC SCH (20:49)
[2019-06-06] MEDS ORDERED: tiZANidine 4 MG TAB PO SCH (21:00)
[2019-06-06] MEDS ORDERED: traMADol 50 MG TAB PO PRN (21:15)
[2019-06-06 22:00] VITALS: BP 132/58
[2019-06-07] MEDS: SLF 3 ML SYR IV SCH (01:03)
[2019-06-07 02:00] VITALS: BP 142/78
[2019-06-07 06:00] VITALS: BP 148/86
[2019-06-07 06:38] LABS: BLOOD UREA NITROGEN 16 MG/DL (7-18); CALCIUM LEVEL 8.2 MG/DL (8.5-10.1); CARBON DIOXIDE LEVEL 27 MEQ/L (21-32); CHLORIDE LEVEL 103 MEQ/L (98-107); CREATININE FOR GFR 0.66 MG/DL (0.55-1.30); GLOMERULAR FILTRATION RATE > 60.0 (>51); GLUCOSE, FASTING 206 MG/DL (70-100); POTASSIUM SERUM 3.6 MEQ/L (3.5-5.1); SODIUM LEVEL 137 MEQ/L (136-145)
[2019-06-07 07:04] LABS: BASO % 0.1 % (0.0-1.0); HEMATOCRIT 37.9 % (36.0-47.0); LYMPH # 2.9 10^3/uL (1.5-5.0); LYMPH % 42.9 % (24.0-44.0); MEAN CORPUSCULAR HEMOGLOBIN 28.6 pg (27.0-33.0); MEAN CORPUSCULAR HGB CONC 31.7 g/dl (32.0-36.5); MEAN CORPUSCULAR VOLUME 90.2 fl (80.0-96.0); MONO # 0.5 10^3/uL (0.0-0.8); MONO % 7.5 % (0.0-5.0); NEUTROPHILS # 3.3 10^3/uL (1.5-8.5); NEUTROPHILS % 48.9 % (36.0-66.0); PLATELET COUNT, AUTOMATED 239 10^3/uL (150-450); WHITE BLOOD COUNT 6.8 10^3/uL (4.0-10.0)
[2019-06-07] MEDS: BUDESONIDE 0.5 MG/2 ML INHALATION SUSPENSION INH SCH (07:14)
[2019-06-07] MEDS: SYMBICORT 160/4.5MCG INHALER 6GM INH SCH (07:14)
[2019-06-07] MEDS: IPRATROPIUM 0.5MG/ALBUTEROL 2.5MG INH SOL UD 3ML (DUONEB)(J7620) NEB SCH ×2 (07:15→11:26)
[2019-06-07] MEDS: glyBURIDE 2.5 MG TAB PO SCH (08:00)
[2019-06-07 08:01] VITALS: BP 148/86
[2019-06-07] MEDS: lisinopriL 20 MG TAB PO SCH (08:01)
[2019-06-07] MEDS: MONTELUKAST 10 MG TAB PO SCH (08:01)
[2019-06-07] MEDS: OSELTAMIVIR PHOSPHATE 75 MG CAP (TAMIFLU) PO SCH (08:01)
[2019-06-07] MEDS: METOPROLOL TART 50 MG TAB PO SCH (08:01)
[2019-06-07] MEDS: HumaLOG INSULIN (NovoLOG) PER UNIT SC SCH ×2 (08:02→12:35)
[2019-06-07] MEDS: AZELASTINE 137MCG NASAL SPY 30 ML (ASTELIN) SCH (08:06)
[2019-06-07] MEDS ORDERED: LEVEMIR (INSULIN DETEMIR) 1 UNITS/0.01ML SC SCH (09:00)
[2019-06-07] MEDS ORDERED: predniSONE 20 MG TAB PO SCH (09:00)
[2019-06-07] MEDS ORDERED: NYSTATIN 100,000 UNITS/GM TOPICAL PWD 15 GM TOP SCH (09:00)
[2019-06-07 10:00] VITALS: BP 148/79
[2019-06-07] MEDS ORDERED: FLUCONAZOLE 100 MG TAB PO ONE (10:00)
[2019-06-07] MEDS ORDERED: OSEL75CA2 PO (11:04)
[2019-06-07] MEDS ORDERED: PRED10TA2 PO (11:04)
[2019-06-07] MEDS ORDERED: NYST10006 TOP (11:04)
[2019-06-07] MEDS ORDERED: FLUC150T PO (11:07)
--- NOTE | 2019-06-07 11:09 | DS.PDOC ---
Discharge Summary General Date of Admission Jun 04, 2019 at 23:07 Date of Discharge 06/07/19 Discharge Summary PROCEDURES PERFORMED DURING STAY: [None]. DISCHARGE DIAGNOSES: Influenza A Asthma exacerbation Sepsis Intertriginal candidiasis SECONDARY DIAGNOSIS: Atrial fibrillation, Insulin dependent diabetes type 2. Hypercholesterolemia. Hypertension. Chronic obstructive pulmonary disease (COPD), Asthma Obstructive sleep apnea, Morbid obesity, chronic back pain with h/o Spinal surgery C3 through C7, vertebral fusion 2012, History of nephrolithiasis in 2018, Sinus infections COMPLICATIONS/CHIEF COMPLAINT: Influenza A,Sepsis. HISTORY OF PRESENT ILLNESS: See history and physical HOSPITAL COURSE: This is a 53-year-old female presented to the ED with SOB, cough and fever. She was seen her primary care provider and had been on Zyvox for sinus infection. However she continued to have coughing and fever. She also had some midsternal chest pain, especially when coughing. She had been taking Tylenol. She had been using her albuterol at home and was not improving. She came to the emergency room. Upon arrival, temperature was 101.7, pulse 132, respiratory rate 24, and blood pressure was 180/82. Pulse oximetry was 93% on room air. Influenza swabs were done and she was positive for influenza A. She was admitted for Influenza, asthma/ copd exacerbation and sepsis. Sepsis resolved. Influenza A Tamiflu 75 mg by mouth twice a day Also, will start droplet isolation as well Asthma / COPD exacerbation due to above prednisone taper, symbicort/ breo continue nebulizer treatment Continue home Singulair Paroxysmal Atrial fibrillation, now in sinus rhythm diltiazem on Xarelto. Insulin dependent diabetes type 2. continue metformin ,glyburide, treseba insulin and bydeureon sugars uncontrolled due to steroids. Hypercholesterolemia. statin Hypertension. diltiazem Chronic back pain H/O Spinal surgery C3 through C7, vertebral fusion 2012. tramadol and tizanidine History of nephrolithiasis in 2018. ROSLYN continue CPAP morbid obesity complicating care DISCHARGE MEDICATIONS: Please see below. ALLERGIES: Please see below. PHYSICAL EXAMINATION ON DISCHARGE: VITAL SIGNS: Please see below. General Exam: Positive: Alert, Cooperative Eye Exam: Positive: PERRLA, Conjunctiva & lids normal ENT Exam: Positive: Atraumatic, moist mucous membranes, anicteric eyes. Neck Exam: Positive: Supple, no JVD Chest Exam: Positive: Diminished , No wheezing or ronchi Heart Exam: Positive: Rate Normal, Normal S1, Normal S2 Abdomen Exam: Positive: Normal bowel sounds, nontender Extremity Exam: Positive: Normal pulses, no edema Skin Exam: Positive: Breakdown Neuro Exam: Positive: Strength at 5/5 X4 ext, Cranial Nerves 3-12 NL LABORATORY DATA: Please see below. ACTIVITY: [As tolerated]. DIET: Carb consistent DISCHARGE PLAN: Home DISPOSITION: . DISCHARGE INSTRUCTIONS: PMD in 1 week DISCHARGE CONDITION: [Stable]. TIME SPENT ON DISCHARGE: 35 minutes. Vital Signs/I&Os Vital Signs Date Time Temp Pulse Resp B/P (MAP) Pulse Ox O2 Delivery O2 Flow Rate FiO2 06/07/19 06:00 98.4 70 18 148/86 (106) 95 NIPPV (BIPAP/CPAP) 06/05/19 04:00 3.0 I&O- Last 24 Hours up to 6 AM 06/07/19 05:59 Intake Total 1986 ml Balance 1986 ml Laboratory Data Labs 24H Laboratory Tests 2 06/06/19 11:18: Bedside Glucose (Misc Panel) 322H 06/06/19 16:19: Bedside Glucose (Misc Panel) 335H 06/06/19 19:56: Bedside Glucose (Misc Panel) 377H 06/07/19 05:38: Anion Gap 7L, Glomerular Filtration Rate > 60.0, Calcium Level 8.2L 06/07/19 06:40: Immature Granulocyte % (Auto) 0.6, Neutrophils (%) (Auto) 48.9, Lymphocytes (%) (Auto) 42.9, Monocytes (%) (Auto) 7.5H, Eosinophils (%) (Auto) 0.0, Basophils (%) (Auto) 0.1, Neutrophils # (Auto) 3.3, Lymphocytes # (Auto) 2.9, Monocytes # (Auto) 0.5, Eosinophils # (Auto) 0.0, Basophils # (Auto) 0.0, Nucleated Red Blood Cells % (auto) 0.0 CBC/BMP Laboratory Tests 06/07/19 05:38 06/07/19 06:40 FSBS Laboratory Tests Test 06/06/19 11:18 06/06/19 16:19 06/06/19 19:56 Range/Units Bedside Glucose (Misc Panel) 322 335 377 70-105 MG/DL Microbiology Microbiology 06/05/19 Blood Culture - Preliminary, Resulted No Growth after 48 hours. All Specime... 06/04/19 Blood Culture - Preliminary, Resulted No Growth after 48 hours. All Specime... Discharge Medications Scheduled Azelastine HCl (Azelastine HCl) 0.1 % Spr, 2 SPRAYS NA BID, (Reported) Dapagliflozin Propanediol (Farxiga) 10 Mg Tab, 10 MG PO QHS, (Reported) Diltiazem HCl (Diltiazem 24Hr ER) 120 Mg Cap, 120 MG PO DAILY, (Reported) Exenatide Microspheres (Bydureon) 2 Mg/0.65 Ml Pen.injctr, 2 MG SC QWEEK, (Reported) SUNDAYS Fluconazole (Fluconazole) 150 Mg Tablet, 150 MG PO ASDIRECTED for yeast infection every wednesday x 2 times Fluticasone/Vilanterol (Breo Ellipta 200-25 Mcg INH) 1 Inh Inh, 1 PUFF PO DAILY, (Reported) Glyburide (Glyburide) 5 Mg Tab, 10 MG PO BID, (Reported) Insulin Degludec (Tresiba Flextouch U-200) 200 Unit/1 Ml Insuln.pen, 86 UNITS SQ QHS, (Reported) Insulin Human Lispro (Novolog) 100 U/Ml Inj, 1 DOSE SC AC, (Reported) SLIDING SCALE Lisinopril (Lisinopril) 20 Mg Tablet, 20 MG PO DAILY, (Reported) Metformin HCl (Metformin HCl) 1,000 Mg Tablet, 1,000 TAB PO BID, (Reported) Metoprolol Tartrate (Metoprolol Tartrate) 50 Mg Tab, 50 MG PO BID, (Reported) Montelukast Sodium (Montelukast Sodium) 10 Mg Tab, 10 MG PO DAILY, (Reported) Mupirocin (Mupirocin) 22 Gm Oint...g., 1 APLCT TOP DAILY, (Reported) MIX ONE TEASPOON WITH SALT PACKAGE AND USE DIRECTED Nystatin (Nystop) 60 Gm Powder, 0 DOSE TOP BID apply under both breasts and both groins Oseltamivir Phosphate (Oseltamivir Phosphate) 75 Mg Capsule, 75 MG PO BID Prednisone (Prednisone) 10 Mg Tablet, 10 MG PO TAPER 2 tabs daily x 3 days, then 1 tab daily x 3 days and stop Rivaroxaban (Xarelto) 20 Mg Tab, 20 MG PO QHS, (Reported) Rosuvastatin Calcium (Rosuvastatin Calcium) 20 Mg Tablet, 20 MG PO QHS, (Reported) Tizanidine HCl (Tizanidine HCl) 2 Mg Tab, 4 MG PO QHS, (Reported) Tramadol HCl (Tramadol HCl) 50 Mg Tablet, 50 MG PO QHS, (Reported) Scheduled PRN Albuterol Sulf (Albuterol Sulfate) 2.5 Mg/3 Ml Nebu, 1 INH INH QID PRN for SHORTNESS OF BREATH, (Reported) Albuterol Sulfate (Ventolin Hfa) 18 Gm Hfa.aer.ad, 2 PUFF INH Q4H PRN for SHORTNESS OF BREATH, (Reported) Furosemide (Furosemide) 40 Mg Tab, 40 MG PO DAILY PRN for EDEMA, (Reported) Tramadol HCl (Tramadol HCl) 50 Mg Tablet, 50 MG PO TID PRN for PAIN, (Reported) Allergies Coded Allergies: ibuprofen (Verified Allergy, Intermediate, hives, 06/04/19) shellfish derived (Verified Allergy, Intermediate, hives, 06/04/19) erythromycin base (Verified Allergy, Mild, HIVES, 06/04/19) sulfabenzamide (Verified Allergy, Mild, HIVES, 06/04/19) azithromycin (Verified Allergy, Unknown, HIVES, 06/04/19) ANIL FARAH MD Jun 07, 2019 08:06
== END 2019-06-07 14:07 | disposition home or self-care (01) | DRG 720 ==
LOC: M ED 19:33 → M ED INP 23:07 → ENRESERV 23:33 → M PCU 06-05 01:41 → M MSPAV 06-05 17:21
PROVIDERS: ADMIT Internal Medicine; ATTEND Internal Medicine Nephrology
DX: A41.9 Sepsis, unspecified organism (principal); J45.901 Unspecified asthma with (acute) exacerbation; B37.2 Candidiasis of skin and nail; I10 Essential (primary) hypertension; E66.01 Morbid (severe) obesity due to excess calories; E11.9 Type 2 diabetes mellitus without complications; I48.0 Paroxysmal atrial fibrillation; J10.1 Influenza due to other identified influenza virus with other respiratory manifestations; E78.00 Pure hypercholesterolemia, unspecified; J44.9 Chronic obstructive pulmonary disease, unspecified; G47.33 Obstructive sleep apnea (adult) (pediatric); M54.5 Low back pain; Z79.899 Other long term (current) drug therapy; Z79.4 Long term (current) use of insulin; Z88.2 Allergy status to sulfonamides; Z88.8 Allergy status to other drugs, medicaments and biological substances; Z91.013 Allergy to seafood; Z88.1 Allergy status to other antibiotic agents; Z87.891 Personal history of nicotine dependence

== ENCOUNTER → 2019-06-08 | Outpatient (CLI) | payer OTHER ==
[~2019-06-08] MED LIST changes: +FLUC150T PO; +LINE1TAB6 PO; +MUPI2OI TOP; +NYST10006 TOP; +OSEL75CA2 PO
--- NOTE | 2019-06-09 08:00 | REPVR ---
PROCEDURE INFORMATION: Exam: CT Maxillofacial Without Contrast, Sinus Exam date and time: 06/08/2019 4:46 PM Age: 53 years old Clinical indication: Pain; Other: Sinus; Additional info: Chronic pansinusitis TECHNIQUE: Imaging protocol: CT Maxillofacial without contrast. Focus on the sinuses. Radiation optimization: All CT scans at this facility use at least one of these dose optimization techniques: automated exposure control; mA and/or kV adjustment per patient size (includes targeted exams where dose is matched to clinical indication); or iterative reconstruction. COMPARISON: CT BRAIN LAB SINUSES 08/05/2017 3:04 PM FINDINGS: Limitations: Examination is limited by motion artifact. Sagittal reformatted images were not submitted. Frontal sinuses: Normal. No air-fluid levels. Ethmoid air cells: Mucosal thickening in the ethmoid sinuses. Sphenoid sinuses: Mild mucosal thickening in the sphenoid sinuses. Maxillary sinuses: Moderate mucosal thickening in the maxillary sinuses. Orbits: Orbits are normal. Globes are unremarkable. Nasal cavity/Septum: Unremarkable. Dental: Multiple dental cavities. Soft tissues: Unremarkable. Bones/joints: Unremarkable. IMPRESSION: 1. Chronic paranasal sinus disease. Overall increased from prior. 2. Multiple dental cavities. Electronically signed by: Bhanu Heaton On 06/09/2019 07:59:52 AM
== END ==
LOC: M RAD 16:10
PROVIDERS: ATTEND Specialist
DX: J32.4 Chronic pansinusitis (principal)

== ENCOUNTER 2019-12-01 14:09 | Emergency (ER) | payer OTHER ==
[~2019-12-01] VITALS: Ht 175.3 cm; Wt 122.2 kg
[2019-12-01 14:09] VITALS: BP 138/69
[~2019-12-01 14:09] MED LIST changes: -AMLO10TA5 PO; +AMLO1TAB25 PO
[2019-12-01] MEDS ORDERED: methylPREDNISolone 125MG 2ML VIAL IV ONE (15:00)
[2019-12-01] MEDS ORDERED: COMBIVENT RESPIMAT 100-20MCG INHALER 4GM INH ONE (15:00)
--- NOTE | 2019-12-01 15:18 | REPVR ---
PROCEDURE INFORMATION: Exam: XR Chest, 2 Views Exam date and time: 12/01/2019 2:40 PM Age: 54 years old Clinical indication: Chest pain; Type not specified TECHNIQUE: Imaging protocol: XR of the chest Views: 2 views. COMPARISON: CT Chest without contrast 06/04/2019 11:16 PM FINDINGS: Lungs: Interstitial prominence. Mild left basilar airspace disease. Pleural space: Small left pleural effusion. Heart/Mediastinum: . No cardiomegaly. Bones/joints: Cervical spine fusion. IMPRESSION: Interstitial prominence and mild left basilar airspace/pleural disease. Electronically signed by: Abel Jenkins On 12/01/2019 15:18:20 PM
[2019-12-01 16:08] LABS: BASO % 0.4 % (0.0-1.0); EOS # 0.4 10^3/uL (0.0-0.5); EOS % 3.6 % (0.0-3.0); HEMOGLOBIN 12.5 g/dl (12.0-15.5); LYMPH # 3.2 10^3/uL (1.5-5.0); LYMPH % 32.1 % (24.0-44.0); MEAN CORPUSCULAR HEMOGLOBIN 28.3 pg (27.0-33.0); MEAN CORPUSCULAR HGB CONC 32.1 g/dl (32.0-36.5); MEAN CORPUSCULAR VOLUME 88.2 fl (80.0-96.0); MONO # 0.7 10^3/uL (0.0-0.8); MONO % 6.7 % (0.0-5.0); NEUTROPHILS # 5.7 10^3/uL (1.5-8.5); NEUTROPHILS % 56.8 % (36.0-66.0); PLATELET COUNT, AUTOMATED 263 10^3/uL (150-450); RED BLOOD COUNT 4.42 10^6/uL (4.00-5.40)
[2019-12-01 16:18] LABS: INR 0.95; PARTIAL THROMBOPLASTIN TIME 26.3 SECONDS (25.0-38.4); PROTHROMBIN TIME 12.9 SECONDS (11.8-14.0)
[2019-12-01 16:30] LABS: ALBUMIN 3.3 GM/DL (3.2-5.2); ALT/SGPT 22 U/L (12-78); BILIRUBIN,DIRECT < 0.1 MG/DL (0.0-0.2); BILIRUBIN,TOTAL 0.3 MG/DL (0.2-1.0); BLOOD UREA NITROGEN 15 MG/DL (7-18); CALCIUM LEVEL 9.3 MG/DL (8.5-10.1); CARBON DIOXIDE LEVEL 26 MEQ/L (21-32); CHLORIDE LEVEL 105 MEQ/L (98-107); CK-MB VALUE MASS < 1.0 NG/ML (<3.6); CPK CREATINE PHOSPHOKINASE 72 U/L (26-192); GLOMERULAR FILTRATION RATE > 60.0 (>51); GLUCOSE, FASTING 311 MG/DL (70-100); LIPASE 124 U/L (73-393); MB/CK RELATIVE INDEX 1.39 (< OR =4); POTASSIUM SERUM 4.3 MEQ/L (3.5-5.1); SODIUM LEVEL 138 MEQ/L (136-145); TOTAL PROTEIN 7.1 GM/DL (6.4-8.2); TROPONIN I < 0.02 NG/ML (< 0.10)
[2019-12-01] MEDS ORDERED: ISOVUE-370 76% 100ML VIAL As Ordered ONE (17:03)
--- NOTE | 2019-12-01 17:34 | REPVR ---
PROCEDURE INFORMATION: Exam: US Duplex Lower Extremity Veins, Bilateral Exam date and time: 12/01/2019 5:19 PM Age: 54 years old Clinical indication: Swelling (edema) of limb; Lower extremity, bilateral; Additional info: Leg edema R/O dvt TECHNIQUE: Imaging protocol: Real-time duplex ultrasound of the extremities with 2-D blake scale, color Doppler flow and spectral waveform analysis with image documentation. Complete exam focused on the bilateral lower extremity veins. COMPARISON: US Duplex, Ext,LOWER veins,unilat RIGHT 08/15/2018 1:53 PM FINDINGS: Right deep veins: Common femoral, femoral, proximal profunda femoral and popliteal veins are patent without thrombus. Normal Doppler waveforms. Normal compressibility and/or augmentation response. Right superficial veins: Saphenofemoral junction is patent without thrombus. Left deep veins: Common femoral, femoral, proximal profunda femoral and popliteal veins are patent without thrombus. Normal Doppler waveforms. Normal compressibility and/or augmentation response. Left superficial veins: Saphenofemoral junction is patent without thrombus. Soft tissues: Unremarkable. IMPRESSION: No evidence of deep vein thrombosis. Electronically signed by: Osbaldo Quan On 12/01/2019 17:33:34 PM
--- NOTE | 2019-12-01 18:09 | REPVR ---
PROCEDURE INFORMATION: Exam: CT Angiography Chest With Contrast Exam date and time: 12/01/2019 5:45 PM Age: 54 years old Clinical indication: Shortness of breath; Additional info: SOB, hurts to breathe TECHNIQUE: Imaging protocol: Computed tomographic angiography of the chest with intravenous contrast. 3D rendering (Not supervised by radiologist): MIP and/or 3D reconstructed images were created by the technologist. Radiation optimization: All CT scans at this facility use at least one of these dose optimization techniques: automated exposure control; mA and/or kV adjustment per patient size (includes targeted exams where dose is matched to clinical indication); or iterative reconstruction. Contrast material: ISOVUE 370; Contrast volume: 75 ml; Contrast route: INTRAVENOUS (IV); COMPARISON: CT ANGIO CHEST 05/18/2017 7:28 PM FINDINGS: Pulmonary arteries: Borderline contrast enhancement of the pulmonary arteries with main pulmonary artery density of 144 Hounsfield units. No large central pulmonary arterial filling defect. Peripheral pulmonary arteries are not able to be evaluated because of significant motion artifact. Aorta: No thoracic aortic aneurysm or dissection. Lungs: Pulmonary vascular/interstitial pattern does not suggest active pulmonary edema. No suspicious lung mass or air space process. Atelectasis is seen dependently at the left lung base. Pleural space: No pleural effusion or pneumothorax. Heart: Borderline cardiac enlargement. No pericardial effusion. Lymph nodes: Small, nonspecific mediastinal nodes are present. Bones/joints: Bony structures show no acute fracture or destructive process. Cervical spine fixation hardware is present. IMPRESSION: 1. No evidence of acute, central pulmonary embolus. Peripheral pulmonary arterial evaluation is limited by cardiac and respiratory motion artifact. 2. No evidence of aortic dissection. 3. Dependent left basilar atelectasis. Electronically signed by: Osbaldo Quan On 12/01/2019 18:09:06 PM
[2019-12-01 19:53] VITALS: O2SAT 93
[2019-12-01] MEDS ORDERED: PRED20TA PO (20:11)
--- NOTE | 2019-12-13 16:51 | ECGEPIP ---
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
== END 2019-12-01 20:32 | disposition home or self-care (01) ==
LOC: M ED 14:09
DX: J06.9 Acute upper respiratory infection, unspecified (principal); E11.9 Type 2 diabetes mellitus without complications; I10 Essential (primary) hypertension; J44.9 Chronic obstructive pulmonary disease, unspecified; J45.909 Unspecified asthma, uncomplicated; I48.91 Unspecified atrial fibrillation; E78.5 Hyperlipidemia, unspecified; G47.33 Obstructive sleep apnea (adult) (pediatric); Z79.899 Other long term (current) drug therapy; Z79.82 Long term (current) use of aspirin; Z79.4 Long term (current) use of insulin; Z79.01 Long term (current) use of anticoagulants; Z88.1 Allergy status to other antibiotic agents; Z88.2 Allergy status to sulfonamides; Z88.8 Allergy status to other drugs, medicaments and biological substances; Z91.018 Allergy to other foods; Z87.891 Personal history of nicotine dependence
CPT/HCPCS: 71046; 71275; 80048; 80076; 82550; 82553; 83690; 84439; 84443; 85025; 85610; 85730; 87486; 87581; 87633; 87798; 93005; 93041; 93970; 94640; 94760; 96374; 99284; J2930; Q9967

== ENCOUNTER 2020-02-09 18:55 | Emergency (ER) | payer OTHER ==
[~2020-02-09] VITALS: Ht 175.3 cm; Wt 123.5 kg
[2020-02-09] MEDS ORDERED: DULE200A INH (20:04)
[2020-02-09 21:16] LABS: VENOUS BASE EXCESS -1.6 (-2.0-2.0); VENOUS HCO3 24.3 MEQ/L (23.0-27.0); VENOUS PARTIAL PRESSURE CO2 45.1 mmHg (38.0-50.0); VENOUS PARTIAL PRESSURE O2 33.5 mmHg (30.0-50.0); VENOUS PH 7.349 UNITS (7.330-7.430); VENOUS STANDARD HCO3 22.4 MEQ/L; VENOUS TOTAL CO2 25.7 MEQ/L (24.0-28.0)
[2020-02-09 21:17] LABS: BASO % 0.4 % (0.0-1.0); EOS # 0.3 10^3/uL (0.0-0.5); EOS % 2.7 % (0.0-3.0); HEMATOCRIT 41.6 % (36.0-47.0); HEMOGLOBIN 13.1 g/dl (12.0-15.5); LYMPH # 3.5 10^3/uL (1.5-5.0); LYMPH % 36.4 % (24.0-44.0); MEAN CORPUSCULAR HEMOGLOBIN 27.7 pg (27.0-33.0); MEAN CORPUSCULAR HGB CONC 31.5 g/dl (32.0-36.5); MEAN CORPUSCULAR VOLUME 87.9 fl (80.0-96.0); MONO # 0.6 10^3/uL (0.0-0.8); NEUTROPHILS # 5.2 10^3/uL (1.5-8.5); NEUTROPHILS % 54.3 % (36.0-66.0); PLATELET COUNT, AUTOMATED 293 10^3/uL (150-450); RED BLOOD COUNT 4.73 10^6/uL (4.00-5.40); WHITE BLOOD COUNT 9.5 10^3/uL (4.0-10.0)
--- NOTE | 2020-02-09 21:26 | REPVR ---
PROCEDURE INFORMATION: Exam: XR Chest, 1 View Exam date and time: 02/09/2020 7:37 PM Age: 54 years old Clinical indication: Other: Dyspnea/cough TECHNIQUE: Imaging protocol: XR of the chest Views: 1 view. COMPARISON: CR Chest, 2 view PA, Lat 12/01/2019 2:32 PM FINDINGS: Lungs: Degree of lung inflation is normal. No evidence of pulmonary edema. No focal consolidation or parenchymal lung mass. Pleural space: No pleural effusion or pneumothorax. Heart/Mediastinum: Cardiac silhouette appears normal. No adenopathy or hilar mass. Bones/joints: Osseous structures show no concerning abnormality. Cervical spine fixation hardware is present. IMPRESSION: No acute or focal cardiopulmonary process. Electronically signed by: Osbaldo Quan On 02/09/2020 21:25:44 PM
[2020-02-09 21:27] LABS: INR 0.83; PROTHROMBIN TIME 11.6 SECONDS (12.5-14.3)
[2020-02-09] MEDS ORDERED: ALBUTEROL 90 MCG/ACT 8GM HFA INHALER INH SCH (21:30)
[2020-02-09] MEDS ORDERED: dexameTHASONE 20MG/5ML VIAL (J1100 PER 1MG) IV ONE (21:30)
[2020-02-09 21:50] LABS: ALBUMIN 3.6 GM/DL (3.2-5.2); ALT/SGPT 21 U/L (12-78); BILIRUBIN,DIRECT < 0.1 MG/DL (0.0-0.2); BILIRUBIN,TOTAL 0.3 MG/DL (0.2-1.0); BLOOD UREA NITROGEN 18 MG/DL (7-18); CALCIUM LEVEL 8.6 MG/DL (8.5-10.1); CARBON DIOXIDE LEVEL 27 MEQ/L (21-32); CHLORIDE LEVEL 100 MEQ/L (98-107); CK-MB VALUE MASS < 1.0 NG/ML (<3.6); CPK CREATINE PHOSPHOKINASE 65 U/L (26-192); CREATININE FOR GFR 0.87 MG/DL (0.55-1.30); GLOMERULAR FILTRATION RATE > 60.0 (>51); GLUCOSE, FASTING 395 MG/DL (70-100); MB/CK RELATIVE INDEX 1.54 (< OR =4); NT-PRO BNP 68 PG/ML (<125); POTASSIUM SERUM 4.2 MEQ/L (3.5-5.1); SODIUM LEVEL 134 MEQ/L (136-145); THYROXINE (T4) 11.3 UG/DL (4.5-12.0); TOTAL PROTEIN 7.6 GM/DL (6.4-8.2); TROPONIN I < 0.02 NG/ML (< 0.10)
[2020-02-09] MEDS ORDERED: ISOVUE-370 76% 100ML VIAL As Ordered ONE (21:52)
--- NOTE | 2020-02-09 22:37 | REPVR ---
PROCEDURE INFORMATION: Exam: CT Angiography Chest With Contrast Exam date and time: 02/09/2020 10:12 PM Age: 54 years old Clinical indication: Chest pain; Radiating; Additional info: Chest pain/shortness of breath TECHNIQUE: Imaging protocol: Computed tomographic angiography of the chest with intravenous contrast. 3D rendering (Not supervised by radiologist): MIP and/or 3D reconstructed images were created by the technologist. Radiation optimization: All CT scans at this facility use at least one of these dose optimization techniques: automated exposure control; mA and/or kV adjustment per patient size (includes targeted exams where dose is matched to clinical indication); or iterative reconstruction. Contrast material: ISOVUE 370; Contrast volume: 75 ml; Contrast route: INTRAVENOUS (IV); COMPARISON: CT ANGIO CHEST 12/01/2019 5:41 PM FINDINGS: Pulmonary arteries: See "Aorta" finding. Aorta: Contrast bolus timing is optimized for the aorta. Pulmonary arterial density is only 73 Hounsfield units, which is not diagnostic for pulmonary arterial evaluation. Exam is also compromised by motion No thoracic aortic aneurysm or dissection. Great vessels off aortic arch: Atherosclerotic calcifications in the coronary vessels. Lungs: Pulmonary vascular/interstitial pattern does not suggest active pulmonary edema. No central endobronchial lesion. Airspace filling process in the posterior right lung base suggesting nonconsolidated pneumonia Pleural space: No pleural effusion or pneumothorax. Heart: No overt cardiac enlargement or abnormal volume of pericardial fluid. Lymph nodes: Small, nonspecific mediastinal nodes are present. Bones/joints: Bony structures show no acute fracture or destructive process. Soft tissues: No asymmetric abnormality of the extrathoracic soft tissues. IMPRESSION: 1. Nondiagnostic pulmonary arterial evaluation secondary to contrast bolus timing. Pulmonary artery outflow tract density of 73 Hounsfield units does not allow pulmonary artery evaluation and significant respiratory motion artifact is also present. 2. No evidence of thoracic aortic aneurysm or dissection. 3. Probable pneumonia in the posterior right lower lobe. Electronically signed by: Osbaldo Quan On 02/09/2020 22:37:04 PM
[2020-02-09] MEDS ORDERED: CEFD1CAP8 PO (22:59)
[2020-02-09] MEDS ORDERED: PRED20TA PO (22:59)
[2020-02-09] MEDS ORDERED: DOXY100C37 PO (22:59)
[2020-02-09] MEDS ORDERED: DOXYCYCLINE HYCLATE 100MG TABLET PO ONE (23:00)
[2020-02-09] MEDS ORDERED: cefTRIAXone SOD 2 GM in D5W MINI-BAG PLUS 50 ML IV ONE (23:00)
[2020-02-10 00:35] VITALS: BP 161/70
--- NOTE | 2020-02-10 05:13 | ECGEPIP ---
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
== END 2020-02-10 00:38 | disposition home or self-care (01) ==
LOC: M ED 18:55
DX: J44.0 Chronic obstructive pulmonary disease with (acute) lower respiratory infection (principal); J44.1 Chronic obstructive pulmonary disease with (acute) exacerbation; I10 Essential (primary) hypertension; E11.9 Type 2 diabetes mellitus without complications; E78.5 Hyperlipidemia, unspecified; Z79.4 Long term (current) use of insulin; Z79.51 Long term (current) use of inhaled steroids; Z79.899 Other long term (current) drug therapy; Z88.1 Allergy status to other antibiotic agents; Z91.013 Allergy to seafood; Z88.8 Allergy status to other drugs, medicaments and biological substances
CPT/HCPCS: 71045; 71275; 80048; 80076; 82550; 82553; 82803; 83605; 83880; 84436; 84443; 85025; 85610; 87040; 87486; 87581; 87633; 87798; 93005; 93041; 94640; 96361; 96374; 99284; J0696; J1100; Q9967

== ENCOUNTER 2020-03-19 15:56 | Emergency (ER) | payer OTHER ==
[~2020-03-19] VITALS: Ht 175.3 cm; Wt 123.7 kg
[~2020-03-19 15:56] MED LIST changes: +DULE200A INH; -MONT10TA4 PO; +MONT5TAB2 PO
[2020-03-19] MEDS ORDERED: NORCO, ANEXSIA 5/325MG TABLET (HYDROcodone/ACETAMINOPHEN) PO ONE (16:45)
[2020-03-19] MEDS ORDERED: GABAPENTIN 300 MG CAP PO ONE (16:45)
--- NOTE | 2020-03-19 17:26 | REPVR ---
PROCEDURE INFORMATION: Exam: CT Lumbar Spine Without Contrast Exam date and time: 03/19/2020 5:03 PM Age: 54 years old Clinical indication: Low back pain and other: Down left leg; Additional info: Pain/numbness down left leg TECHNIQUE: Imaging protocol: Computed tomography images of the lumbar spine without contrast. Radiation optimization: All CT scans at this facility use at least one of these dose optimization techniques: automated exposure control; mA and/or kV adjustment per patient size (includes targeted exams where dose is matched to clinical indication); or iterative reconstruction. COMPARISON: No relevant prior studies available. FINDINGS: Vertebrae: Mild degenerative disc disease and facet arthrosis throughout the lumbar spine. No fracture. Mild sclerosis within the superior endplate of S1, likely discogenic. L1-L2: No significant disc protrusion. No severe spinal canal stenosis. No significant neural foraminal narrowing. L2-L3: No significant disc protrusion. No spinal canal stenosis. No neural foraminal narrowing. L3-L4: Posterior broad-based disc protrusion and bilateral facet hypertrophy. Grade 1 anterolisthesis of L3 with disc uncovering. No focal disc protrusion. Mild to moderate spinal stenosis. L4-L5: Mild posterior broad-based disc protrusion. No focal disc protrusion or spinal stenosis. Mild bilateral facet arthrosis. L5-S1: Mild posterior broad-based disc protrusion. No focal disc protrusion or spinal stenosis. Mild bilateral facet hypertrophy. Sacrum/coccyx: Mild degenerative arthrosis of the sacroiliac joints. 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 Stomach and bowel: Mild colonic diverticulosis. Vasculature: Mild atherosclerosis of the abdominal aorta and iliac arteries. No aneurysm. Soft tissues: Unremarkable. IMPRESSION: Degenerative spondylosis of the lumbar spine, most severe at L3-L4 where there is a grade 1 anterolisthesis of L3, posterior broad-based disc protrusion and mild to moderate spinal stenosis. Electronically signed by: Lucas Baumann On 03/19/2020 17:26:36 PM
--- NOTE | 2020-03-19 17:37 | REP ---
INDICATION: pain. COMPARISON: None TECHNIQUE: AP pelvis, AP frog-lateral views left hip FINDINGS: AP pelvis: There is mild bilateral asymmetric hip joint space narrowing. There is no acute fracture, dislocation, or subluxation. Two views left hip: There is mild asymmetric joint space narrowing. There is no fracture, dislocation, or subluxation. IMPRESSION: Chronic changes as described above. <Electronically signed by Brayan Gibosn > 03/19/20 [id number]
--- NOTE | 2020-03-19 18:19 | REPVR ---
PROCEDURE INFORMATION: Exam: US Duplex Left Lower Extremity Veins, Limited Exam date and time: 03/19/2020 6:00 PM Age: 54 years old Clinical indication: Pain; Leg, upper; Left; Additional info: Pain/swelling/numbness left leg TECHNIQUE: Imaging protocol: Real-time Duplex ultrasound of the Left Lower Extremity with 2-D blake scale, color Doppler flow and spectral waveform analysis with image documentation. Limited exam focused on the left lower extremity veins. COMPARISON: US Duplex, Ext LOWER veins, bilat 12/01/2019 5:03 PM FINDINGS: Left deep veins: Unremarkable. The common femoral, femoral, proximal profunda femoral and popliteal veins are patent without thrombus. Normal Doppler waveforms. Normal compressibility and/or augmentation response. Left superficial veins: Unremarkable. Saphenofemoral junction is patent without thrombus. Soft tissues: Unremarkable. IMPRESSION: No evidence of deep vein thrombosis. Electronically signed by: Toni Hines On 03/19/2020 18:18:59 PM
[2020-03-19] MEDS ORDERED: NEUR300C PO (18:41)
[2020-03-19] MEDS ORDERED: NORC1TAB7 PO (18:41)
[2020-03-19 18:50] VITALS: BP 142/65
--- NOTE | 2020-03-19 19:34 | ED PDOC ---
Post-Departure Follow-Up ct ls spine faxed to [facility] for fu Jhon Mccurdy MD Mar 19, 2020 19:34
== END 2020-03-19 18:50 | disposition home or self-care (01) ==
LOC: M ED 15:56
DX: M16.12 Unilateral primary osteoarthritis, left hip (principal); M54.42 Lumbago with sciatica, left side; M47.816 Spondylosis without myelopathy or radiculopathy, lumbar region; M48.061 Spinal stenosis, lumbar region without neurogenic claudication; M51.26 Other intervertebral disc displacement, lumbar region; I48.91 Unspecified atrial fibrillation; E11.9 Type 2 diabetes mellitus without complications; I10 Essential (primary) hypertension; E78.5 Hyperlipidemia, unspecified; J44.9 Chronic obstructive pulmonary disease, unspecified; F41.9 Anxiety disorder, unspecified; Z88.1 Allergy status to other antibiotic agents; Z88.2 Allergy status to sulfonamides; Z91.013 Allergy to seafood; Z79.4 Long term (current) use of insulin; Z79.01 Long term (current) use of anticoagulants; Z79.899 Other long term (current) drug therapy; Z79.51 Long term (current) use of inhaled steroids

== ENCOUNTER → 2020-11-27 | Outpatient (REF) ==
[~2020-11-27] MED LIST changes: -CEFD1CAP8 PO; +CEFD300C41 PO; +DILT-44 PO; -DILT120C48 PO; +DOXY-443 PO; -DOXY100C37 PO; +GABA-282 PO; -GABA-843 PO; -GLYB5TA PO; +GLYB5TAB6 PO; -LEVO500T3 PO; +LEVO500T4 PO; -LISI-538 PO; +LISI20TA33 PO; +MONT10TA97 PO; -MONT5TAB2 PO; +NEUR300C PO; +NORC1TAB7 PO
== END ==
LOC: M PLAIMG 13:38
PROVIDERS: ATTEND Internal Medicine
DX: M50.31 Other cervical disc degeneration, high cervical region (principal); M50.321 Other cervical disc degeneration at C4-C5 level; M50.322 Other cervical disc degeneration at C5-C6 level; M50.323 Other cervical disc degeneration at C6-C7 level; M47.897 Other spondylosis, lumbosacral region